=== PATIENT | male | born 1995 | race Caucasian/White ===

== ENCOUNTER 2023-11-01 20:24 | Emergency (ER) | payer MEDICAID, SELFPAY ==
--- NOTE | ~2023-11-01 | XR_ITS ---
EXAMINATION: XR HAND/WRIST, LEFT CLINICAL INFORMATION: Laceration COMPARISON: None TECHNIQUE: PA, lateral, and oblique views of the left hand and wrist. FINDINGS: Bone alignment is normal. No fracture or dislocation. Normal joint spaces. Normal soft tissues. No abnormal air collection or soft tissue foreign body. XR/XR hand wrist LT IMPRESSION: Unremarkable exam.
[2023-11-01 20:49] VITALS: BP 142/94; PULSE 81; RESP 18; TEMP 36.6; O2SAT 96; BMI 29.6
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
== END 2023-11-01 23:05 | disposition left against medical advice (07) ==
LOC: HO.ED 22:53
PROVIDERS: Emergency Provider Emergency Medicine
DX: S61.412A Laceration without foreign body of left hand, initial encounter (principal); X58.XXXA Exposure to other specified factors, initial encounter; Y93.9 Activity, unspecified; Y92.9 Unspecified place or not applicable; Y99.9 Unspecified external cause status
CPT/HCPCS: 73110; 73130; 99281; 99283

== ENCOUNTER 2023-11-03 12:02 | Emergency (ER) | payer MEDICAID, SELFPAY ==
[2023-11-03 12:04] VITALS: BP 129/79; PULSE 90; RESP 18; TEMP 36.6; O2SAT 96; BMI 29.2
--- NOTE | 2023-11-03 12:13 | ED_ITS ---
HPI - General Adult General Chief complaint: Wound/Laceration Stated complaint: hand laceration Time Seen by Provider: 11/03/23 13:46 Source: patient Mode of arrival: ambulatory Limitations: no limitations History of Present Illness ED Provider: Rea GALLOWAY narrative: Patient is a 28-year-old male who presents emergency department for evaluation of accidental laceration to the palmar aspect of the base of his left palm 2.5 days ago. He was cutting something with a knife when it slipped and accidentally cut his hand. He states that he initially came to the emergency department but left before being treated reporting that he was too anxious to remain waiting room. He states today he realized that the edges were becoming slightly red and he wanted to have it evaluated. Was trying to keep the bleeding controlled with gauze and he noticed that gauze was stuck in the wound bed as well. He denies fevers chills, inability to move the digits or wrist. Related Data Previous Rx's ?Medication ?Instructions ?Recorded cephalexin 500 mg capsule 500 mg PO QID #28 caps 11/03/23 Allergies Allergy/AdvReac Type Severity Reaction Status Date / Time No Known Allergies Allergy Verified 11/03/23 12:08 Review of Systems Review of Systems: Yes all other systems are reviewed and are negative PMFSH Social History Social History Advance Directives: No Advance Directives Information Provided: No Do you have a plan to hurt others: No Plan Physical Exam ED Vital Signs: Vital Signs - 24 hr 11/03/23 12:04 Temperature 97.9 F Pulse Rate 90 Respiratory Rate 18 Blood Pressure 129/79 Pulse Oximetry 96 Oxygen Delivery Method Room Air BMI result Body Mass Index 29.2 Appearance: Alert.?Oriented to person, place and time. No acute distress .?Normal affect.? CVS: Heart sounds normal. Normal heart rate and rhythm.? Pulses normal.?? Respiratory: No respiratory distress.? Lung sounds clear to auscultation bilaterally?? Skin: Skin warm and dry.? Normal skin color.? Extremities: 5 cm linear laceration to the base of the left palm, edges well approximated, mild surrounding erythema, appearing to have particles gauze within the wound bed. 2+ radial pulse bilaterally. Neuro: Moves all extremities spontaneously. Sensation intact bilaterally. Ambulates with normal steady gait. Course Course Course Narrative: RME performed by Patito Falcon, PA-C. Patient is a 28 year old assigned male at presenting to the emergency department with a left hand laceration. Patient states 2 days ago, he was cutting something and the knife slipped and cut his hand. Detailed physical exam and review of systems are deferred to the shear grinder operator. Patient placed back in the waiting room pending room availability. Medical Decision Making Medical Decision Making MDM Narrative: patient is a 28-year-old man right-hand dominant presenting to emergency department for evaluation of accidental laceration to the palmar aspect of his left hand as per HPI. laceration was irrigated extensively with normal saline and Betadine, given the laceration has been present for greater than 48 hours do not recommend primary closure, rather Steri-Strips were used to approximate the edges better at this time, bleeding is well controlled. There is mild erythema around the edges of the laceration, will be started on a course of cephalexin and discussed evaluation drank for signs of infection. Tdap was updated today. All questions answered. Stable for discharge Differential Diagnosis Differential Diagnoses: The differential diagnosis associated with the presentation includes ( See narrative above) Prescription Management I considered prescription management with: Antibiotic Discharge Plan Discharge Clinical Impression: Laceration of hand Qualifiers: Encounter type: initial encounter Foreign body presence: with foreign body Laterality: left Qualified Code(s): S61.422A - Laceration with foreign body of left hand, initial encounter Patient Disposition: Home, Self-Care Instructions: Laceration (ED), Steristrips (ED) Additional Instructions: You can take ibuprofen 200 mg, 3 tablets (600mg) every 6-8 hours as needed for pain, in addition to Tylenol 500 mg, 2 tablets (1,000mg) every 4-6 hours as needed for pain, but not to exceed 3 doses daily (3,000mg).? Keep the area clean and dry. complete the entire course of antibiotics as prescribed. Prescriptions: New cephalexin 500 mg capsule 500 mg PO QID Qty: 28 0RF Referrals: Isidra Sutton MD [Primary Care Provider] - Print Language: Nigerien
[2023-11-03 14:36] VITALS: BP 141/72; PULSE 66; RESP 18; TEMP 36.8; O2SAT 97
[2023-11-03] MEDS: Diphth,Pertus(ACell),Tet Adult 0.5 ML SYRINGE IM (15:00)
[2023-11-03 15:02] VITALS: BP 141/72; PULSE 66; RESP 18; TEMP 36.8; O2SAT 97
[2023-11-03 15:03] VITALS: BP 141/72; PULSE 66; RESP 16; TEMP 36.8; O2SAT 97
== END 2023-11-03 15:06 | disposition home or self-care (01) ==
PROVIDERS: Emergency Provider Emergency Medicine; PCP Family Medicine
DX: S61.422A Laceration with foreign body of left hand, initial encounter (principal); M79.642 Pain in left hand; W26.0XXA Contact with knife, initial encounter; Y93.9 Activity, unspecified; Y92.009 Unspecified place in unspecified non-institutional (private) residence as the place of occurrence of the external cause; Y99.8 Other external cause status; Z23 Encounter for immunization
CPT/HCPCS: 90471; 90715; 99283; 99284

== ENCOUNTER 2024-04-07 20:01 | Inpatient (IN) | payer MEDICAID, OTHER, SELFPAY ==
--- NOTE | ~2024-04-07 | XR_ITS ---
EXAMINATION: XR HAND, RIGHT CLINICAL INFORMATION: pain, injury COMPARISON: None available. TECHNIQUE: PA, lateral, and oblique views of the right hand. FINDINGS: The bones and soft tissues are normal. No fracture. Alignment is anatomic. Joint spaces are maintained. No erosions or soft tissue calcifications. XR/XR hand RT min 3V IMPRESSION: No fracture or dislocation. Electronically signed by: Matthew López DO 04/07/2024 10:36 PM [facility]
[2024-04-07 20:07] VITALS: BP 136/80; PULSE 75; RESP 20; TEMP 37.1; O2SAT 99; BMI 27.1
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
--- NOTE | 2024-04-07 20:31 | PC.NURSE ---
Xray obtained at bedside, awaiting ED provider evaluation. Patient registration at bedside.
--- NOTE | 2024-04-07 21:41 | PC.NURSE ---
CARE team at bedside speaking with patient. Pt is pleasant/calm/cooperative at this time. Reported to this RN & FLY Lawrence auditory hallucinations I hear robot voices or Ruthy Salazargretel's voice. They're not telling me to do anything, they're just kind of there and annoying. Denies SI/HI. Denies visual hallucinations. Reports that this has been ongoing over the past 2 years. States I don't want to talk to psych or anything. I think that it's the environment I'm in or something. I'm gonna go to my Dad's house once I get my hand fixed . States that he's not taking any medications at this time, but is open to trying medications if they're gonna work .
[2024-04-07 22:25] LABS: MANUAL DIFF FLAG NO
[2024-04-07 22:28] LABS: Basophils Absolute Auto 0.1 X10*3/uL (0.0-0.2); Basophils Percent Auto 0.5 % (0-2); Eosinophils Absolute Auto 0.1 X10*3/uL (0.0-0.4); Hemoglobin 16.4 g/dl (14.0-18.0); Imm Gran Abs Auto 0.04 X10*3/uL (0.00-0.03); Imm Gran Pct Auto 0.4 % (0.0-0.4); Lymphocytes Absolute Auto 1.6 X10*3/uL (1.2-4.9); Lymphocytes Percent Auto 14.5 % (20-40); Mean Corpuscular HGB Conc 34.9 g/dl (31.0-36.0); Mean Corpuscular Hemoglobin 31.2 pg (27.0-33.0); Mean Corpuscular Volume 89.5 fL (80.0-98.0); Mean Platelet Volume 8.6 fL (9.4-12.4); Monocytes Absolute Auto 0.9 X10*3/uL (0.1-1.2); Monocytes Percent Auto 8.1 % (2-11); Neutrophils Absolute Auto 8.3 x10*3/uL (2.0-8.3); Neutrophils Percent Auto 75.5 % (45-73); Platelet Count 288 X10*3/uL (160-400); Red Blood Count 5.25 X10*6/uL (4.60-5.80)
[2024-04-07 22:48] LABS: Alanine Aminotransferase 20 U/L (0-40); Albumin Level 4.4 g/dL (3.5-5.0); Alkaline Phosphatase 75 U/L (39-117); Amphetamine Screen Urine Not Detected (Not Detect); Anion Gap 12 (12-20); Aspartate Amino Transferase 21 U/L (5-37); Barbiturates, Urine Not Detected (Not Detect); Benzodiazepines Screen Urine Not Detected (Not Detect); Bilirubin Direct 0.1 mg/dL (0.0-0.5); Bilirubin Total 0.4 mg/dL (0.0-1.0); Blood Urea Nitrogen 14 mg/dL (9-16); Buprenorphine Scr Not Detected (Not Detect); Calcium 9.3 mg/dL (8.4-10.2); Cannabinoid Screen Urine POSITIVE (Not Detect); Carbon Dioxide 25 mmol/L (22-29); Chloride 110 mmol/L (96-108); Cocaine Screen Urine Not Detected (Not Detect); Estimated Glomerular Filt Rate > 60; Ethanol < 10 mg/dL; Fentanyl, urine POSITIVE (Not Detect); Glucose Random 85 mg/dL (60-115); Methadone Screen, Urine Not Detected (Not Detect); Opiate Screen Urine Not Detected (Not Detect); Oxycodone Screen Urine Not Detected (Not Detect); Phencyclidine Screen Urine Not Detected (Not Detect); Potassium 4.1 mmol/L (3.3-5.1); Sodium 143 mmol/L (135-145); Total Protein 7.3 g/dL (6.5-8.0)
[2024-04-07] MEDS: Nicotine Polacrilex 2 MG GUM BUCCAL (23:37)
[2024-04-08] MEDS: cephALEXin 500 MG CAPSULE PO (05:12)
[2024-04-08 06:22] LABS: Appearance Urine Clear; Color Urine Yellow; Glucose Urine UA Negative (Negative); Leukocyte Esterase Urine Negative (Negative); Nitrite Urine Negative (Negative); PH 6.5 (5.0-9.0); Specific Gravity - Urine 1.025 (1.005-1.025); Urine Blood Negative (Negative); Urine Ketones Negative (Negative); Urine Protein Negative (Neg-Trace)
[2024-04-08 06:30] VITALS: BP 128/83; PULSE 88; RESP 14; O2SAT 97
--- NOTE | 2024-04-08 07:59 | PC.NURSE ---
Pt refused EKG- Pt states he is going home tomorrow
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
--- NOTE | 2024-04-08 10:53 | PC.NURSE ---
Father @bedside- Care team at bedside explaining the process to father and patient regarding IPLOC
--- NOTE | 2024-04-08 13:30 | PC.NURSE ---
Pt taking a shower
--- NOTE | 2024-04-08 14:27 | PC.NURSE ---
Replace steri strips to L index finger- splint provided for immobilization and help healing
--- NOTE | 2024-04-08 14:43 | MHC.CARE ---
MARIBELL for HP completed. Initial Boarding Form Your submission was successful! ?Your Confirmation Submission ID is: #[id number]
[2024-04-08] MEDS: Nicotine Polacrilex 2 MG GUM BUCCAL (15:03)
[2024-04-08] MEDS: LORazepam 1 MG TABLET 2 MG PO (17:18)
[2024-04-08 20:45] VITALS: BP 124/83; PULSE 102; RESP 18; TEMP 37.6; O2SAT 98
[2024-04-08 21:06] VITALS: BMI 29.5
[2024-04-08] MEDS: Nicotine Polacrilex 2 MG GUM 4 MG BUCCAL (21:17)
[2024-04-08 21:49] VITALS: BP 144/90
[2024-04-08] MEDS: cloNIDine HCL 0.1 MG TABLET PO (21:49)
[2024-04-08] MEDS: traZODone HCL 50 MG TABLET PO (23:12)
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
[2024-04-09 08:00] VITALS: BP 140/75; PULSE 78; TEMP 36.8; O2SAT 98
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
[2024-04-09] MEDS: Nicotine Polacrilex 2 MG GUM 4 MG BUCCAL ×5 (09:07→21:40)
[2024-04-09] MEDS: Acetaminophen 325 MG TABLET 650 MG PO (19:51)
[2024-04-09 20:00] VITALS: BP 145/78; PULSE 76; RESP 16; TEMP 36.9; O2SAT 98
[2024-04-10 07:38] VITALS: BP 142/71; PULSE 92; RESP 16; TEMP 37.2; O2SAT 99
[2024-04-10 08:38] LABS: Estimated Average Glucose 103 mg/dL; Hemoglobin A1C 144.2661 umol/L; Hemoglobin A1c % 5.2 % (<6.0); Total Hemoglobin (HGBA1C) 4361.7045 umol/L
[2024-04-10 08:53] LABS: Cholesterol 179 mg/dL (<200); HDL Cholesterol 35 mg/dL (>40); LDL Cholesterol Calculated 124 mg/dL (<100); Triglycerides 103 mg/dL (<150)
[2024-04-10] MEDS: Nicotine Polacrilex 2 MG GUM 4 MG BUCCAL ×4 (09:02→20:52)
[2024-04-10 09:08] LABS: TSH reflex Free T4 1.45 uIU/mL (0.32-4.0)
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
[2024-04-10 20:00] VITALS: BP 133/86; PULSE 77; RESP 16; TEMP 37.6; O2SAT 98
[2024-04-11 07:15] VITALS: BP 134/86; PULSE 85; RESP 14; TEMP 37.6; O2SAT 100
[2024-04-11] MEDS: Nicotine Polacrilex 2 MG GUM 4 MG BUCCAL (08:54)
== END 2024-04-11 10:02 | disposition home or self-care (01) | DRG 751 ==
LOC: HO.ED 04-08 01:18 → HO.PADLT16 04-08 19:28
PROVIDERS: Physician Assistant Medical; Admitting Provider Psychiatry & Neurology Psychiatry; Emergency Provider Internal Medicine; PCP Family Medicine; Visit Provider Psychiatry & Neurology Psychiatry
DX: F29 Unspecified psychosis not due to a substance or known physiological condition (principal); F17.210 Nicotine dependence, cigarettes, uncomplicated; S61.411A Laceration without foreign body of right hand, initial encounter; X58.XXXA Exposure to other specified factors, initial encounter; Z71.6 Tobacco abuse counseling
CPT/HCPCS: 36415; 73130; 80048; 80061; 80076; 80307; 81003; 83036; 84443; 85025; 99285; S9485

== ENCOUNTER → 2024-04-08 19:18 | Outpatient (BNV) | payer OTHER, SELFPAY | PROVIDERS: Admitting Provider Psychiatry & Neurology Psychiatry; Emergency Provider Internal Medicine; PCP Family Medicine; Visit Provider Psychiatry & Neurology Psychiatry | DX: F29 Unspecified psychosis not due to a substance or known physiological condition (principal); F12.929 Cannabis use, unspecified with intoxication, unspecified | CPT/HCPCS: 99233 ==

== ENCOUNTER 2024-08-12 09:25 | Inpatient (IN) | payer MEDICAID, OTHER, SELFPAY ==
--- NOTE | ~2024-08-12 | XR_ITS ---
CLINICAL HISTORY: EYEMRI- r o foreign body Abdominal radiographs Comparison: None Findings: No radiopaque foreign body. There is a nonobstructive bowel gas pattern. Stool quantity is mildly increased which may indicate constipation. No pneumoperitoneum or pneumatosis. No acute osseous or soft tissue abnormality. Impression: No radiopaque foreign body. This document has been electronically signed by: Soraya Christiansen MD on 09/23/2024 18:26:14
--- NOTE | ~2024-08-12 | XR_ITS ---
CLINICAL HISTORY: EYEMRI-pre mri clearance, r o foreign body Chest Radiographs, 2 views Comparison: None Findings: No radiopaque foreign body. No cardiomegaly. Normal mediastinal contours. No pneumothorax. No opacity. No pleural effusion. Normal upper abdomen. No acute fracture. Impression: No acute findings. No radiopaque foreign body. This document has been electronically signed by: Soraya Christiansen MD on 09/23/2024 18:18:54
--- NOTE | ~2024-08-12 | CT_ITS ---
EXAMINATION: CT HEAD WITHOUT CONTRAST CLINICAL INFORMATION: psychosis, hx ?TBI COMPARISON: None available. TECHNIQUE: Contiguous axial imaging was performed from the skull base to vertex without intravenous administration of contrast. This CT examination was performed using dose optimization techniques as appropriate, variously including the following: *Automated exposure control *Adjustment of mA and/or kV according to patient size (this includes techniques or standardized protocols for targeted exams where dose is matched to indication/reason for exam; i.e. extremities or head) *Use of iterative reconstruction technique DLP: 779 mGy-cm FINDINGS: No acute intracranial hemorrhage, mass effect, midline shift, hydrocephalus or herniation. Grade 1 matter differentiation is normal. Posterior cranial fossa contents demonstrated no acute intracranial hemorrhage or mass effect. Sellar/suprasellar region demonstrated no gross masses. Craniocervical junction is intact. No masses or hematoma or fluid collections in the intraconal or extraconal compartments of the orbits. No air-fluid levels in the paranasal sinuses. Tympanic cavities and mastoid cells are aerated. CT/CT head/brain wo IV con IMPRESSION: No acute brain abnormality by CT. Electronically signed by: Tito Costa MD 08/27/2024 04:05 PM EDT
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
[2024-08-12 09:37] VITALS: BP 176/107; PULSE 85; RESP 16; TEMP 36.4; O2SAT 98; BMI 27.1
--- NOTE | 2024-08-12 09:49 | ED.GENADULT ---
HPI - General Adult General Chief complaint: Psychiatric Symptoms Stated complaint: crisis Time Seen by Provider: 08/12/24 09:48 Source: patient and family (patient's father) Mode of arrival: ambulatory Limitations: no limitations History of Present Illness ED Provider: Patito Falcon PA-C HPI narrative: Patient is a 29 year old assigned male at with a history of psychosis and cannabis use presenting to the emergency department today with disorganized thinking and poor sleep. Patient states that he hasn't been sleeping well and he feels off. Patient's father states that the patient has been acting strangely, disorganized, and not sleeping. Patient denies any dizziness, lightheadedness, abdominal pain, nausea, vomiting, fever, chills, blurry vision, double vision, loss of vision, chest pain, difficulty breathing, shortness of breath, back pain, night sweats, pain with urination, increased urinary frequency, increased urinary urgency, blood in his urine or stool, syncope or a near syncopal episode, recent trauma or falls, bowel incontinence, bladder incontinence, or any other complaints at this time. Relieving factors: none Exacerbating factors: none Associated symptoms: denies other symptoms Treatments prior to arrival: none Related Data Home Medications ?Medication ?Instructions ?Recorded ?Confirmed No Known Home Meds 08/12/24 08/12/24 Allergies Allergy/AdvReac Type Severity Reaction Status Date / Time No Known Allergies Allergy Verified 08/12/24 09:40 Review of Systems Constitutional: Constitutional: Reports no additional constitutional complaints, Denies chills, Denies fever(s) and Denies night sweats Eyes: Eyes: Reports no additional eye complaints, Denies blurry vision, Denies change in vision, Denies diplopia, Denies eye discharge, Denies loss of vision and Denies eye pain ENT: Denies dizziness Cardiovascular: Cardiovascular: Reports no additional cardiovascular complaints, Denies chest pain, Denies lightheadedness, Denies Loss of Consciousness and Denies dyspnea Respiratory: Respiratory: Reports no additional respiratory complaints and Denies dyspnea Gastrointestinal: Gastrointestinal: Reports no additional gastrointestinal complaints, Denies abdominal pain, Denies melena, Denies hematochezia, Denies change in bowel habits and Denies change in stool character Genitourinary: Genitourinary: Reports no additional male genitourinary complaints, Denies hematuria, Denies oliguria, Denies difficulty urinating, Denies dysuria, Denies urinary frequency, Denies urinary hesitancy, Denies urinary incontinence and Denies urinary urgency Musculoskeletal: Musculoskeletal: Reports no additional musculoskeletal complaints, Denies numbness and Denies tingling Neurologic: Reports behavioral changes, Denies dizziness, Denies loss of vision, Denies numbness and Denies tingling Psychiatric: Psychiatric: Reports abnormal sleep pattern, Reports behavioral changes, Reports difficulty concentrating, Denies homicidal ideation and Denies suicidal ideation Endocrine: Endocrine: Reports no additional endocrine complaints Hematologic/Lymphatic: Hematologic/Lymphatic: Reports no additional hematologic/lymphatic complaints Allergic/Immunologic: Allergic/Immunologic: Reports no additional allergic/immunologic complaints PMFSH Past Medical History Attestation statement: The following information was validated with the patient. (all information validated with the patient's father) Source: old records reviewed, obtained from family (patient's father provided additional history and confirmed the history provided by the patient.) and nursing notes reviewed Medical History Paranoia (psychosis) Delusions Social History Social History Household Members: None Housing: House Do you presently have visiting nurse or other home services: No Alcohol intake: former Patient Tobacco Use Status: Refuse Tobacco use screen Tobacco use type: Cigarette Cigarette Packs Per Day: 0.5 Cigarettes Per Day: 10.0 Years Smoked: 20 Smoked in Last 30 Days: Yes e-Cigarette/Vaping Use: Currently Using Second Hand Smoke Exposure: Yes Use of substances other than those prescribed or required for medical reasons: Yes Substance Use Type: Marijuana Advance Directives: No Advance Directives Information Provided: No Do you have a plan to hurt others: No Plan Nutrition Risks: No Nutritional Risk service: No Sexual orientation: Unable to collect Physical Exam ED Vital Signs: Vital Signs - 24 hr 08/12/24 15:53 08/13/24 01:31 Temperature 98.9 F 97.9 F Pulse Rate 86 116 H Respiratory Rate 13 17 Blood Pressure 173/93 H 158/83 H Pulse Oximetry 94 95 Oxygen Delivery Method Room Air Room Air BMI result Body Mass Index 27.1 Const General: cooperative, no acute distress, alert and awake Nutritional Appearance: well nourished Orientation/consciousness: patient oriented x3 Limitations: no limitations [facility] Head: Yes normal to inspection and Yes atraumatic Ears: hearing grossly normal bilaterally and external ears normal General nose exam: Normal external nose present, no nasal discharge noted and no epistaxis Face and sinus: Yes normal facial exam, No abrasion and No laceration Mouth: Normal oral and palatal mucosa present, no drooling and no muffled voice Eyes General: appearance normal, both eyes and all related structures Periorbital: periorbital findings normal Eyelids: Yes eyelids normal Conjunctivae: conjunctivae normal Pupils: Equal, round and reactive pupils present EOM: EOMs intact bilaterally Neck Neck: Yes normal visual inspection, Yes full ROM and Yes no lymphadenopathy Chest Chest palpation & inspection: normal inspection of the chest Resp Effort & Inspection: normal respiratory effort and able to speak in complete sentences GI Inspection: Yes normal to inspection Neuro General: patient oriented x3, moves all extremities and CN's II-XI intact bilaterally Cranial nerves: Yes Equal, round and reactive pupils present Cognition (Neuro): normal cognition Extrem General: Yes normal to inspection, Yes full ROM and Yes capillary refill normal Psych Appearance: grossly normal Affect: Indifferent affect present Attitude: Avoids eye contact (attititude/behavior) Thought process: Illogical thought process present Course Course Course Narrative: Time: 08:53 Date: 08/13/24 Provider: Etta Ledbetter DO Patient in physician observation for psychiatric evaluation.? No acute events reported overnight. No current complaints. VS stable.? Patient is in bed search status. Will continue to monitor. Reevaluation(s) Reevaluation #1: Time: 13:29 Date: 08/13/24 Provider: Etta Ledbetter DO Physician observation ended at 129pm.Patient to be admitted as inpatient to psychiatry. Medications Administered Discontinued Medications Generic Name Dose Route Start Last Admin Trade Name Freq PRN Reason Stop Dose Admin Lorazepam 2 mg 08/13/24 11:54 08/13/24 12:00 Lorazepam 1 Mg Tablet PO 2 mg Q3H PRN Administration anxiety/restlessness Medical Decision Making Medical Decision Making [facility] Narrative: Patient is a 29 year old assigned male at with a history of psychosis and cannabis use presenting to the emergency department today with disorganized thinking and poor sleep. Patient's physical exam was showed a disorganized individual. Patient's blood work was unremarkable. Patient's urine showed no acute process. I explained my physical exam findings as well as all test results to the patient. I answered all questions asked by the patient. Patient's disposition is pending CARE evaluation. Patient placed in observation pending CARE eval. Differential Diagnosis Differential Diagnoses: The differential diagnosis associated with the presentation includes Psychosis Schizophrenia Disorganized thinking Admission/Observation Consideration of admission/observation: Escalation of care including admission/observation considered Patient's disposition will be determined after CARE team evaluation. Lab Data [facility] Lab Attestation statement: I reviewed the patient's lab results. My interpretation of these results are in the [facility] Rationale portion of this note. 08/12/24 10:10 08/12/24 10:10 Labs: Lab Results 08/12/24 08/12/24 Range/Units 10:10 17:31 WBC 8.2 (4.8-10.8) X10*3/uL RBC 5.66 (4.60-5.80) X10*6/uL Hgb 17.8 (14.0-18.0) g/dl Hct 48.5 (42.0-52.0) % MCV 85.7 (80.0-98.0) fL MCH 31.4 (27.0-33.0) pg MCHC 36.7 H (31.0-36.0) g/dl RDW 12.1 (11.0-16.0) % Plt Count 312 (160-400) X10*3/uL MPV 9.0 L (9.4-12.4) fL Immature Gran % (Auto) 0.2 (0.0-0.4) % Neut % (Auto) 67.5 (45-73) % Lymph % (Auto) 20.9 (20-40) % [place] % (Auto) 10.4 (2-11) % Eos % (Auto) 0.4 (0-4) % Baso % (Auto) 0.6 (0-2) % Lymph # (Auto) 1.7 (1.2-4.9) X10*3/uL [place] # (Auto) 0.9 (0.1-1.2) X10*3/uL Eos # (Auto) 0.0 (0.0-0.4) X10*3/uL Baso # (Auto) 0.1 (0.0-0.2) X10*3/uL Abs Immat Gran (auto) 0.02 (0.00-0.03) X10*3/uL Absolute Neuts (auto) 5.6 (2.0-8.3) x10*3/uL Absolute Nucleated RBC 0.000 (0.0-0.012) X10*3/uL Nucleated RBC % (auto) 0.0 (0.0-0.2) /100WBC Sodium 139 (135-145) mmol/L Potassium 3.8 (3.3-5.1) mmol/L Chloride 107 (96-108) mmol/L Carbon Dioxide 21 L (22-29) mmol/L Anion Gap 15 (12-20) BUN 7 L (9-16) mg/dL Creatinine 0.83 (0.5-1.4) mg/dL Estim Creat Clear Calc 141.5 Estimated GFR > 60 Random Glucose 112 (60-115) mg/dL Calcium 9.6 (8.4-10.2) mg/dL Total Bilirubin 0.8 (0.0-1.0) mg/dL AST 22 (5-37) U/L ALT 12 (0-40) U/L Alkaline Phosphatase 77 (39-117) U/L Total Protein 7.5 (6.5-8.0) g/dL Albumin 4.7 (3.5-5.0) g/dL Urine Color Dark Yellow Urine Appearance Clear Urine pH 6.0 (5.0-9.0) Ur Specific [place] 1.025 (1.005-1.025) Urine Protein Trace (Neg-Trace) mg/dL Urine Glucose (UA) Negative (Negative) mg/dL Urine Ketones 80 (Negative) mg/dL Urine Blood Negative (Negative) Urine Nitrite Negative (Negative) Ur Leukocyte Esterase Negative (Negative) Salicylates < 5.0 L (15-30) mg/dL Urine Opiates Screen Not Detected (Not Detect) Ur Buprenorphine Scrn Not Detected (Not Detect) ng/mL Ur Oxycodone Screen Not Detected (Not Detect) ng/mL Urine Methadone Screen Not Detected (Not Detect) ng/mL Urine Fentanyl Screen Not Detected (Not Detect) Acetaminophen < 3 (<30) mcg/mL Ur Barbiturates Screen Not Detected (Not Detect) Ur Phencyclidine Scrn Not Detected (Not Detect) Ur Amphetamines Screen Not Detected (Not Detect) U Benzodiazepines Scrn Not Detected (Not Detect) Urine Cocaine Screen Not Detected (Not Detect) U Marijuana (THC) Screen POSITIVE H (Not Detect) Influenza Type A (PCR) NEGATIVE (Negative) Influenza Type B (PCR) NEGATIVE (Negative) RSV RNA Qual (PCR) NEGATIVE (Negative) SARS-CoV-2 RNA (RT-PCR) NEGATIVE (Negative) Independent Historian Clinical information obtained from an independent historian. History obtained from or confirmed by: Parent (patient's father provided additional history and confirmed the history provided by the patient. ) Discharge Plan Discharge Clinical Impression: Psychosis, Insomnia Patient Disposition: Admitted As Inpatient Interventions: [place]-Suicide Risk Severity Scale Last Done: 08/13/24 01:21 Admission Worksheet (ED) Last Done: 08/13/24 13:27
[2024-08-12 10:15] LABS: MANUAL DIFF FLAG NO
[2024-08-12 10:18] LABS: Basophils Absolute Auto 0.1 X10*3/uL (0.0-0.2); Basophils Percent Auto 0.6 % (0-2); Eosinophils Percent Auto 0.4 % (0-4); Hematocrit 48.5 % (42.0-52.0); Hemoglobin 17.8 g/dl (14.0-18.0); Imm Gran Abs Auto 0.02 X10*3/uL (0.00-0.03); Imm Gran Pct Auto 0.2 % (0.0-0.4); Lymphocytes Absolute Auto 1.7 X10*3/uL (1.2-4.9); Lymphocytes Percent Auto 20.9 % (20-40); Mean Corpuscular HGB Conc 36.7 g/dl (31.0-36.0); Mean Corpuscular Hemoglobin 31.4 pg (27.0-33.0); Mean Corpuscular Volume 85.7 fL (80.0-98.0); Monocytes Absolute Auto 0.9 X10*3/uL (0.1-1.2); Monocytes Percent Auto 10.4 % (2-11); Neutrophils Absolute Auto 5.6 x10*3/uL (2.0-8.3); Neutrophils Percent Auto 67.5 % (45-73); Platelet Count 312 X10*3/uL (160-400); Red Blood Count 5.66 X10*6/uL (4.60-5.80); Red Cell Distribution Width 12.1 % (11.0-16.0); White Blood Count 8.2 X10*3/uL (4.8-10.8)
[2024-08-12 10:44] LABS: Acetaminophen LAB < 3 mcg/mL (<30); Salicylate < 5.0 mg/dL (15-30)
[2024-08-12 10:45] LABS: Alanine Aminotransferase 12 U/L (0-40); Albumin Level 4.7 g/dL (3.5-5.0); Alkaline Phosphatase 77 U/L (39-117); Anion Gap 15 (12-20); Aspartate Amino Transferase 22 U/L (5-37); Bilirubin Total 0.8 mg/dL (0.0-1.0); Blood Urea Nitrogen 7 mg/dL (9-16); Calcium 9.6 mg/dL (8.4-10.2); Carbon Dioxide 21 mmol/L (22-29); Chloride 107 mmol/L (96-108); Creatinine Clr Calc Pharmacy 141.5; Estimated Glomerular Filt Rate > 60; Glucose Random 112 mg/dL (60-115); Potassium 3.8 mmol/L (3.3-5.1); Sodium 139 mmol/L (135-145); Total Protein 7.5 g/dL (6.5-8.0)
[2024-08-12 10:55] LABS: Influenza A PCR NEGATIVE (Negative); Influenza B PCR NEGATIVE (Negative); Resp Syncy Virus RNA Qual PCR NEGATIVE (Negative); SARS COV2 PCR INHOUSE NEGATIVE (Negative)
--- OUTSIDE RECORDS SUMMARY | 2024-08-12 12:00 | XMS_ITS | Clinical Summary ---
Author Organization [employer] Address [address] [facility] [address] [facility] [address] [place] [address] Care Team Providers Care Legal Executive Name Role Phone Unavailable Primary Care Provider Unavailabl e Encounters Date Type Department Care Team Description 07/19/2024 Population Health Risk Score [facility] (C3) Department [address] [id number] Provider, Population Health Generic from Last 3 Months Social History Tobacco Use Types Packs/Day Years Used Date Smoking Tobacco: Never Assessed Sex and Gender Information Value Date Recorded Sex Assigned at Not on file Legal Sex Male 1:52 PM EST Gender Identity Not on file Sexual Orientation Not on file Plan of Treatment Health Maintenance Due Date Last Done Comments Depression Screening 1993 HIV Screening 1993 SDOH Screening 1993 Alcohol/Substance Use Screening 2005 Tobacco Screening 2005 Family Planning (PISQ) 01/31/2008 Hepatitis C Screening 2011 DTaP/Tdap/Td Vaccines (1 - Tdap) 01/31/2012 Hepatitis B Vaccines (1 of 3 - 19+ 3-dose series) 01/31/2012 COVID-19 Vaccine ( - 2023-2 5 season) 2024 Influenza Vaccine (#1) 2024 Zoster Vaccines (1 of 2) 2043 RSV Patients and Pa tients Aged 60 years or older (1 - 1-dose 75+ series) 01/31/2068 HIB Vaccines Aged Out No longer eligi ble based on patient's age to complete this topic HPV Vaccines Aged Out No longer eligi ble based on patient's age to complete this topic Hepatitis A Vaccines Aged Out No long er eligible based on patient's age to complete this topic IPV Vaccines Aged Out No longer eligi ble based on patient's age to complete this topic Meningococcal Vaccine Aged Out No shine mami eligible based on patient's age to complete this topic Pneumococcal Vaccine: Pediat rics (0 to 5 Years) and At-Risk Patients (6 to 49) Years) Aged Out No longer eligible b ased on patient's age to complete this topic RSV under 20 months Aged Out No longe r eligible based on patient's age to complete this topic Rotavirus Vaccines Aged Out No longer eligible based on patient's age to complete this topic
[2024-08-12 15:53] VITALS: BP 173/93; PULSE 86; RESP 13; TEMP 37.2; O2SAT 94
--- NOTE | 2024-08-12 16:01 | MHC.CARE ---
Patient evaluated by the CARE Team, disposition inpatient psychiatric treatment. ED provider FLY Ahumada updated.
[2024-08-12 17:40] LABS: Appearance Urine Clear; Color Urine Dark Yellow; Glucose Urine UA Negative (Negative); Leukocyte Esterase Urine Negative (Negative); Nitrite Urine Negative (Negative); Specific Gravity - Urine 1.025 (1.005-1.025); Urine Blood Negative (Negative); Urine Ketones 80 mg/dL (Negative); Urine Protein Trace mg/dL (Neg-Trace)
[2024-08-12 17:47] LABS: Amphetamine Screen Urine Not Detected (Not Detect); Barbiturates, Urine Not Detected (Not Detect); Benzodiazepines Screen Urine Not Detected (Not Detect); Buprenorphine Scr Not Detected (Not Detect); Cannabinoid Screen Urine POSITIVE (Not Detect); Cocaine Screen Urine Not Detected (Not Detect); Fentanyl, urine Not Detected (Not Detect); Methadone Screen, Urine Not Detected (Not Detect); Opiate Screen Urine Not Detected (Not Detect); Oxycodone Screen Urine Not Detected (Not Detect); Phencyclidine Screen Urine Not Detected (Not Detect)
--- NOTE | 2024-08-12 21:27 | PHA.MEDREC ---
Addendum entered by Carmen Bassett RPh 08/12/24 21:31: Reviewed by pharmacist Original Note: Pharmacy Consult ? Medication Reconciliation Pharmacy has completed the medication reconciliation. Spoke with patient and he confirmed he is not taking and medications at this time.
[2024-08-13 01:31] VITALS: BP 158/83; PULSE 116; RESP 17; TEMP 36.6; O2SAT 95
--- NOTE | 2024-08-13 07:16 | PC.NURSE ---
Assumed care of patient at 0645, patient appears to be in no apparent distress this am, sleeping, respirations even and unlabored. Continue plan of care for IPLOC
[2024-08-13] MEDS: LORazepam 1 MG TABLET 2 MG PO (12:00)
--- NOTE | 2024-08-13 12:05 | PC.NURSE ---
Patient exit seeking, attempting to leave via pod doors every time someone enters them. ANN HernándezT redirecting patient each time. patient is verbally redirectable at this time. Patient verbalizes willingness to take PO medications. DO Anatoly aware. Order for PO Ativan placed, patient initially apprehensive about taking medications, but did take the PO Ativan after some discussion with this RN. patient remains seated in common area, 1:[address] for safety[address] pbx supervisor Sarah and Clinical Coordinator Richard blakely
--- NOTE | 2024-08-13 13:27 | PC.NURSE ---
After being medicated with 2mg Ativan, patient has become much more verbal, engaging in conversation with staff, asking questions about Aliens and extraterrestrial things
[2024-08-13 13:57] LABS: Alanine Aminotransferase 20 U/L (0-40); Albumin Level 4.9 g/dL (3.5-5.0); Alkaline Phosphatase 78 U/L (39-117); Anion Gap 13 (12-20); Aspartate Amino Transferase 26 U/L (5-37); Bilirubin Total 0.9 mg/dL (0.0-1.0); Blood Urea Nitrogen 12 mg/dL (9-16); Calcium 9.8 mg/dL (8.4-10.2); Carbon Dioxide 22 mmol/L (22-29); Chloride 106 mmol/L (96-108); Creatinine Clr Calc Pharmacy 124.9; Estimated Glomerular Filt Rate > 60; Glucose Random 133 mg/dL (60-115); Potassium 3.6 mmol/L (3.3-5.1); Sodium 137 mmol/L (135-145); Total Protein 7.7 g/dL (6.5-8.0)
--- NOTE | 2024-08-13 14:31 | PC.ADMIT ---
PT IS A 29 YEAR OLD, ESTONIAN SPEAKING, MALE ADMITTED TO [facility] FROM [facility] ED POD. PT PRESENTS DISORGANIZED, NONSENSICAL, AND DELUSIONAL. PT WAS DIFFICULT TO MOVE FROM THE ED TO THE PSYCH UNIT DUE TO DIFFICULTY COMPREHENDING NEEDING TO STAY IN THE WHEELCHAIR. PT NEEDS FREQUENT REDIRECTION FROM MAKING INAPPROPRIATE COMMENTS TOWARDS STAFF. PT PATIENTS FATHER HE RECENTLY HAS BECOME INCREASING MORE PSYCHOTIC, HYPERVERBAL, NOT ATTENDING TO ADLS, AND HAVING NOT SLEEPING. PT IS MALODOROUS. SKIN CHECK WAS COMPLETED AND IS UNREMARKABLE. PT DENIES SUBSTANCE USE, TOX SCREEN POSITIVE FOR MARIJUANA ONLY. PT WAS UNABLE TO SIGN LEGAL FORMS DUE TO MENTAL STATUS. HE IDENTIFIED HIS TRIGGERS ALIENS AND CREATURES OF ROBOTIC NATURE . WHEN ASKED WHAT BROUGHT HIM TO THE HOSPITAL, HE STATED MY DAD THINKS I DIDNT REALLY SEE AND TALK TO ALIENS SO NOW IM SOMEWHERE BETWEEN [facility] AND . PT REPORTED THAT HE HAS 29 TIMES OVER THE YEARS BUT DENIES ANY OTHER TRAUMA HX. PT DENIES BEING ON ANY MEDS CURRENTLY. NO SI/HI. DENIES AH OR VH BUT APPEARS TO BE PREOCCUPIED AND RESPONDING AT TIMES. APPETITE IS POOR. PT REPORTS SAFE ON UNIT. PLACED ON 15 MINUTE SAFETY CHECKS.
[2024-08-13] MEDS: LORazepam 1 MG TABLET PO ×2 (15:13→21:05)
[2024-08-13] MEDS: Nicotine Polacrilex 2 MG GUM 4 MG BUCCAL ×2 (19:22→21:06)
[2024-08-13 20:00] VITALS: BP 137/91; PULSE 107; TEMP 36.9; O2SAT 97
[2024-08-14 07:59] VITALS: BP 154/80; PULSE 121; RESP 18; TEMP 36.8; O2SAT 96
[2024-08-14] MEDS: LORazepam 1 MG TABLET PO (08:38)
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
[2024-08-14] MEDS: Nicotine Polacrilex 2 MG GUM 4 MG BUCCAL ×2 (17:39→20:48)
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
[2024-08-14 19:46] VITALS: BP 144/91; PULSE 115; RESP 18; TEMP 36.6; O2SAT 95
[2024-08-14] MEDS: OLANZapine 10 MG TABLET PO (20:45)
[2024-08-14] MEDS: Divalproex Sodium ER 500 MG TAB.ER.24H PO (20:45)
[2024-08-14] MEDS: traZODone HCL 50 MG TABLET PO (20:45)
[2024-08-14] MEDS: LORazepam 0.5 MG TABLET PO (20:45)
[2024-08-15 07:00] VITALS: BMI 27.3
[2024-08-15 08:00] VITALS: BP 155/92; PULSE 106; TEMP 36.9; O2SAT 97
[2024-08-15 08:43] LABS: Cholesterol 125 mg/dL (<200); HDL Cholesterol 34 mg/dL (>40); LDL Cholesterol Calculated 76 mg/dL (<100); Triglycerides 78 mg/dL (<150)
[2024-08-15 08:58] LABS: TSH reflex Free T4 1.04 uIU/mL (0.32-4.0)
[2024-08-15 09:32] LABS: Folate 11.8 ng/mL (> or = 4.0); Vitamin B12 476 pg/mL (200-900)
--- NOTE | 2024-08-15 09:50 | P.PNPSI_ITS ---
Subjective Subjective Date of Service: 08/15/24 Reason For Visit: catatonia Subjective Notes: Conditional Voluntary Healthcare Proxy: No Guardianship: No Medical Problems Affecting Mental Status: No Interim History: Refusing medications. Discussed with pt who agrees he will take meds to assist with anxiety, mgt of labile mood and help with clarity. Asked about stimulants which are declined at this time. Education provided regarding needing mood and thought clarity/stabilization before attention deficit can be assessed. Pt is wandering in the halls most of the day. He is near to the conference room doors- present each time tw leaves the room with a pt and does wander in. He appears dissociative at times, not too attentive to the environment, yet responds when addressed and states he is OK with eye contact and connection. Denies pain/discomfort. Appears lost in his thoughts at times. Medication Compliance: No Side effects from medications: No Attending Groups: No Review of Systems Acute medical concerns: No Review of Systems Review of Systems Yes Unobtainable due to mental status Mental Status Exam Mental Status Exam Patient Appearance: Fatigued Patient Orientation: Person, Place and Situation Level of Consciousness: Alert Patient Behavior: Guarded, Talkative, Suspicious and Good Eye Contact Mood Description: Withdrawn and Constricted Affect Description: Withdrawn and Constricted Patient Cognition Impaired: No Ability to Follow Directions: Good Speech Pattern: Impoverished and Spontaneous Speech Memory Description: Episodic Impaired Hallucinations: Auditory Delusions: Present Perceptual Disturbances: Depersonalization and Derealization Thought Process: Rumination Thought Content: positive for Circumstantial, positive for Perseveration and positive for Suicidal Ideation (denies) Depressive Symptoms: Increased Anxiety, Unhappiness, Low Self Esteem and Difficulty Concentrating Judgement: Poor Diagnostics Vital Signs (24Hr): Vital Signs - 24 hr 08/14/24 19:46 08/15/24 08:00 Temperature 97.8 F 98.5 F Pulse Rate 115 H 106 H Respiratory Rate 18 Blood Pressure 144/91 H 155/92 H Pulse Oximetry 95 97 Oxygen Delivery Method Room Air Room Air BMI result Body Mass Index 27.1 Labs 08/12/24 10:10 08/13/24 13:34 Labs: Laboratory Results - last 48 hr 08/13/24 08/15/24 13:34 08:15 Sodium 137 Potassium 3.6 Chloride 106 Carbon Dioxide 22 Anion Gap 13 BUN 12 Creatinine 0.94 Estim Creat Clear Calc 124.9 Estimated GFR > 60 Random Glucose 133 H Calcium 9.8 Total Bilirubin 0.9 AST 26 ALT 20 Alkaline Phosphatase 78 Total Protein 7.7 Albumin 4.9 Triglycerides 78 Cholesterol 125 LDL Cholesterol, Calc 76 HDL Cholesterol 34 L Vitamin B12 476 Folate 11.8 TSH 1.04 Medications Medications Current Medications Acetaminophen (Acetaminophen 325 Mg Tablet) 650 mg PO Q6H PRN PRN Reason: Headache/Pain, Scale 1-10 Al Hydroxide/Mg Hydroxide (Magnesium Hydrox/Alum Hydrox 30 Ml Oral.Susp) 30 ml PO Q6H PRN PRN Reason: Heartburn/Nausea Hydroxyzine HCl (Hydroxyzine Hcl 25 Mg Tablet) 25 mg PO Q6H PRN PRN Reason: mild anxiety Lorazepam (Lorazepam 0.5 Mg Tablet) 0.5 mg PO Q4H PRN PRN Reason: Anxiety Last Admin: 08/14/24 20:45 Dose: 0.5 mg Magnesium Hydroxide (Milk Of Magnesia 30 Ml Oral.Susp) 30 ml PO DAILY PRN PRN Reason: Constipation Nicotine (Nicotine 21 Mg Patch.Td24) 21 mg TRANSDERMA DAILY PRN PRN Reason: smoking cessation Nicotine Polacrilex (Nicotine Polacrilex 2 Mg Gum) 4 mg BUCCAL Q2H PRN PRN Reason: Nicotine Cravings Last Admin: 08/14/24 20:48 Dose: 4 mg Olanzapine (Olanzapine Odt 10 Mg Tab.Rapdis) 10 mg TRANSLINGU BID RIKI Trazodone HCl (Trazodone Hcl 50 Mg Tablet) 50 mg PO BEDTIME MRX1 PRN PRN Reason: Insomnia Last Admin: 08/14/24 20:45 Dose: 50 mg Valproic Acid (Valproic Acid Liquid 250 Mg/5 Ml Solution) 500 mg PO BEDTIME RIKI Allergies Allergies Allergy/AdvReac Type Severity Reaction Status Date / Time No Known Allergies Allergy Verified 08/12/24 09:40 Assessment & Plan Assessment & Plan (1) Cannabis use disorder: Status: Acute Code(s): F12.90 - Cannabis use, unspecified, uncomplicated (2) Schizoaffective disorder, bipolar type: Status: Acute Code(s): F25.0 - Schizoaffective disorder, bipolar type (3) PTSD (post-traumatic stress disorder): Status: Acute Code(s): F43.10 - Post-traumatic stress disorder, unspecified Plan Admit, CV, 15 minute checks Collateral Contact Diagnostics as needed --B12,Folate,TSH, EKG Encourage milieu participation Olanzapine 10 mg bid Valproate ER 500 mg HS DC/Aftercare planning 08/15-Continue to encourage treatment Section 7 may be needed This was discussed with family by Ian VILLANUEVA. They will participate if this is needed. Reason for continued inpatient stay Substantial Risk for: rapid decompensation Time Spent With Patient Time: Total time managing care of this patient today ____ minutes.
[2024-08-15] MEDS: Nicotine Polacrilex 2 MG GUM 4 MG BUCCAL (15:54)
[2024-08-15 20:00] VITALS: BP 153/88; PULSE 94; RESP 16; TEMP 36.5; O2SAT 98
--- NOTE | 2024-08-15 23:15 | PC.NURSE ---
Pt refused HS meds at bed time
--- NOTE | 2024-08-16 10:04 | HO.PSYCHPN ---
Subjective Subjective Date of Service: 08/16/24 Reason For Visit: catatonia Subjective Notes: Conditional Voluntary Healthcare Proxy: No Guardianship: No Medical Problems Affecting Mental Status: No Interim History: Visable in milieu. Observant, pacing, paranoid. Encouraged treatment compliance. Pt believes food is contaminated. He agrees to trial pre-packaged foods. Refusing of medications. Medication Compliance: No Side effects from medications: No Attending Groups: No Review of Systems Acute medical concerns: No Review of Systems Review of Systems Yes Unobtainable due to mental status Mental Status Exam Mental Status Exam Patient Appearance: Fatigued Patient Orientation: Person, Place and Situation Level of Consciousness: Alert Patient Behavior: Guarded, Talkative, Suspicious and Good Eye Contact Mood Description: Withdrawn and Constricted Affect Description: Withdrawn and Constricted Patient Cognition Impaired: No Ability to Follow Directions: Good Speech Pattern: Impoverished and Spontaneous Speech Memory Description: Episodic Impaired Hallucinations: Auditory Delusions: Present Perceptual Disturbances: Depersonalization and Derealization Thought Process: Rumination Thought Content: positive for Circumstantial, positive for Perseveration and positive for Suicidal Ideation (denies) Depressive Symptoms: Increased Anxiety, Unhappiness, Low Self Esteem and Difficulty Concentrating Judgement: Poor Diagnostics Vital Signs (24Hr): Vital Signs - 24 hr 08/15/24 20:00 Temperature 97.7 F Pulse Rate 94 Respiratory Rate 16 Blood Pressure 153/88 H Pulse Oximetry 98 Oxygen Delivery Method Room Air BMI result Body Mass Index 27.3 Labs 08/12/24 10:10 08/13/24 13:34 Labs: Laboratory Results - last 48 hr 08/15/24 08:15 Triglycerides 78 Cholesterol 125 LDL Cholesterol, Calc 76 HDL Cholesterol 34 L Vitamin B12 476 Folate 11.8 TSH 1.04 Medications Medications Current Medications Acetaminophen (Acetaminophen 325 Mg Tablet) 650 mg PO Q6H PRN PRN Reason: Headache/Pain, Scale 1-10 Al Hydroxide/Mg Hydroxide (Magnesium Hydrox/Alum Hydrox 30 Ml Oral.Susp) 30 ml PO Q6H PRN PRN Reason: Heartburn/Nausea Hydroxyzine HCl (Hydroxyzine Hcl 25 Mg Tablet) 25 mg PO Q6H PRN PRN Reason: mild anxiety Lorazepam (Lorazepam 0.5 Mg Tablet) 0.5 mg PO Q4H PRN PRN Reason: Anxiety Last Admin: 08/14/24 20:45 Dose: 0.5 mg Magnesium Hydroxide (Milk Of Magnesia 30 Ml Oral.Susp) 30 ml PO DAILY PRN PRN Reason: Constipation Nicotine (Nicotine 21 Mg Patch.Td24) 21 mg TRANSDERMA DAILY PRN PRN Reason: smoking cessation Nicotine Polacrilex (Nicotine Polacrilex 2 Mg Gum) 4 mg BUCCAL Q2H PRN PRN Reason: Nicotine Cravings Last Admin: 08/15/24 15:54 Dose: 4 mg Olanzapine (Olanzapine Odt 10 Mg Tab.Rapdis) 10 mg TRANSLINGU BID [facility] Last Admin: 08/16/24 08:54 Dose: Not Given Trazodone HCl (Trazodone Hcl 50 Mg Tablet) 50 mg PO BEDTIME MRX1 PRN PRN Reason: Insomnia Last Admin: 08/14/24 20:45 Dose: 50 mg Valproic Acid (Valproic Acid Liquid 250 Mg/5 Ml Solution) 500 mg PO BEDTIME [facility] Last Admin: 08/15/24 21:18 Dose: Not Given Allergies Allergies Allergy/AdvReac Type Severity Reaction Status Date / Time No Known Allergies Allergy Verified 08/12/24 09:40 Assessment & Plan Assessment & Plan (1) Cannabis use disorder: Status: Acute Code(s): F12.90 - Cannabis use, unspecified, uncomplicated (2) Schizoaffective disorder, bipolar type: Status: Acute Code(s): F25.0 - Schizoaffective disorder, bipolar type (3) PTSD (post-traumatic stress disorder): Status: Acute Code(s): F43.10 - Post-traumatic stress disorder, unspecified Plan Admit, CV, 15 minute checks Collateral Contact Diagnostics as needed --B12,Folate,TSH, EKG Encourage milieu participation Olanzapine 10 mg bid Valproate ER 500 mg HS DC/Aftercare planning 08/15-Continue to encourage treatment Section 7 may be needed This was discussed with family by Ian Olivas [facility]. They will participate if this is needed. 08/16- Continue to encourage treatment Reason for continued inpatient stay Substantial Risk for: rapid decompensation Time Spent With Patient Time: Total time managing care of this patient today ____ minutes.
[2024-08-16] MEDS: Nicotine Polacrilex 2 MG GUM 4 MG BUCCAL (19:44)
[2024-08-16 20:00] VITALS: RESP 18
--- NOTE | 2024-08-17 08:01 | P.PNPSI_ITS ---
Subjective Subjective Date of Service: 08/17/24 Reason For Visit: catatonia Subjective Notes: Candelaria Warning and Section 7 Healthcare Proxy: No Guardianship: No Medical Problems Affecting Mental Status: No Interim History: 29 yo WM wandering around unit, hanging out near door - not much to say no complaints, says he is eating and sleeping. Nursing reports patient occasionally eating Medication Compliance: No Attending Groups: No Review of Systems Acute medical concerns: No Medical Review of Systems: unchanged Mental Status Exam Mental Status Exam Patient Appearance: Unkempt Patient Orientation: Person, Place and Situation Level of Consciousness: Awake Patient Behavior: Passive and Resistive to Care Mood Description: Apathetic Affect Description: Blunted Patient Cognition Impaired: No Ability to Follow Directions: Fair Speech Pattern: Clear, Impoverished and Long Pauses Thought Process: Intact Thought Content: positive for [place] and positive for Poverty of Content Judgement: Fair Diagnostics Vital Signs (24Hr): Vital Signs - 24 hr 08/16/24 20:00 Respiratory Rate 18 Oxygen Delivery Method Room Air BMI result Body Mass Index 27.3 Labs 08/12/24 10:10 08/13/24 13:34 Labs: Laboratory Results - last 48 hr 08/15/24 08:15 Triglycerides 78 Cholesterol 125 LDL Cholesterol, Calc 76 HDL Cholesterol 34 L Vitamin B12 476 Folate 11.8 TSH 1.04 Medications Medications Current Medications Acetaminophen (Acetaminophen 325 Mg Tablet) 650 mg PO Q6H PRN PRN Reason: Headache/Pain, Scale 1-10 Al Hydroxide/Mg Hydroxide (Magnesium Hydrox/Alum Hydrox 30 Ml Oral.Susp) 30 ml PO Q6H PRN PRN Reason: Heartburn/Nausea Hydroxyzine HCl (Hydroxyzine Hcl 25 Mg Tablet) 25 mg PO Q6H PRN PRN Reason: mild anxiety Lorazepam (Lorazepam 0.5 Mg Tablet) 0.5 mg PO Q4H PRN PRN Reason: Anxiety Last Admin: 08/14/24 20:45 Dose: 0.5 mg Magnesium Hydroxide (Milk Of Magnesia 30 Ml Oral.Susp) 30 ml PO DAILY PRN PRN Reason: Constipation Nicotine (Nicotine 21 Mg Patch.Td24) 21 mg TRANSDERMA DAILY PRN PRN Reason: smoking cessation Nicotine Polacrilex (Nicotine Polacrilex 2 Mg Gum) 4 mg BUCCAL Q2H PRN PRN Reason: Nicotine Cravings Last Admin: 08/16/24 19:44 Dose: 4 mg Olanzapine (Olanzapine Odt 10 Mg Tab.Rapdis) 10 mg TRANSLINGU BID RIKI Last Admin: 08/16/24 20:55 Dose: Not Given Trazodone HCl (Trazodone Hcl 50 Mg Tablet) 50 mg PO BEDTIME MRX1 PRN PRN Reason: Insomnia Last Admin: 08/14/24 20:45 Dose: 50 mg Valproic Acid (Valproic Acid Liquid 250 Mg/5 Ml Solution) 500 mg PO BEDTIME RIKI Last Admin: 08/16/24 20:55 Dose: Not Given Allergies Allergies Allergy/AdvReac Type Severity Reaction Status Date / Time No Known Allergies Allergy Verified 08/12/24 09:40 Assessment & Plan Assessment & Plan (1) Cannabis use disorder: Status: Acute Code(s): F12.90 - Cannabis use, unspecified, uncomplicated (2) Schizoaffective disorder, bipolar type: Status: Acute Code(s): F25.0 - Schizoaffective disorder, bipolar type (3) PTSD (post-traumatic stress disorder): Status: Acute Code(s): F43.10 - Post-traumatic stress disorder, unspecified Plan Admit, CV, 15 minute checks Collateral Contact Diagnostics as needed --B12,Folate,TSH, EKG Encourage milieu participation Olanzapine 10 mg bid Valproate ER 500 mg HS DC/Aftercare planning 08/15-Continue to encourage treatment Section 7 may be needed This was discussed with family by Ian VILLANUEVA. They will participate if this is needed. 08/16- Continue to encourage treatment 08/17 CTP Reason for continued inpatient stay Substantial Risk for: rapid decompensation Time Spent With Patient Time: Total time managing care of this patient today ____ minutes.
--- NOTE | 2024-08-18 08:04 | P.PNPSI_ITS ---
Subjective Subjective Date of Service: 08/18/24 Reason For Visit: catatonia Subjective Notes: Conditional Voluntary Healthcare Proxy: No Guardianship: No Medical Problems Affecting Mental Status: No Interim History: 29 yo WM now not eating or drinking, can't really say why- nursing describe patient stuck in a loop of bringing his tray in and out of kitchen repeatedly but never eating- despite reporting hunger> Moslty gives one word answers Gave patient Candelaria waringing and suggested he will have to go to court and possibly get medications to help him be able to start eating/self care- Medication Compliance: No Attending Groups: Intermittent Review of Systems Acute medical concerns: No Medical Review of Systems: changed Review of Systems: now hasn't eaten in a day Mental Status Exam Mental Status Exam Patient Appearance: Disheveled and Unkempt Patient Orientation: Person Level of Consciousness: Awake Patient Behavior: Appropriate, Resistive to Care and Good Eye Contact Mood Description: Calm Affect Description: Blunted Patient Cognition Impaired: No Ability to Follow Directions: Poor (even when went with him to room and showed him tray of food did not eat) Speech Pattern: Impoverished Thought Content: positive for [place] and positive for Poverty of Content Depressive Symptoms: Diff. Making Decisions Judgement: Poor Diagnostics Vital Signs (24Hr): BMI result Body Mass Index 27.3 Labs 08/12/24 10:10 08/13/24 13:34 Medications Medications Current Medications Acetaminophen (Acetaminophen 325 Mg Tablet) 650 mg PO Q6H PRN PRN Reason: Headache/Pain, Scale 1-10 Al Hydroxide/Mg Hydroxide (Magnesium Hydrox/Alum Hydrox 30 Ml Oral.Susp) 30 ml PO Q6H PRN PRN Reason: Heartburn/Nausea Hydroxyzine HCl (Hydroxyzine Hcl 25 Mg Tablet) 25 mg PO Q6H PRN PRN Reason: mild anxiety Lorazepam (Lorazepam 0.5 Mg Tablet) 0.5 mg PO Q4H PRN PRN Reason: Anxiety Last Admin: 08/14/24 20:45 Dose: 0.5 mg Magnesium Hydroxide (Milk Of Magnesia 30 Ml Oral.Susp) 30 ml PO DAILY PRN PRN Reason: Constipation Nicotine (Nicotine 21 Mg Patch.Td24) 21 mg TRANSDERMA DAILY PRN PRN Reason: smoking cessation Nicotine Polacrilex (Nicotine Polacrilex 2 Mg Gum) 4 mg BUCCAL Q2H PRN PRN Reason: Nicotine Cravings Last Admin: 08/16/24 19:44 Dose: 4 mg Olanzapine (Olanzapine Odt 10 Mg Tab.Rapdis) 10 mg TRANSLINGU BID RIKI Last Admin: 08/17/24 20:43 Dose: Not Given Trazodone HCl (Trazodone Hcl 50 Mg Tablet) 50 mg PO BEDTIME MRX1 PRN PRN Reason: Insomnia Last Admin: 08/14/24 20:45 Dose: 50 mg Valproic Acid (Valproic Acid Liquid 250 Mg/5 Ml Solution) 500 mg PO BEDTIME RIKI Last Admin: 08/17/24 20:43 Dose: Not Given Allergies Allergies Allergy/AdvReac Type Severity Reaction Status Date / Time No Known Allergies Allergy Verified 08/12/24 09:40 Assessment & Plan Assessment & Plan (1) Cannabis use disorder: Status: Acute Code(s): F12.90 - Cannabis use, unspecified, uncomplicated (2) Schizoaffective disorder, bipolar type: Status: Acute Code(s): F25.0 - Schizoaffective disorder, bipolar type (3) PTSD (post-traumatic stress disorder): Status: Acute Code(s): F43.10 - Post-traumatic stress disorder, unspecified Plan Admit, CV, 15 minute checks Collateral Contact Diagnostics as needed --B12,Folate,TSH, EKG Encourage milieu participation Olanzapine 10 mg bid Valproate ER 500 mg HS DC/Aftercare planning 08/15-Continue to encourage treatment Section 7 may be needed This was discussed with family by Ian VILLANUEVA. They will participate if this is needed. 08/16- Continue to encourage treatment 08/17 CTP 08/18 CTP Patient educated on: other (process of potential commitment) Informed Consent: understands Reason for continued inpatient stay Substantial Risk for: inability to function and rapid decompensation Time Spent With Patient Time: Total time managing care of this patient today ____ minutes.
[2024-08-19 08:00] VITALS: BP 136/78; PULSE 90; RESP 18; TEMP 36.4; O2SAT 98
--- NOTE | 2024-08-19 09:41 | HO.PSYCHPN ---
Subjective Subjective Date of Service: 08/19/24 Reason For Visit: catatonia Subjective Notes: Conditional Voluntary Healthcare Proxy: No Guardianship: No Medical Problems Affecting Mental Status: No Interim History: Pt without much change-refuses meds, paranoia, dissociative appearing at times, lost in his thoughts. He is visable, stands at the nurses station, observant of team and peers, makes eye contact and is attentive to the environment, yet quiet, not very communicative, unless approached, with some catatonic like sx. Does appear calmer, very willing to meet. States he does not need medicine, but I appreciate your offer. I feel better being here with all of you. Care discussed with pt's Larry simms, . Will file Section 7 on 08/[address] for a decision regarding treatment. Family is approving and will participate to help pt. Medication Compliance: No Side effects from medications: No Attending Groups: No Review of Systems Acute medical concerns: No Review of Systems Review of Systems Yes Unobtainable due to mental status Mental Status Exam Mental Status Exam Patient Appearance: Disheveled and Unkempt Patient Orientation: Person Level of Consciousness: Awake Patient Behavior: Appropriate, Resistive to Care and Good Eye Contact Mood Description: Calm Affect Description: Blunted Patient Cognition Impaired: No Ability to Follow Directions: Poor (even when went with him to room and showed him tray of food did not eat) Speech Pattern: Impoverished Thought Content: positive for [place] and positive for Poverty of Content Depressive Symptoms: Diff. Making Decisions Judgement: Poor Diagnostics Vital Signs (24Hr): Vital Signs - 24 hr 08/19/24 08:00 Temperature 97.5 F Pulse Rate 90 Respiratory Rate 18 Blood Pressure 136/78 Pulse Oximetry 98 Oxygen Delivery Method Room Air BMI result Body Mass Index 27.3 Labs 08/12/24 10:10 08/13/24 13:34 Medications Medications Current Medications Acetaminophen (Acetaminophen 325 Mg Tablet) 650 mg PO Q6H PRN PRN Reason: Headache/Pain, Scale 1-10 Al Hydroxide/Mg Hydroxide (Magnesium Hydrox/Alum Hydrox 30 Ml Oral.Susp) 30 ml PO Q6H PRN PRN Reason: Heartburn/Nausea Hydroxyzine HCl (Hydroxyzine Hcl 25 Mg Tablet) 25 mg PO Q6H PRN PRN Reason: mild anxiety Lorazepam (Lorazepam 0.5 Mg Tablet) 0.5 mg PO Q4H PRN PRN Reason: Anxiety Last Admin: 08/14/24 20:45 Dose: 0.5 mg Magnesium Hydroxide (Milk Of Magnesia 30 Ml Oral.Susp) 30 ml PO DAILY PRN PRN Reason: Constipation Nicotine (Nicotine 21 Mg Patch.Td24) 21 mg TRANSDERMA DAILY PRN PRN Reason: smoking cessation Nicotine Polacrilex (Nicotine Polacrilex 2 Mg Gum) 4 mg BUCCAL Q2H PRN PRN Reason: Nicotine Cravings Last Admin: 08/16/24 19:44 Dose: 4 mg Olanzapine (Olanzapine Odt 10 Mg Tab.Rapdis) 10 mg TRANSLINGU BID RIKI Last Admin: 08/19/24 09:36 Dose: Not Given Trazodone HCl (Trazodone Hcl 50 Mg Tablet) 50 mg PO BEDTIME MRX1 PRN PRN Reason: Insomnia Last Admin: 08/14/24 20:45 Dose: 50 mg Valproic Acid (Valproic Acid Liquid 250 Mg/5 Ml Solution) 500 mg PO BEDTIME RIKI Last Admin: 08/18/24 22:02 Dose: Not Given Allergies Allergies Allergy/AdvReac Type Severity Reaction Status Date / Time No Known Allergies Allergy Verified 08/12/24 09:40 Assessment & Plan Assessment & Plan (1) Cannabis use disorder: Status: Acute Code(s): F12.90 - Cannabis use, unspecified, uncomplicated (2) Schizoaffective disorder, bipolar type: Status: Acute Code(s): F25.0 - Schizoaffective disorder, bipolar type (3) PTSD (post-traumatic stress disorder): Status: Acute Code(s): F43.10 - Post-traumatic stress disorder, unspecified Plan Admit, CV, 15 minute checks Collateral Contact Diagnostics as needed --B12,Folate,TSH, EKG Encourage milieu participation Olanzapine 10 mg bid Valproate ER 500 mg HS DC/Aftercare planning 08/15-Continue to encourage treatment Section 7 may be needed This was discussed with family by Ian VILLANUEVA. They will participate if this is needed. 08/16- Continue to encourage treatment 08/17 CTP 08/18 CTP 08/19: Will file Section 7 on 08/20. Family is in agreement. Reason for continued inpatient stay Substantial Risk for: rapid decompensation Time Spent With Patient Time: Total time managing care of this patient today ____ minutes.
[2024-08-19] MEDS: Nicotine Polacrilex 2 MG GUM 4 MG BUCCAL (20:48)
[2024-08-20 08:00] VITALS: BP 135/92; PULSE 89; TEMP 36.4; O2SAT 97
--- NOTE | 2024-08-20 14:30 | HO.PSYCHPN ---
Subjective Subjective Date of Service: 08/20/24 Reason For Visit: catatonia Interim History: pacing in front of nurses station. Keeping to self. malodorous and unkempt. declining to shower. guarded. brief during assessment. Patient reports feeling fine ; states he doesn't need anything . encouraged to shower and attend groups. Medication Compliance: No Attending Groups: No Mental Status Exam Mental Status Exam Narrative: unable to obtain full mental status d/t patient being brief and guarded. Patient Appearance: Unkempt and Malodorous Patient Orientation: Person, Place, Time and Situation Level of Consciousness: Awake Patient Behavior: Guarded and Good Eye Contact Mood Description: Calm Affect Description: Blunted Ability to Follow Directions: Good Speech Pattern: Clear and Soft-Spoken Diagnostics Vital Signs (24Hr): Vital Signs - 24 hr 08/20/24 08:00 Temperature 97.6 F Pulse Rate 89 Blood Pressure 135/92 H Pulse Oximetry 97 Oxygen Delivery Method Room Air BMI result Body Mass Index 27.3 Labs 08/12/24 10:10 08/13/24 13:34 Medications Medications Current Medications Acetaminophen (Acetaminophen 325 Mg Tablet) 650 mg PO Q6H PRN PRN Reason: Headache/Pain, Scale 1-10 Al Hydroxide/Mg Hydroxide (Magnesium Hydrox/Alum Hydrox 30 Ml Oral.Susp) 30 ml PO Q6H PRN PRN Reason: Heartburn/Nausea Hydroxyzine HCl (Hydroxyzine Hcl 25 Mg Tablet) 25 mg PO Q6H PRN PRN Reason: mild anxiety Lorazepam (Lorazepam 0.5 Mg Tablet) 0.5 mg PO Q4H PRN PRN Reason: Anxiety Last Admin: 08/14/24 20:45 Dose: 0.5 mg Magnesium Hydroxide (Milk Of Magnesia 30 Ml Oral.Susp) 30 ml PO DAILY PRN PRN Reason: Constipation Nicotine (Nicotine 21 Mg Patch.Td24) 21 mg TRANSDERMA DAILY PRN PRN Reason: smoking cessation Nicotine Polacrilex (Nicotine Polacrilex 2 Mg Gum) 4 mg BUCCAL Q2H PRN PRN Reason: Nicotine Cravings Last Admin: 08/19/24 20:48 Dose: 4 mg Olanzapine (Olanzapine Odt 10 Mg Tab.Rapdis) 10 mg TRANSLINGU BID RIKI Last Admin: 08/20/24 08:18 Dose: Not Given Trazodone HCl (Trazodone Hcl 50 Mg Tablet) 50 mg PO BEDTIME MRX1 PRN PRN Reason: Insomnia Last Admin: 08/14/24 20:45 Dose: 50 mg Valproic Acid (Valproic Acid Liquid 250 Mg/5 Ml Solution) 500 mg PO BEDTIME RIKI Last Admin: 08/19/24 23:20 Dose: Not Given Allergies Allergies Allergy/AdvReac Type Severity Reaction Status Date / Time No Known Allergies Allergy Verified 08/12/24 09:40 Assessment & Plan Assessment & Plan (1) Cannabis use disorder: Status: Acute Code(s): F12.90 - Cannabis use, unspecified, uncomplicated (2) Schizoaffective disorder, bipolar type: Status: Acute Code(s): F25.0 - Schizoaffective disorder, bipolar type (3) PTSD (post-traumatic stress disorder): Status: Acute Code(s): F43.10 - Post-traumatic stress disorder, unspecified Plan Admit, CV, 15 minute checks Collateral Contact Diagnostics as needed --B12,Folate,TSH, EKG Encourage milieu participation Olanzapine 10 mg bid Valproate ER 500 mg HS DC/Aftercare planning 08/15-Continue to encourage treatment Section 7 may be needed This was discussed with family by Ian VILLANUEVA. They will participate if this is needed. 08/16- Continue to encourage treatment 08/17 CTP 08/18 CTP 08/19: Will file Section 7 on 08/20. Family is in agreement. 08/20: pacing in front of nurses station. Keeping to self. malodorous and unkempt. declining to shower. guarded. brief during assessment. Patient reports feeling fine ; states he doesn't need anything . encouraged to shower and attend groups. Patient educated on: medication risk/benefits Reason for continued inpatient stay Substantial Risk for: med/psych decompensation Time Spent With Patient Time: Total time managing care of this patient today _10___ minutes.
[2024-08-21 07:48] VITALS: BP 148/73; PULSE 89; RESP 16; TEMP 37; O2SAT 98
--- NOTE | 2024-08-21 13:38 | P.PNPSI_ITS ---
Subjective Subjective Date of Service: 08/21/24 Reason For Visit: catatonia Subjective Notes: Section 7 Healthcare Proxy: No Guardianship: No Medical Problems Affecting Mental Status: No Interim History: But, I don't think I need medicine. Pt is approachable, good eye contact, quietly responsive, attentive to environment at times, at times appears lost in his thoughts. Appears to be responding to internal stimuli. Seen in his room, resting. States he is OK, discussed his difficulty with eating, self care. Its OK . Continues to decline medications Discussed tw conversation with pt's father and father's concern. I know Medication Compliance: No Side effects from medications: No Attending Groups: No Review of Systems Acute medical concerns: No Medical Review of Systems: unchanged Review of Systems Review of Systems Yes Unobtainable due to mental status Mental Status Exam Mental Status Exam Patient Appearance: Disheveled, Unkempt and Malodorous Patient Orientation: Person, Place and Time Level of Consciousness: Alert Patient Behavior: Guarded, Talkative, Suspicious, Resistive to Care, Distractible and Good Eye Contact Mood Description: Blunted Affect Description: Blunted Patient Cognition Impaired: No Ability to Follow Directions: Fair Speech Pattern: Impoverished and Spontaneous Speech Memory Description: Remote Impaired Hallucinations: Auditory Delusions: Paranoid Ideation and Present Perceptual Disturbances: Depersonalization and Derealization Thought Process: Distracted Thought Content: positive for [place], positive for [place], positive for Poverty of Content, positive for Thought Blocking and positive for Suicidal Ideation (denies) Depressive Symptoms: Changes in Appetite and Increased Fatigue Judgement: Poor Diagnostics Vital Signs (24Hr): Vital Signs - 24 hr 08/21/24 07:48 Temperature 98.6 F Pulse Rate 89 Respiratory Rate 16 Blood Pressure 148/73 H Pulse Oximetry 98 BMI result Body Mass Index 27.3 Labs 08/12/24 10:10 08/13/24 13:34 Medications Medications Current Medications Acetaminophen (Acetaminophen 325 Mg Tablet) 650 mg PO Q6H PRN PRN Reason: Headache/Pain, Scale 1-10 Al Hydroxide/Mg Hydroxide (Magnesium Hydrox/Alum Hydrox 30 Ml Oral.Susp) 30 ml PO Q6H PRN PRN Reason: Heartburn/Nausea Hydroxyzine HCl (Hydroxyzine Hcl 25 Mg Tablet) 25 mg PO Q6H PRN PRN Reason: mild anxiety Lorazepam (Lorazepam 0.5 Mg Tablet) 0.5 mg PO Q4H PRN PRN Reason: Anxiety Last Admin: 08/14/24 20:45 Dose: 0.5 mg Magnesium Hydroxide (Milk Of Magnesia 30 Ml Oral.Susp) 30 ml PO DAILY PRN PRN Reason: Constipation Nicotine (Nicotine 21 Mg Patch.Td24) 21 mg TRANSDERMA DAILY PRN PRN Reason: smoking cessation Nicotine Polacrilex (Nicotine Polacrilex 2 Mg Gum) 4 mg BUCCAL Q2H PRN PRN Reason: Nicotine Cravings Last Admin: 08/19/24 20:48 Dose: 4 mg Olanzapine (Olanzapine Odt 10 Mg Tab.Rapdis) 10 mg TRANSLINGU BID RIKI Last Admin: 08/21/24 08:46 Dose: Not Given Trazodone HCl (Trazodone Hcl 50 Mg Tablet) 50 mg PO BEDTIME MRX1 PRN PRN Reason: Insomnia Last Admin: 08/14/24 20:45 Dose: 50 mg Valproic Acid (Valproic Acid Liquid 250 Mg/5 Ml Solution) 500 mg PO BEDTIME [facility] Last Admin: 08/20/24 21:27 Dose: Not Given Allergies Allergies Allergy/AdvReac Type Severity Reaction Status Date / Time No Known Allergies Allergy Verified 08/12/24 09:40 Assessment & Plan Assessment & Plan (1) Cannabis use disorder: Status: Acute Code(s): F12.90 - Cannabis use, unspecified, uncomplicated (2) Schizoaffective disorder, bipolar type: Status: Acute Code(s): F25.0 - Schizoaffective disorder, bipolar type (3) PTSD (post-traumatic stress disorder): Status: Acute Code(s): F43.10 - Post-traumatic stress disorder, unspecified Plan Admit, CV, 15 minute checks Collateral Contact Diagnostics as needed --B12,Folate,TSH, EKG Encourage milieu participation Olanzapine 10 mg bid Valproate ER 500 mg HS DC/Aftercare planning 08/15-Continue to encourage treatment Section 7 may be needed This was discussed with family by Ian VILLANUEVA. They will participate if this is needed. 08/16- Continue to encourage treatment 08/17 CTP 08/18 CTP 08/19: Will file Section 7 on 08/20. Family is in agreement. 08/20: pacing in front of nurses station. Keeping to self. malodorous and unkempt. declining to shower. guarded. brief during assessment. Patient reports feeling fine ; states he doesn't need anything . encouraged to shower and attend groups. 08/21: Encourage treatment and alliance building. Reason for continued inpatient stay Substantial Risk for: rapid decompensation Time Spent With Patient Time: Total time managing care of this patient today ____ minutes.
--- NOTE | 2024-08-22 11:18 | HO.PSYCHPN ---
Subjective Subjective Date of Service: 08/22/24 Reason For Visit: catatonia Subjective Notes: Section 7 Healthcare Proxy: No Guardianship: No Medical Problems Affecting Mental Status: No Interim History: Pt continues to refuse medicine, treatment, ADL's and most food and drink. He did eat a cheeseburger last evening during father's visit. He responds with one word answers mostly, reports he does not need treatment. Team reports he refused to talk with his sr. manager corporate communications. Call from pt's father today-pts sr. manager corporate communications has called him- he was concerned as she suggested CAT/MRI. Discussed with father that pt is refusing all diagnostics at this point and ordering MRI when pt is in an acute psychotic state refusing medicine may exacerbate sx. Assured father these would be addressed when pt is in a less symptomatic state. Master Control Operator also discussed ECT. Father is concerned about this intervention and does not want pt to have ECT. Discussed need for med trials, that ECT would not be a first line intervention. Discussed our hope that medication options would be successful for pt to manage sx. Medication Compliance: No Side effects from medications: No Attending Groups: No Review of Systems Review of Systems Yes Unobtainable due to mental status Mental Status Exam Mental Status Exam Patient Appearance: Disheveled, Unkempt and Malodorous Patient Orientation: Person, Place and Time Level of Consciousness: Alert Patient Behavior: Guarded, Talkative, Suspicious, Resistive to Care, Distractible and Good Eye Contact Mood Description: Blunted Affect Description: Blunted Patient Cognition Impaired: No Ability to Follow Directions: Fair Speech Pattern: Impoverished and Spontaneous Speech Memory Description: Remote Impaired Hallucinations: Auditory Delusions: Paranoid Ideation and Present Perceptual Disturbances: Depersonalization and Derealization Thought Process: Distracted Thought Content: positive for [place], positive for [place], positive for Poverty of Content, positive for Thought Blocking and positive for Suicidal Ideation (denies) Depressive Symptoms: Changes in Appetite and Increased Fatigue Judgement: Poor Diagnostics Vital Signs (24Hr): BMI result Body Mass Index 27.3 Labs 08/12/24 10:10 08/13/24 13:34 Medications Medications Current Medications Acetaminophen (Acetaminophen 325 Mg Tablet) 650 mg PO Q6H PRN PRN Reason: Headache/Pain, Scale 1-10 Al Hydroxide/Mg Hydroxide (Magnesium Hydrox/Alum Hydrox 30 Ml Oral.Susp) 30 ml PO Q6H PRN PRN Reason: Heartburn/Nausea Hydroxyzine HCl (Hydroxyzine Hcl 25 Mg Tablet) 25 mg PO Q6H PRN PRN Reason: mild anxiety Lorazepam (Lorazepam 0.5 Mg Tablet) 0.5 mg PO Q4H PRN PRN Reason: Anxiety Last Admin: 08/14/24 20:45 Dose: 0.5 mg Magnesium Hydroxide (Milk Of Magnesia 30 Ml Oral.Susp) 30 ml PO DAILY PRN PRN Reason: Constipation Nicotine (Nicotine 21 Mg Patch.Td24) 21 mg TRANSDERMA DAILY PRN PRN Reason: smoking cessation Nicotine Polacrilex (Nicotine Polacrilex 2 Mg Gum) 4 mg BUCCAL Q2H PRN PRN Reason: Nicotine Cravings Last Admin: 08/19/24 20:48 Dose: 4 mg Olanzapine (Olanzapine Odt 10 Mg Tab.Rapdis) 10 mg TRANSLINGU BID RIKI Last Admin: 08/22/24 09:00 Dose: Not Given Trazodone HCl (Trazodone Hcl 50 Mg Tablet) 50 mg PO BEDTIME MRX1 PRN PRN Reason: Insomnia Last Admin: 08/14/24 20:45 Dose: 50 mg Valproic Acid (Valproic Acid Liquid 250 Mg/5 Ml Solution) 500 mg PO BEDTIME RIIK Last Admin: 08/21/24 21:00 Dose: Not Given Allergies Allergies Allergy/AdvReac Type Severity Reaction Status Date / Time No Known Allergies Allergy Verified 08/12/24 09:40 Assessment & Plan Assessment & Plan (1) Cannabis use disorder: Status: Acute Code(s): F12.90 - Cannabis use, unspecified, uncomplicated (2) Schizoaffective disorder, bipolar type: Status: Acute Code(s): F25.0 - Schizoaffective disorder, bipolar type (3) PTSD (post-traumatic stress disorder): Status: Acute Code(s): F43.10 - Post-traumatic stress disorder, unspecified Plan Admit, CV, 15 minute checks Collateral Contact Diagnostics as needed --B12,Folate,TSH, EKG Encourage milieu participation Olanzapine 10 mg bid Valproate ER 500 mg HS DC/Aftercare planning 08/15-Continue to encourage treatment Section 7 may be needed This was discussed with family by Ian VILLANUEVA. They will participate if this is needed. 08/16- Continue to encourage treatment 08/17 CTP 08/18 CTP 08/19: Will file Section 7 on 08/20. Family is in agreement. 08/20: pacing in front of nurses station. Keeping to self. malodorous and unkempt. declining to shower. guarded. brief during assessment. Patient reports feeling fine ; states he doesn't need anything . encouraged to shower and attend groups. 08/21: Encourage treatment and alliance building. 08/22: Continue to attempt treatment Reason for continued inpatient stay Substantial Risk for: rapid decompensation Time Spent With Patient Time: Total time managing care of this patient today ____ minutes.
[2024-08-23 08:07] VITALS: BP 115/56; PULSE 78; RESP 16; TEMP 36.9; O2SAT 98
--- NOTE | 2024-08-23 16:35 | HO.PSYCHPN ---
Subjective Subjective Date of Service: 08/23/24 Reason For Visit: catatonia Subjective Notes: Section 7 Healthcare Proxy: No Guardianship: No Medical Problems Affecting Mental Status: No Interim History: Visable in milieu, appears dissociative at times, however, several brief interactions where he will respond in 1-2 word answers. Declines CAT scan today. Intake remains poor-encouraged pt to eat/drink. His response, thank you for caring. Periods of intense staring, appears attentive to milieu at times, at times appears lost. No attention to ADL's. Appears to be responding to internal stimuli at times as well. We will continue to encourage treatment. Reviewed with pt's father. Medication Compliance: No Side effects from medications: No Attending Groups: No Review of Systems Review of Systems Yes Unobtainable due to mental status Mental Status Exam Mental Status Exam Patient Appearance: Disheveled, Unkempt and Malodorous Patient Orientation: Person, Place and Time Level of Consciousness: Alert Patient Behavior: Guarded, Talkative, Suspicious, Resistive to Care, Distractible and Good Eye Contact Mood Description: Blunted Affect Description: Blunted Patient Cognition Impaired: No Ability to Follow Directions: Fair Speech Pattern: Impoverished and Spontaneous Speech Memory Description: Remote Impaired Hallucinations: Auditory Delusions: Paranoid Ideation and Present Perceptual Disturbances: Depersonalization and Derealization Thought Process: Distracted Thought Content: positive for [place], positive for [place], positive for Poverty of Content, positive for Thought Blocking and positive for Suicidal Ideation (denies) Depressive Symptoms: Changes in Appetite and Increased Fatigue Judgement: Poor Diagnostics Vital Signs (24Hr): Vital Signs - 24 hr 08/23/24 08:07 Temperature 98.4 F Pulse Rate 78 Respiratory Rate 16 Blood Pressure 115/56 L Pulse Oximetry 98 Oxygen Delivery Method Room Air BMI result Body Mass Index 27.3 Labs 08/12/24 10:10 08/13/24 13:34 Medications Medications Current Medications Acetaminophen (Acetaminophen 325 Mg Tablet) 650 mg PO Q6H PRN PRN Reason: Headache/Pain, Scale 1-10 Al Hydroxide/Mg Hydroxide (Magnesium Hydrox/Alum Hydrox 30 Ml Oral.Susp) 30 ml PO Q6H PRN PRN Reason: Heartburn/Nausea Hydroxyzine HCl (Hydroxyzine Hcl 25 Mg Tablet) 25 mg PO Q6H PRN PRN Reason: mild anxiety Lorazepam (Lorazepam 0.5 Mg Tablet) 0.5 mg PO Q4H PRN PRN Reason: Anxiety Last Admin: 08/14/24 20:45 Dose: 0.5 mg Magnesium Hydroxide (Milk Of Magnesia 30 Ml Oral.Susp) 30 ml PO DAILY PRN PRN Reason: Constipation Nicotine (Nicotine 21 Mg Patch.Td24) 21 mg TRANSDERMA DAILY PRN PRN Reason: smoking cessation Nicotine Polacrilex (Nicotine Polacrilex 2 Mg Gum) 4 mg BUCCAL Q2H PRN PRN Reason: Nicotine Cravings Last Admin: 08/19/24 20:48 Dose: 4 mg Olanzapine (Olanzapine Odt 10 Mg Tab.Rapdis) 10 mg TRANSLINGU BID RIKI Last Admin: 08/23/24 09:13 Dose: Not Given Trazodone HCl (Trazodone Hcl 50 Mg Tablet) 50 mg PO BEDTIME MRX1 PRN PRN Reason: Insomnia Last Admin: 08/14/24 20:45 Dose: 50 mg Valproic Acid (Valproic Acid Liquid 250 Mg/5 Ml Solution) 500 mg PO BEDTIME RIKI Last Admin: 08/22/24 23:33 Dose: Not Given Allergies Allergies Allergy/AdvReac Type Severity Reaction Status Date / Time No Known Allergies Allergy Verified 08/12/24 09:40 Assessment & Plan Assessment & Plan (1) Cannabis use disorder: Status: Acute Code(s): F12.90 - Cannabis use, unspecified, uncomplicated (2) Schizoaffective disorder, bipolar type: Status: Acute Code(s): F25.0 - Schizoaffective disorder, bipolar type (3) PTSD (post-traumatic stress disorder): Status: Acute Code(s): F43.10 - Post-traumatic stress disorder, unspecified Plan Admit, CV, 15 minute checks Collateral Contact Diagnostics as needed --B12,Folate,TSH, EKG Encourage milieu participation Olanzapine 10 mg bid Valproate ER 500 mg HS DC/Aftercare planning 08/15-Continue to encourage treatment Section 7 may be needed This was discussed with family by Ian VILLANUEVA. They will participate if this is needed. 08/16- Continue to encourage treatment 08/17 CTP 08/18 CTP 08/19: Will file Section 7 on 08/20. Family is in agreement. 08/20: pacing in front of nurses station. Keeping to self. malodorous and unkempt. declining to shower. guarded. brief during assessment. Patient reports feeling fine ; states he doesn't need anything . encouraged to shower and attend groups. 08/21: Encourage treatment and alliance building. 08/22: Continue to attempt treatment 08/23: Continue to offer and attempt treatment Reason for continued inpatient stay Substantial Risk for: rapid decompensation Time Spent With Patient Time: Total time managing care of this patient today ____ minutes.
[2024-08-24 08:00] VITALS: BP 128/72; PULSE 70; TEMP 36.9; O2SAT 97
--- NOTE | 2024-08-24 10:46 | P.PNPSI_ITS ---
Subjective Subjective Date of Service: 08/24/24 Reason For Visit: catatonia Interim History: Patient was seen and discussed in rounds today. Records and plans were reviewed. He continues to be flat, pacing slowly up and down the [place]. He is guarded. Minimal intake. Refusing medications. Only give 1 or 2 word answers. No behavioral issues otherwise. Review of Systems Review of Systems Yes all other systems are reviewed and are negative Mental Status Exam Mental Status Exam Narrative: In today's visit he is alert. Minimally interactive. Gives 1 or 2 word answers. Affect is flat and constricted. Possible AVH. Cognitively could not be assessed but has slow thought processes. No SI. Able to move all limbs. No gait abnormalities. Judgment is marginal Diagnostics Vital Signs (24Hr): Vital Signs - 24 hr 08/24/24 08:00 Temperature 98.4 F Pulse Rate 70 Blood Pressure 128/72 Pulse Oximetry 97 Oxygen Delivery Method Room Air BMI result Body Mass Index 27.3 Labs 08/12/24 10:10 08/13/24 13:34 Medications Medications Current Medications Acetaminophen (Acetaminophen 325 Mg Tablet) 650 mg PO Q6H PRN PRN Reason: Headache/Pain, Scale 1-10 Al Hydroxide/Mg Hydroxide (Magnesium Hydrox/Alum Hydrox 30 Ml Oral.Susp) 30 ml PO Q6H PRN PRN Reason: Heartburn/Nausea Hydroxyzine HCl (Hydroxyzine Hcl 25 Mg Tablet) 25 mg PO Q6H PRN PRN Reason: mild anxiety Lorazepam (Lorazepam 0.5 Mg Tablet) 0.5 mg PO Q4H PRN PRN Reason: Anxiety Last Admin: 08/14/24 20:45 Dose: 0.5 mg Magnesium Hydroxide (Milk Of Magnesia 30 Ml Oral.Susp) 30 ml PO DAILY PRN PRN Reason: Constipation Nicotine (Nicotine 21 Mg Patch.Td24) 21 mg TRANSDERMA DAILY PRN PRN Reason: smoking cessation Nicotine Polacrilex (Nicotine Polacrilex 2 Mg Gum) 4 mg BUCCAL Q2H PRN PRN Reason: Nicotine Cravings Last Admin: 08/19/24 20:48 Dose: 4 mg Olanzapine (Olanzapine Odt 10 Mg Tab.Rapdis) 10 mg TRANSLINGU BID RIKI Last Admin: 08/24/24 10:30 Dose: Not Given Trazodone HCl (Trazodone Hcl 50 Mg Tablet) 50 mg PO BEDTIME MRX1 PRN PRN Reason: Insomnia Last Admin: 08/14/24 20:45 Dose: 50 mg Valproic Acid (Valproic Acid Liquid 250 Mg/5 Ml Solution) 500 mg PO BEDTIME RIKI Last Admin: 08/23/24 22:22 Dose: Not Given Allergies Allergies Allergy/AdvReac Type Severity Reaction Status Date / Time No Known Allergies Allergy Verified 08/12/24 09:40 Assessment & Plan Assessment & Plan (1) Cannabis use disorder: Status: Acute Code(s): F12.90 - Cannabis use, unspecified, uncomplicated (2) Schizoaffective disorder, bipolar type: Status: Acute Code(s): F25.0 - Schizoaffective disorder, bipolar type (3) PTSD (post-traumatic stress disorder): Status: Acute Code(s): F43.10 - Post-traumatic stress disorder, unspecified Plan Admit, CV, 15 minute checks Collateral Contact Diagnostics as needed --B12,Folate,TSH, EKG Encourage milieu participation Olanzapine 10 mg bid Valproate ER 500 mg HS DC/Aftercare planning 08/15-Continue to encourage treatment Section 7 may be needed This was discussed with family by Ian Olivas DEV TECHNICAL MGR. They will participate if this is needed. 08/16- Continue to encourage treatment 08/17 CTP 08/18 CTP 08/19: Will file Section 7 on 08/20. Family is in agreement. 08/20: pacing in front of nurses station. Keeping to self. malodorous and unkempt. declining to shower. guarded. brief during assessment. Patient reports feeling fine ; states he doesn't need anything . encouraged to shower and attend groups. 08/21: Encourage treatment and alliance building. 08/22: Continue to attempt treatment 08/23: Continue to offer and attempt treatment 08/24: Continue current regimen and plans. Encourage food and drink. Reason for continued inpatient stay Substantial Risk for: med/psych decompensation Time Spent With Patient Time: Total time managing care of this patient today ____ minutes.
[2024-08-24 20:00] VITALS: RESP 18
[2024-08-25 08:00] VITALS: BP 114/69; PULSE 100; TEMP 36.2; O2SAT 98
--- NOTE | 2024-08-25 09:46 | HO.PSYCHPN ---
Subjective Subjective Date of Service: 08/25/24 Reason For Visit: catatonia Subjective Notes: Conditional Voluntary Interim History: Patient was seen and discussed in rounds today. Records and plans were reviewed. He continues to be mostly to himself, pacing slowly up and down the [place]. He did have 90% of his dinner last night!. Refuses meds. Continues to have very poor hygiene and having gone in the shower only to make his hair wet. No SI. Slept 8 hours. No changes were made today Diagnostics Vital Signs (24Hr): Vital Signs - 24 hr 08/24/24 20:00 08/25/24 08:00 Temperature 97.2 F Pulse Rate 100 Respiratory Rate 18 Blood Pressure 114/69 Pulse Oximetry 98 Oxygen Delivery Method Room Air BMI result Body Mass Index 27.3 Labs 08/12/24 10:10 08/13/24 13:34 Medications Medications Current Medications Acetaminophen (Acetaminophen 325 Mg Tablet) 650 mg PO Q6H PRN PRN Reason: Headache/Pain, Scale 1-10 Al Hydroxide/Mg Hydroxide (Magnesium Hydrox/Alum Hydrox 30 Ml Oral.Susp) 30 ml PO Q6H PRN PRN Reason: Heartburn/Nausea Hydroxyzine HCl (Hydroxyzine Hcl 25 Mg Tablet) 25 mg PO Q6H PRN PRN Reason: mild anxiety Lorazepam (Lorazepam 0.5 Mg Tablet) 0.5 mg PO Q4H PRN PRN Reason: Anxiety Last Admin: 08/14/24 20:45 Dose: 0.5 mg Magnesium Hydroxide (Milk Of Magnesia 30 Ml Oral.Susp) 30 ml PO DAILY PRN PRN Reason: Constipation Nicotine (Nicotine 21 Mg Patch.Td24) 21 mg TRANSDERMA DAILY PRN PRN Reason: smoking cessation Nicotine Polacrilex (Nicotine Polacrilex 2 Mg Gum) 4 mg BUCCAL Q2H PRN PRN Reason: Nicotine Cravings Last Admin: 08/19/24 20:48 Dose: 4 mg Olanzapine (Olanzapine Odt 10 Mg Tab.Rapdis) 10 mg TRANSLINGU BID RIKI Last Admin: 08/24/24 20:34 Dose: Not Given Trazodone HCl (Trazodone Hcl 50 Mg Tablet) 50 mg PO BEDTIME MRX1 PRN PRN Reason: Insomnia Last Admin: 08/14/24 20:45 Dose: 50 mg Valproic Acid (Valproic Acid Liquid 250 Mg/5 Ml Solution) 500 mg PO BEDTIME RIKI Last Admin: 08/24/24 20:34 Dose: Not Given Allergies Allergies Allergy/AdvReac Type Severity Reaction Status Date / Time No Known Allergies Allergy Verified 08/12/24 09:40 Assessment & Plan Assessment & Plan (1) Cannabis use disorder: Status: Acute Code(s): F12.90 - Cannabis use, unspecified, uncomplicated (2) Schizoaffective disorder, bipolar type: Status: Acute Code(s): F25.0 - Schizoaffective disorder, bipolar type (3) PTSD (post-traumatic stress disorder): Status: Acute Code(s): F43.10 - Post-traumatic stress disorder, unspecified Plan Admit, CV, 15 minute checks Collateral Contact Diagnostics as needed --B12,Folate,TSH, EKG Encourage milieu participation Olanzapine 10 mg bid Valproate ER 500 mg HS DC/Aftercare planning 08/15-Continue to encourage treatment Section 7 may be needed This was discussed with family by Ian VILLANUEVA. They will participate if this is needed. 08/16- Continue to encourage treatment 08/17 CTP 08/18 CTP 08/19: Will file Section 7 on 08/20. Family is in agreement. 08/20: pacing in front of nurses station. Keeping to self. malodorous and unkempt. declining to shower. guarded. brief during assessment. Patient reports feeling fine ; states he doesn't need anything . encouraged to shower and attend groups. 08/21: Encourage treatment and alliance building. 08/22: Continue to attempt treatment 08/23: Continue to offer and attempt treatment 08/24: Continue current regimen and plans. Encourage food and drink. Reason for continued inpatient stay Substantial Risk for: med/psych decompensation Time Spent With Patient Time: Total time managing care of this patient today ____ minutes.
[2024-08-26 08:00] VITALS: BP 142/77; PULSE 84; RESP 16; TEMP 36.6; O2SAT 99
--- NOTE | 2024-08-26 10:13 | HO.PSYCHPN ---
Subjective Subjective Date of Service: 08/26/24 Reason For Visit: catatonia Interim History: met with patient; discussed with team; reviewed chart Patient standing alone in [place] most of the day, quiet, just staring off. Patient tells principal technical writer that he is eating and drinking regularly; he says he came to the hospital because he wanted help to quit smoking; says he does not need medications. Nursing staff reports that patient is not eating or drinking much at all (though did eat some yesterday) Mental Status Exam Mental Status Exam Narrative: Pt is alert and oriented; behavior is somewhat disorganized, standing in the hallway 4 hours, staring off, not talking much; calm on approach; patient is not in distress; dressed in casual attire, unkempt but adequate hygiene; mood is described as ok and affect somewhat constricted; eye contact appropriate; Speech minimal; when he does talk it is with normal rate, volume and prosody and not pressured; psychomotor retardation present; thought process is goal directed; Thought content is on either vacuous or not disclosed; denies any SI/HI. Seems internally preoccupied. Patients insight and judgment impaired Diagnostics Vital Signs (24Hr): BMI result Body Mass Index 27.3 Labs 08/12/24 10:10 08/13/24 13:34 Medications Medications Current Medications Acetaminophen (Acetaminophen 325 Mg Tablet) 650 mg PO Q6H PRN PRN Reason: Headache/Pain, Scale 1-10 Al Hydroxide/Mg Hydroxide (Magnesium Hydrox/Alum Hydrox 30 Ml Oral.Susp) 30 ml PO Q6H PRN PRN Reason: Heartburn/Nausea Hydroxyzine HCl (Hydroxyzine Hcl 25 Mg Tablet) 25 mg PO Q6H PRN PRN Reason: mild anxiety Lorazepam (Lorazepam 0.5 Mg Tablet) 0.5 mg PO Q4H PRN PRN Reason: Anxiety Last Admin: 08/14/24 20:45 Dose: 0.5 mg Magnesium Hydroxide (Milk Of Magnesia 30 Ml Oral.Susp) 30 ml PO DAILY PRN PRN Reason: Constipation Nicotine (Nicotine 21 Mg Patch.Td24) 21 mg TRANSDERMA DAILY PRN PRN Reason: smoking cessation Nicotine Polacrilex (Nicotine Polacrilex 2 Mg Gum) 4 mg BUCCAL Q2H PRN PRN Reason: Nicotine Cravings Last Admin: 08/19/24 20:48 Dose: 4 mg Olanzapine (Olanzapine Odt 10 Mg Tab.Rapdis) 10 mg TRANSLINGU BID RIKI Last Admin: 08/26/24 03:58 Dose: Not Given Trazodone HCl (Trazodone Hcl 50 Mg Tablet) 50 mg PO BEDTIME MRX1 PRN PRN Reason: Insomnia Last Admin: 08/14/24 20:45 Dose: 50 mg Valproic Acid (Valproic Acid Liquid 250 Mg/5 Ml Solution) 500 mg PO BEDTIME RIKI Last Admin: 08/26/24 03:58 Dose: Not Given Allergies Allergies Allergy/AdvReac Type Severity Reaction Status Date / Time No Known Allergies Allergy Verified 08/12/24 09:40 Assessment & Plan Assessment & Plan (1) Schizoaffective disorder, bipolar type: Status: Acute Code(s): F25.0 - Schizoaffective disorder, bipolar type (2) PTSD (post-traumatic stress disorder): Status: Acute Code(s): F43.10 - Post-traumatic stress disorder, unspecified (3) Cannabis use disorder: Status: Acute Code(s): F12.90 - Cannabis use, unspecified, uncomplicated Plan Admit, CV, 15 minute checks Collateral Contact Diagnostics as needed --B12,Folate,TSH, EKG Encourage milieu participation Olanzapine 10 mg bid Valproate ER 500 mg HS DC/Aftercare planning 08/15-Continue to encourage treatment Section 7 may be needed This was discussed with family by Ian VILLANUEVA. They will participate if this is needed. 08/16- Continue to encourage treatment 08/17 CTP 08/18 CTP 08/19: Will file Section 7 on 08/20. Family is in agreement. 08/20: pacing in front of nurses station. Keeping to self. malodorous and unkempt. declining to shower. guarded. brief during assessment. Patient reports feeling fine ; states he doesn't need anything . encouraged to shower and attend groups. 08/21: Encourage treatment and alliance building. 08/22: Continue to attempt treatment 08/23: Continue to offer and attempt treatment 08/24: Continue current regimen and plans. Encourage food and drink. 08/26 Patient standing alone in [place] most of the day, quiet, just staring off. Patient tells principal technical writer that he is eating and drinking regularly; he says he came to the hospital because he wanted help to quit smoking; says he does not need medications.Nursing staff reports that patient is not eating or drinking much at all (though did eat some yesterday) -court postponed until 09/05/24 Patient educated on: diagnosis and medication risk/benefits Informed Consent: does not understand and further education needed Reason for continued inpatient stay Substantial Risk for: inability to function Time Spent With Patient Time: Total time managing care of this patient today ____ minutes.
[2024-08-26 13:08] LABS: Influenza A PCR NEGATIVE (Negative); Influenza B PCR NEGATIVE (Negative); Resp Syncy Virus RNA Qual PCR NEGATIVE (Negative); SARS COV2 PCR INHOUSE NEGATIVE (Negative)
[2024-08-26 20:00] VITALS: BP 133/77; PULSE 83; RESP 16; TEMP 36.8; O2SAT 99
[2024-08-27 08:00] VITALS: BP 116/69; PULSE 75; RESP 16; TEMP 36.5; O2SAT 98
--- NOTE | 2024-08-27 15:12 | HO.PSYCHPN ---
Subjective Subjective Date of Service: 08/27/24 Reason For Visit: catatonia Subjective Notes: Section 7 Healthcare Proxy: No Guardianship: No Medical Problems Affecting Mental Status: No Interim History: Continues to refuse medications, ADL, self care. Agreed to father's request for CAT scan. Present at the nursing station physically, attentive to environment at times, at times appearing dissociative, thought blocking. Responds he is good or OK or fine when asked, minimal discussion. No concerns pt reports. Intake has improved. Medication Compliance: No Side effects from medications: No Attending Groups: No Review of Systems Acute medical concerns: No Review of Systems Review of Systems Yes Unobtainable due to mental status Mental Status Exam Mental Status Exam Patient Appearance: Disheveled, Unkempt and Malodorous Patient Orientation: Person and Place Level of Consciousness: Alert Patient Behavior: Guarded, Cooperative, Suspicious, Resistive to Care, Avoidant, Distractible and Good Eye Contact (intense at times) Mood Description: Blunted Affect Description: Blunted Patient Cognition Impaired: No Ability to Follow Directions: Fair Speech Pattern: Impoverished, Spontaneous Speech, Soft-Spoken, Delayed and Long Pauses Memory Description: Remote Impaired and Episodic Impaired Delusions: Present Perceptual Disturbances: Derealization Thought Process: Distracted, Rumination and Slowed Thinking Thought Content: positive for Perseveration, positive for Poverty of Content, positive for Thought Blocking and positive for Suicidal Ideation (denies) Depressive Symptoms: Changes in Appetite and Difficulty Concentrating Judgement: Poor Diagnostics Vital Signs (24Hr): Vital Signs - 24 hr 08/26/24 20:00 08/27/24 08:00 Temperature 98.3 F 97.7 F Pulse Rate 83 75 Respiratory Rate 16 16 Blood Pressure 133/77 116/69 Pulse Oximetry 99 98 Oxygen Delivery Method Room Air Room Air BMI result Body Mass Index 27.3 Labs 08/12/24 10:10 08/13/24 13:34 Labs: Laboratory Results - last 48 hr 08/26/24 12:10 Influenza Type A (PCR) NEGATIVE Influenza Type B (PCR) NEGATIVE RSV RNA Qual (PCR) NEGATIVE SARS-CoV-2 RNA (RT-PCR) NEGATIVE Medications Medications Current Medications Acetaminophen (Acetaminophen 325 Mg Tablet) 650 mg PO Q6H PRN PRN Reason: Headache/Pain, Scale 1-10 Al Hydroxide/Mg Hydroxide (Magnesium Hydrox/Alum Hydrox 30 Ml Oral.Susp) 30 ml PO Q6H PRN PRN Reason: Heartburn/Nausea Hydroxyzine HCl (Hydroxyzine Hcl 25 Mg Tablet) 25 mg PO Q6H PRN PRN Reason: mild anxiety Lorazepam (Lorazepam 0.5 Mg Tablet) 0.5 mg PO Q4H PRN PRN Reason: Anxiety Last Admin: 08/14/24 20:45 Dose: 0.5 mg Magnesium Hydroxide (Milk Of Magnesia 30 Ml Oral.Susp) 30 ml PO DAILY PRN PRN Reason: Constipation Nicotine (Nicotine 21 Mg Patch.Td24) 21 mg TRANSDERMA DAILY PRN PRN Reason: smoking cessation Nicotine Polacrilex (Nicotine Polacrilex 2 Mg Gum) 4 mg BUCCAL Q2H PRN PRN Reason: Nicotine Cravings Last Admin: 08/19/24 20:48 Dose: 4 mg Olanzapine (Olanzapine Odt 10 Mg Tab.Rapdis) 10 mg TRANSLINGU BID RIKI Last Admin: 08/27/24 08:29 Dose: Not Given Trazodone HCl (Trazodone Hcl 50 Mg Tablet) 50 mg PO BEDTIME MRX1 PRN PRN Reason: Insomnia Last Admin: 08/14/24 20:45 Dose: 50 mg Valproic Acid (Valproic Acid Liquid 250 Mg/5 Ml Solution) 500 mg PO BEDTIME RIKI Last Admin: 08/26/24 22:06 Dose: Not Given Allergies Allergies Allergy/AdvReac Type Severity Reaction Status Date / Time No Known Allergies Allergy Verified 08/12/24 09:40 Assessment & Plan Assessment & Plan (1) Schizoaffective disorder, bipolar type: Status: Acute Code(s): F25.0 - Schizoaffective disorder, bipolar type (2) PTSD (post-traumatic stress disorder): Status: Acute Code(s): F43.10 - Post-traumatic stress disorder, unspecified (3) Cannabis use disorder: Status: Acute Code(s): F12.90 - Cannabis use, unspecified, uncomplicated Plan Admit, CV, 15 minute checks Collateral Contact Diagnostics as needed --B12,Folate,TSH, EKG Encourage milieu participation Olanzapine 10 mg bid Valproate ER 500 mg HS DC/Aftercare planning 08/15-Continue to encourage treatment Section 7 may be needed This was discussed with family by Ian VILLANUEVA. They will participate if this is needed. 08/16- Continue to encourage treatment 08/17 CTP 08/18 CTP 08/19: Will file Section 7 on 08/20. Family is in agreement. 08/20: pacing in front of nurses station. Keeping to self. malodorous and unkempt. declining to shower. guarded. brief during assessment. Patient reports feeling fine ; states he doesn't need anything . encouraged to shower and attend groups. 08/21: Encourage treatment and alliance building. 08/22: Continue to attempt treatment 08/23: Continue to offer and attempt treatment 08/24: Continue current regimen and plans. Encourage food and drink. 08/26 Patient standing alone in [place] most of the day, quiet, just staring off. Patient tells fiction and nonfiction writer prose that he is eating and drinking regularly; he says he came to the hospital because he wanted help to quit smoking; says he does not need medications.Nursing staff reports that patient is not eating or drinking much at all (though did eat some yesterday) -court postponed until 09/05/2408/27 agreed to CAT Scan Reason for continued inpatient stay Substantial Risk for: rapid decompensation Time Spent With Patient Time: Total time managing care of this patient today ____ minutes.
--- NOTE | 2024-08-28 10:03 | P.PNPSI_ITS ---
Subjective Subjective Date of Service: 08/28/24 Reason For Visit: catatonia Subjective Notes: Section 7 Healthcare Proxy: No Guardianship: No Medical Problems Affecting Mental Status: No Interim History: Pt able to shower today. Intake slightly improved. Continues to decline medications. Quiet, visable at the nursing station, responsive yet does not initiate dialogue. Intense eye contact at times. I am OK. Father to pursue guardianship in community as sx have been present and increasing for a period of time. CAT negative. Medication Compliance: No Side effects from medications: No Attending Groups: No Review of Systems Acute medical concerns: No Review of Systems Review of Systems Yes Unobtainable due to mental status Mental Status Exam Mental Status Exam Patient Appearance: Disheveled, Unkempt and Malodorous Patient Orientation: Person and Place Level of Consciousness: Alert Patient Behavior: Guarded, Cooperative, Suspicious, Resistive to Care, Avoidant, Distractible and Good Eye Contact (intense at times) Mood Description: Blunted Affect Description: Blunted Patient Cognition Impaired: No Ability to Follow Directions: Fair Speech Pattern: Impoverished, Spontaneous Speech, Soft-Spoken, Delayed and Long Pauses Memory Description: Remote Impaired and Episodic Impaired Delusions: Present Perceptual Disturbances: Derealization Thought Process: Distracted, Rumination and Slowed Thinking Thought Content: positive for Perseveration, positive for Poverty of Content, positive for Thought Blocking and positive for Suicidal Ideation (denies) Depressive Symptoms: Changes in Appetite and Difficulty Concentrating Judgement: Poor Diagnostics Vital Signs (24Hr): BMI result Body Mass Index 27.3 Labs 08/12/24 10:10 08/13/24 13:34 Labs: Laboratory Results - last 48 hr 08/26/24 12:10 Influenza Type A (PCR) NEGATIVE Influenza Type B (PCR) NEGATIVE RSV RNA Qual (PCR) NEGATIVE SARS-CoV-2 RNA (RT-PCR) NEGATIVE Imaging Radiology Impressions: ITS Impressions Head CT 08/27/24 13:57 IMPRESSION: No acute brain abnormality by CT. Electronically signed by: Tito Costa MD 08/27/2024 04:05 PM EDT Medications Medications Current Medications Acetaminophen (Acetaminophen 325 Mg Tablet) 650 mg PO Q6H PRN PRN Reason: Headache/Pain, Scale 1-10 Al Hydroxide/Mg Hydroxide (Magnesium Hydrox/Alum Hydrox 30 Ml Oral.Susp) 30 ml PO Q6H PRN PRN Reason: Heartburn/Nausea Hydroxyzine HCl (Hydroxyzine Hcl 25 Mg Tablet) 25 mg PO Q6H PRN PRN Reason: mild anxiety Lorazepam (Lorazepam 0.5 Mg Tablet) 0.5 mg PO Q4H PRN PRN Reason: Anxiety Last Admin: 08/14/24 20:45 Dose: 0.5 mg Magnesium Hydroxide (Milk Of Magnesia 30 Ml Oral.Susp) 30 ml PO DAILY PRN PRN Reason: Constipation Nicotine (Nicotine 21 Mg Patch.Td24) 21 mg TRANSDERMA DAILY PRN PRN Reason: smoking cessation Nicotine Polacrilex (Nicotine Polacrilex 2 Mg Gum) 4 mg BUCCAL Q2H PRN PRN Reason: Nicotine Cravings Last Admin: 08/19/24 20:48 Dose: 4 mg Olanzapine (Olanzapine Odt 10 Mg Tab.Rapdis) 10 mg TRANSLINGU BID RIKI Last Admin: 08/27/24 20:01 Dose: Not Given Trazodone HCl (Trazodone Hcl 50 Mg Tablet) 50 mg PO BEDTIME MRX1 PRN PRN Reason: Insomnia Last Admin: 08/14/24 20:45 Dose: 50 mg Valproic Acid (Valproic Acid Liquid 250 Mg/5 Ml Solution) 500 mg PO BEDTIME RIKI Last Admin: 08/27/24 20:01 Dose: Not Given Allergies Allergies Allergy/AdvReac Type Severity Reaction Status Date / Time No Known Allergies Allergy Verified 08/12/24 09:40 Assessment & Plan Assessment & Plan (1) Schizoaffective disorder, bipolar type: Status: Acute Code(s): F25.0 - Schizoaffective disorder, bipolar type (2) PTSD (post-traumatic stress disorder): Status: Acute Code(s): F43.10 - Post-traumatic stress disorder, unspecified (3) Cannabis use disorder: Status: Acute Code(s): F12.90 - Cannabis use, unspecified, uncomplicated Plan Admit, CV, 15 minute checks Collateral Contact Diagnostics as needed --B12,Folate,TSH, EKG Encourage milieu participation Olanzapine 10 mg bid Valproate ER 500 mg HS DC/Aftercare planning 08/15-Continue to encourage treatment Section 7 may be needed This was discussed with family by Ian VILLANUEVA. They will participate if this is needed. 08/16- Continue to encourage treatment 08/17 CTP 08/18 CTP 08/19: Will file Section 7 on 08/20. Family is in agreement. 08/20: pacing in front of nurses station. Keeping to self. malodorous and unkempt. declining to shower. guarded. brief during assessment. Patient reports feeling fine ; states he doesn't need anything . encouraged to shower and attend groups. 08/21: Encourage treatment and alliance building. 08/22: Continue to attempt treatment 08/23: Continue to offer and attempt treatment 08/24: Continue current regimen and plans. Encourage food and drink. 08/26 Patient standing alone in [place] most of the day, quiet, just staring off. Patient tells residential mortgage underwriter that he is eating and drinking regularly; he says he came to the hospital because he wanted help to quit smoking; says he does not need medications.Nursing staff reports that patient is not eating or drinking much at all (though did eat some yesterday) -court postponed until 09/05/2408/28 Intake and ADL attention with slight improvement Continues to refuse medications CAT negative Father to pursue guardianship Reason for continued inpatient stay Substantial Risk for: rapid decompensation Time Spent With Patient Time: Total time managing care of this patient today ____ minutes.
[2024-08-28 20:00] VITALS: BP 141/82; PULSE 82; RESP 16; TEMP 36.9; O2SAT 99
[2024-08-29 08:00] VITALS: BP 122/75; PULSE 70; RESP 18; TEMP 37.1; O2SAT 98
[2024-08-29 20:00] VITALS: BP 126/73; PULSE 87; RESP 18; TEMP 37.1; O2SAT 97
--- NOTE | 2024-08-29 21:21 | HO.PSYCHPN ---
Subjective Subjective Date of Service: 08/29/24 Reason For Visit: catatonia Subjective Notes: Section 7 Healthcare Proxy: No Guardianship: No Medical Problems Affecting Mental Status: No Interim History: Continues to decline medications. Pt's father will pursue guardianship. Paperwork completed per father's request. Discussed with pt and he was aloof on the subject, stating, OK, I don't want medicine. Intake is improved. Pt eating standing up, holding his tray. Encouraged to possibly use the dining area to be more comfortable, Thank you. Declines issues to discuss- I am fine here. Thank you. Observant of the environment, minimally interactive, appears to be dissociative at times, attentive at times. Maintains eye contact, responds yet does not initiate discussion. Family reports pt's presentation is still of concern, no where near his baseline. 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 Current presentation if far from that which they know. Medication Compliance: No Side effects from medications: No Attending Groups: No Review of Systems Acute medical concerns: No Medical Review of Systems: unchanged Review of Systems Review of Systems denies Mental Status Exam Mental Status Exam Patient Appearance: Disheveled, Unkempt and Malodorous Patient Orientation: Person and Place Level of Consciousness: Alert Patient Behavior: Guarded, Cooperative, Suspicious, Resistive to Care, Avoidant, Distractible and Good Eye Contact (intense at times) Mood Description: Blunted Affect Description: Blunted Patient Cognition Impaired: No Ability to Follow Directions: Fair Speech Pattern: Impoverished, Spontaneous Speech, Soft-Spoken, Delayed and Long Pauses Memory Description: Remote Impaired and Episodic Impaired Delusions: Present Perceptual Disturbances: Derealization Thought Process: Distracted, Rumination and Slowed Thinking Thought Content: positive for Perseveration, positive for Poverty of Content, positive for Thought Blocking and positive for Suicidal Ideation (denies) Depressive Symptoms: Changes in Appetite and Difficulty Concentrating Judgement: Poor Diagnostics Vital Signs (24Hr): Vital Signs - 24 hr 08/29/24 08:00 08/29/24 20:00 Temperature 98.7 F 98.7 F Pulse Rate 70 87 Respiratory Rate 18 18 Blood Pressure 122/75 126/73 Pulse Oximetry 98 97 Oxygen Delivery Method Room Air Room Air BMI result Body Mass Index 27.3 Labs 08/12/24 10:10 08/13/24 13:34 Imaging Radiology Impressions: ITS Impressions Head CT 08/27/24 13:57 IMPRESSION: No acute brain abnormality by CT. Electronically signed by: Tito Costa MD 08/27/2024 04:05 PM EDT RP Medications Medications Current Medications Acetaminophen (Acetaminophen 325 Mg Tablet) 650 mg PO Q6H PRN PRN Reason: Headache/Pain, Scale 1-10 Al Hydroxide/Mg Hydroxide (Magnesium Hydrox/Alum Hydrox 30 Ml Oral.Susp) 30 ml PO Q6H PRN PRN Reason: Heartburn/Nausea Hydroxyzine HCl (Hydroxyzine Hcl 25 Mg Tablet) 25 mg PO Q6H PRN PRN Reason: mild anxiety Lorazepam (Lorazepam 0.5 Mg Tablet) 0.5 mg PO Q4H PRN PRN Reason: Anxiety Last Admin: 08/14/24 20:45 Dose: 0.5 mg Magnesium Hydroxide (Milk Of Magnesia 30 Ml Oral.Susp) 30 ml PO DAILY PRN PRN Reason: Constipation Nicotine (Nicotine 21 Mg Patch.Td24) 21 mg TRANSDERMA DAILY PRN PRN Reason: smoking cessation Nicotine Polacrilex (Nicotine Polacrilex 2 Mg Gum) 4 mg BUCCAL Q2H PRN PRN Reason: Nicotine Cravings Last Admin: 08/19/24 20:48 Dose: 4 mg Olanzapine (Olanzapine Odt 10 Mg Tab.Rapdis) 10 mg TRANSLINGU BID [facility] Last Admin: 08/29/24 20:46 Dose: Not Given Trazodone HCl (Trazodone Hcl 50 Mg Tablet) 50 mg PO BEDTIME MRX1 PRN PRN Reason: Insomnia Last Admin: 08/14/24 20:45 Dose: 50 mg Valproic Acid (Valproic Acid Liquid 250 Mg/5 Ml Solution) 500 mg PO BEDTIME [facility]IKI Last Admin: 08/29/24 20:46 Dose: Not Given Allergies Allergies Allergy/AdvReac Type Severity Reaction Status Date / Time No Known Allergies Allergy Verified 08/12/24 09:40 Assessment & Plan Assessment & Plan (1) Schizoaffective disorder, bipolar type: Status: Acute Code(s): F25.0 - Schizoaffective disorder, bipolar type (2) PTSD (post-traumatic stress disorder): Status: Acute Code(s): F43.10 - Post-traumatic stress disorder, unspecified (3) Cannabis use disorder: Status: Acute Code(s): F12.90 - Cannabis use, unspecified, uncomplicated Plan Admit, CV, 15 minute checks Collateral Contact Diagnostics as needed --B12,Folate,TSH, EKG Encourage milieu participation Olanzapine 10 mg bid Valproate ER 500 mg HS DC/Aftercare planning 08/15-Continue to encourage treatment Section 7 may be needed This was discussed with family by Ian VILLANUEVA. They will participate if this is needed. 08/16- Continue to encourage treatment 08/17 CTP 08/18 CTP 08/19: Will file Section 7 on 08/20. Family is in agreement. 08/20: pacing in front of nurses station. Keeping to self. malodorous and unkempt. declining to shower. guarded. brief during assessment. Patient reports feeling fine ; states he doesn't need anything . encouraged to shower and attend groups. 08/21: Encourage treatment and alliance building. 08/22: Continue to attempt treatment 08/23: Continue to offer and attempt treatment 08/24: Continue current regimen and plans. Encourage food and drink. 08/26 Patient standing alone in [place] most of the day, quiet, just staring off. Patient tells service writer advisor that he is eating and drinking regularly; he says he came to the hospital because he wanted help to quit smoking; says he does not need medications.Nursing staff reports that patient is not eating or drinking much at all (though did eat some yesterday) -court postponed until 09/05/2408/28 Intake and ADL attention with slight improvement Continues to refuse medications CAT negative Father to pursue guardianship 08/29: Encourage treatment Reason for continued inpatient stay Substantial Risk for: rapid decompensation Time Spent With Patient Time: Total time managing care of this patient today ____ minutes.
[2024-08-30 07:53] VITALS: BP 132/58; PULSE 98; RESP 18; TEMP 36.6; O2SAT 97
--- NOTE | 2024-08-30 09:41 | P.PNPSI_ITS ---
Subjective Subjective Date of Service: 08/30/24 Reason For Visit: catatonia Subjective Notes: Section 7 Healthcare Proxy: No Guardianship: No Medical Problems Affecting Mental Status: No Interim History: Refusing medication. Attending some groups with minimal participation yet with some attentiveness. When asked, I am ok, comfortable. Intake seems to be improving. Medication Compliance: No Side effects from medications: No Attending Groups: Intermittent Review of Systems Acute medical concerns: No Review of Systems Review of Systems No Mental Status Exam Mental Status Exam Patient Appearance: Disheveled, Unkempt and Malodorous Patient Orientation: Person and Place Level of Consciousness: Alert Patient Behavior: Guarded, Cooperative, Suspicious, Resistive to Care, Avoidant, Distractible and Good Eye Contact (intense at times) Mood Description: Blunted Affect Description: Blunted Patient Cognition Impaired: No Ability to Follow Directions: Fair Speech Pattern: Impoverished, Spontaneous Speech, Soft-Spoken, Delayed and Long Pauses Memory Description: Remote Impaired and Episodic Impaired Delusions: Present Perceptual Disturbances: Derealization Thought Process: Distracted, Rumination and Slowed Thinking Thought Content: positive for Perseveration, positive for Poverty of Content, positive for Thought Blocking and positive for Suicidal Ideation (denies) Depressive Symptoms: Changes in Appetite and Difficulty Concentrating Judgement: Poor Diagnostics Vital Signs (24Hr): Vital Signs - 24 hr 08/29/24 20:00 08/30/24 07:53 Temperature 98.7 F 97.9 F Pulse Rate 87 98 Respiratory Rate 18 18 Blood Pressure 126/73 132/58 L Pulse Oximetry 97 97 Oxygen Delivery Method Room Air Room Air BMI result Body Mass Index 27.3 Labs 08/12/24 10:10 08/13/24 13:34 Imaging Radiology Impressions: ITS Impressions Head CT 08/27/24 13:57 IMPRESSION: No acute brain abnormality by CT. Electronically signed by: Tito Costa MD 08/27/2024 04:05 PM EDT Medications Medications Current Medications Acetaminophen (Acetaminophen 325 Mg Tablet) 650 mg PO Q6H PRN PRN Reason: Headache/Pain, Scale 1-10 Al Hydroxide/Mg Hydroxide (Magnesium Hydrox/Alum Hydrox 30 Ml Oral.Susp) 30 ml PO Q6H PRN PRN Reason: Heartburn/Nausea Hydroxyzine HCl (Hydroxyzine Hcl 25 Mg Tablet) 25 mg PO Q6H PRN PRN Reason: mild anxiety Lorazepam (Lorazepam 0.5 Mg Tablet) 0.5 mg PO Q4H PRN PRN Reason: Anxiety Last Admin: 08/14/24 20:45 Dose: 0.5 mg Magnesium Hydroxide (Milk Of Magnesia 30 Ml Oral.Susp) 30 ml PO DAILY PRN PRN Reason: Constipation Nicotine (Nicotine 21 Mg Patch.Td24) 21 mg TRANSDERMA DAILY PRN PRN Reason: smoking cessation Nicotine Polacrilex (Nicotine Polacrilex 2 Mg Gum) 4 mg BUCCAL Q2H PRN PRN Reason: Nicotine Cravings Last Admin: 08/19/24 20:48 Dose: 4 mg Olanzapine (Olanzapine Odt 10 Mg Tab.Rapdis) 10 mg TRANSLINGU BID [facility] Last Admin: 08/30/24 08:28 Dose: Not Given Trazodone HCl (Trazodone Hcl 50 Mg Tablet) 50 mg PO BEDTIME MRX1 PRN PRN Reason: Insomnia Last Admin: 08/14/24 20:45 Dose: 50 mg Valproic Acid (Valproic Acid Liquid 250 Mg/5 Ml Solution) 500 mg PO BEDTIME RIKI Last Admin: 08/29/24 20:46 Dose: Not Given Allergies Allergies Allergy/AdvReac Type Severity Reaction Status Date / Time No Known Allergies Allergy Verified 08/12/24 09:40 Assessment & Plan Assessment & Plan (1) Schizoaffective disorder, bipolar type: Status: Acute Code(s): F25.0 - Schizoaffective disorder, bipolar type (2) PTSD (post-traumatic stress disorder): Status: Acute Code(s): F43.10 - Post-traumatic stress disorder, unspecified (3) Cannabis use disorder: Status: Acute Code(s): F12.90 - Cannabis use, unspecified, uncomplicated Plan Admit, CV, 15 minute checks Collateral Contact Diagnostics as needed --B12,Folate,TSH, EKG Encourage milieu participation Olanzapine 10 mg bid Valproate ER 500 mg HS DC/Aftercare planning 08/15-Continue to encourage treatment Section 7 may be needed This was discussed with family by Ian VILLANUEVA. They will participate if this is needed. 08/16- Continue to encourage treatment 08/17 CTP 08/18 CTP 08/19: Will file Section 7 on 08/20. Family is in agreement. 04/15: pacing in front of nurses station. Keeping to self. malodorous and unkempt. declining to shower. guarded. brief during assessment. Patient reports feeling fine ; states he doesn't need anything . encouraged to shower and attend groups. 08/21: Encourage treatment and alliance building. 08/22: Continue to attempt treatment 08/23: Continue to offer and attempt treatment 08/24: Continue current regimen and plans. Encourage food and drink. 08/26 Patient standing alone in [place] most of the day, quiet, just staring off. Patient tells marketing writer that he is eating and drinking regularly; he says he came to the hospital because he wanted help to quit smoking; says he does not need medications.Nursing staff reports that patient is not eating or drinking much at all (though did eat some yesterday) -court postponed until 09/05/2408/28 Intake and ADL attention with slight improvement Continues to refuse medications CAT negative Father to pursue guardianship 08/30 Continue plan Reason for continued inpatient stay Substantial Risk for: rapid decompensation Time Spent With Patient Time: Total time managing care of this patient today ____ minutes.
[2024-08-31 07:41] VITALS: BP 115/69; PULSE 110; RESP 18; TEMP 36.4; O2SAT 95
--- NOTE | 2024-08-31 09:34 | HO.PSYCHPN ---
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 Denies all psych symptoms Mental Status Exam Mental Status Exam Patient Appearance: Unkempt and Malodorous Patient Orientation: Person and Place Level of Consciousness: Alert Patient Behavior: Guarded (mildly), Cooperative and Good Eye Contact Mood Description: Calm Affect Description: Calm Patient Cognition Impaired: No Ability to Follow Directions: Fair Speech Pattern: Impoverished, Spontaneous Speech, Soft-Spoken, Delayed and Long Pauses Memory Description: Remote Impaired and Episodic Impaired Delusions: Present Perceptual Disturbances: Derealization Thought Process: Goal Oriented Thought Content: positive for Perseveration, positive for Poverty of Content, positive for Thought Blocking and positive for Suicidal Ideation (denies) Judgement: Poor Diagnostics Vital Signs (24Hr): Vital Signs - 24 hr 08/31/24 07:41 Temperature 97.5 F Pulse Rate 110 H Respiratory Rate 18 Blood Pressure 115/69 Pulse Oximetry 95 Oxygen Delivery Method Room Air BMI result Body Mass Index 27.3 Labs 08/12/24 10:10 08/13/24 13:34 Imaging Radiology Impressions: ITS Impressions Head CT 08/27/24 13:57 IMPRESSION: No acute brain abnormality by CT. Electronically signed by: Tito Costa MD 08/27/2024 04:05 PM EDT RP Medications Medications Current Medications Acetaminophen (Acetaminophen 325 Mg Tablet) 650 mg PO Q6H PRN PRN Reason: Headache/Pain, Scale 1-10 Al Hydroxide/Mg Hydroxide (Magnesium Hydrox/Alum Hydrox 30 Ml Oral.Susp) 30 ml PO Q6H PRN PRN Reason: Heartburn/Nausea Hydroxyzine HCl (Hydroxyzine Hcl 25 Mg Tablet) 25 mg PO Q6H PRN PRN Reason: mild anxiety Lorazepam (Lorazepam 0.5 Mg Tablet) 0.5 mg PO Q4H PRN PRN Reason: Anxiety Last Admin: 08/14/24 20:45 Dose: 0.5 mg Magnesium Hydroxide (Milk Of Magnesia 30 Ml Oral.Susp) 30 ml PO DAILY PRN PRN Reason: Constipation Nicotine (Nicotine 21 Mg Patch.Td24) 21 mg TRANSDERMA DAILY PRN PRN Reason: smoking cessation Nicotine Polacrilex (Nicotine Polacrilex 2 Mg Gum) 4 mg BUCCAL Q2H PRN PRN Reason: Nicotine Cravings Last Admin: 08/19/24 20:48 Dose: 4 mg Olanzapine (Olanzapine Odt 10 Mg Tab.Rapdis) 10 mg TRANSLINGU BID [facility]IK[facility] Last Admin: 08/31/24 08:17 Dose: Not Given Trazodone HCl (Trazodone Hcl 50 Mg Tablet) 50 mg PO BEDTIME MRX1 PRN PRN Reason: Insomnia Last Admin: 08/14/24 20:45 Dose: 50 mg Valproic Acid (Valproic Acid Liquid 250 Mg/5 Ml Solution) 500 mg PO BEDTIME RIKI Last Admin: 08/30/24 20:04 Dose: Not Given Allergies Allergies Allergy/AdvReac Type Severity Reaction Status Date / Time No Known Allergies Allergy Verified 08/12/24 09:40 Assessment & Plan Assessment & Plan (1) Schizoaffective disorder, bipolar type: Status: Acute Code(s): F25.0 - Schizoaffective disorder, bipolar type (2) PTSD (post-traumatic stress disorder): Status: Acute Code(s): F43.10 - Post-traumatic stress disorder, unspecified (3) Cannabis use disorder: Status: Acute Code(s): F12.90 - Cannabis use, unspecified, uncomplicated Plan Admit, CV, 15 minute checks Collateral Contact Diagnostics as needed --B12,Folate,TSH, EKG Encourage milieu participation Olanzapine 10 mg bid Valproate ER 500 mg HS DC/Aftercare planning 08/15-Continue to encourage treatment Section 7 may be needed This was discussed with family by Ian Olivas [facility]. They will participate if this is needed. 08/16- Continue to encourage treatment 08/17 CTP 08/18 CTP 08/19: Will file Section 7 on 08/20. Family is in agreement. 08/20: pacing in front of nurses station. Keeping to self. malodorous and unkempt. declining to shower. guarded. brief during assessment. Patient reports feeling fine ; states he doesn't need anything . encouraged to shower and attend groups. 08/21: Encourage treatment and alliance building. 08/22: Continue to attempt treatment 08/23: Continue to offer and attempt treatment 08/24: Continue current regimen and plans. Encourage food and drink. 08/26 Patient standing alone in [place] most of the day, quiet, just staring off. Patient tells advertising writer that he is eating and drinking regularly; he says he came to the hospital because he wanted help to quit smoking; says he does not need medications.Nursing staff reports that patient is not eating or drinking much at all (though did eat some yesterday) -court postponed until 09/05/2408/28 Intake and ADL attention with slight improvement Continues to refuse medications CAT negative Father to pursue guardianship 08/30 Continue plan 08/31 same presentation Patient educated on: diagnosis Informed Consent: further education needed Reason for continued inpatient stay Substantial Risk for: med/psych decompensation Time Spent With Patient Time: Total time managing care of this patient today ____ minutes.
[2024-09-01 08:00] VITALS: BP 136/76; PULSE 86; RESP 18; TEMP 36.4; O2SAT 98
--- NOTE | 2024-09-01 13:11 | P.PNPSI_ITS ---
Subjective Subjective Date of Service: 09/01/24 Reason For Visit: catatonia Interim History: met with pt; discussed with team pt with same presentation; polite on approach; denies psychiatric symptoms; stands in [place] by self all day Mental Status Exam Mental Status Exam Patient Appearance: Unkempt Patient Orientation: Person and Place Level of Consciousness: Alert Patient Behavior: Guarded (mildly), Cooperative and Good Eye Contact Mood Description: Calm Affect Description: Calm Patient Cognition Impaired: No Ability to Follow Directions: Fair Speech Pattern: Impoverished, Spontaneous Speech, Soft-Spoken, Delayed and Long Pauses Memory Description: Remote Impaired and Episodic Impaired Delusions: Present Perceptual Disturbances: Derealization Thought Process: Goal Oriented Thought Content: positive for Perseveration, positive for Poverty of Content, positive for Thought Blocking and positive for Suicidal Ideation (denies) Judgement: Poor Diagnostics Vital Signs (24Hr): Vital Signs - 24 hr 09/01/24 08:00 Temperature 97.6 F Pulse Rate 86 Respiratory Rate 18 Blood Pressure 136/76 Pulse Oximetry 98 Oxygen Delivery Method Room Air BMI result Body Mass Index 27.3 Labs 08/12/24 10:10 08/13/24 13:34 Imaging Radiology Impressions: ITS Impressions Head CT 08/27/24 13:57 IMPRESSION: No acute brain abnormality by CT. Electronically signed by: Tito Costa MD 08/27/2024 04:05 PM EDT Medications Medications Current Medications Acetaminophen (Acetaminophen 325 Mg Tablet) 650 mg PO Q6H PRN PRN Reason: Headache/Pain, Scale 1-10 Al Hydroxide/Mg Hydroxide (Magnesium Hydrox/Alum Hydrox 30 Ml Oral.Susp) 30 ml PO Q6H PRN PRN Reason: Heartburn/Nausea Hydroxyzine HCl (Hydroxyzine Hcl 25 Mg Tablet) 25 mg PO Q6H PRN PRN Reason: mild anxiety Lorazepam (Lorazepam 0.5 Mg Tablet) 0.5 mg PO Q4H PRN PRN Reason: Anxiety Last Admin: 08/14/24 20:45 Dose: 0.5 mg Magnesium Hydroxide (Milk Of Magnesia 30 Ml Oral.Susp) 30 ml PO DAILY PRN PRN Reason: Constipation Nicotine (Nicotine 21 Mg Patch.Td24) 21 mg TRANSDERMA DAILY PRN PRN Reason: smoking cessation Nicotine Polacrilex (Nicotine Polacrilex 2 Mg Gum) 4 mg BUCCAL Q2H PRN PRN Reason: Nicotine Cravings Last Admin: 08/19/24 20:48 Dose: 4 mg Olanzapine (Olanzapine Odt 10 Mg Tab.Rapdis) 10 mg TRANSLINGU BID [facility] Last Admin: 09/01/24 08:58 Dose: Not Given Trazodone HCl (Trazodone Hcl 50 Mg Tablet) 50 mg PO BEDTIME MRX1 PRN PRN Reason: Insomnia Last Admin: 08/14/24 20:45 Dose: 50 mg Valproic Acid (Valproic Acid Liquid 250 Mg/5 Ml Solution) 500 mg PO BEDTIME RIKI Last Admin: 08/31/24 21:30 Dose: Not Given Allergies Allergies Allergy/AdvReac Type Severity Reaction Status Date / Time No Known Allergies Allergy Verified 08/12/24 09:40 Assessment & Plan Assessment & Plan (1) Schizoaffective disorder, bipolar type: Status: Acute Code(s): F25.0 - Schizoaffective disorder, bipolar type (2) PTSD (post-traumatic stress disorder): Status: Acute Code(s): F43.10 - Post-traumatic stress disorder, unspecified (3) Cannabis use disorder: Status: Acute Code(s): F12.90 - Cannabis use, unspecified, uncomplicated Plan Admit, CV, 15 minute checks Collateral Contact Diagnostics as needed --B12,Folate,TSH, EKG Encourage milieu participation Olanzapine 10 mg bid Valproate ER 500 mg HS DC/Aftercare planning 08/15-Continue to encourage treatment Section 7 may be needed This was discussed with family by aIn VILLANUEVA. They will participate if this is needed. 08/16- Continue to encourage treatment 08/17 CTP 08/18 CTP 08/19: Will file Section 7 on 08/20. Family is in agreement. 08/20: pacing in front of nurses station. Keeping to self. malodorous and unkempt. declining to shower. guarded. brief during assessment. Patient reports feeling fine ; states he doesn't need anything . encouraged to shower and attend groups. 08/21: Encourage treatment and alliance building. 08/22: Continue to attempt treatment 08/23: Continue to offer and attempt treatment 08/24: Continue current regimen and plans. Encourage food and drink. 08/26 Patient standing alone in [place] most of the day, quiet, just staring off. Patient tells proposal lead writer that he is eating and drinking regularly; he says he came to the hospital because he wanted help to quit smoking; says he does not need medications.Nursing staff reports that patient is not eating or drinking much at all (though did eat some yesterday) -court postponed until 09/05/2408/28 Intake and ADL attention with slight improvement Continues to refuse medications CAT negative Father to pursue guardianship 08/30 Continue plan 08/31-09/01 no change in presentation Patient educated on: diagnosis Informed Consent: further education needed Reason for continued inpatient stay Substantial Risk for: med/psych decompensation Time Spent With Patient Time: Total time managing care of this patient today ____ minutes.
[2024-09-01 20:00] VITALS: BP 132/83; PULSE 84; TEMP 36.5; O2SAT 96
--- NOTE | 2024-09-02 10:14 | P.PNPSI_ITS ---
Subjective Subjective Date of Service: 09/02/24 Reason For Visit: catatonia Subjective Notes: Section 7 Healthcare Proxy: No Guardianship: No (father is in process) Medical Problems Affecting Mental Status: No Interim History: Pt declined to meet with team today, I think I will go to group . Then he did not attend group-remains standing at the nursing station. Calm, non anxious, ADL's not attended to with malodor. Declines medications, denies all symptoms. Appears comfortable in this space, attentive to environment. Medication Compliance: No Side effects from medications: No Attending Groups: No Review of Systems Acute medical concerns: No Medical Review of Systems: unchanged Review of Systems Review of Systems Denies Mental Status Exam Mental Status Exam Patient Appearance: Disheveled and Malodorous Patient Orientation: Person and Place Level of Consciousness: Alert Patient Behavior: Guarded, Suspicious, Wandering, Distractible and Good Eye Contact Mood Description: Flat Affect Description: Flat Patient Cognition Impaired: No Ability to Follow Directions: Fair Speech Pattern: Impoverished and Spontaneous Speech Memory Description: Remote Impaired Hallucinations: None Delusions: Present Perceptual Disturbances: Depersonalization and Derealization Thought Process: Distracted Thought Content: positive for [place], positive for Perseveration, positive for Poverty of Content, positive for Preoccupation and positive for Tangential Depressive Symptoms: Thoughts of /Suicide ( no ) Judgement: Poor Diagnostics Vital Signs (24Hr): Vital Signs - 24 hr 09/01/24 20:00 Temperature 97.7 F Pulse Rate 84 Blood Pressure 132/83 Pulse Oximetry 96 Oxygen Delivery Method Room Air BMI result Body Mass Index 27.3 Labs 08/12/24 10:10 08/13/24 13:34 Imaging Radiology Impressions: ITS Impressions Head CT 08/27/24 13:57 IMPRESSION: No acute brain abnormality by CT. Electronically signed by: Tito Costa MD 08/27/2024 04:05 PM EDT Medications Medications Current Medications Acetaminophen (Acetaminophen 325 Mg Tablet) 650 mg PO Q6H PRN PRN Reason: Headache/Pain, Scale 1-10 Al Hydroxide/Mg Hydroxide (Magnesium Hydrox/Alum Hydrox 30 Ml Oral.Susp) 30 ml PO Q6H PRN PRN Reason: Heartburn/Nausea Hydroxyzine HCl (Hydroxyzine Hcl 25 Mg Tablet) 25 mg PO Q6H PRN PRN Reason: mild anxiety Lorazepam (Lorazepam 0.5 Mg Tablet) 0.5 mg PO Q4H PRN PRN Reason: Anxiety Last Admin: 08/14/24 20:45 Dose: 0.5 mg Magnesium Hydroxide (Milk Of Magnesia 30 Ml Oral.Susp) 30 ml PO DAILY PRN PRN Reason: Constipation Nicotine (Nicotine 21 Mg Patch.Td24) 21 mg TRANSDERMA DAILY PRN PRN Reason: smoking cessation Nicotine Polacrilex (Nicotine Polacrilex 2 Mg Gum) 4 mg BUCCAL Q2H PRN PRN Reason: Nicotine Cravings Last Admin: 08/19/24 20:48 Dose: 4 mg Olanzapine (Olanzapine Odt 10 Mg Tab.Rapdis) 10 mg TRANSLINGU BID [facility]IKI Last Admin: 09/02/24 08:21 Dose: Not Given Trazodone HCl (Trazodone Hcl 50 Mg Tablet) 50 mg PO BEDTIME MRX1 PRN PRN Reason: Insomnia Last Admin: 08/14/24 20:45 Dose: 50 mg Valproic Acid (Valproic Acid Liquid 250 Mg/5 Ml Solution) 500 mg PO BEDTIME RIKI Last Admin: 09/01/24 21:25 Dose: Not Given Allergies Allergies Allergy/AdvReac Type Severity Reaction Status Date / Time No Known Allergies Allergy Verified 08/12/24 09:40 Assessment & Plan Assessment & Plan (1) Schizoaffective disorder, bipolar type: Status: Acute Code(s): F25.0 - Schizoaffective disorder, bipolar type (2) PTSD (post-traumatic stress disorder): Status: Acute Code(s): F43.10 - Post-traumatic stress disorder, unspecified (3) Cannabis use disorder: Status: Acute Code(s): F12.90 - Cannabis use, unspecified, uncomplicated Plan Admit, CV, 15 minute checks Collateral Contact Diagnostics as needed --B12,Folate,TSH, EKG Encourage milieu participation Olanzapine 10 mg bid Valproate ER 500 mg HS DC/Aftercare planning 08/15-Continue to encourage treatment Section 7 may be needed This was discussed with family by Ian VILLANUEVA. They will participate if this is needed. 08/16- Continue to encourage treatment 08/17 CTP 08/18 CTP 08/19: Will file Section 7 on 08/20. Family is in agreement. 08/20: pacing in front of nurses station. Keeping to self. malodorous and unkempt. declining to shower. guarded. brief during assessment. Patient reports feeling fine ; states he doesn't need anything . encouraged to shower and attend groups. 08/21: Encourage treatment and alliance building. 08/22: Continue to attempt treatment 08/23: Continue to offer and attempt treatment 08/24: Continue current regimen and plans. Encourage food and drink. 08/26 Patient standing alone in [place] most of the day, quiet, just staring off. Patient tells fiction writer that he is eating and drinking regularly; he says he came to the hospital because he wanted help to quit smoking; says he does not need medications.Nursing staff reports that patient is not eating or drinking much at all (though did eat some yesterday) -court postponed until 09/05/2408/28 Intake and ADL attention with slight improvement Continues to refuse medications CAT negative Father to pursue guardianship 08/30 Continue plan 08/31-09/01 no change in presentation 09/02-continue plan. Reason for continued inpatient stay Substantial Risk for: rapid decompensation Time Spent With Patient Time: Total time managing care of this patient today ____ minutes.
--- NOTE | 2024-09-03 09:28 | HO.PSYCHPN ---
Subjective Subjective Date of Service: 09/03/24 Reason For Visit: catatonia Subjective Notes: Section 7 Healthcare Proxy: No Guardianship: No Medical Problems Affecting Mental Status: No Interim History: URI sx. Pt tested positive for COVID today. He remains visable, stands at the nurses station, speaks when spoken to. In the center of activity without participating. Denies all sx. Declines medications. Declines ADL assist. Medication Compliance: No Side effects from medications: No Attending Groups: No Review of Systems COVID + Review of Systems Review of Systems COVID + URI sx. I feel good Mental Status Exam Mental Status Exam Patient Appearance: Disheveled and Malodorous Patient Orientation: Person and Place Level of Consciousness: Alert Patient Behavior: Guarded, Suspicious, Wandering, Distractible and Good Eye Contact Mood Description: Flat Affect Description: Flat Patient Cognition Impaired: No Ability to Follow Directions: Fair Speech Pattern: Impoverished and Spontaneous Speech Memory Description: Remote Impaired Hallucinations: None Delusions: Present Perceptual Disturbances: Depersonalization and Derealization Thought Process: Distracted Thought Content: positive for [place], positive for Perseveration, positive for Poverty of Content, positive for Preoccupation and positive for Tangential Depressive Symptoms: Thoughts of /Suicide ( no ) Judgement: Poor Diagnostics Vital Signs (24Hr): BMI result Body Mass Index 27.3 Labs 08/12/24 10:10 08/13/24 13:34 Imaging Radiology Impressions: ITS Impressions Head CT 08/27/24 13:57 IMPRESSION: No acute brain abnormality by CT. Electronically signed by: Tito Costa MD 08/27/2024 04:05 PM EDT Medications Medications Current Medications Acetaminophen (Acetaminophen 325 Mg Tablet) 650 mg PO Q6H PRN PRN Reason: Headache/Pain, Scale 1-10 Al Hydroxide/Mg Hydroxide (Magnesium Hydrox/Alum Hydrox 30 Ml Oral.Susp) 30 ml PO Q6H PRN PRN Reason: Heartburn/Nausea Hydroxyzine HCl (Hydroxyzine Hcl 25 Mg Tablet) 25 mg PO Q6H PRN PRN Reason: mild anxiety Lorazepam (Lorazepam 0.5 Mg Tablet) 0.5 mg PO Q4H PRN PRN Reason: Anxiety Last Admin: 08/14/24 20:45 Dose: 0.5 mg Magnesium Hydroxide (Milk Of Magnesia 30 Ml Oral.Susp) 30 ml PO DAILY PRN PRN Reason: Constipation Nicotine (Nicotine 21 Mg Patch.Td24) 21 mg TRANSDERMA DAILY PRN PRN Reason: smoking cessation Nicotine Polacrilex (Nicotine Polacrilex 2 Mg Gum) 4 mg BUCCAL Q2H PRN PRN Reason: Nicotine Cravings Last Admin: 08/19/24 20:48 Dose: 4 mg Olanzapine (Olanzapine Odt 10 Mg Tab.Rapdis) 10 mg TRANSLINGU BID [facility] Last Admin: 09/02/24 20:54 Dose: Not Given Trazodone HCl (Trazodone Hcl 50 Mg Tablet) 50 mg PO BEDTIME MRX1 PRN PRN Reason: Insomnia Last Admin: 08/14/24 20:45 Dose: 50 mg Valproic Acid (Valproic Acid Liquid 250 Mg/5 Ml Solution) 500 mg PO BEDTIME [facility] Last Admin: 09/02/24 20:54 Dose: Not Given Allergies Allergies Allergy/AdvReac Type Severity Reaction Status Date / Time No Known Allergies Allergy Verified 08/12/24 09:40 Assessment & Plan Assessment & Plan (1) Schizoaffective disorder, bipolar type: Status: Acute Code(s): F25.0 - Schizoaffective disorder, bipolar type (2) PTSD (post-traumatic stress disorder): Status: Acute Code(s): F43.10 - Post-traumatic stress disorder, unspecified (3) Cannabis use disorder: Status: Acute Code(s): F12.90 - Cannabis use, unspecified, uncomplicated Plan Admit, CV, 15 minute checks Collateral Contact Diagnostics as needed --B12,Folate,TSH, EKG Encourage milieu participation Olanzapine 10 mg bid Valproate ER 500 mg DC/Aftercare planning 08/15-Continue to encourage treatment Section 7 may be needed This was discussed with family by Ian Olivas [facility]. They will participate if this is needed. 08/16- Continue to encourage treatment 08/17 CTP 08/18 CTP 08/19: Will file Section 7 on 08/20. Family is in agreement. 08/20: pacing in front of nurses station. Keeping to self. malodorous and unkempt. declining to shower. guarded. brief during assessment. Patient reports feeling fine ; states he doesn't need anything . encouraged to shower and attend groups. 08/21: Encourage treatment and alliance building. 08/22: Continue to attempt treatment 08/23: Continue to offer and attempt treatment 08/24: Continue current regimen and plans. Encourage food and drink. 08/26 Patient standing alone in [place] most of the day, quiet, just staring off. Patient tells contract writer that he is eating and drinking regularly; he says he came to the hospital because he wanted help to quit smoking; says he does not need medications.Nursing staff reports that patient is not eating or drinking much at all (though did eat some yesterday) -court postponed until 09/05/2408/28 Intake and ADL attention with slight improvement Continues to refuse medications CAT negative Father to pursue guardianship 08/30 Continue plan 08/31-09/01 no change in presentation 09/02-continue plan. 09/03- COVID +. Continue to offer treatment Reason for continued inpatient stay Substantial Risk for: rapid decompensation and med/psych decompensation Time Spent With Patient Time: Total time managing care of this patient today ____ minutes.
[2024-09-03 10:41] LABS: Influenza A PCR NEGATIVE (Negative); Influenza B PCR NEGATIVE (Negative); Resp Syncy Virus RNA Qual PCR NEGATIVE (Negative); SARS COV2 PCR INHOUSE POSITIVE (Negative)
--- NOTE | 2024-09-04 10:01 | HO.PSYCHPN ---
Subjective Subjective Date of Service: 09/04/24 Reason For Visit: catatonia Subjective Notes: Section 7 Healthcare Proxy: No Guardianship: No Medical Problems Affecting Mental Status: No Interim History: BINU completed today. Pt willing to meet. Reports COVID is not bad I don't feel it . Continues to decline medications. Discussed rationale for medicines, I will be all right Discussion with father who reports pt continues to not be at baseline with poor communication, thought blocking and inattention to personal care, ADL's. He has discussed pt's case with pt's district attorney. Court 09/09. Pt unable to engage in a discussion- answers questions in brief statements, not able to carry on a discussion. No agitation noted. Visable in milieu-standing at the nursing station all day. Family has filed guardianship paperwork today. Medication Compliance: No Side effects from medications: No Attending Groups: No Review of Systems Acute medical concerns: No Review of Systems Review of Systems COVID + denies sx Mental Status Exam Mental Status Exam Patient Appearance: Disheveled and Malodorous Patient Orientation: Person and Place Level of Consciousness: Alert Patient Behavior: Guarded, Suspicious, Wandering, Distractible and Good Eye Contact Mood Description: Flat Affect Description: Flat Patient Cognition Impaired: No Ability to Follow Directions: Fair Speech Pattern: Impoverished and Spontaneous Speech Memory Description: Remote Impaired Hallucinations: None Delusions: Present Perceptual Disturbances: Depersonalization and Derealization Thought Process: Distracted Thought Content: positive for [place], positive for Perseveration, positive for Poverty of Content, positive for Preoccupation and positive for Tangential Depressive Symptoms: Thoughts of /Suicide ( no ) Judgement: Poor Diagnostics Vital Signs (24Hr): BMI result Body Mass Index 27.3 Labs 08/12/24 10:10 08/13/24 13:34 Labs: Laboratory Results - last 48 hr 09/03/24 09:30 Influenza Type A (PCR) NEGATIVE Influenza Type B (PCR) NEGATIVE RSV RNA Qual (PCR) NEGATIVE SARS-CoV-2 RNA (RT-PCR) POSITIVE A Imaging Radiology Impressions: ITS Impressions Head CT 08/27/24 13:57 IMPRESSION: No acute brain abnormality by CT. Electronically signed by: Tito Costa MD 08/27/2024 04:05 PM EDT Medications Medications Current Medications Acetaminophen (Acetaminophen 325 Mg Tablet) 650 mg PO Q6H PRN PRN Reason: Headache/Pain, Scale 1-10 Al Hydroxide/Mg Hydroxide (Magnesium Hydrox/Alum Hydrox 30 Ml Oral.Susp) 30 ml PO Q6H PRN PRN Reason: Heartburn/Nausea Hydroxyzine HCl (Hydroxyzine Hcl 25 Mg Tablet) 25 mg PO Q6H PRN PRN Reason: mild anxiety Lorazepam (Lorazepam 0.5 Mg Tablet) 0.5 mg PO Q4H PRN PRN Reason: Anxiety Last Admin: 08/14/24 20:45 Dose: 0.5 mg Magnesium Hydroxide (Milk Of Magnesia 30 Ml Oral.Susp) 30 ml PO DAILY PRN PRN Reason: Constipation Nicotine (Nicotine 21 Mg Patch.Td24) 21 mg TRANSDERMA DAILY PRN PRN Reason: smoking cessation Nicotine Polacrilex (Nicotine Polacrilex 2 Mg Gum) 4 mg BUCCAL Q2H PRN PRN Reason: Nicotine Cravings Last Admin: 08/19/24 20:48 Dose: 4 mg Olanzapine (Olanzapine Odt 10 Mg Tab.Rapdis) 10 mg TRANSLINGU BID [facility] Last Admin: 09/03/24 20:01 Dose: Not Given Trazodone HCl (Trazodone Hcl 50 Mg Tablet) 50 mg PO BEDTIME MRX1 PRN PRN Reason: Insomnia Last Admin: 08/14/24 20:45 Dose: 50 mg Valproic Acid (Valproic Acid Liquid 250 Mg/5 Ml Solution) 500 mg PO BEDTIME [facility]IKI Last Admin: 09/03/24 20:01 Dose: Not Given Allergies Allergies Allergy/AdvReac Type Severity Reaction Status Date / Time No Known Allergies Allergy Verified 08/12/24 09:40 Assessment & Plan Assessment & Plan (1) Schizoaffective disorder, bipolar type: Status: Acute Code(s): F25.0 - Schizoaffective disorder, bipolar type (2) PTSD (post-traumatic stress disorder): Status: Acute Code(s): F43.10 - Post-traumatic stress disorder, unspecified (3) Cannabis use disorder: Status: Acute Code(s): F12.90 - Cannabis use, unspecified, uncomplicated Plan Admit, CV, 15 minute checks Collateral Contact Diagnostics as needed --B12,Folate,TSH, EKG Encourage milieu participation Olanzapine 10 mg bid Valproate ER 500 mg HS DC/Aftercare planning 08/15-Continue to encourage treatment Section 7 may be needed This was discussed with family by Ian Olivas [facility]. They will participate if this is needed. 08/16- Continue to encourage treatment 08/17 CTP 08/18 CTP 08/19: Will file Section 7 on 08/20. Family is in agreement. 08/20: pacing in front of nurses station. Keeping to self. malodorous and unkempt. declining to shower. guarded. brief during assessment. Patient reports feeling fine ; states he doesn't need anything . encouraged to shower and attend groups. 08/21: Encourage treatment and alliance building. 08/22: Continue to attempt treatment 08/23: Continue to offer and attempt treatment 08/24: Continue current regimen and plans. Encourage food and drink. 08/26 Patient standing alone in [place] most of the day, quiet, just staring off. Patient tells senior mortgage underwriter that he is eating and drinking regularly; he says he came to the hospital because he wanted help to quit smoking; says he does not need medications.Nursing staff reports that patient is not eating or drinking much at all (though did eat some yesterday) -court postponed until 09/05/2408/28 Intake and ADL attention with slight improvement Continues to refuse medications CAT negative Father to pursue guardianship 08/30 Continue plan 08/31-09/01 no change in presentation 09/02-continue plan. 09/03- COVID +. Continue to offer treatment Reason for continued inpatient stay Substantial Risk for: rapid decompensation Time Spent With Patient Time: Total time managing care of this patient today ____ minutes.
[2024-09-04] MEDS: Nicotine Polacrilex 2 MG GUM 4 MG BUCCAL (16:47)
[2024-09-05 07:00] VITALS: BMI 26.9
[2024-09-05 08:10] VITALS: BP 131/61; PULSE 84; RESP 16; TEMP 36.5; O2SAT 98
--- NOTE | 2024-09-05 10:18 | P.PNPSI_ITS ---
Subjective Subjective Date of Service: 09/05/24 Reason For Visit: catatonia Subjective Notes: Section 7 Healthcare Proxy: No Guardianship: No Medical Problems Affecting Mental Status: No Interim History: I am OK. Initially declined visit from dad. When reapproached, OK . Call to pt's father to inform him pt would be interested in his visit. Continues to decline meds and groups. Pt continues to stand for most of the day at the nursing station. He is non verbal, responds minimally when spoken to. Distracted for most of the time. Appears comfortable when the area is crowded with team and peers moving around him ADLS are very poor, pt is malodorous and clothing soiled. Denies all sx Discussion with father last evening. BINU completed and father reports he is told by pt's civil litigation attorney that he will discharge. Father disagrees and asks if he may speak at the hearing. Discussed current presentation which is not the usual presentation. Father reports he believes pt needs treatment and believes he will be at risk if sent home. Medication Compliance: No Side effects from medications: No Attending Groups: No Review of Systems Acute medical concerns: No Review of Systems Review of Systems Yes Unobtainable due to mental status Mental Status Exam Mental Status Exam Patient Appearance: Disheveled and Malodorous Patient Orientation: Person and Place Level of Consciousness: Alert Patient Behavior: Guarded, Suspicious, Wandering, Distractible and Good Eye Contact Mood Description: Flat Affect Description: Flat Patient Cognition Impaired: No Ability to Follow Directions: Fair Speech Pattern: Impoverished and Spontaneous Speech Memory Description: Remote Impaired Hallucinations: None Delusions: Present Perceptual Disturbances: Depersonalization and Derealization Thought Process: Distracted Thought Content: positive for [place], positive for Persever[place], positive for Poverty of Content, positive for Preoccupation and positive for Tangential Depressive Symptoms: Thoughts of /Suicide ( no ) Judgement: Poor Diagnostics Vital Signs (24Hr): Vital Signs - 24 hr 09/05/24 08:10 Temperature 97.7 F Pulse Rate 84 Respiratory Rate 16 Blood Pressure 131/61 Pulse Oximetry 98 Oxygen Delivery Method Room Air BMI result Body Mass Index 27.3 Labs 08/12/24 10:10 08/13/24 13:34 Labs: Laboratory Results - last 48 hr 09/03/24 09:30 Influenza Type A (PCR) NEGATIVE Influenza Type B (PCR) NEGATIVE RSV RNA Qual (PCR) NEGATIVE SARS-CoV-2 RNA (RT-PCR) POSITIVE A Imaging Radiology Impressions: ITS Impressions Head CT 08/27/24 13:57 IMPRESSION: No acute brain abnormality by CT. Electronically signed by: Tito Costa MD 08/27/2024 04:05 PM EDT RP Medications Medications Current Medications Acetaminophen (Acetaminophen 325 Mg Tablet) 650 mg PO Q6H PRN PRN Reason: Headache/Pain, Scale 1-10 Al Hydroxide/Mg Hydroxide (Magnesium Hydrox/Alum Hydrox 30 Ml Oral.Susp) 30 ml PO Q6H PRN PRN Reason: Heartburn/Nausea Hydroxyzine HCl (Hydroxyzine Hcl 25 Mg Tablet) 25 mg PO Q6H PRN PRN Reason: mild anxiety Lorazepam (Lorazepam 0.5 Mg Tablet) 0.5 mg PO Q4H PRN PRN Reason: Anxiety Last Admin: 08/14/24 20:45 Dose: 0.5 mg Magnesium Hydroxide (Milk Of Magnesia 30 Ml Oral.Susp) 30 ml PO DAILY PRN PRN Reason: Constipation Nicotine (Nicotine 21 Mg Patch.Td24) 21 mg TRANSDERMA DAILY PRN PRN Reason: smoking cessation Nicotine Polacrilex (Nicotine Polacrilex 2 Mg Gum) 4 mg BUCCAL Q2H PRN PRN Reason: Nicotine Cravings Last Admin: 09/04/24 16:47 Dose: 4 mg Olanzapine (Olanzapine Odt 10 Mg Tab.Rapdis) 10 mg TRANSLINGU BID [facility]IKI Last Admin: 09/05/24 08:29 Dose: Not Given Trazodone HCl (Trazodone Hcl 50 Mg Tablet) 50 mg PO BEDTIME MRX1 PRN PRN Reason: Insomnia Last Admin: 08/14/24 20:45 Dose: 50 mg Valproic Acid (Valproic Acid Liquid 250 Mg/5 Ml Solution) 500 mg PO BEDTIME [facility]IKI Last Admin: 09/04/24 19:50 Dose: Not Given Allergies Allergies Allergy/AdvReac Type Severity Reaction Status Date / Time No Known Allergies Allergy Verified 08/12/24 09:40 Assessment & Plan Assessment & Plan (1) Schizoaffective disorder, bipolar type: Status: Acute Code(s): F25.0 - Schizoaffective disorder, bipolar type (2) PTSD (post-traumatic stress disorder): Status: Acute Code(s): F43.10 - Post-traumatic stress disorder, unspecified (3) Cannabis use disorder: Status: Acute Code(s): F12.90 - Cannabis use, unspecified, uncomplicated Plan Admit, CV, 15 minute checks Collateral Contact Diagnostics as needed --B12,Folate,TSH, EKG Encourage milieu participation Olanzapine 10 mg bid Valproate ER 500 mg HS DC/Aftercare planning 08/15-Continue to encourage treatment Section 7 may be needed This was discussed with family by Ian VILLANUEVA. They will participate if this is needed. 08/16- Continue to encourage treatment 08/17 CTP 08/18 CTP 08/19: Will file Section 7 on 08/20. Family is in agreement. 08/20: pacing in front of nurses station. Keeping to self. malodorous and unkempt. declining to shower. guarded. brief during assessment. Patient reports feeling fine ; states he doesn't need anything . encouraged to shower and attend groups. 08/21: Encourage treatment and alliance building. 08/22: Continue to attempt treatment 08/23: Continue to offer and attempt treatment 08/24: Continue current regimen and plans. Encourage food and drink. 08/26 Patient standing alone in [place] most of the day, quiet, just staring off. Patient tells life underwriter that he is eating and drinking regularly; he says he came to the hospital because he wanted help to quit smoking; says he does not need medications.Nursing staff reports that patient is not eating or drinking much at all (though did eat some yesterday) -court postponed until 09/05/2408/28 Intake and ADL attention with slight improvement Continues to refuse medications CAT negative Father to pursue guardianship 08/30 Continue plan 08/31-09/01 no change in presentation 09/02-continue plan. 09/03- COVID +. Continue to offer treatment 09/05- Continue plan. Asked pt if we could repeat his labs, he declines at this time. Reason for continued inpatient stay Substantial Risk for: rapid decompensation Time Spent With Patient Time: Total time managing care of this patient today ____ minutes.
[2024-09-06 08:00] VITALS: BP 134/75; PULSE 81; RESP 16; TEMP 36.8; O2SAT 99
--- NOTE | 2024-09-06 10:20 | P.PNPSI_ITS ---
Subjective Subjective Date of Service: 09/06/24 Reason For Visit: catatonia Subjective Notes: Section 7 Healthcare Proxy: No Guardianship: No Medical Problems Affecting Mental Status: No Interim History: Best is visable in milieu, at the nursing station. Today, he appears to have less eye contact, does talk briefly when addressed, yet does not engage in discussion. He continues to decline medications. He is aware that we will have court on 09/09/24 and states he will go home with his dad after the court date. ADL's are poor and pt is malodorous. Medication Compliance: No Side effects from medications: No Attending Groups: No Review of Systems Acute medical concerns: No Medical Review of Systems: unchanged Review of Systems Review of Systems Denies Yes Unobtainable due to mental status Mental Status Exam Mental Status Exam Patient Appearance: Disheveled and Malodorous Patient Orientation: Person and Place Level of Consciousness: Alert Patient Behavior: Guarded, Suspicious, Wandering, Distractible and Good Eye Contact Mood Description: Flat Affect Description: Flat Patient Cognition Impaired: No Ability to Follow Directions: Fair Speech Pattern: Impoverished and Spontaneous Speech Memory Description: Remote Impaired Hallucinations: None Delusions: Present Perceptual Disturbances: Depersonalization and Derealization Thought Process: Distracted Thought Content: positive for [place], positive for Perseveration, positive for Poverty of Content, positive for Preoccupation and positive for Tangential Depressive Symptoms: Thoughts of /Suicide ( no ) Judgement: Poor Diagnostics Vital Signs (24Hr): Vital Signs - 24 hr 09/06/24 08:00 Temperature 98.2 F Pulse Rate 81 Respiratory Rate 16 Blood Pressure 134/75 Pulse Oximetry 99 BMI result Body Mass Index 26.9 Labs 08/12/24 10:10 08/13/24 13:34 Imaging Radiology Impressions: ITS Impressions Head CT 08/27/24 13:57 IMPRESSION: No acute brain abnormality by CT. Electronically signed by: Tito Costa MD 08/27/2024 04:05 PM EDT Medications Medications Current Medications Acetaminophen (Acetaminophen 325 Mg Tablet) 650 mg PO Q6H PRN PRN Reason: Headache/Pain, Scale 1-10 Al Hydroxide/Mg Hydroxide (Magnesium Hydrox/Alum Hydrox 30 Ml Oral.Susp) 30 ml PO Q6H PRN PRN Reason: Heartburn/Nausea Hydroxyzine HCl (Hydroxyzine Hcl 25 Mg Tablet) 25 mg PO Q6H PRN PRN Reason: mild anxiety Lorazepam (Lorazepam 0.5 Mg Tablet) 0.5 mg PO Q4H PRN PRN Reason: Anxiety Last Admin: 08/14/24 20:45 Dose: 0.5 mg Magnesium Hydroxide (Milk Of Magnesia 30 Ml Oral.Susp) 30 ml PO DAILY PRN PRN Reason: Constipation Nicotine (Nicotine 21 Mg Patch.Td24) 21 mg TRANSDERMA DAILY PRN PRN Reason: smoking cessation Nicotine Polacrilex (Nicotine Polacrilex 2 Mg Gum) 4 mg BUCCAL Q2H PRN PRN Reason: Nicotine Cravings Last Admin: 09/04/24 16:47 Dose: 4 mg Olanzapine (Olanzapine Odt 10 Mg Tab.Rapdis) 10 mg TRANSLINGU BID RIKI Last Admin: 09/06/24 09:44 Dose: Not Given Trazodone HCl (Trazodone Hcl 50 Mg Tablet) 50 mg PO BEDTIME MRX1 PRN PRN Reason: Insomnia Last Admin: 08/14/24 20:45 Dose: 50 mg Valproic Acid (Valproic Acid Liquid 250 Mg/5 Ml Solution) 500 mg PO BEDTIME RIKI Last Admin: 09/05/24 20:43 Dose: Not Given Allergies Allergies Allergy/AdvReac Type Severity Reaction Status Date / Time No Known Allergies Allergy Verified 08/12/24 09:40 Assessment & Plan Assessment & Plan (1) Schizoaffective disorder, bipolar type: Status: Acute Code(s): F25.0 - Schizoaffective disorder, bipolar type (2) PTSD (post-traumatic stress disorder): Status: Acute Code(s): F43.10 - Post-traumatic stress disorder, unspecified (3) Cannabis use disorder: Status: Acute Code(s): F12.90 - Cannabis use, unspecified, uncomplicated Plan Admit, CV, 15 minute checks Collateral Contact Diagnostics as needed --B12,Folate,TSH, EKG Encourage milieu participation Olanzapine 10 mg bid Valproate ER 500 mg HS DC/Aftercare planning 08/15-Continue to encourage treatment Section 7 may be needed This was discussed with family by Ian VILLANUEVA. They will participate if this is needed. 08/16- Continue to encourage treatment 08/17 CTP 08/18 CTP 08/19: Will file Section 7 on 08/20. Family is in agreement. 08/20: pacing in front of nurses station. Keeping to self. malodorous and unkempt. declining to shower. guarded. brief during assessment. Patient reports feeling fine ; states he doesn't need anything . encouraged to shower and attend groups. 08/21: Encourage treatment and alliance building. 08/22: Continue to attempt treatment 08/23: Continue to offer and attempt treatment 08/24: Continue current regimen and plans. Encourage food and drink. 08/26 Patient standing alone in [place] most of the day, quiet, just staring off. Patient tells job specification writer that he is eating and drinking regularly; he says he came to the hospital because he wanted help to quit smoking; says he does not need medications.Nursing staff reports that patient is not eating or drinking much at all (though did eat some yesterday) -court postponed until 09/05/2408/28 Intake and ADL attention with slight improvement Continues to refuse medications CAT negative Father to pursue guardianship 08/30 Continue plan 08/31-09/01 no change in presentation 09/02-continue plan. 09/03- COVID +. Continue to offer treatment 09/05- Continue plan. Asked pt if we could repeat his labs, he declines at this time. 09/06- Court 09/09/24. Reason for continued inpatient stay Substantial Risk for: rapid decompensation Time Spent With Patient Time: Total time managing care of this patient today ____ minutes.
--- NOTE | 2024-09-07 07:29 | HO.PSYCHPN ---
Subjective Subjective Date of Service: 09/07/24 Reason For Visit: catatonia Subjective Notes: [place] Warning and Section 7 Healthcare Proxy: No Guardianship: No Medical Problems Affecting Mental Status: No Review of Systems Acute medical concerns: No Medical Review of Systems: unchanged Mental Status Exam Mental Status Exam Patient Appearance: Unkempt Patient Orientation: Person, Place and Situation Level of Consciousness: Awake Patient Behavior: Cooperative, Passive and Good Eye Contact Mood Description: Apathetic Affect Description: Blunted Patient Cognition Impaired: No Ability to Follow Directions: Fair Speech Pattern: Clear and Impoverished Thought Content: positive for Intact, positive for [place] and positive for Goal Oriented Judgement: Fair Diagnostics Vital Signs (24Hr): Vital Signs - 24 hr 09/06/24 08:00 Temperature 98.2 F Pulse Rate 81 Respiratory Rate 16 Blood Pressure 134/75 Pulse Oximetry 99 BMI result Body Mass Index 26.9 Labs 08/12/24 10:10 08/13/24 13:34 Imaging Radiology Impressions: ITS Impressions Head CT 08/27/24 13:57 IMPRESSION: No acute brain abnormality by CT. Electronically signed by: Tito Costa MD 08/27/2024 04:05 PM EDT Medications Medications Current Medications Acetaminophen (Acetaminophen 325 Mg Tablet) 650 mg PO Q6H PRN PRN Reason: Headache/Pain, Scale 1-10 Al Hydroxide/Mg Hydroxide (Magnesium Hydrox/Alum Hydrox 30 Ml Oral.Susp) 30 ml PO Q6H PRN PRN Reason: Heartburn/Nausea Hydroxyzine HCl (Hydroxyzine Hcl 25 Mg Tablet) 25 mg PO Q6H PRN PRN Reason: mild anxiety Lorazepam (Lorazepam 0.5 Mg Tablet) 0.5 mg PO Q4H PRN PRN Reason: Anxiety Last Admin: 08/14/24 20:45 Dose: 0.5 mg Magnesium Hydroxide (Milk Of Magnesia 30 Ml Oral.Susp) 30 ml PO DAILY PRN PRN Reason: Constipation Nicotine (Nicotine 21 Mg Patch.Td24) 21 mg TRANSDERMA DAILY PRN PRN Reason: smoking cessation Nicotine Polacrilex (Nicotine Polacrilex 2 Mg Gum) 4 mg BUCCAL Q2H PRN PRN Reason: Nicotine Cravings Last Admin: 09/04/24 16:47 Dose: 4 mg Olanzapine (Olanzapine Odt 10 Mg Tab.Rapdis) 10 mg TRANSLINGU BID RIKI Last Admin: 09/06/24 21:26 Dose: Not Given Trazodone HCl (Trazodone Hcl 50 Mg Tablet) 50 mg PO BEDTIME MRX1 PRN PRN Reason: Insomnia Last Admin: 08/14/24 20:45 Dose: 50 mg Valproic Acid (Valproic Acid Liquid 250 Mg/5 Ml Solution) 500 mg PO BEDTIME RIKI Last Admin: 09/06/24 21:26 Dose: Not Given Allergies Allergies Allergy/AdvReac Type Severity Reaction Status Date / Time No Known Allergies Allergy Verified 08/12/24 09:40 Assessment & Plan Assessment & Plan (1) Schizoaffective disorder, bipolar type: Status: Acute Code(s): F25.0 - Schizoaffective disorder, bipolar type (2) PTSD (post-traumatic stress disorder): Status: Acute Code(s): F43.10 - Post-traumatic stress disorder, unspecified (3) Cannabis use disorder: Status: Acute Code(s): F12.90 - Cannabis use, unspecified, uncomplicated Plan Admit, CV, 15 minute checks Collateral Contact Diagnostics as needed --B12,Folate,TSH, EKG Encourage milieu participation Olanzapine 10 mg bid Valproate ER 500 mg HS DC/Aftercare planning 08/15-Continue to encourage treatment Section 7 may be needed This was discussed with family by Ian VILLANUEVA. They will participate if this is needed. 08/16- Continue to encourage treatment 08/17 CTP 08/18 CTP 08/19: Will file Section 7 on 08/20. Family is in agreement. 08/20: pacing in front of nurses station. Keeping to self. malodorous and unkempt. declining to shower. guarded. brief during assessment. Patient reports feeling fine ; states he doesn't need anything . encouraged to shower and attend groups. 08/21: Encourage treatment and alliance building. 08/22: Continue to attempt treatment 08/23: Continue to offer and attempt treatment 08/24: Continue current regimen and plans. Encourage food and drink. 08/26 Patient standing alone in [place] most of the day, quiet, just staring off. Patient tells technical writer that he is eating and drinking regularly; he says he came to the hospital because he wanted help to quit smoking; says he does not need medications.Nursing staff reports that patient is not eating or drinking much at all (though did eat some yesterday) -court postponed until 09/05/2408/28 Intake and ADL attention with slight improvement Continues to refuse medications CAT negative Father to pursue guardianship 08/30 Continue plan 08/31-09/01 no change in presentation 09/02-continue plan. 09/03- COVID +. Continue to offer treatment 09/05- Continue plan. Asked pt if we could repeat his labs, he declines at this time. 09/06- Court 09/09/24. 09/07/24 - seems to have plan for himself for dc- has apartment, car, and can get a job in [employer] appears to be eating more and drinking more fluids- still flat affect and no interest in medications Patient educated on: diagnosis and medication risk/benefits Informed Consent: understands Reason for continued inpatient stay Substantial Risk for: rapid decompensation Time Spent With Patient Time: Total time managing care of this patient today ____ minutes.
[2024-09-07 08:00] VITALS: BP 145/61; PULSE 82; TEMP 36.8; O2SAT 98
--- NOTE | 2024-09-08 03:48 | PC.NURSE ---
Patient visible on the unit, wears face mask when out of his room, due to being COVID +. He denies any current physical symptoms of COVID.
[2024-09-08 08:00] VITALS: BP 112/67; PULSE 83; TEMP 36.9; O2SAT 99
--- NOTE | 2024-09-08 08:08 | P.PNPSI_ITS ---
Subjective Subjective Date of Service: 09/08/24 Reason For Visit: catatonia Subjective Notes: [place] Warning and Section 7 Healthcare Proxy: No Guardianship: No Medical Problems Affecting Mental Status: No Interim History: 29 WM who continues to tell provider right things though one word - answers- However nursing reports ate nothing all day, nor fluids, and started acting strangely- lying in wrapped up blanket on bed- answering nursing questions nonsensically -, crying after a visitor- but unable to express what he was feeling- in group moved a chair on it side- see nursing note from today- Medication Compliance: No (continues to refuse medications) Attending Groups: Intermittent Review of Systems Acute medical concerns: No Medical Review of Systems: unchanged Mental Status Exam Mental Status Exam Narrative: as court date approaches and patient can't explain what happened to him to get in here or his catatonia in anyway- and now regressing back to odd disorganized behavior as well as not eating again- Patient Appearance: Unkempt Patient Orientation: Person, Place and Situation Level of Consciousness: Awake Patient Behavior: Cooperative and Good Eye Contact Mood Description: Withdrawn Affect Description: Labile Patient Cognition Impaired: No Ability to Follow Directions: Fair Speech Pattern: Impoverished and Long Pauses Hallucinations: None Thought Content: positive for Disorganized Judgement: Poor Diagnostics Vital Signs (24Hr): BMI result Body Mass Index 26.9 Labs 08/12/24 10:10 08/13/24 13:34 Imaging Radiology Impressions: ITS Impressions Head CT 08/27/24 13:57 IMPRESSION: No acute brain abnormality by CT. Electronically signed by: Tito Costa MD 08/27/2024 04:05 PM EDT Medications Medications Current Medications Acetaminophen (Acetaminophen 325 Mg Tablet) 650 mg PO Q6H PRN PRN Reason: Headache/Pain, Scale 1-10 Al Hydroxide/Mg Hydroxide (Magnesium Hydrox/Alum Hydrox 30 Ml Oral.Susp) 30 ml PO Q6H PRN PRN Reason: Heartburn/Nausea Hydroxyzine HCl (Hydroxyzine Hcl 25 Mg Tablet) 25 mg PO Q6H PRN PRN Reason: mild anxiety Lorazepam (Lorazepam 0.5 Mg Tablet) 0.5 mg PO Q4H PRN PRN Reason: Anxiety Last Admin: 08/14/24 20:45 Dose: 0.5 mg Magnesium Hydroxide (Milk Of Magnesia 30 Ml Oral.Susp) 30 ml PO DAILY PRN PRN Reason: Constipation Nicotine (Nicotine 21 Mg Patch.Td24) 21 mg TRANSDERMA DAILY PRN PRN Reason: smoking cessation Nicotine Polacrilex (Nicotine Polacrilex 2 Mg Gum) 4 mg BUCCAL Q2H PRN PRN Reason: Nicotine Cravings Last Admin: 09/04/24 16:47 Dose: 4 mg Olanzapine (Olanzapine Odt 10 Mg Tab.Rapdis) 10 mg TRANSLINGU BID [facility] Last Admin: 09/07/24 21:53 Dose: Not Given Trazodone HCl (Trazodone Hcl 50 Mg Tablet) 50 mg PO BEDTIME MRX1 PRN PRN Reason: Insomnia Last Admin: 08/14/24 20:45 Dose: 50 mg Valproic Acid (Valproic Acid Liquid 250 Mg/5 Ml Solution) 500 mg PO BEDTIME [facility] Last Admin: 09/07/24 21:53 Dose: Not Given Allergies Allergies Allergy/AdvReac Type Severity Reaction Status Date / Time No Known Allergies Allergy Verified 08/12/24 09:40 Assessment & Plan Assessment & Plan (1) Schizoaffective disorder, bipolar type: Status: Acute Code(s): F25.0 - Schizoaffective disorder, bipolar type (2) PTSD (post-traumatic stress disorder): Status: Acute Code(s): F43.10 - Post-traumatic stress disorder, unspecified (3) Cannabis use disorder: Status: Acute Code(s): F12.90 - Cannabis use, unspecified, uncomplicated Plan Admit, CV, 15 minute checks Collateral Contact Diagnostics as needed --B12,Folate,TSH, EKG Encourage milieu participation Olanzapine 10 mg bid Valproate ER 500 mg DC/Aftercare planning 08/15-Continue to encourage treatment Section 7 may be needed This was discussed with family by Ian Olivas [facility]. They will participate if this is needed. 08/16- Continue to encourage treatment 08/17 CTP 08/18 CTP 08/19: Will file Section 7 on 08/20. Family is in agreement. 08/20: pacing in front of nurses station. Keeping to self. malodorous and unkempt. declining to shower. guarded. brief during assessment. Patient reports feeling fine ; states he doesn't need anything . encouraged to shower and attend groups. 08/21: Encourage treatment and alliance building. 08/22: Continue to attempt treatment 08/23: Continue to offer and attempt treatment 08/24: Continue current regimen and plans. Encourage food and drink. 08/26 Patient standing alone in [place] most of the day, quiet, just staring off. Patient tells sports book writer that he is eating and drinking regularly; he says he came to the hospital because he wanted help to quit smoking; says he does not need medications.Nursing staff reports that patient is not eating or drinking much at all (though did eat some yesterday) -court postponed until 09/05/2408/28 Intake and ADL attention with slight improvement Continues to refuse medications CAT negative Father to pursue guardianship 08/30 Continue plan 08/31-09/01 no change in presentation 09/02-continue plan. 09/03- COVID +. Continue to offer treatment 09/05- Continue plan. Asked pt if we could repeat his labs, he declines at this time. 09/06- Court 09/09/24. 09/07/24 - seems to have plan for himself for dc- has apartment, car, and can get a job in [employer] appears to be eating more and drinking more fluids- still flat affect and no interest in medications 09/08 despite repeating this discussion this am, patient went on to not eat, drink all day , and some very disorganized and odd behaviors and emotions which he is unable to explain/express- likely not really ready to go back to so described life and is really only been able to superficially manage lately Patient educated on: diagnosis and therapeutic strategies Informed Consent: understands (? says he does but then behaves oddly entire day- ) Reason for continued inpatient stay Substantial Risk for: inability to function and rapid decompensation Time Spent With Patient Time: Total time managing care of this patient today ____ minutes.
[2024-09-09 08:00] VITALS: BP 104/63; PULSE 75; RESP 16; TEMP 36.9; O2SAT 100
--- NOTE | 2024-09-09 10:19 | PC.NURSE ---
Pt is increasingly labile, disorganized, non-sensical, and posturing at peers and staff. He has exited his room making karate type moves, kicking, and throwing his arms about in the vicinity of staff and peers. He is intermittently crying and then laughing and told TW I have the power to remove your tattoos . He also stated that he and this designer/writer have switched places . He is extremely malodorous, is wearing the same soiled clothing since admission, and refuses to tend to ADLS despite encouragement. Pt is staring intensely at staff and peers before bursting into laughter and yelling I have distributed finances beyond your consciousness and will prevail beyond the depths of the universe . Pt then ran down the hallway at a full speed before coming to a stop and jumping up to hit his inner ankles together. He also asked this designer/writer to open the door to the next portal , referring to the dirty linen closet. Pt then stood at the unit doors, saluting staff as they would enter and exit. Pt was placed on 1:1 for safety concerns and is currently humming the [email or web address] song.
--- NOTE | 2024-09-09 13:00 | PC.NURSE ---
Best is disorganized, incongruent speech for example I am so sorry , when this nurse said 'for what' he replied I dont believe you , when asked what kind of music he likes he responded what kind of person do you think I am? what good would that do? who would that impress? He is running, skipping, jumping, spinning in the [place], alternating with brief periods of laying in bed with both feet on the floor. When approached with scheduled med, he replied I'm good, how are you? I'm great, youre . He does not appear to understand redirection. He is repeatedly touching the [facility] on the arm or shoulder. When redirected, he acts as though he works here. He's having a hard time, he's getting upset, he needs a break. , this exchange was repeated several times with no improvement in understanding noted by Best. He was becoming sexually provocative with female MHC Per MHC he stated I have a crush on you, I want to show you my penis He opted to lift his shirt and attempt show his chest to her, you're if you're not looking .
--- NOTE | 2024-09-09 17:20 | P.PNPSI_ITS ---
Subjective Subjective Date of Service: 09/09/24 Reason For Visit: catatonia Subjective Notes: Section 7 Healthcare Proxy: No Guardianship: Yes (pending) Medical Problems Affecting Mental Status: No Interim History: Team and family report decompensation over the weekend-refusing to eat, agitation, posturing, self dialoguing, laughing, reciting pledge of allegiance, making gun gestures toward self, others with boom dialogue following. Father reports eyes rolling/shifting along with tongue going in and out. Gave chewed gum to father, that is a kid . One to one today with agitation, yelling, posturing, aggressive to peers at times. Two to one by the end of the day as agitation was increased. Court attended by father who gave testimony. Section 8 authorized. Paperwork was recieved. Discussed with pt's father who agrees that we should begin meds this evening. Ativan 2 mg bid and Olanzapine 10 mg bid are ordered. Family disability attorney will come in on 09/10 to present pt with guardianship paperwork. Medication list approved: Olanzapine to 40 mg daily Valproate to therapeutic level in the blood Lorazepam up to 8 mg daily Alternatives: Chlorpromazine to 900 mg daily Haldol to 30 mg daily Haldol Dec to 100 mg q 2 weeks Clozaril to 900 mg daily Invega to 12 mg daily Invega Sustenna to 234 mg/month Risperdal to 10 mg daily Risperdal Consta to 50 mg q 2 weeks Geodon to 160 mg daily [place] to therapeutic level in the blood Klonopin to 8 mg daily Medication Compliance: No Side effects from medications: No Attending Groups: No Review of Systems Acute medical concerns: No Review of Systems Review of Systems Yes Unobtainable due to mental status Mental Status Exam Mental Status Exam Patient Appearance: Unkempt Patient Orientation: Person Level of Consciousness: Awake and Disoriented Patient Behavior: Guarded, Talkative, Cooperative, Suspicious, Restless, Wandering, Resistive to Care, Distractible, Confused, Good Eye Contact, Impulsive and Pacing Mood Description: Fearful and Labile Affect Description: Labile Patient Cognition Impaired: Yes Ability to Follow Directions: Poor Speech Pattern: Spontaneous Speech, Rambling, Loud, Delayed, Pressured and Long Pauses Memory Description: Remote Impaired Hallucinations: None Delusions: Paranoid Ideation, Grandiose and Present Thought Process: Illogical, Distracted and Confusion Thought Content: positive for Flight of Ideas, positive for Racing, positive for Tangential and positive for Disorganized Depressive Symptoms: Diff. Making Decisions and Difficulty Concentrating Abnormal Motor Activity Signs and Symptoms: Aggression, Agitation, Hyperactivity and Restlessness Judgement: Poor Diagnostics Vital Signs (24Hr): Vital Signs - 24 hr 09/09/24 08:00 Temperature 98.4 F Pulse Rate 75 Respiratory Rate 16 Blood Pressure 104/63 Pulse Oximetry 100 BMI result Body Mass Index 26.9 Labs 08/12/24 10:10 08/13/24 13:34 Imaging Radiology Impressions: ITS Impressions Head CT 08/27/24 13:57 IMPRESSION: No acute brain abnormality by CT. Electronically signed by: Tito Costa MD 08/27/2024 04:05 PM EDT Medications Medications Current Medications Acetaminophen (Acetaminophen 325 Mg Tablet) 650 mg PO Q6H PRN PRN Reason: Headache/Pain, Scale 1-10 Al Hydroxide/Mg Hydroxide (Magnesium Hydrox/Alum Hydrox 30 Ml Oral.Susp) 30 ml PO Q6H PRN PRN Reason: Heartburn/Nausea Hydroxyzine HCl (Hydroxyzine Hcl 25 Mg Tablet) 25 mg PO Q6H PRN PRN Reason: mild anxiety Lorazepam (Lorazepam 1 Mg Tablet) 2 mg PO BID RIKI Lorazepam (Lorazepam 2 Mg/Ml Vial) 2 mg IM BID PRN PRN Reason: IF PATIENT REFUSES PO Magnesium Hydroxide (Milk Of Magnesia 30 Ml Oral.Susp) 30 ml PO DAILY PRN PRN Reason: Constipation Nicotine (Nicotine 21 Mg Patch.Td24) 21 mg TRANSDERMA DAILY PRN PRN Reason: smoking cessation Nicotine Polacrilex (Nicotine Polacrilex 2 Mg Gum) 4 mg BUCCAL Q2H PRN PRN Reason: Nicotine Cravings Last Admin: 09/04/24 16:47 Dose: 4 mg Olanzapine (Olanzapine Odt 10 Mg Tab.Rapdis) 10 mg TRANSLINGU BID [facility] Last Admin: 09/09/24 09:20 Dose: Not Given Olanzapine (Olanzapine 10 Mg Vial) 10 mg IM BID PRN PRN Reason: per court if pt refuses po Olanzapine (Olanzapine 5 Mg Tablet) 5 mg PO BID PRN PRN Reason: agitation, psychosis Trazodone HCl (Trazodone Hcl 50 Mg Tablet) 50 mg PO BEDTIME MRX1 PRN PRN Reason: Insomnia Last Admin: 08/14/24 20:45 Dose: 50 mg Valproic Acid (Valproic Acid Liquid 250 Mg/5 Ml Solution) 500 mg PO BEDTIME RIKI Last Admin: 09/08/24 22:36 Dose: Not Given Allergies Allergies Allergy/AdvReac Type Severity Reaction Status Date / Time No Known Allergies Allergy Verified 08/12/24 09:40 Assessment & Plan Assessment & Plan (1) Schizoaffective disorder, bipolar type: Status: Acute Code(s): F25.0 - Schizoaffective disorder, bipolar type (2) PTSD (post-traumatic stress disorder): Status: Acute Code(s): F43.10 - Post-traumatic stress disorder, unspecified (3) Cannabis use disorder: Status: Acute Code(s): F12.90 - Cannabis use, unspecified, uncomplicated Plan Admit, CV, 15 minute checks Collateral Contact Diagnostics as needed --B12,Folate,TSH, EKG Encourage milieu participation Olanzapine 10 mg bid Valproate ER 500 mg HS DC/Aftercare planning 08/15-Continue to encourage treatment Section 7 may be needed This was discussed with family by Ian VILLANUEVA. They will participate if this is needed. 08/16- Continue to encourage treatment 08/17 CTP 08/18 CTP 08/19: Will file Section 7 on 08/20. Family is in agreement. 08/20: pacing in front of nurses station. Keeping to self. malodorous and unkempt. declining to shower. guarded. brief during assessment. Patient reports feeling fine ; states he doesn't need anything . encouraged to shower and attend groups. 08/21: Encourage treatment and alliance building. 08/22: Continue to attempt treatment 08/23: Continue to offer and attempt treatment 08/24: Continue current regimen and plans. Encourage food and drink. 08/26 Patient standing alone in [place] most of the day, quiet, just staring off. Patient tells policy writer typist that he is eating and drinking regularly; he says he came to the hospital because he wanted help to quit smoking; says he does not need medications.Nursing staff reports that patient is not eating or drinking much at all (though did eat some yesterday) -court postponed until 09/05/2408/28 Intake and ADL attention with slight improvement Continues to refuse medications CAT negative Father to pursue guardianship 08/30 Continue plan 08/31-09/01 no change in presentation 09/02-continue plan. 09/03- COVID +. Continue to offer treatment 09/05- Continue plan. Asked pt if we could repeat his labs, he declines at this time. 09/06- Court 09/09/24. 09/07/24 - seems to have plan for himself for dc- has apartment, car, and can get a job in [place] appears to be eating more and drinking more fluids- still flat affect and no interest in medications 09/08 despite repeating this discussion this am, patient went on to not eat, drink all day , and some very disorganized and odd behaviors and emotions which he is unable to explain/express- likely not really ready to go back to so described life and is really only been able to superficially manage lately 09/09 Section [address]. Pt is at this time a 2:1 special due to agitation. Lorazepam 2 mg bid Zyprexa 10 mg bid Informed Consent: does not understand Reason for continued inpatient stay Substantial Risk for: harm to self, harm to others, inability to function and rapid decompensation Time Spent With Patient Time: Total time managing care of this patient today ____ minutes.
[2024-09-09] MEDS: LORazepam 1 MG TABLET 2 MG PO (17:45)
[2024-09-09] MEDS: OLANZapine ODT 10 MG TAB.RAPDIS TRANSLINGU (17:45)
--- NOTE | 2024-09-09 18:20 | PC.NURSE ---
Best was approached with court ordered oral medications. He remains only oriented to person, he told this nurse that she was wearing his wedding ring and she had balls , then I made that ring you know . He had eaten his dinner and made a demonstration to this nurse of filling his mouth with food and chewing with mouth wide open for effect. However, when offered the medications and faced with the statement that the court decided he needed to take them to get better, he took all 3 pills, provided a voluntary mouth check and then told this nurse that I'm sorry I ever met you .
[2024-09-10] MEDS: LORazepam 1 MG TABLET 2 MG PO ×2 (09:44→20:37)
[2024-09-10] MEDS: OLANZapine ODT 10 MG TAB.RAPDIS TRANSLINGU ×2 (09:44→20:37)
--- NOTE | 2024-09-10 10:21 | HO.PSYCHPN ---
Subjective Subjective Date of Service: 09/10/24 Reason For Visit: catatonia Subjective Notes: Section 8 Healthcare Proxy: No Guardianship: No Medical Problems Affecting Mental Status: No Interim History: Accepting PO meds. Calmer. Continues on one to one. Greater clarity, Episodic memory intact. Reports he is feeling OK. Given guardianship paperwork father has filed Medication Compliance: Yes Side effects from medications: No Attending Groups: No Review of Systems Acute medical concerns: No Medical Review of Systems: unchanged Review of Systems Review of Systems Pt denies Mental Status Exam Mental Status Exam Patient Appearance: Unkempt Patient Orientation: Person and Place Level of Consciousness: Awake and Alert Patient Behavior: Talkative, Cooperative, Wandering, Distractible, Confused and Good Eye Contact Mood Description: Calm Affect Description: Calm Patient Cognition Impaired: Yes Ability to Follow Directions: Fair Speech Pattern: Spontaneous Speech Memory Description: Remote Impaired and Episodic Impaired Hallucinations: None Delusions: Present Thought Process: Illogical, Distracted and Confusion Thought Content: positive for Tangential Depressive Symptoms: Difficulty Concentrating Abnormal Motor Activity Signs and Symptoms: Restlessness Judgement: Fair Diagnostics Vital Signs (24Hr): BMI result Body Mass Index 26.9 Labs 08/12/24 10:10 08/13/24 13:34 Imaging Radiology Impressions: ITS Impressions Head CT 08/27/24 13:57 IMPRESSION: No acute brain abnormality by CT. Electronically signed by: Tito Costa MD 08/27/2024 04:05 PM EDT RP Medications Medications Current Medications Acetaminophen (Acetaminophen 325 Mg Tablet) 650 mg PO Q6H PRN PRN Reason: Headache/Pain, Scale 1-10 Al Hydroxide/Mg Hydroxide (Magnesium Hydrox/Alum Hydrox 30 Ml Oral.Susp) 30 ml PO Q6H PRN PRN Reason: Heartburn/Nausea Hydroxyzine HCl (Hydroxyzine Hcl 25 Mg Tablet) 25 mg PO Q6H PRN PRN Reason: mild anxiety Lorazepam (Lorazepam 1 Mg Tablet) 2 mg PO BID RIKI Last Admin: 09/10/24 09:44 Dose: 2 mg Lorazepam (Lorazepam 2 Mg/Ml Vial) 2 mg IM BID PRN PRN Reason: IF PATIENT REFUSES PO Magnesium Hydroxide (Milk Of Magnesia 30 Ml Oral.Susp) 30 ml PO DAILY PRN PRN Reason: Constipation Nicotine (Nicotine 21 Mg Patch.Td24) 21 mg TRANSDERMA DAILY PRN PRN Reason: smoking cessation Nicotine Polacrilex (Nicotine Polacrilex 2 Mg Gum) 4 mg BUCCAL Q2H PRN PRN Reason: Nicotine Cravings Last Admin: 09/04/24 16:47 Dose: 4 mg Olanzapine (Olanzapine Odt 10 Mg Tab.Rapdis) 10 mg TRANSLINGU BID IRKI Last Admin: 09/10/24 09:44 Dose: 10 mg Olanzapine (Olanzapine 10 Mg Vial) 10 mg IM BID PRN PRN Reason: per court if pt refuses po Olanzapine (Olanzapine 5 Mg Tablet) 5 mg PO BID PRN PRN Reason: agitation, psychosis Trazodone HCl (Trazodone Hcl 50 Mg Tablet) 50 mg PO BEDTIME MRX1 PRN PRN Reason: Insomnia Last Admin: 08/14/24 20:45 Dose: 50 mg Valproic Acid (Valproic Acid Liquid 250 Mg/5 Ml Solution) 500 mg PO BEDTIME RIKI Last Admin: 09/09/24 21:05 Dose: Not Given Allergies Allergies Allergy/AdvReac Type Severity Reaction Status Date / Time No Known Allergies Allergy Verified 08/12/24 09:40 Assessment & Plan Assessment & Plan (1) Schizoaffective disorder, bipolar type: Status: Acute Code(s): F25.0 - Schizoaffective disorder, bipolar type (2) PTSD (post-traumatic stress disorder): Status: Acute Code(s): F43.10 - Post-traumatic stress disorder, unspecified (3) Cannabis use disorder: Status: Acute Code(s): F12.90 - Cannabis use, unspecified, uncomplicated Plan Admit, CV, 15 minute checks Collateral Contact Diagnostics as needed --B12,Folate,TSH, EKG Encourage milieu participation Olanzapine 10 mg bid Valproate ER 500 mg HS DC/Aftercare planning 08/15-Continue to encourage treatment Section 7 may be needed This was discussed with family by Ian VILLANUEVA. They will participate if this is needed. 08/16- Continue to encourage treatment 08/17 CTP 08/18 CTP 08/19: Will file Section 7 on 08/20. Family is in agreement. 08/20: pacing in front of nurses station. Keeping to self. malodorous and unkempt. declining to shower. guarded. brief during assessment. Patient reports feeling fine ; states he doesn't need anything . encouraged to shower and attend groups. 08/21: Encourage treatment and alliance building. 08/22: Continue to attempt treatment 08/23: Continue to offer and attempt treatment 08/24: Continue current regimen and plans. Encourage food and drink. 08/26 Patient standing alone in [place] most of the day, quiet, just staring off. Patient tells news writer that he is eating and drinking regularly; he says he came to the hospital because he wanted help to quit smoking; says he does not need medications.Nursing staff reports that patient is not eating or drinking much at all (though did eat some yesterday) -court postponed until 09/05/2408/28 Intake and ADL attention with slight improvement Continues to refuse medications CAT negative Father to pursue guardianship 08/30 Continue plan 08/31-09/01 no change in presentation 09/02-continue plan. 09/03- COVID +. Continue to offer treatment 09/05- Continue plan. Asked pt if we could repeat his labs, he declines at this time. 09/06- Court 09/09/24. 09/07/24 - seems to have plan for himself for dc- has apartment, car, [place] [facility] [place] [facility] appears to be eating more and drinking more fluids- still flat affect and no interest in medications 09/08 despite repeating this discussion this am, patient went on to not eat, drink all day , and some very disorganized and odd behaviors and emotions which he is unable to explain/express- likely not really ready to go back to so described life and is really only been able to superficially manage lately 09/09 [address]. Pt is at this time a 2:1 special due to agitation. Lorazepam 2 mg bid Zyprexa 10 mg bid 09/10- Continue current plan/regime. Reason for continued inpatient stay Substantial Risk for: rapid decompensation Time Spent With Patient Time: Total time managing care of this patient today ____ minutes.
[2024-09-10 20:00] VITALS: BP 122/77; PULSE 142; RESP 18; TEMP 36.9; O2SAT 97
[2024-09-11 08:00] VITALS: RESP 18
[2024-09-11] MEDS: OLANZapine ODT 10 MG TAB.RAPDIS TRANSLINGU ×2 (08:09→21:56)
[2024-09-11] MEDS: LORazepam 1 MG TABLET 2 MG PO ×2 (08:09→21:56)
--- NOTE | 2024-09-11 13:06 | HO.PSYCHPN ---
Subjective Subjective Date of Service: 09/11/24 Reason For Visit: catatonia Subjective Notes: Section 8 Healthcare Proxy: No Guardianship: No Medical Problems Affecting Mental Status: No Interim History: Remains on one to one. States he is feeling well and asks how all of the team are doing. Reports he is comfortable (laughs when asked), is sleeping well and does not feel overmedicated. Discussed ordering an MRI and EEG to follow up from CAT scan. He agrees, give me a few days and I should be good to do it . Denies SI,HI. Appears to be responding to internal stimuli at times. Medication Compliance: Yes Side effects from medications: No Attending Groups: No Review of Systems Acute medical concerns: No Review of Systems Review of Systems I feel good How are you? Mental Status Exam Mental Status Exam Patient Appearance: Unkempt Patient Orientation: Person and Place Level of Consciousness: Awake and Alert Patient Behavior: Talkative, Cooperative, Wandering, Distractible, Confused and Good Eye Contact Mood Description: Calm Affect Description: Calm Patient Cognition Impaired: Yes Ability to Follow Directions: Fair Speech Pattern: Spontaneous Speech Memory Description: Remote Impaired and Episodic Impaired Hallucinations: None Delusions: Present Thought Process: Illogical, Distracted and Confusion Thought Content: positive for Tangential Depressive Symptoms: Difficulty Concentrating Abnormal Motor Activity Signs and Symptoms: Restlessness Judgement: Fair Diagnostics Vital Signs (24Hr): Vital Signs - 24 hr 09/10/24 20:00 09/11/24 08:00 Temperature 98.4 F Pulse Rate 142 H Respiratory Rate 18 18 Blood Pressure 122/77 Pulse Oximetry 97 Oxygen Delivery Method Room Air BMI result Body Mass Index 26.9 Labs 08/12/24 10:10 08/13/24 13:34 Imaging Radiology Impressions: ITS Impressions Head CT 08/27/24 13:57 IMPRESSION: No acute brain abnormality by CT. Electronically signed by: Tito Costa MD 08/27/2024 04:05 PM EDT Medications Medications Current Medications Acetaminophen (Acetaminophen 325 Mg Tablet) 650 mg PO Q6H PRN PRN Reason: Headache/Pain, Scale 1-10 Al Hydroxide/Mg Hydroxide (Magnesium Hydrox/Alum Hydrox 30 Ml Oral.Susp) 30 ml PO Q6H PRN PRN Reason: Heartburn/Nausea Hydroxyzine HCl (Hydroxyzine Hcl 25 Mg Tablet) 25 mg PO Q6H PRN PRN Reason: mild anxiety Lorazepam (Lorazepam 1 Mg Tablet) 2 mg PO BID [facility] Last Admin: 09/11/24 08:09 Dose: 2 mg Lorazepam (Lorazepam 2 Mg/Ml Vial) 2 mg IM BID PRN PRN Reason: IF PATIENT REFUSES PO Magnesium Hydroxide (Milk Of Magnesia 30 Ml Oral.Susp) 30 ml PO DAILY PRN PRN Reason: Constipation Nicotine (Nicotine 21 Mg Patch.Td24) 21 mg TRANSDERMA DAILY PRN PRN Reason: smoking cessation Nicotine Polacrilex (Nicotine Polacrilex 2 Mg Gum) 4 mg BUCCAL Q2H PRN PRN Reason: Nicotine Cravings Last Admin: 09/04/24 16:47 Dose: 4 mg Olanzapine (Olanzapine Odt 10 Mg Tab.Rapdis) 10 mg TRANSLINGU BID [facility] Last Admin: 09/11/24 08:09 Dose: 10 mg Olanzapine (Olanzapine 10 Mg Vial) 10 mg IM BID PRN PRN Reason: per court if pt refuses po Olanzapine (Olanzapine 5 Mg Tablet) 5 mg PO BID PRN PRN Reason: agitation, psychosis Trazodone HCl (Trazodone Hcl 50 Mg Tablet) 50 mg PO BEDTIME MRX1 PRN PRN Reason: Insomnia Last Admin: 08/14/24 20:45 Dose: 50 mg Valproic Acid (Valproic Acid Liquid 250 Mg/5 Ml Solution) 500 mg PO BEDTIME [facility] Last Admin: 09/10/24 20:39 Dose: Not Given Allergies Allergies Allergy/AdvReac Type Severity Reaction Status Date / Time No Known Allergies Allergy Verified 08/12/24 09:40 Assessment & Plan Assessment & Plan (1) Schizoaffective disorder, bipolar type: Status: Acute Code(s): F25.0 - Schizoaffective disorder, bipolar type (2) PTSD (post-traumatic stress disorder): Status: Acute Code(s): F43.10 - Post-traumatic stress disorder, unspecified (3) Cannabis use disorder: Status: Acute Code(s): F12.90 - Cannabis use, unspecified, uncomplicated Plan Admit, CV, 15 minute checks Collateral Contact Diagnostics as needed --B12,Folate,TSH, EKG Encourage milieu participation Olanzapine 10 mg bid Valproate ER 500 mg HS DC/Aftercare planning 08/15-Continue to encourage treatment Section 7 may be needed This was discussed with family by Ian VILLANUEVA. They will participate if this is needed. 08/16- Continue to encourage treatment 08/17 CTP 08/18 CTP 08/19: Will file Section 7 on 08/20. Family is in agreement. 08/20: pacing in front of nurses station. Keeping to self. malodorous and unkempt. declining to shower. guarded. brief during assessment. Patient reports feeling fine ; states he doesn't need anything . encouraged to shower and attend groups. 08/21: Encourage treatment and alliance building. 08/22: Continue to attempt treatment 08/23: Continue to offer and attempt treatment 08/24: Continue current regimen and plans. Encourage food and drink. 08/26 Patient standing alone in [place] most of the day, quiet, just staring off. Patient tells technical report writer that he is eating and drinking regularly; he says he came to the hospital because he wanted help to quit smoking; says he does not need medications.Nursing staff reports that patient is not eating or drinking much at all (though did eat some yesterday) -court postponed until 09/05/2408/28 Intake and ADL attention with slight improvement Continues to refuse medications CAT negative Father to pursue guardianship 08/30 Continue plan 08/31-09/01 no change in presentation 09/02-continue plan. 09/03- COVID +. Continue to offer treatment 09/05- Continue plan. Asked pt if we could repeat his labs, he declines at this time. 09/06- Court 09/09/24. 09/07/24 - seems to have plan for himself for dc- has apartment, car, and can get a job in [place] appears to be eating more and drinking more fluids- still flat affect and no interest in medications 09/08 despite repeating this discussion this am, patient went on to not eat, drink all day , and some very disorganized and odd behaviors and emotions which he is unable to explain/express- likely not really ready to go back to so described life and is really only been able to superficially manage lately 09/09 [address] Pt is at this time a 2:1 special due to agitation. Lorazepam 2 mg bid Zyprexa 10 mg bid 09/11: Continue regime and plan Reason for continued inpatient stay Substantial Risk for: rapid decompensation Time Spent With Patient Time: Total time managing care of this patient today ____ minutes.
[2024-09-11 13:52] LABS: Influenza A PCR NEGATIVE (Negative); Influenza B PCR NEGATIVE (Negative); Resp Syncy Virus RNA Qual PCR NEGATIVE (Negative); SARS COV2 PCR INHOUSE POSITIVE (Negative)
[2024-09-11 22:46] VITALS: BP 121/77; PULSE 110; RESP 18; TEMP 36.9; O2SAT 95
[2024-09-12 08:00] VITALS: BP 112/79; PULSE 99; TEMP 36.8; O2SAT 99
[2024-09-12] MEDS: OLANZapine ODT 10 MG TAB.RAPDIS TRANSLINGU ×2 (08:30→21:11)
[2024-09-12] MEDS: LORazepam 1 MG TABLET 2 MG PO ×2 (08:30→21:11)
--- NOTE | 2024-09-12 09:56 | P.PNPSI_ITS ---
Subjective Subjective Date of Service: 09/12/24 Reason For Visit: catatonia Subjective Notes: Section 8 Healthcare Proxy: No Guardianship: No Medical Problems Affecting Mental Status: No Interim History: Tolerating medications, reports he does not feel overmedicated and does not present with sx of overmedication. Covid still positive, [place] Covid test ordered, pt refused however. Pt is being re-integrated into the milieu. There was an incident in the kitchen with a peer. Pt continues to posture/pose at times, a probable catatonic sx. A peer was close by and it was reported he was too close, with no intent, which upset his peer. One to one was returned. Pt is calm, approachable, non agitated, has good eye contact and is sleeping, eating, drinking. He continues with a poverty of content in speaking with others, however, does initiate brief dialogue, How are you? We will continue to await ordering futher diagnostics until he has improved sx. Medication Compliance: Intermittent (refused depakote) Side effects from medications: No Attending Groups: No Review of Systems Acute medical concerns: No Review of Systems Review of Systems I feel fine Mental Status Exam Mental Status Exam Patient Appearance: Unkempt Patient Orientation: Person and Place Level of Consciousness: Awake and Alert Patient Behavior: Talkative, Cooperative, Wandering, Distractible, Confused and Good Eye Contact Mood Description: Calm Affect Description: Calm Patient Cognition Impaired: Yes Ability to Follow Directions: Fair Speech Pattern: Spontaneous Speech Memory Description: Remote Impaired and Episodic Impaired Hallucinations: None Delusions: Present Thought Process: Illogical, Distracted and Confusion Thought Content: positive for Tangential Depressive Symptoms: Difficulty Concentrating Abnormal Motor Activity Signs and Symptoms: Restlessness Judgement: Fair Diagnostics Vital Signs (24Hr): Vital Signs - 24 hr 09/11/24 22:46 09/12/24 08:00 Temperature 98.4 F 98.2 F Pulse Rate 110 H 99 Respiratory Rate 18 Blood Pressure 121/77 112/79 Pulse Oximetry 95 99 Oxygen Delivery Method Room Air BMI result Body Mass Index 26.9 Labs 08/12/24 10:10 08/13/24 13:34 Labs: Laboratory Results - last 48 hr 09/11/24 13:02 Influenza Type A (PCR) NEGATIVE Influenza Type B (PCR) NEGATIVE RSV RNA Qual (PCR) NEGATIVE SARS-CoV-2 RNA (RT-PCR) POSITIVE A Imaging Radiology Impressions: ITS Impressions Head CT 08/27/24 13:57 IMPRESSION: No acute brain abnormality by CT. Electronically signed by: Tito Costa MD 08/27/2024 04:05 PM EDT Medications Medications Current Medications Acetaminophen (Acetaminophen 325 Mg Tablet) 650 mg PO Q6H PRN PRN Reason: Headache/Pain, Scale 1-10 Al Hydroxide/Mg Hydroxide (Magnesium Hydrox/Alum Hydrox 30 Ml Oral.Susp) 30 ml PO Q6H PRN PRN Reason: Heartburn/Nausea Hydroxyzine HCl (Hydroxyzine Hcl 25 Mg Tablet) 25 mg PO Q6H PRN PRN Reason: mild anxiety Lorazepam (Lorazepam 1 Mg Tablet) 2 mg PO BID [facility] Last Admin: 09/12/24 08:30 Dose: 2 mg Lorazepam (Lorazepam 2 Mg/Ml Vial) 2 mg IM BID PRN PRN Reason: IF PATIENT REFUSES PO Magnesium Hydroxide (Milk Of Magnesia 30 Ml Oral.Susp) 30 ml PO DAILY PRN PRN Reason: Constipation Nicotine (Nicotine 21 Mg Patch.Td24) 21 mg TRANSDERMA DAILY PRN PRN Reason: smoking cessation Nicotine Polacrilex (Nicotine Polacrilex 2 Mg Gum) 4 mg BUCCAL Q2H PRN PRN Reason: Nicotine Cravings Last Admin: 09/04/24 16:47 Dose: 4 mg Olanzapine (Olanzapine Odt 10 Mg Tab.Rapdis) 10 mg TRANSLINGU BID [facility] Last Admin: 09/12/24 08:30 Dose: 10 mg Olanzapine (Olanzapine 10 Mg Vial) 10 mg IM BID PRN PRN Reason: per court if pt refuses po Olanzapine (Olanzapine 5 Mg Tablet) 5 mg PO BID PRN PRN Reason: agitation, psychosis Trazodone HCl (Trazodone Hcl 50 Mg Tablet) 50 mg PO BEDTIME MRX1 PRN PRN Reason: Insomnia Last Admin: 08/14/24 20:45 Dose: 50 mg Valproic Acid (Valproic Acid Liquid 250 Mg/5 Ml Solution) 500 mg PO BEDTIME [facility] Last Admin: 09/11/24 22:34 Dose: Not Given Allergies Allergies Allergy/AdvReac Type Severity Reaction Status Date / Time No Known Allergies Allergy Verified 08/12/24 09:40 Assessment & Plan Assessment & Plan (1) Schizoaffective disorder, bipolar type: Status: Acute Code(s): F25.0 - Schizoaffective disorder, bipolar type (2) PTSD (post-traumatic stress disorder): Status: Acute Code(s): F43.10 - Post-traumatic stress disorder, unspecified (3) Cannabis use disorder: Status: Acute Code(s): F12.90 - Cannabis use, unspecified, uncomplicated Plan Admit, CV, 15 minute checks Collateral Contact Diagnostics as needed --B12,Folate,TSH, EKG Encourage milieu participation Olanzapine 10 mg bid Valproate ER 500 mg HS DC/Aftercare planning 08/15-Continue to encourage treatment Section 7 may be needed This was discussed with family by Ian VILLANUEVA. They will participate if this is needed. 08/16- Continue to encourage treatment 08/17 CTP 08/18 CTP 08/19: Will file Section 7 on 08/20. Family is in agreement. 08/20: pacing in front of nurses station. Keeping to self. malodorous and unkempt. declining to shower. guarded. brief during assessment. Patient reports feeling fine ; states he doesn't need anything . encouraged to shower and attend groups. 08/21: Encourage treatment and alliance building. 08/22: Continue to attempt treatment 08/23: Continue to offer and attempt treatment 08/24: Continue current regimen and plans. Encourage food and drink. 08/26 Patient standing alone in [place] most of the day, quiet, just staring off. Patient tells insurance underwriter that he is eating and drinking regularly; he says he came to the hospital because he wanted help to quit smoking; says he does not need medications.Nursing staff reports that patient is not eating or drinking much at all (though did eat some yesterday) -court postponed until 09/05/2408/28 Intake and ADL attention with slight improvement Continues to refuse medications CAT negative Father to pursue guardianship 08/30 Continue plan 08/31-09/01 no change in presentation 09/02-continue plan. 09/03- COVID +. Continue to offer treatment 09/05- Continue plan. Asked pt if we could repeat his labs, he declines at this time. 09/06- Court 09/09/24. 09/07/24 - seems to have plan for himself for dc- has apartment, car, and can get a job in [employer] appears to be eating more and drinking more fluids- still flat affect and no interest in medications 09/08 despite repeating this discussion this am, patient went on to not eat, drink all day , and some very disorganized and odd behaviors and emotions which he is unable to explain/express- likely not really ready to go back to so described life and is really only been able to superficially manage lately 09/09 [address] Pt is at this time a 2:1 special due to agitation. Lorazepam 2 mg bid Zyprexa 10 mg bid 09/11: Continue regime and plan 09/12: Continue regime and plan Reason for continued inpatient stay Substantial Risk for: rapid decompensation Time Spent With Patient Time: Total time managing care of this patient today ____ minutes.
[2024-09-13] MEDS: OLANZapine ODT 10 MG TAB.RAPDIS TRANSLINGU ×2 (08:52→21:42)
[2024-09-13] MEDS: LORazepam 1 MG TABLET 2 MG PO (08:52)
--- NOTE | 2024-09-13 10:04 | P.PNPSI_ITS ---
Subjective Subjective Date of Service: 09/13/24 Reason For Visit: catatonia Subjective Notes: Section 8 Healthcare Proxy: No Guardianship: No Medical Problems Affecting Mental Status: No Interim History: Best reports he is feeling well, however, somewhat overmedicated. We talked of decreasing Lorazepam and he is willing to try. Reports father visited last evening. Remains on one to one. Calm, interactive, without lability of mood when seen today. Medication Compliance: Yes Side effects from medications: Yes (feeling sedate) Attending Groups: No Review of Systems Acute medical concerns: No Medical Review of Systems: unchanged Review of Systems Review of Systems Denies Mental Status Exam Mental Status Exam Patient Appearance: Unkempt Patient Orientation: Person, Place and Situation Level of Consciousness: Awake and Alert Patient Behavior: Talkative, Cooperative, Wandering, Distractible and Good Eye Contact Mood Description: Calm Affect Description: Calm Patient Cognition Impaired: No Ability to Follow Directions: Fair Speech Pattern: Spontaneous Speech Memory Description: Remote Impaired and Episodic Impaired Hallucinations: None Delusions: Present Thought Process: Linear Thought Content: positive for Tangential Judgement: Fair Diagnostics Vital Signs (24Hr): BMI result Body Mass Index 26.9 Labs 08/12/24 10:10 08/13/24 13:34 Labs: Laboratory Results - last 48 hr 09/11/24 13:02 Influenza Type A (PCR) NEGATIVE Influenza Type B (PCR) NEGATIVE RSV RNA Qual (PCR) NEGATIVE SARS-CoV-2 RNA (RT-PCR) POSITIVE A Imaging Radiology Impressions: ITS Impressions Head CT 08/27/24 13:57 IMPRESSION: No acute brain abnormality by CT. Electronically signed by: Tito Costa MD 08/27/2024 04:05 PM EDT Medications Medications Current Medications Acetaminophen (Acetaminophen 325 Mg Tablet) 650 mg PO Q6H PRN PRN Reason: Headache/Pain, Scale 1-10 Al Hydroxide/Mg Hydroxide (Magnesium Hydrox/Alum Hydrox 30 Ml Oral.Susp) 30 ml PO Q6H PRN PRN Reason: Heartburn/Nausea Hydroxyzine HCl (Hydroxyzine Hcl 25 Mg Tablet) 25 mg PO Q6H PRN PRN Reason: mild anxiety Lorazepam (Lorazepam 1 Mg Tablet) 2 mg PO BID [facility] Last Admin: 09/13/24 08:52 Dose: 2 mg Lorazepam (Lorazepam 2 Mg/Ml Vial) 2 mg IM BID PRN PRN Reason: IF PATIENT REFUSES PO Magnesium Hydroxide (Milk Of Magnesia 30 Ml Oral.Susp) 30 ml PO DAILY PRN PRN Reason: Constipation Nicotine (Nicotine 21 Mg Patch.Td24) 21 mg TRANSDERMA DAILY PRN PRN Reason: smoking cessation Nicotine Polacrilex (Nicotine Polacrilex 2 Mg Gum) 4 mg BUCCAL Q2H PRN PRN Reason: Nicotine Cravings Last Admin: 09/04/24 16:47 Dose: 4 mg Olanzapine (Olanzapine Odt 10 Mg Tab.Rapdis) 10 mg TRANSLINGU BID [facility] Last Admin: 09/13/24 08:52 Dose: 10 mg Olanzapine (Olanzapine 10 Mg Vial) 10 mg IM BID PRN PRN Reason: per court if pt refuses po Olanzapine (Olanzapine 5 Mg Tablet) 5 mg PO BID PRN PRN Reason: agitation, psychosis Trazodone HCl (Trazodone Hcl 50 Mg Tablet) 50 mg PO BEDTIME MRX1 PRN PRN Reason: Insomnia Last Admin: 08/14/24 20:45 Dose: 50 mg Valproic Acid (Valproic Acid Liquid 250 Mg/5 Ml Solution) 500 mg PO BEDTIME [facility] Last Admin: 09/12/24 21:12 Dose: Not Given Allergies Allergies Allergy/AdvReac Type Severity Reaction Status Date / Time No Known Allergies Allergy Verified 08/12/24 09:40 Assessment & Plan Assessment & Plan (1) Schizoaffective disorder, bipolar type: Status: Acute Code(s): F25.0 - Schizoaffective disorder, bipolar type (2) PTSD (post-traumatic stress disorder): Status: Acute Code(s): F43.10 - Post-traumatic stress disorder, unspecified (3) Cannabis use disorder: Status: Acute Code(s): F12.90 - Cannabis use, unspecified, uncomplicated Plan Admit, CV, 15 minute checks Collateral Contact Diagnostics as needed --B12,Folate,TSH, EKG Encourage milieu participation Olanzapine 10 mg bid Valproate ER 500 mg HS DC/Aftercare planning 08/15-Continue to encourage treatment Section 7 may be needed This was discussed with family by Ian VILLANUEVA. They will participate if this is needed. 08/16- Continue to encourage treatment 08/17 CTP 08/18 CTP 08/19: Will file Section 7 on 08/20. Family is in agreement. 08/20: pacing in front of nurses station. Keeping to self. malodorous and unkempt. declining to shower. guarded. brief during assessment. Patient reports feeling fine ; states he doesn't need anything . encouraged to shower and attend groups. 08/21: Encourage treatment and alliance building. 08/22: Continue to attempt treatment 08/23: Continue to offer and attempt treatment 08/24: Continue current regimen and plans. Encourage food and drink. 08/26 Patient standing alone in [place] most of the day, quiet, just staring off. Patient tells engineering technical writer that he is eating and drinking regularly; he says he came to the hospital because he wanted help to quit smoking; says he does not need medications.Nursing staff reports that patient is not eating or drinking much at all (though did eat some yesterday) -court postponed until 09/05/2408/28 Intake and ADL attention with slight improvement Continues to refuse medications CAT negative Father to pursue guardianship 08/30 Continue plan 08/31-09/01 no change in presentation 09/02-continue plan. 09/03- COVID +. Continue to offer treatment 09/05- Continue plan. Asked pt if we could repeat his labs, he declines at this time. 09/06- Court 09/09/24. 09/07/24 - seems to have plan for himself for dc- has apartment, car, and can get a job in [employer] appears to be eating more and drinking more fluids- still flat affect and no interest in medications 09/08 despite repeating this discussion this am, patient went on to not eat, drink all day , and some very disorganized and odd behaviors and emotions which he is unable to explain/express- likely not really ready to go back to so described life and is really only been able to superficially manage lately 09/09 [address]. Pt is at this time a 2:1 special due to agitation. Lorazepam 2 mg bid Zyprexa 10 mg bid 09/11: Continue regime and plan 09/13: Decrease lorazepam to 1 mg tid Reason for continued inpatient stay Substantial Risk for: rapid decompensation Time Spent With Patient Time: Total time managing care of this patient today ____ minutes.
[2024-09-13 20:00] VITALS: BP 124/75; PULSE 92; TEMP 36.9; O2SAT 98
[2024-09-13] MEDS: LORazepam 1 MG TABLET PO (21:42)
[2024-09-13] MEDS: Valproic Acid Liquid 250 MG/5 ML SOLUTION 500 MG PO (21:43)
--- NOTE | 2024-09-14 07:25 | HO.PSYCHPN ---
Subjective Subjective Date of Service: 09/14/24 Reason For Visit: catatonia Subjective Notes: Section 8 Interim History: Pt seen, reviewed with the team. Reports he is asymptomatic, tolerating Lorazepam decrease Tells team that spirits are communicating with him No sx of agitation or behavioral dyscontrol. He does, at times posture, making movements which some may misinterpret, yet without threat to others. Medication Compliance: Yes Attending Groups: Intermittent Review of Systems Review of Systems Denies today Mental Status Exam Mental Status Exam Patient Appearance: Unkempt Patient Orientation: Person, Place and Situation Level of Consciousness: Awake and Alert Patient Behavior: Talkative, Cooperative, Wandering, Distractible and Good Eye Contact Mood Description: Calm Affect Description: Calm Patient Cognition Impaired: No Ability to Follow Directions: Fair Speech Pattern: Spontaneous Speech Memory Description: Remote Impaired and Episodic Impaired Hallucinations: None Delusions: Present Thought Process: Linear Thought Content: positive for Tangential Judgement: Fair Diagnostics Vital Signs (24Hr): Vital Signs - 24 hr 09/13/24 20:00 Temperature 98.4 F Pulse Rate 92 Blood Pressure 124/75 Pulse Oximetry 98 Oxygen Delivery Method Room Air BMI result Body Mass Index 26.9 Labs 08/12/24 10:10 08/13/24 13:34 Imaging Radiology Impressions: ITS Impressions Head CT 08/27/24 13:57 IMPRESSION: No acute brain abnormality by CT. Electronically signed by: Tito Costa MD 08/27/2024 04:05 PM EDT Medications Medications Current Medications Acetaminophen (Acetaminophen 325 Mg Tablet) 650 mg PO Q6H PRN PRN Reason: Headache/Pain, Scale 1-10 Al Hydroxide/Mg Hydroxide (Magnesium Hydrox/Alum Hydrox 30 Ml Oral.Susp) 30 ml PO Q6H PRN PRN Reason: Heartburn/Nausea Hydroxyzine HCl (Hydroxyzine Hcl 25 Mg Tablet) 25 mg PO Q6H PRN PRN Reason: mild anxiety Lorazepam (Lorazepam 2 Mg/Ml Vial) 2 mg IM BID PRN PRN Reason: IF PATIENT REFUSES PO Lorazepam (Lorazepam 1 Mg Tablet) 1 mg PO TID [facility] Last Admin: 09/13/24 21:42 Dose: 1 mg Magnesium Hydroxide (Milk Of Magnesia 30 Ml Oral.Susp) 30 ml PO DAILY PRN PRN Reason: Constipation Nicotine (Nicotine 21 Mg Patch.Td24) 21 mg TRANSDERMA DAILY PRN PRN Reason: smoking cessation Nicotine Polacrilex (Nicotine Polacrilex 2 Mg Gum) 4 mg BUCCAL Q2H PRN PRN Reason: Nicotine Cravings Last Admin: 09/04/24 16:47 Dose: 4 mg Olanzapine (Olanzapine Odt 10 Mg Tab.Rapdis) 10 mg TRANSLINGU BID [facility] Last Admin: 09/13/24 21:42 Dose: 10 mg Olanzapine (Olanzapine 10 Mg Vial) 10 mg IM BID PRN PRN Reason: per court if pt refuses po Olanzapine (Olanzapine 5 Mg Tablet) 5 mg PO BID PRN PRN Reason: agitation, psychosis Trazodone HCl (Trazodone Hcl 50 Mg Tablet) 50 mg PO BEDTIME MRX1 PRN PRN Reason: Insomnia Last Admin: 08/14/24 20:45 Dose: 50 mg Valproic Acid (Valproic Acid Liquid 250 Mg/5 Ml Solution) 500 mg PO BEDTIME [facility] Last Admin: 09/13/24 21:43 Dose: 500 mg Allergies Allergies Allergy/AdvReac Type Severity Reaction Status Date / Time No Known Allergies Allergy Verified 08/12/24 09:40 Assessment & Plan Assessment & Plan (1) Schizoaffective disorder, bipolar type: Status: Acute Code(s): F25.0 - Schizoaffective disorder, bipolar type (2) PTSD (post-traumatic stress disorder): Status: Acute Code(s): F43.10 - Post-traumatic stress disorder, unspecified (3) Cannabis use disorder: Status: Acute Code(s): F12.90 - Cannabis use, unspecified, uncomplicated Plan Admit, CV, 15 minute checks Collateral Contact Diagnostics as needed --B12,Folate,TSH, EKG Encourage milieu participation Olanzapine 10 mg bid Valproate ER 500 mg HS DC/Aftercare planning 08/15-Continue to encourage treatment Section 7 may be needed This was discussed with family by Ian VILLANUEVA. They will participate if this is needed. 08/16- Continue to encourage treatment 08/17 CTP 08/18 CTP 08/19: Will file Section 7 on 08/20. Family is in agreement. 08/20: pacing in front of nurses station. Keeping to self. malodorous and unkempt. declining to shower. guarded. brief during assessment. Patient reports feeling fine ; states he doesn't need anything . encouraged to shower and attend groups. 08/21: Encourage treatment and alliance building. 08/22: Continue to attempt treatment 08/23: Continue to offer and attempt treatment 08/24: Continue current regimen and plans. Encourage food and drink. 08/26 Patient standing alone in [place] most of the day, quiet, just staring off. Patient tells commercial real estate underwriter that he is eating and drinking regularly; he says he came to the hospital because he wanted help to quit smoking; says he does not need medications.Nursing staff reports that patient is not eating or drinking much at all (though did eat some yesterday) -court postponed until 09/05/2408/28 Intake and ADL attention with slight improvement Continues to refuse medications CAT negative Father to pursue guardianship 08/30 Continue plan 08/31-09/01 no change in presentation 09/02-continue plan. 09/03- COVID +. Continue to offer treatment 09/05- Continue plan. Asked pt if we could repeat his labs, he declines at this time. 09/06- Court 09/09/24. 09/07/24 - seems to have plan for himself for dc- has apartment, car, and [place] [employer] [employer] appears to be eating more and drinking more fluids- still flat affect and no interest in medications 09/08 despite repeating this discussion this am, patient went on to not eat, drink all day , and some very disorganized and odd behaviors and emotions which he is unable to explain/express- likely not really ready to go back to so described life and is really only been able to superficially manage lately 09/09 [address] Pt is at this time a 2:1 special due to agitation. Lorazepam 2 mg bid Zyprexa 10 mg bid 09/11: Continue regime and plan 09/13: Decrease lorazepam to 1 mg tid 09/14/24: Continue regime and plan Reason for continued inpatient stay Substantial Risk for: rapid decompensation Time Spent With Patient Time: Total time managing care of this patient today ____ minutes.
[2024-09-14] MEDS: OLANZapine ODT 10 MG TAB.RAPDIS TRANSLINGU ×2 (08:39→21:43)
[2024-09-14] MEDS: LORazepam 1 MG TABLET PO ×3 (08:39→21:43)
[2024-09-14] MEDS: Valproic Acid Liquid 250 MG/5 ML SOLUTION 500 MG PO (21:44)
--- NOTE | 2024-09-15 05:43 | HO.PSYCHPN ---
Subjective Subjective Date of Service: 09/15/24 Reason For Visit: catatonia Subjective Notes: Section 8 Interim History: Met with pt, reviewed with team. Checks changed from one to one to 5 minute checks Pt reports he has no sx. No adverse effects from Lorazepam decrease Discussed EEG and MRI. Pt declines. I am better, they are not needed. Some posturing at times noted today without agitation or aggression. Medication Compliance: Yes Review of Systems Review of Systems Denies Mental Status Exam Mental Status Exam Patient Appearance: Unkempt Patient Orientation: Person, Place and Situation Level of Consciousness: Awake and Alert Patient Behavior: Talkative, Cooperative, Wandering, Distractible and Good Eye Contact Mood Description: Calm Affect Description: Calm Patient Cognition Impaired: No Ability to Follow Directions: Fair Speech Pattern: Spontaneous Speech Memory Description: Remote Impaired and Episodic Impaired Hallucinations: None Delusions: Present Thought Process: Linear Thought Content: positive for Tangential Judgement: Fair Diagnostics Vital Signs (24Hr): BMI result Body Mass Index 26.9 Labs 08/12/24 10:10 08/13/24 13:34 Imaging Radiology Impressions: ITS Impressions Head CT 08/27/24 13:57 IMPRESSION: No acute brain abnormality by CT. Electronically signed by: Tito Csota MD 08/27/2024 04:05 PM EDT RP Medications Medications Current Medications Acetaminophen (Acetaminophen 325 Mg Tablet) 650 mg PO Q6H PRN PRN Reason: Headache/Pain, Scale 1-10 Al Hydroxide/Mg Hydroxide (Magnesium Hydrox/Alum Hydrox 30 Ml Oral.Susp) 30 ml PO Q6H PRN PRN Reason: Heartburn/Nausea Hydroxyzine HCl (Hydroxyzine Hcl 25 Mg Tablet) 25 mg PO Q6H PRN PRN Reason: mild anxiety Lorazepam (Lorazepam 2 Mg/Ml Vial) 2 mg IM BID PRN PRN Reason: IF PATIENT REFUSES PO Lorazepam (Lorazepam 1 Mg Tablet) 1 mg PO TID RIKI Last Admin: 09/14/24 21:43 Dose: 1 mg Magnesium Hydroxide (Milk Of Magnesia 30 Ml Oral.Susp) 30 ml PO DAILY PRN PRN Reason: Constipation Nicotine (Nicotine 21 Mg Patch.Td24) 21 mg TRANSDERMA DAILY PRN PRN Reason: smoking cessation Nicotine Polacrilex (Nicotine Polacrilex 2 Mg Gum) 4 mg BUCCAL Q2H PRN PRN Reason: Nicotine Cravings Last Admin: 09/04/24 16:47 Dose: 4 mg Olanzapine (Olanzapine Odt 10 Mg Tab.Rapdis) 10 mg TRANSLINGU BID RIKI Last Admin: 09/14/24 21:43 Dose: 10 mg Olanzapine (Olanzapine 10 Mg Vial) 10 mg IM BID PRN PRN Reason: per court if pt refuses po Olanzapine (Olanzapine 5 Mg Tablet) 5 mg PO BID PRN PRN Reason: agitation, psychosis Trazodone HCl (Trazodone Hcl 50 Mg Tablet) 50 mg PO BEDTIME MRX1 PRN PRN Reason: Insomnia Last Admin: 08/14/24 20:45 Dose: 50 mg Valproic Acid (Valproic Acid Liquid 250 Mg/5 Ml Solution) 500 mg PO BEDTIME RIKI Last Admin: 09/14/24 21:44 Dose: 500 mg Allergies Allergies Allergy/AdvReac Type Severity Reaction Status Date / Time No Known Allergies Allergy Verified 08/12/24 09:40 Assessment & Plan Assessment & Plan (1) Schizoaffective disorder, bipolar type: Status: Acute Code(s): F25.0 - Schizoaffective disorder, bipolar type (2) PTSD (post-traumatic stress disorder): Status: Acute Code(s): F43.10 - Post-traumatic stress disorder, unspecified (3) Cannabis use disorder: Status: Acute Code(s): F12.90 - Cannabis use, unspecified, uncomplicated Plan Admit, CV, 15 minute checks Collateral Contact Diagnostics as needed --B12,Folate,TSH, EKG Encourage milieu participation Olanzapine 10 mg bid Valproate ER 500 mg HS DC/Aftercare planning 08/15-Continue to encourage treatment Section 7 may be needed This was discussed with family by Ian Olivas [facility]. They will participate if this is needed. 08/16- Continue to encourage treatment 08/17 CTP 08/18 CTP 08/19: Will file Section 7 on 08/20. Family is in agreement. 08/20: pacing in front of nurses station. Keeping to self. malodorous and unkempt. declining to shower. guarded. brief during assessment. Patient reports feeling fine ; states he doesn't need anything . encouraged to shower and attend groups. 08/21: Encourage treatment and alliance building. 08/22: Continue to attempt treatment 08/23: Continue to offer and attempt treatment 08/24: Continue current regimen and plans. Encourage food and drink. 08/26 Patient standing alone in [place] most of the day, quiet, just staring off. Patient tells medical underwriter that he is eating and drinking regularly; he says he came to the hospital because he wanted help to quit smoking; says he does not need medications.Nursing staff reports that patient is not eating or drinking much at all (though did eat some yesterday) -court postponed until 09/05/2408/28 Intake and ADL attention with slight improvement Continues to refuse medications CAT negative Father to pursue guardianship 08/30 Continue plan 08/31-09/01 no change in presentation 09/02-continue plan. 09/03- COVID +. Continue to offer treatment 09/05- Continue plan. Asked pt if we could repeat his labs, he declines at this time. 09/06- Court 09/09/24. 09/07/24 - seems to have plan for himself for dc- has apartment, car, [place] [employer] [place] appears to be eating more and drinking more fluids- still flat affect and no interest in medications 09/08 despite repeating this discussion this am, patient went on to not eat, drink all day , and some very disorganized and odd behaviors and emotions which he is unable to explain/express- likely not really ready to go back to so described life and is really only been able to superficially manage lately 09/09 [address] Pt is at this time a 2:1 special due to agitation. Lorazepam 2 mg bid Zyprexa 10 mg bid 09/11: Continue regime and plan 09/13: Decrease lorazepam to 1 mg tid 09/15: Continue plan. Declines EEG/MRI Reason for continued inpatient stay Substantial Risk for: rapid decompensation Time Spent With Patient Time: Total time managing care of this patient today ____ minutes.
[2024-09-15 07:58] VITALS: BP 105/65; PULSE 99; RESP 18; TEMP 36.6; O2SAT 99
[2024-09-15] MEDS: OLANZapine ODT 10 MG TAB.RAPDIS TRANSLINGU ×2 (07:59→21:12)
[2024-09-15] MEDS: LORazepam 1 MG TABLET PO ×3 (07:59→21:12)
[2024-09-15 19:46] VITALS: BP 108/63; PULSE 127; RESP 98; TEMP 36.8; O2SAT 98
[2024-09-15] MEDS: Valproic Acid Liquid 250 MG/5 ML SOLUTION 500 MG PO (21:12)
[2024-09-16] MEDS: LORazepam 1 MG TABLET PO ×3 (08:34→20:23)
[2024-09-16] MEDS: OLANZapine ODT 10 MG TAB.RAPDIS TRANSLINGU ×2 (08:35→20:23)
--- NOTE | 2024-09-16 15:19 | P.PNPSI_ITS ---
Subjective Subjective Date of Service: 09/16/24 Reason For Visit: catatonia Interim History: Observed pacing unit hallway. guarded. pt brief during assessment, declined to go into unit office with T/W. Responding with one word answers. Pt reports feeling good today; states he is sleeping well. Encouraged to shower. denies SI/HI/VH/AH. Continue current tx plan. Medication Compliance: Intermittent Attending Groups: No Mental Status Exam Mental Status Exam Patient Appearance: Unkempt Patient Orientation: Person, Place, Time and Situation Level of Consciousness: Awake and Alert Patient Behavior: Guarded, Pacing and Poor Eye Contact Mood Description: Blunted Affect Description: Blunted Ability to Follow Directions: Good Speech Pattern: Clear Thought Process: Intact Thought Content: positive for Intact Diagnostics Vital Signs (24Hr): Vital Signs - 24 hr 09/15/24 19:46 Temperature 98.2 F Pulse Rate 127 H Respiratory Rate 98 H Blood Pressure 108/63 Pulse Oximetry 98 Oxygen Delivery Method Room Air BMI result Body Mass Index 26.9 Labs 08/12/24 10:10 08/13/24 13:34 Imaging Radiology Impressions: ITS Impressions Head CT 08/27/24 13:57 IMPRESSION: No acute brain abnormality by CT. Electronically signed by: Tito Costa MD 08/27/2024 04:05 PM EDT Medications Medications Current Medications Acetaminophen (Acetaminophen 325 Mg Tablet) 650 mg PO Q6H PRN PRN Reason: Headache/Pain, Scale 1-10 Al Hydroxide/Mg Hydroxide (Magnesium Hydrox/Alum Hydrox 30 Ml Oral.Susp) 30 ml PO Q6H PRN PRN Reason: Heartburn/Nausea Hydroxyzine HCl (Hydroxyzine Hcl 25 Mg Tablet) 25 mg PO Q6H PRN PRN Reason: mild anxiety Lorazepam (Lorazepam 2 Mg/Ml Vial) 2 mg IM BID PRN PRN Reason: IF PATIENT REFUSES PO Lorazepam (Lorazepam 1 Mg Tablet) 1 mg PO TID [facility] Last Admin: 09/16/24 14:17 Dose: 1 mg Magnesium Hydroxide (Milk Of Magnesia 30 Ml Oral.Susp) 30 ml PO DAILY PRN PRN Reason: Constipation Nicotine (Nicotine 21 Mg Patch.Td24) 21 mg TRANSDERMA DAILY PRN PRN Reason: smoking cessation Nicotine Polacrilex (Nicotine Polacrilex 2 Mg Gum) 4 mg BUCCAL Q2H PRN PRN Reason: Nicotine Cravings Last Admin: 09/04/24 16:47 Dose: 4 mg Olanzapine (Olanzapine Odt 10 Mg Tab.Rapdis) 10 mg TRANSLINGU BID [facility] Last Admin: 09/16/24 08:35 Dose: 10 mg Olanzapine (Olanzapine 10 Mg Vial) 10 mg IM BID PRN PRN Reason: per court if pt refuses po Olanzapine (Olanzapine 5 Mg Tablet) 5 mg PO BID PRN PRN Reason: agitation, psychosis Trazodone HCl (Trazodone Hcl 50 Mg Tablet) 50 mg PO BEDTIME MRX1 PRN PRN Reason: Insomnia Last Admin: 08/14/24 20:45 Dose: 50 mg Valproic Acid (Valproic Acid Liquid 250 Mg/5 Ml Solution) 500 mg PO BEDTIME [facility] Last Admin: 09/15/24 21:12 Dose: 500 mg Allergies Allergies Allergy/AdvReac Type Severity Reaction Status Date / Time No Known Allergies Allergy Verified 08/12/24 09:40 Assessment & Plan Assessment & Plan (1) Schizoaffective disorder, bipolar type: Status: Acute Code(s): F25.0 - Schizoaffective disorder, bipolar type (2) PTSD (post-traumatic stress disorder): Status: Acute Code(s): F43.10 - Post-traumatic stress disorder, unspecified (3) Cannabis use disorder: Status: Acute Code(s): F12.90 - Cannabis use, unspecified, uncomplicated Plan Admit, CV, 15 minute checks Collateral Contact Diagnostics as needed --B12,Folate,TSH, EKG Encourage milieu participation Olanzapine 10 mg bid Valproate ER 500 mg HS DC/Aftercare planning 08/15-Continue to encourage treatment Section 7 may be needed This was discussed with family by Ian Olivas [facility]. They will participate if this is needed. 08/16- Continue to encourage treatment 08/17 CTP 08/18 CTP 08/19: Will file Section 7 on 08/20. Family is in agreement. 08/20: pacing in front of nurses station. Keeping to self. malodorous and unkempt. declining to shower. guarded. brief during assessment. Patient reports feeling fine ; states he doesn't need anything . encouraged to shower and attend groups. 08/21: Encourage treatment and alliance building. 08/22: Continue to attempt treatment 08/23: Continue to offer and attempt treatment 08/24: Continue current regimen and plans. Encourage food and drink. 08/26 Patient standing alone in [place] most of the day, quiet, just staring off. Patient tells va underwriter that he is eating and drinking regularly; he says he came to the hospital because he wanted help to quit smoking; says he does not need medications.Nursing staff reports that patient is not eating or drinking much at all (though did eat some yesterday) -court postponed until 09/05/2408/28 Intake and ADL attention with slight improvement Continues to refuse medications CAT negative Father to pursue guardianship 08/30 Continue plan 08/31-09/01 no change in presentation 09/02-continue plan. 09/03- COVID +. Continue to offer treatment 09/05- Continue plan. Asked pt if we could repeat his labs, he declines at this time. 09/06- Court 09/09/24. 09/07/24 - seems to have plan for himself for dc- has apartment, car, and can get a job in [place] appears to be eating more and drinking more fluids- still flat affect and no interest in medications 09/08 despite repeating this discussion this am, patient went on to not eat, drink all day , and some very disorganized and odd behaviors and emotions which he is unable to explain/express- likely not really ready to go back to so described life and is really only been able to superficially manage lately 09/09 [address] Pt is at this time a 2:1 special due to agitation. Lorazepam 2 mg bid Zyprexa 10 mg bid 09/11: Continue regime and plan 09/13: Decrease lorazepam to 1 mg tid 09/15: Continue plan. Declines EEG/MRI 09/16: Observed pacing unit hallway. guarded. pt brief during assessment, declined to go into unit office with T/W. Responding with one word answers. Pt reports feeling good today; states he is sleeping well. Encouraged to shower. denies SI/HI/VH/AH. Continue current tx plan. Patient educated on: diagnosis and medication risk/benefits Reason for continued inpatient stay Substantial Risk for: med/psych decompensation Time Spent With Patient Time: Total time managing care of this patient today _10___ minutes.
[2024-09-16 19:52] VITALS: BP 112/65; PULSE 117; TEMP 36.9
[2024-09-16] MEDS: Valproic Acid Liquid 250 MG/5 ML SOLUTION 500 MG PO (20:55)
[2024-09-17 08:00] VITALS: BP 112/62; PULSE 91; RESP 20; TEMP 36.4; O2SAT 98
[2024-09-17] MEDS: OLANZapine ODT 10 MG TAB.RAPDIS TRANSLINGU (08:49)
[2024-09-17] MEDS: LORazepam 1 MG TABLET PO ×3 (08:49→21:06)
--- NOTE | 2024-09-17 10:09 | HO.PSYCHPN ---
Subjective Subjective Date of Service: 09/17/24 Reason For Visit: catatonia Subjective Notes: Section 8 Interim History: Pt reports he is well. Slept 8 hours. Continues to administration dean milieu by nursing station, allows others to move around him and continues to posture at times. No agitation or outbursts. 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 Discussed Olanzapine increase which father agrees with- guardianship is pending at this time. Medication Compliance: Yes Side effects from medications: No Attending Groups: No Review of Systems Acute medical concerns: No Review of Systems Review of Systems Denies Mental Status Exam Mental Status Exam Patient Appearance: Unkempt Patient Orientation: Person, Place, Time and Situation Level of Consciousness: Awake and Alert Patient Behavior: Guarded, Pacing and Poor Eye Contact Mood Description: Blunted Affect Description: Blunted Ability to Follow Directions: Good Speech Pattern: Clear Thought Process: Intact Thought Content: positive for Intact Diagnostics Vital Signs (24Hr): Vital Signs - 24 hr 09/16/24 19:52 09/17/24 08:00 Temperature 98.4 F 97.5 F Pulse Rate 117 H 91 Respiratory Rate 20 Blood Pressure 112/65 112/62 Pulse Oximetry 98 Oxygen Delivery Method Room Air Room Air BMI result Body Mass Index 26.9 Labs 08/12/24 10:10 08/13/24 13:34 Imaging Radiology Impressions: ITS Impressions Head CT 08/27/24 13:57 IMPRESSION: No acute brain abnormality by CT. Electronically signed by: Tito Costa MD 08/27/2024 04:05 PM EDT RP Medications Medications Current Medications Acetaminophen (Acetaminophen 325 Mg Tablet) 650 mg PO Q6H PRN PRN Reason: Headache/Pain, Scale 1-10 Al Hydroxide/Mg Hydroxide (Magnesium Hydrox/Alum Hydrox 30 Ml Oral.Susp) 30 ml PO Q6H PRN PRN Reason: Heartburn/Nausea Hydroxyzine HCl (Hydroxyzine Hcl 25 Mg Tablet) 25 mg PO Q6H PRN PRN Reason: mild anxiety Lorazepam (Lorazepam 2 Mg/Ml Vial) 2 mg IM BID PRN PRN Reason: IF PATIENT REFUSES PO Lorazepam (Lorazepam 1 Mg Tablet) 1 mg PO TID RIKI Last Admin: 09/17/24 08:49 Dose: 1 mg Magnesium Hydroxide (Milk Of Magnesia 30 Ml Oral.Susp) 30 ml PO DAILY PRN PRN Reason: Constipation Nicotine (Nicotine 21 Mg Patch.Td24) 21 mg TRANSDERMA DAILY PRN PRN Reason: smoking cessation Nicotine Polacrilex (Nicotine Polacrilex 2 Mg Gum) 4 mg BUCCAL Q2H PRN PRN Reason: Nicotine Cravings Last Admin: 09/04/24 16:47 Dose: 4 mg Olanzapine (Olanzapine Odt 10 Mg Tab.Rapdis) 10 mg TRANSLINGU BID RIKI Last Admin: 09/17/24 08:49 Dose: 10 mg Olanzapine (Olanzapine 10 Mg Vial) 10 mg IM BID PRN PRN Reason: per court if pt refuses po Olanzapine (Olanzapine 5 Mg Tablet) 5 mg PO BID PRN PRN Reason: agitation, psychosis Trazodone HCl (Trazodone Hcl 50 Mg Tablet) 50 mg PO BEDTIME MRX1 PRN PRN Reason: Insomnia Last Admin: 08/14/24 20:45 Dose: 50 mg Valproic Acid (Valproic Acid Liquid 250 Mg/5 Ml Solution) 500 mg PO BEDTIME RIKI Last Admin: 09/16/24 20:55 Dose: 500 mg Allergies Allergies Allergy/AdvReac Type Severity Reaction Status Date / Time No Known Allergies Allergy Verified 08/12/24 09:40 Assessment & Plan Assessment & Plan (1) Schizoaffective disorder, bipolar type: Status: Acute Code(s): F25.0 - Schizoaffective disorder, bipolar type (2) PTSD (post-traumatic stress disorder): Status: Acute Code(s): F43.10 - Post-traumatic stress disorder, unspecified (3) Cannabis use disorder: Status: Acute Code(s): F12.90 - Cannabis use, unspecified, uncomplicated Plan Admit, CV, 15 minute checks Collateral Contact Diagnostics as needed --B12,Folate,TSH, EKG Encourage milieu participation Olanzapine 10 mg bid Valproate ER 500 mg HS DC/Aftercare planning 08/15-Continue to encourage treatment Section 7 may be needed This was discussed with family by Ian VILLANUEVA. They will participate if this is needed. 08/16- Continue to encourage treatment 08/17 CTP 08/18 CTP 08/19: Will file Section 7 on 08/20. Family is in agreement. 08/20: pacing in front of nurses station. Keeping to self. malodorous and unkempt. declining to shower. guarded. brief during assessment. Patient reports feeling fine ; states he doesn't need anything . encouraged to shower and attend groups. 08/21: Encourage treatment and alliance building. 08/22: Continue to attempt treatment 08/23: Continue to offer and attempt treatment 08/24: Continue current regimen and plans. Encourage food and drink. 08/26 Patient standing alone in [place] most of the day, quiet, just staring off. Patient tells investigative writer that he is eating and drinking regularly; he says he came to the hospital because he wanted help to quit smoking; says he does not need medications.Nursing staff reports that patient is not eating or drinking much at all (though did eat some yesterday) -court postponed until 09/05/2408/28 Intake and ADL attention with slight improvement Continues to refuse medications CAT negative Father to pursue guardianship 08/30 Continue plan 08/31-09/01 no change in presentation 09/02-continue plan. 09/03- COVID +. Continue to offer treatment 09/05- Continue plan. Asked pt if we could repeat his labs, he declines at this time. 09/06- Court 09/09/24. 09/07/24 - seems to have plan for himself for dc- has apartment, car, and [place] [employer] appears to be eating more and drinking more fluids- still flat affect and no interest in medications 09/08 despite repeating this discussion this am, patient went on to not eat, drink all day , and some very disorganized and odd behaviors and emotions which he is unable to explain/express- likely not really ready to go back to so described life and is really only been able to superficially manage lately 09/09 [address] Pt is at this time a 2:1 special due to agitation. Lorazepam 2 mg bid Zyprexa 10 mg bid 09/11: Continue regime and plan 09/13: Decrease lorazepam to 1 mg tid 09/15: Continue plan. Declines EEG/MRI 09/16: Observed pacing unit hallway. guarded. pt brief during assessment, declined to go into unit office with T/W. Responding with one word answers. Pt reports feeling good today; states he is sleeping well. Encouraged to shower. denies SI/HI/VH/AH. Continue current tx plan. 09/17- Increase Olanzapine to 15 mg bid. Reason for continued inpatient stay Substantial Risk for: rapid decompensation Time Spent With Patient Time: Total time managing care of this patient today ____ minutes.
[2024-09-17 20:00] VITALS: BP 113/58; PULSE 124; TEMP 37.3; O2SAT 98
[2024-09-17] MEDS: OLANZapine ODT 10 MG TAB.RAPDIS 15 MG TRANSLINGU (20:54)
[2024-09-17] MEDS: Valproic Acid Liquid 250 MG/5 ML SOLUTION 500 MG PO (20:55)
[2024-09-18 08:00] VITALS: BP 108/69; PULSE 100; RESP 16; TEMP 36.9; O2SAT 98
[2024-09-18] MEDS: LORazepam 1 MG TABLET PO ×3 (08:51→20:27)
[2024-09-18] MEDS: OLANZapine ODT 10 MG TAB.RAPDIS 15 MG TRANSLINGU ×2 (08:51→20:26)
--- NOTE | 2024-09-18 10:05 | P.PNPSI_ITS ---
Subjective Subjective Date of Service: 09/18/24 Reason For Visit: catatonia Subjective Notes: Section 8 Healthcare Proxy: No Guardianship: Yes (pending) Medical Problems Affecting Mental Status: No Interim History: Tolerating Olanzapine increase thus far. Visable in milieu. Spends his time at the nursing station. Some posturing at times. We will trial 15 minute checks today per team request. Medication Compliance: Yes Side effects from medications: No Attending Groups: No Review of Systems Acute medical concerns: No Medical Review of Systems: unchanged Review of Systems Review of Systems Denies Mental Status Exam Mental Status Exam Patient Appearance: Unkempt Patient Orientation: Person, Place, Time and Situation Level of Consciousness: Awake and Alert Patient Behavior: Guarded, Pacing and Poor Eye Contact Mood Description: Blunted Affect Description: Blunted Ability to Follow Directions: Good Speech Pattern: Clear Thought Process: Intact Thought Content: positive for Intact Diagnostics Vital Signs (24Hr): Vital Signs - 24 hr 09/17/24 20:00 Temperature 99.1 F Pulse Rate 124 H Blood Pressure 113/58 L Pulse Oximetry 98 Oxygen Delivery Method Room Air BMI result Body Mass Index 26.9 Labs 08/12/24 10:10 08/13/24 13:34 Imaging Radiology Impressions: ITS Impressions Head CT 08/27/24 13:57 IMPRESSION: No acute brain abnormality by CT. Electronically signed by: Tito Costa MD 08/27/2024 04:05 PM EDT Medications Medications Current Medications Acetaminophen (Acetaminophen 325 Mg Tablet) 650 mg PO Q6H PRN PRN Reason: Headache/Pain, Scale 1-10 Al Hydroxide/Mg Hydroxide (Magnesium Hydrox/Alum Hydrox 30 Ml Oral.Susp) 30 ml PO Q6H PRN PRN Reason: Heartburn/Nausea Hydroxyzine HCl (Hydroxyzine Hcl 25 Mg Tablet) 25 mg PO Q6H PRN PRN Reason: mild anxiety Lorazepam (Lorazepam 2 Mg/Ml Vial) 2 mg IM BID PRN PRN Reason: IF PATIENT REFUSES PO Lorazepam (Lorazepam 1 Mg Tablet) 1 mg PO TID [facility] Last Admin: 09/18/24 08:51 Dose: 1 mg Magnesium Hydroxide (Milk Of Magnesia 30 Ml Oral.Susp) 30 ml PO DAILY PRN PRN Reason: Constipation Nicotine (Nicotine 21 Mg Patch.Td24) 21 mg TRANSDERMA DAILY PRN PRN Reason: smoking cessation Nicotine Polacrilex (Nicotine Polacrilex 2 Mg Gum) 4 mg BUCCAL Q2H PRN PRN Reason: Nicotine Cravings Last Admin: 09/04/24 16:47 Dose: 4 mg Olanzapine (Olanzapine 10 Mg Vial) 10 mg IM BID PRN PRN Reason: per court if pt refuses po Olanzapine (Olanzapine 5 Mg Tablet) 5 mg PO BID PRN PRN Reason: agitation, psychosis Olanzapine (Olanzapine Odt 10 Mg Tab.Rapdis) 15 mg TRANSLINGU BID [facility] Last Admin: 09/18/24 08:51 Dose: 15 mg Trazodone HCl (Trazodone Hcl 50 Mg Tablet) 50 mg PO BEDTIME MRX1 PRN PRN Reason: Insomnia Last Admin: 08/14/24 20:45 Dose: 50 mg Valproic Acid (Valproic Acid Liquid 250 Mg/5 Ml Solution) 500 mg PO BEDTIME [facility] Last Admin: 09/17/24 20:55 Dose: 500 mg Allergies Allergies Allergy/AdvReac Type Severity Reaction Status Date / Time No Known Allergies Allergy Verified 08/12/24 09:40 Assessment & Plan Assessment & Plan (1) Schizoaffective disorder, bipolar type: Status: Acute Code(s): F25.0 - Schizoaffective disorder, bipolar type (2) PTSD (post-traumatic stress disorder): Status: Acute Code(s): F43.10 - Post-traumatic stress disorder, unspecified (3) Cannabis use disorder: Status: Acute Code(s): F12.90 - Cannabis use, unspecified, uncomplicated Plan Admit, CV, 15 minute checks Collateral Contact Diagnostics as needed --B12,Folate,TSH, EKG Encourage milieu participation Olanzapine 10 mg bid Valproate ER 500 mg HS DC/Aftercare planning 08/15-Continue to encourage treatment Section 7 may be needed This was discussed with family by Ian Olivas [facility]. They will participate if this is needed. 08/16- Continue to encourage treatment 08/17 CTP 08/18 CTP 08/19: Will file Section 7 on 08/20. Family is in agreement. 08/20: pacing in front of nurses station. Keeping to self. malodorous and unkempt. declining to shower. guarded. brief during assessment. Patient reports feeling fine ; states he doesn't need anything . encouraged to shower and attend groups. 08/21: Encourage treatment and alliance building. 08/22: Continue to attempt treatment 08/23: Continue to offer and attempt treatment 08/24: Continue current regimen and plans. Encourage food and drink. 08/26 Patient standing alone in [place] most of the day, quiet, just staring off. Patient tells typewriters functional tester that he is eating and drinking regularly; he says he came to the hospital because he wanted help to quit smoking; says he does not need medications.Nursing staff reports that patient is not eating or drinking much at all (though did eat some yesterday) -court postponed until 09/05/2408/28 Intake and ADL attention with slight improvement Continues to refuse medications CAT negative Father to pursue guardianship 08/30 Continue plan 08/31-09/01 no change in presentation 09/02-continue plan. 09/03- COVID +. Continue to offer treatment 09/05- Continue plan. Asked pt if we could repeat his labs, he declines at this time. 09/06- Court 09/09/24. 09/07/24 - seems to have plan for himself for dc- has apartment, car, and can get a job in [place] appears to be eating more and drinking more fluids- still flat affect and no interest in medications 09/08 despite repeating this discussion this am, patient went on to not eat, drink all day , and some very disorganized and odd behaviors and emotions which he is unable to explain/express- likely not really ready to go back to so described life and is really only been able to superficially manage lately 09/09 [address]. Pt is at this time a 2:1 special due to agitation. Lorazepam 2 mg bid Zyprexa 10 mg bid 09/11: Continue regime and plan 09/13: Decrease lorazepam to 1 mg tid 09/15: Continue plan. Declines EEG/MRI 09/16: Observed pacing unit hallway. guarded. pt brief during assessment, declined to go into unit office with T/W. Responding with one word answers. Pt reports feeling good today; states he is sleeping well. Encouraged to shower. denies SI/HI/VH/AH. Continue current tx plan. 09/18: Continue tx Reason for continued inpatient stay Substantial Risk for: rapid decompensation Time Spent With Patient Time: Total time managing care of this patient today ____ minutes.
[2024-09-18 20:00] VITALS: BP 128/71; PULSE 96; RESP 18; TEMP 36; O2SAT 97
[2024-09-18] MEDS: Valproic Acid Liquid 250 MG/5 ML SOLUTION 500 MG PO (20:26)
[2024-09-19 08:00] VITALS: BP 116/59; PULSE 120; TEMP 36.4; O2SAT 97
[2024-09-19 08:22] VITALS: PULSE 104
[2024-09-19] MEDS: LORazepam 1 MG TABLET PO ×3 (09:14→20:18)
[2024-09-19] MEDS: OLANZapine ODT 10 MG TAB.RAPDIS 15 MG TRANSLINGU ×2 (09:15→20:19)
[2024-09-19 11:51] VITALS: BMI 29.1
--- NOTE | 2024-09-19 12:21 | P.PNPSI_ITS ---
Subjective Subjective Date of Service: 09/19/24 Reason For Visit: catatonia Subjective Notes: Section 8 Healthcare Proxy: No Guardianship: No Medical Problems Affecting Mental Status: No Interim History: Pt able to meet today for a longer period of time. When asked how we could help to get him back to his life, pt cried. I am feeling better, really. I miss home, but they visit me, love me and they are there for me. I feel sad for my father, he raised us alone and it was hard for him. I don't want him to worry, I worry for him. Should he be here with me for help? Discussed ADL's- No, I don't need a shower, I am good . Discussed adding very low dose Haldol to help with clarity, thought blocking. Pt asks if there is any other way to treat so he can stop medicines. He denies SE however, reports medicines did not help his mom. Discussed. Pt refuses Depakote, so Olanzapine will need to be his primary mood stabilizer. Some thought blocking evident, paucity and there is some association with showering,ADL that may be symptomatic or PTSD related. Unclear at this time. Pt not recognizing this basic need. Medication Compliance: Yes Side effects from medications: No Attending Groups: No Review of Systems Acute medical concerns: No Review of Systems Review of Systems I am OK. Mental Status Exam Mental Status Exam Patient Appearance: Disheveled, Unkempt and Malodorous Patient Orientation: Person and Place Level of Consciousness: Alert Patient Behavior: Appropriate, Talkative, Resistive to Care, Distractible, Good Eye Contact and Crying Mood Description: Depressed Affect Description: Constricted Patient Cognition Impaired: No Ability to Follow Directions: Good Speech Pattern: Spontaneous Speech Memory Description: Episodic Impaired Hallucinations: None Delusions: Present Perceptual Disturbances: Depersonalization and Derealization Thought Process: Distracted and Rumination Thought Content: positive for Circumstantial, positive for Perseveration, positive for Preoccupation and positive for Suicidal Ideation (denies) Depressive Symptoms: Thoughts of /Suicide (denies) Judgement: Poor Diagnostics Vital Signs (24Hr): Vital Signs - 24 hr 09/18/24 20:00 09/19/24 08:00 09/19/24 08:22 Temperature 96.8 F 97.6 F Pulse Rate 96 120 H 104 H Respiratory Rate 18 Blood Pressure 128/71 116/59 L Pulse Oximetry 97 97 Oxygen Delivery Method Room Air Room Air BMI result Body Mass Index 29.1 Labs 08/12/24 10:10 08/13/24 13:34 Imaging Radiology Impressions: ITS Impressions Head CT 08/27/24 13:57 IMPRESSION: No acute brain abnormality by CT. Electronically signed by: Tito Costa MD 08/27/2024 04:05 PM EDT RP Medications Medications Current Medications Acetaminophen (Acetaminophen 325 Mg Tablet) 650 mg PO Q6H PRN PRN Reason: Headache/Pain, Scale 1-10 Al Hydroxide/Mg Hydroxide (Magnesium Hydrox/Alum Hydrox 30 Ml Oral.Susp) 30 ml PO Q6H PRN PRN Reason: Heartburn/Nausea Hydroxyzine HCl (Hydroxyzine Hcl 25 Mg Tablet) 25 mg PO Q6H PRN PRN Reason: mild anxiety Lorazepam (Lorazepam 2 Mg/Ml Vial) 2 mg IM BID PRN PRN Reason: IF PATIENT REFUSES PO Lorazepam (Lorazepam 1 Mg Tablet) 1 mg PO TID [facility] Last Admin: 09/19/24 09:14 Dose: 1 mg Magnesium Hydroxide (Milk Of Magnesia 30 Ml Oral.Susp) 30 ml PO DAILY PRN PRN Reason: Constipation Nicotine (Nicotine 21 Mg Patch.Td24) 21 mg TRANSDERMA DAILY PRN PRN Reason: smoking cessation Nicotine Polacrilex (Nicotine Polacrilex 2 Mg Gum) 4 mg BUCCAL Q2H PRN PRN Reason: Nicotine Cravings Last Admin: 09/04/24 16:47 Dose: 4 mg Olanzapine (Olanzapine 10 Mg Vial) 10 mg IM BID PRN PRN Reason: per court if pt refuses po Olanzapine (Olanzapine 5 Mg Tablet) 5 mg PO BID PRN PRN Reason: agitation, psychosis Olanzapine (Olanzapine Odt 10 Mg Tab.Rapdis) 15 mg TRANSLINGU BID [facility] Last Admin: 09/19/24 09:15 Dose: 15 mg Trazodone HCl (Trazodone Hcl 50 Mg Tablet) 50 mg PO BEDTIME MRX1 PRN PRN Reason: Insomnia Last Admin: 08/14/24 20:45 Dose: 50 mg Valproic Acid (Valproic Acid Liquid 250 Mg/5 Ml Solution) 500 mg PO BEDTIME [facility] Last Admin: 09/18/24 20:26 Dose: 500 mg Allergies Allergies Allergy/AdvReac Type Severity Reaction Status Date / Time No Known Allergies Allergy Verified 08/12/24 09:40 Assessment & Plan Assessment & Plan (1) Schizoaffective disorder, bipolar type: Status: Acute Code(s): F25.0 - Schizoaffective disorder, bipolar type (2) PTSD (post-traumatic stress disorder): Status: Acute Code(s): F43.10 - Post-traumatic stress disorder, unspecified (3) Cannabis use disorder: Status: Acute Code(s): F12.90 - Cannabis use, unspecified, uncomplicated Plan Admit, CV, 15 minute checks Collateral Contact Diagnostics as needed --B12,Folate,TSH, EKG Encourage milieu participation Olanzapine 10 mg bid Valproate ER 500 mg HS DC/Aftercare planning 08/15-Continue to encourage treatment Section 7 may be needed This was discussed with family by Ian VILLANUEVA. They will participate if this is needed. 08/16- Continue to encourage treatment 08/17 CTP 08/18 CTP 08/19: Will file Section 7 on 08/20. Family is in agreement. 08/20: pacing in front of nurses station. Keeping to self. malodorous and unkempt. declining to shower. guarded. brief during assessment. Patient reports feeling fine ; states he doesn't need anything . encouraged to shower and attend groups. 08/21: Encourage treatment and alliance building. 08/22: Continue to attempt treatment 08/23: Continue to offer and attempt treatment 08/24: Continue current regimen and plans. Encourage food and drink. 08/26 Patient standing alone in [place] most of the day, quiet, just staring off. Patient tells automotive service writer that he is eating and drinking regularly; he says he came to the hospital because he wanted help to quit smoking; says he does not need medications.Nursing staff reports that patient is not eating or drinking much at all (though did eat some yesterday) -court postponed until 09/05/2408/28 Intake and ADL attention with slight improvement Continues to refuse medications CAT negative Father to pursue guardianship 08/30 Continue plan 08/31-09/01 no change in presentation 09/02-continue plan. 09/03- COVID +. Continue to offer treatment 09/05- Continue plan. Asked pt if we could repeat his labs, he declines at this time. 09/06- Court 09/09/24. 09/07/24 - seems to have plan for himself for dc- has apartment, car, and can get a job in [place] appears to be eating more and drinking more fluids- still flat affect and no interest in medications 09/08 despite repeating this discussion this am, patient went on to not eat, drink all day , and some very disorganized and odd behaviors and emotions which he is unable to explain/express- likely not really ready to go back to so described life and is really only been able to superficially manage lately 09/09 [address] Pt is at this time a 2:1 special due to agitation. Lorazepam 2 mg bid Zyprexa 10 mg bid 09/11: Continue regime and plan 09/13: Decrease lorazepam to 1 mg tid 09/15: Continue plan. Declines EEG/MRI 09/16: Observed pacing unit hallway. guarded. pt brief during assessment, declined to go into unit office with T/W. Responding with one word answers. Pt reports feeling good today; states he is sleeping well. Encouraged to shower. denies SI/HI/VH/AH. Continue current tx plan. 09/18: Continue tx 09/19: Haldol 2 mg bid Reason for continued inpatient stay Substantial Risk for: rapid decompensation Time Spent With Patient Time: Total time managing care of this patient today ____ minutes.
[2024-09-20 08:00] VITALS: BP 109/55; PULSE 84; RESP 16; TEMP 36.6; O2SAT 97
[2024-09-20] MEDS: OLANZapine ODT 10 MG TAB.RAPDIS 15 MG TRANSLINGU ×2 (08:23→20:38)
[2024-09-20] MEDS: LORazepam 1 MG TABLET PO ×3 (08:23→20:38)
[2024-09-20] MEDS: HaloperidoL 1 MG TABLET 2 MG PO ×2 (08:23→20:39)
--- NOTE | 2024-09-20 09:57 | P.PNPSI_ITS ---
Subjective Subjective Date of Service: 09/20/24 Reason For Visit: catatonia Subjective Notes: Section 8 Healthcare Proxy: No Guardianship: No Medical Problems Affecting Mental Status: No Interim History: Team reports pt has showered, not changed clothing, declined to do laundry. Brighter today, initiates interaction, however continues with poverty of content. Denies SI,HI,AH,VH. Medication Compliance: Yes Side effects from medications: No Attending Groups: No Review of Systems Acute medical concerns: No Review of Systems Review of Systems Denies Mental Status Exam Mental Status Exam Patient Appearance: Disheveled and Unkempt Patient Orientation: Person and Place Level of Consciousness: Alert Patient Behavior: Talkative, Distractible and Good Eye Contact Mood Description: Blunted Affect Description: Blunted Patient Cognition Impaired: No Ability to Follow Directions: Good Speech Pattern: Impoverished, Spontaneous Speech and Soft-Spoken Memory Description: Episodic Impaired Hallucinations: None Delusions: Present Perceptual Disturbances: Depersonalization and Derealization Thought Process: Distracted Thought Content: positive for Circumstantial, positive for Perseveration, positive for Preoccupation and positive for Suicidal Ideation (denies) Depressive Symptoms: Thoughts of /Suicide (denies) Judgement: Fair Diagnostics Vital Signs (24Hr): BMI result Body Mass Index 29.1 Labs 08/12/24 10:10 08/13/24 13:34 Imaging Radiology Impressions: ITS Impressions Head CT 08/27/24 13:57 IMPRESSION: No acute brain abnormality by CT. Electronically signed by: Tito Costa MD 08/27/2024 04:05 PM EDT Medications Medications Current Medications Acetaminophen (Acetaminophen 325 Mg Tablet) 650 mg PO Q6H PRN PRN Reason: Headache/Pain, Scale 1-10 Al Hydroxide/Mg Hydroxide (Magnesium Hydrox/Alum Hydrox 30 Ml Oral.Susp) 30 ml PO Q6H PRN PRN Reason: Heartburn/Nausea Haloperidol (Haloperidol 1 Mg Tablet) 2 mg PO BID [facility] Last Admin: 09/20/24 08:23 Dose: 2 mg Haloperidol Lactate (Haloperidol Lactate 5 Mg/Ml Vial) 2 mg IM BID PRN PRN Reason: if pt refuses PO Haldol, court Hydroxyzine HCl (Hydroxyzine Hcl 25 Mg Tablet) 25 mg PO Q6H PRN PRN Reason: mild anxiety Lorazepam (Lorazepam 2 Mg/Ml Vial) 2 mg IM BID PRN PRN Reason: IF PATIENT REFUSES PO Lorazepam (Lorazepam 1 Mg Tablet) 1 mg PO TID [facility] Last Admin: 09/20/24 08:23 Dose: 1 mg Magnesium Hydroxide (Milk Of Magnesia 30 Ml Oral.Susp) 30 ml PO DAILY PRN PRN Reason: Constipation Nicotine (Nicotine 21 Mg Patch.Td24) 21 mg TRANSDERMA DAILY PRN PRN Reason: smoking cessation Nicotine Polacrilex (Nicotine Polacrilex 2 Mg Gum) 4 mg BUCCAL Q2H PRN PRN Reason: Nicotine Cravings Last Admin: 09/04/24 16:47 Dose: 4 mg Olanzapine (Olanzapine 5 Mg Tablet) 5 mg PO BID PRN PRN Reason: agitation, psychosis Olanzapine (Olanzapine Odt 10 Mg Tab.Rapdis) 15 mg TRANSLINGU BID [facility] Last Admin: 09/20/24 08:23 Dose: 15 mg Olanzapine (Olanzapine 10 Mg Vial) 15 mg IM BID PRN PRN Reason: per court if pt refuses po Trazodone HCl (Trazodone Hcl 50 Mg Tablet) 50 mg PO BEDTIME MRX1 PRN PRN Reason: Insomnia Last Admin: 08/14/24 20:45 Dose: 50 mg Valproic Acid (Valproic Acid Liquid 250 Mg/5 Ml Solution) 500 mg PO BEDTIME [facility] Last Admin: 09/19/24 20:20 Dose: Not Given Allergies Allergies Allergy/AdvReac Type Severity Reaction Status Date / Time No Known Allergies Allergy Verified 08/12/24 09:40 Assessment & Plan Assessment & Plan (1) Schizoaffective disorder, bipolar type: Status: Acute Code(s): F25.0 - Schizoaffective disorder, bipolar type (2) PTSD (post-traumatic stress disorder): Status: Acute Code(s): F43.10 - Post-traumatic stress disorder, unspecified (3) Cannabis use disorder: Status: Acute Code(s): F12.90 - Cannabis use, unspecified, uncomplicated Plan Admit, CV, 15 minute checks Collateral Contact Diagnostics as needed --B12,Folate,TSH, EKG Encourage milieu participation Olanzapine 10 mg bid Valproate ER 500 mg HS DC/Aftercare planning 08/15-Continue to encourage treatment Section 7 may be needed This was discussed with family by Ian VILLANUEVA. They will participate if this is needed. 08/16- Continue to encourage treatment 08/17 CTP 08/18 CTP 08/19: Will file Section 7 on 08/20. Family is in agreement. 08/20: pacing in front of nurses station. Keeping to self. malodorous and unkempt. declining to shower. guarded. brief during assessment. Patient reports feeling fine ; states he doesn't need anything . encouraged to shower and attend groups. 08/21: Encourage treatment and alliance building. 08/22: Continue to attempt treatment 08/23: Continue to offer and attempt treatment 08/24: Continue current regimen and plans. Encourage food and drink. 08/26 Patient standing alone in [place] most of the day, quiet, just staring off. Patient tells procedure writer that he is eating and drinking regularly; he says he came to the hospital because he wanted help to quit smoking; says he does not need medications.Nursing staff reports that patient is not eating or drinking much at all (though did eat some yesterday) -court postponed until 09/05/2408/28 Intake and ADL attention with slight improvement Continues to refuse medications CAT negative Father to pursue guardianship 08/30 Continue plan 08/31-09/01 no change in presentation 09/02-continue plan. 09/03- COVID +. Continue to offer treatment 09/05- Continue plan. Asked pt if we could repeat his labs, he declines at this time. 09/06- Court 09/09/24. 09/07/24 - seems to have plan for himself for dc- has apartment, car, and [place] [employer] appears to be eating more and drinking more fluids- still flat affect and no interest in medications 09/08 despite repeating this discussion this am, patient went on to not eat, drink all day , and some very disorganized and odd behaviors and emotions which he is unable to explain/express- likely not really ready to go back to so described life and is really only been able to superficially manage lately 09/09 [address] Pt is at this time a 2:1 special due to agitation. Lorazepam 2 mg bid Zyprexa 10 mg bid 09/11: Continue regime and plan 09/13: Decrease lorazepam to 1 mg tid 09/15: Continue plan. Declines EEG/MRI 09/16: Observed pacing unit hallway. guarded. pt brief during assessment, declined to go into unit office with T/W. Responding with one word answers. Pt reports feeling good today; states he is sleeping well. Encouraged to shower. denies SI/HI/VH/AH. Continue current tx plan. 09/18: Continue tx 09/19: Haldol 2 mg bid 09/20: Continue regime. Depakote compliance 09/13-09/19 at 500 mg. Pt will not increase. As he is accepting of Haldol we will taper Depakote. This is a medicine he is not interested in taking. Decrease Depakote to 250 mg HS. Reason for continued inpatient stay Substantial Risk for: rapid decompensation Time Spent With Patient Time: Total time managing care of this patient today ____ minutes.
[2024-09-20] MEDS: Valproic Acid Liquid 250 MG/5 ML SOLUTION PO (20:39)
[2024-09-21 08:00] VITALS: BP 127/73; PULSE 76; RESP 16; TEMP 36.4; O2SAT 99
[2024-09-21] MEDS: LORazepam 1 MG TABLET PO ×3 (08:06→20:36)
[2024-09-21] MEDS: OLANZapine ODT 10 MG TAB.RAPDIS 15 MG TRANSLINGU ×2 (08:07→20:42)
[2024-09-21] MEDS: HaloperidoL 1 MG TABLET 2 MG PO ×2 (08:07→20:38)
--- NOTE | 2024-09-21 14:32 | P.PNPSI_ITS ---
Subjective Subjective Date of Service: 09/21/24 Reason For Visit: catatonia Interim History: Met with patient; discussed with team Patient says that he is okay and enjoyed his visit with his dad yesterday. Patient said he went to some groups but he is not very interested in them. Says he is mostly waiting for discharge and hopes it can be soon. No complaints and no request. Patient in good behavioral and impulse control; keeping to himself. Mental Status Exam Mental Status Exam Patient Appearance: Disheveled and Unkempt Patient Orientation: Person and Place Level of Consciousness: Awake and Alert Patient Behavior: Appropriate (Calm; keeps to himself but friendly/polite on approach) and Good Eye Contact Mood Description: Calm ( ok ) Affect Description: Constricted Patient Cognition Impaired: No Ability to Follow Directions: Good Speech Pattern: Clear and Spontaneous Speech Memory Description: Episodic Impaired Hallucinations: None (denies) Delusions: Present Perceptual Disturbances: Depersonalization and Derealization Thought Process: Distracted Thought Content: positive for [place] (does not disclose much) and positive for Suicidal Ideation (denies) Depressive Symptoms: Thoughts of /Suicide (denies) Judgement and Insight: Impaired Diagnostics Vital Signs (24Hr): Vital Signs - 24 hr 09/21/24 08:00 Temperature 97.5 F Pulse Rate 76 Respiratory Rate 16 Blood Pressure 127/73 Pulse Oximetry 99 Oxygen Delivery Method Room Air BMI result Body Mass Index 29.1 Labs 08/12/24 10:10 08/13/24 13:34 Imaging Radiology Impressions: ITS Impressions Head CT 08/27/24 13:57 IMPRESSION: No acute brain abnormality by CT. Electronically signed by: Tito Costa MD 08/27/2024 04:05 PM EDT Medications Medications Current Medications Acetaminophen (Acetaminophen 325 Mg Tablet) 650 mg PO Q6H PRN PRN Reason: Headache/Pain, Scale 1-10 Al Hydroxide/Mg Hydroxide (Magnesium Hydrox/Alum Hydrox 30 Ml Oral.Susp) 30 ml PO Q6H PRN PRN Reason: Heartburn/Nausea Haloperidol (Haloperidol 1 Mg Tablet) 2 mg PO BID [facility] Last Admin: 09/21/24 08:07 Dose: 2 mg Haloperidol Lactate (Haloperidol Lactate 5 Mg/Ml Vial) 2 mg IM BID PRN PRN Reason: if pt refuses PO Haldol, court Hydroxyzine HCl (Hydroxyzine Hcl 25 Mg Tablet) 25 mg PO Q6H PRN PRN Reason: mild anxiety Lorazepam (Lorazepam 2 Mg/Ml Vial) 2 mg IM BID PRN PRN Reason: IF PATIENT REFUSES PO Lorazepam (Lorazepam 1 Mg Tablet) 1 mg PO TID [facility] Last Admin: 09/21/24 08:06 Dose: 1 mg Magnesium Hydroxide (Milk Of Magnesia 30 Ml Oral.Susp) 30 ml PO DAILY PRN PRN Reason: Constipation Nicotine (Nicotine 21 Mg Patch.Td24) 21 mg TRANSDERMA DAILY PRN PRN Reason: smoking cessation Nicotine Polacrilex (Nicotine Polacrilex 2 Mg Gum) 4 mg BUCCAL Q2H PRN PRN Reason: Nicotine Cravings Last Admin: 09/04/24 16:47 Dose: 4 mg Olanzapine (Olanzapine 5 Mg Tablet) 5 mg PO BID PRN PRN Reason: agitation, psychosis Olanzapine (Olanzapine Odt 10 Mg Tab.Rapdis) 15 mg TRANSLINGU BID [facility] Last Admin: 09/21/24 08:07 Dose: 15 mg Olanzapine (Olanzapine 10 Mg Vial) 15 mg IM BID PRN PRN Reason: per court if pt refuses po Trazodone HCl (Trazodone Hcl 50 Mg Tablet) 50 mg PO BEDTIME MRX1 PRN PRN Reason: Insomnia Last Admin: 08/14/24 20:45 Dose: 50 mg Valproic Acid (Valproic Acid Liquid 250 Mg/5 Ml Solution) 250 mg PO BEDTIME [facility] Last Admin: 09/20/24 20:39 Dose: 250 mg Allergies Allergies Allergy/AdvReac Type Severity Reaction Status Date / Time No Known Allergies Allergy Verified 08/12/24 09:40 Assessment & Plan Assessment & Plan (1) Schizoaffective disorder, bipolar type: Status: Acute Code(s): F25.0 - Schizoaffective disorder, bipolar type (2) PTSD (post-traumatic stress disorder): Status: Acute Code(s): F43.10 - Post-traumatic stress disorder, unspecified (3) Cannabis use disorder: Status: Acute Code(s): F12.90 - Cannabis use, unspecified, uncomplicated Plan Admit, CV, 15 minute checks Collateral Contact Diagnostics as needed --B12,Folate,TSH, EKG Encourage milieu participation Olanzapine 10 mg bid Valproate ER 500 mg HS DC/Aftercare planning 08/15-Continue to encourage treatment Section 7 may be needed This was discussed with family by Ian Olivas [facility]. They will participate if this is needed. 08/16- Continue to encourage treatment 08/17 CTP 08/18 CTP 08/19: Will file Section 7 on 08/20. Family is in agreement. 08/20: pacing in front of nurses station. Keeping to self. malodorous and unkempt. declining to shower. guarded. brief during assessment. Patient reports feeling fine ; states he doesn't need anything . encouraged to shower and attend groups. 08/21: Encourage treatment and alliance building. 08/22: Continue to attempt treatment 08/23: Continue to offer and attempt treatment 08/24: Continue current regimen and plans. Encourage food and drink. 08/26 Patient standing alone in [place] most of the day, quiet, just staring off. Patient tells advertising writer that he is eating and drinking regularly; he says he came to the hospital because he wanted help to quit smoking; says he does not need medications.Nursing staff reports that patient is not eating or drinking much at all (though did eat some yesterday) -court postponed until 09/05/2408/28 Intake and ADL attention with slight improvement Continues to refuse medications CAT negative Father to pursue guardianship 08/30 Continue plan 08/31-09/01 no change in presentation 09/02-continue plan. 09/03- COVID +. Continue to offer treatment 09/05- Continue plan. Asked pt if we could repeat his labs, he declines at this time. 09/06- Court 09/09/24. 09/07/24 - seems to have plan for himself for dc- has apartment, car, and can get a job in [place] [employer] appears to be eating more and drinking more fluids- still flat affect and no interest in medications 09/08 despite repeating this discussion this am, patient went on to not eat, drink all day , and some very disorganized and odd behaviors and emotions which he is unable to explain/express- likely not really ready to go back to so described life and is really only been able to superficially manage lately 09/09 [address]. Pt is at this time a 2:1 special due to agitation. Lorazepam 2 mg bid Zyprexa 10 mg bid 09/11: Continue regime and plan 09/13: Decrease lorazepam to 1 mg tid 09/15: Continue plan. Declines EEG/MRI 09/16: Observed pacing unit hallway. guarded. pt brief during assessment, declined to go into unit office with T/W. Responding with one word answers. Pt reports feeling good today; states he is sleeping well. Encouraged to shower. denies SI/HI/VH/AH. Continue current tx plan. 09/18: Continue tx 09/19: Haldol 2 mg bid 09/20: Continue regime. Depakote compliance 09/13-09/19 at 500 mg. Pt will not increase. As he is accepting of Haldol we will taper Depakote. This is a medicine he is not interested in taking. Decrease Depakote to 250 mg HS. 09/21 Patient says that he is okay and enjoyed his visit with his dad yesterday. Patient said he went to some groups but he is not very interested in them. Says he is mostly waiting for discharge and hopes it can be soon. No complaints and no request. Patient in good behavioral and impulse control; keeping to himself. Patient educated on: diagnosis Informed Consent: does not understand Reason for continued inpatient stay Substantial Risk for: rapid decompensation Time Spent With Patient Time: Total time managing care of this patient today ____ minutes.
[2024-09-21 20:00] VITALS: BP 138/71; PULSE 97; RESP 16; O2SAT 97
[2024-09-21] MEDS: Valproic Acid Liquid 250 MG/5 ML SOLUTION PO (20:35)
[2024-09-22 08:00] VITALS: BP 135/59; PULSE 80; RESP 18; TEMP 36.8; O2SAT 97
[2024-09-22] MEDS: LORazepam 1 MG TABLET PO (08:10)
[2024-09-22] MEDS: HaloperidoL 1 MG TABLET 2 MG PO ×2 (08:10→21:03)
[2024-09-22] MEDS: OLANZapine ODT 10 MG TAB.RAPDIS 15 MG TRANSLINGU ×2 (08:10→20:53)
--- NOTE | 2024-09-22 09:39 | P.PNPSI_ITS ---
Subjective Subjective Date of Service: 09/22/24 Reason For Visit: catatonia Interim History: met with patient; discussed with team Patient reports that he feels good...better... And does have a noticeably brighter affect. Coverage Specialist asked how he recognizes this and he said something about being around people. Patient again asked about discharge which he will discuss tomorrow with primary team Mental Status Exam Mental Status Exam Patient Appearance: Disheveled and Unkempt Patient Orientation: Person and Place Level of Consciousness: Awake and Alert Patient Behavior: Appropriate (Calm; keeps to himself but friendly/polite on approach) and Good Eye Contact Mood Description: Calm ( good ) Affect Description: Calm (brighter) Patient Cognition Impaired: No Ability to Follow Directions: Fair Speech Pattern: Clear and Spontaneous Speech Memory Description: Episodic Impaired Hallucinations: None (denies) Delusions: Present (not expressed) Perceptual Disturbances: Depersonalization and Derealization Thought Process: Goal Oriented Thought Content: positive for [place] (does not disclose much; on discharge) and positive for Suicidal Ideation (denies) Depressive Symptoms: Thoughts of /Suicide (denies) Judgement and Insight: Impaired Diagnostics Vital Signs (24Hr): Vital Signs - 24 hr 09/21/24 20:00 09/22/24 08:00 Temperature 98.2 F Pulse Rate 97 80 Respiratory Rate 16 18 Blood Pressure 138/71 135/59 L Pulse Oximetry 97 97 Oxygen Delivery Method Room Air Room Air BMI result Body Mass Index 29.1 Labs 08/12/24 10:10 08/13/24 13:34 Imaging Radiology Impressions: ITS Impressions Head CT 08/27/24 13:57 IMPRESSION: No acute brain abnormality by CT. Electronically signed by: Tito Costa MD 08/27/2024 04:05 PM EDT Medications Medications Current Medications Acetaminophen (Acetaminophen 325 Mg Tablet) 650 mg PO Q6H PRN PRN Reason: Headache/Pain, Scale 1-10 Al Hydroxide/Mg Hydroxide (Magnesium Hydrox/Alum Hydrox 30 Ml Oral.Susp) 30 ml PO Q6H PRN PRN Reason: Heartburn/Nausea Haloperidol (Haloperidol 1 Mg Tablet) 2 mg PO BID [facility] Last Admin: 09/22/24 08:10 Dose: 2 mg Haloperidol Lactate (Haloperidol Lactate 5 Mg/Ml Vial) 2 mg IM BID PRN PRN Reason: if pt refuses PO Haldol, court Hydroxyzine HCl (Hydroxyzine Hcl 25 Mg Tablet) 25 mg PO Q6H PRN PRN Reason: mild anxiety Lorazepam (Lorazepam 2 Mg/Ml Vial) 2 mg IM BID PRN PRN Reason: IF PATIENT REFUSES PO Lorazepam (Lorazepam 1 Mg Tablet) 1 mg PO TID [facility] Last Admin: 09/22/24 08:10 Dose: 1 mg Magnesium Hydroxide (Milk Of Magnesia 30 Ml Oral.Susp) 30 ml PO DAILY PRN PRN Reason: Constipation Nicotine (Nicotine 21 Mg Patch.Td24) 21 mg TRANSDERMA DAILY PRN PRN Reason: smoking cessation Nicotine Polacrilex (Nicotine Polacrilex 2 Mg Gum) 4 mg BUCCAL Q2H PRN PRN Reason: Nicotine Cravings Last Admin: 09/04/24 16:47 Dose: 4 mg Olanzapine (Olanzapine 5 Mg Tablet) 5 mg PO BID PRN PRN Reason: agitation, psychosis Olanzapine (Olanzapine Odt 10 Mg Tab.Rapdis) 15 mg TRANSLINGU BID [facility] Last Admin: 09/22/24 08:10 Dose: 15 mg Olanzapine (Olanzapine 10 Mg Vial) 15 mg IM BID PRN PRN Reason: per court if pt refuses po Trazodone HCl (Trazodone Hcl 50 Mg Tablet) 50 mg PO BEDTIME MRX1 PRN PRN Reason: Insomnia Last Admin: 08/14/24 20:45 Dose: 50 mg Valproic Acid (Valproic Acid Liquid 250 Mg/5 Ml Solution) 250 mg PO BEDTIME [facility] Last Admin: 09/21/24 20:35 Dose: 250 mg Allergies Allergies Allergy/AdvReac Type Severity Reaction Status Date / Time No Known Allergies Allergy Verified 08/12/24 09:40 Assessment & Plan Assessment & Plan (1) Schizoaffective disorder, bipolar type: Status: Acute Code(s): F25.0 - Schizoaffective disorder, bipolar type (2) PTSD (post-traumatic stress disorder): Status: Acute Code(s): F43.10 - Post-traumatic stress disorder, unspecified (3) Cannabis use disorder: Status: Acute Code(s): F12.90 - Cannabis use, unspecified, uncomplicated Plan Admit, CV, 15 minute checks Collateral Contact Diagnostics as needed --B12,Folate,TSH, EKG Encourage milieu participation Olanzapine 10 mg bid Valproate ER 500 mg HS DC/Aftercare planning 08/15-Continue to encourage treatment Section 7 may be needed This was discussed with family by Ian VILLANUEVA. They will participate if this is needed. 08/16- Continue to encourage treatment 08/17 CTP 08/18 CTP 08/19: Will file Section 7 on 08/20. Family is in agreement. 08/20: pacing in front of nurses station. Keeping to self. malodorous and unkempt. declining to shower. guarded. brief during assessment. Patient reports feeling fine ; states he doesn't need anything . encouraged to shower and attend groups. 08/21: Encourage treatment and alliance building. 08/22: Continue to attempt treatment 08/23: Continue to offer and attempt treatment 08/24: Continue current regimen and plans. Encourage food and drink. 08/26 Patient standing alone in [place] most of the day, quiet, just staring off. Patient tells feature writer that he is eating and drinking regularly; he says he came to the hospital because he wanted help to quit smoking; says he does not need medications.Nursing staff reports that patient is not eating or drinking much at all (though did eat some yesterday) -court postponed until 09/05/2408/28 Intake and ADL attention with slight improvement Continues to refuse medications CAT negative Father to pursue guardianship 08/30 Continue plan 08/31-09/01 no change in presentation 09/02-continue plan. 09/03- COVID +. Continue to offer treatment 09/05- Continue plan. Asked pt if we could repeat his labs, he declines at this time. 09/06- Court 09/09/24. 09/07/24 - seems to have plan for himself for dc- has apartment, car, and can get a job in [employer] appears to be eating more and drinking more fluids- still flat affect and no interest in medications 09/08 despite repeating this discussion this am, patient went on to not eat, drink all day , and some very disorganized and odd behaviors and emotions which he is unable to explain/express- likely not really ready to go back to so described life and is really only been able to superficially manage lately 09/09 [address] Pt is at this time a 2:1 special due to agitation. Lorazepam 2 mg bid Zyprexa 10 mg bid 09/11: Continue regime and plan 09/13: Decrease lorazepam to 1 mg tid 09/15: Continue plan. Declines EEG/MRI 09/16: Observed pacing unit hallway. guarded. pt brief during assessment, declined to go into unit office with T/W. Responding with one word answers. Pt reports feeling good today; states he is sleeping well. Encouraged to shower. denies SI/HI/VH/AH. Continue current tx plan. 09/18: Continue tx 09/19: Haldol 2 mg bid 09/20: Continue regime. Depakote compliance 09/13-09/19 at 500 mg. Pt will not increase. As he is accepting of Haldol we will taper Depakote. This is a medicine he is not interested in taking. Decrease Depakote to 250 mg HS. 09/21 Patient says that he is okay and enjoyed his visit with his dad yesterday. Patient said he went to some groups but he is not very interested in them. Says he is mostly waiting for discharge and hopes it can be soon. No complaints and no request. Patient in good behavioral and impulse control; keeping to himself. 09/22 Patient reports that he feels good...better... And does have a noticeably brighter affect. Coverage Specialist asked how he recognizes this and he said something about being around people. Patient again asked about discharge which he will discuss tomorrow with primary team Patient educated on: diagnosis Informed Consent: further education needed Reason for continued inpatient stay Substantial Risk for: rapid decompensation Time Spent With Patient Time: Total time managing care of this patient today ____ minutes.
[2024-09-22 20:00] VITALS: BP 111/70; PULSE 97; RESP 16; TEMP 37; O2SAT 96
[2024-09-22] MEDS: Valproic Acid Liquid 250 MG/5 ML SOLUTION PO (21:03)
--- NOTE | 2024-09-23 | EEG_ITS ---
This is a 16 channel EEG with an EKG lead. The patient is reported awake during the tracing. Background EEG rhythm is low to medium amplitude fast alpha to beta posteriorly, lower amplitude fast anteriorly. Intermittently periods of right hemispheric asymmetric theta range slowing was noted with no obvious sharp wave or spikes. Photic stimulation did not produce any significant driving. Hyperventilation was not performed. Cardiac lead did not reveal any significant abnormality. IMPRESSION: Mildly abnormal EEG suggestive of right hemispheric paroxysmal dysfunction, though not diagnostic of seizure disorder. If seizure disorder is strongly suspected, further EEG monitoring with 24 or 48 hour EEG is recommended. MD DEANA Armendariz/FELY / [id number]
[2024-09-23 08:00] VITALS: BP 124/64; PULSE 77; RESP 18; TEMP 36.9; O2SAT 98
[2024-09-23] MEDS: HaloperidoL 1 MG TABLET 2 MG PO ×2 (08:44→21:11)
[2024-09-23] MEDS: LORazepam 1 MG TABLET PO ×3 (08:44→21:12)
[2024-09-23] MEDS: OLANZapine ODT 10 MG TAB.RAPDIS 15 MG TRANSLINGU ×2 (08:44→21:10)
--- NOTE | 2024-09-23 09:34 | HO.PSYCHPN ---
Subjective Subjective Date of Service: 09/23/24 Reason For Visit: catatonia Subjective Notes: Section 8 Healthcare Proxy: No Guardianship: No Medical Problems Affecting Mental Status: No Interim History: Best reports he feels well. Best Juarez's father reports he is returning to baseline and is more level headed, able to express himself better and talk about feelings and issues. Discussed discharge- discussed having MRI/EEG, increased showering and laundry. I can do this. Remains in his room or at the nursing station. Appears more attentive to environment, with less disorganization and greater attentive ability. Continues with posturing at times. No psychotic content in our discussion today. Tells family I could use more music in my life. Medication Compliance: Yes Side effects from medications: No Attending Groups: Intermittent Review of Systems Acute medical concerns: No Medical Review of Systems: unchanged Review of Systems Review of Systems Denies Mental Status Exam Mental Status Exam Patient Appearance: Disheveled and Unkempt Patient Orientation: Person and Place Level of Consciousness: Alert Patient Behavior: Talkative, Distractible and Good Eye Contact Mood Description: Blunted Affect Description: Blunted Patient Cognition Impaired: No Ability to Follow Directions: Good Speech Pattern: Impoverished, Spontaneous Speech and Soft-Spoken Memory Description: Episodic Impaired Hallucinations: None Delusions: Present Perceptual Disturbances: Depersonalization and Derealization Thought Process: Distracted Thought Content: positive for Circumstantial, positive for Perseveration, positive for Preoccupation and positive for Suicidal Ideation (denies) Depressive Symptoms: Thoughts of /Suicide (denies) Judgement: Fair Diagnostics Vital Signs (24Hr): Vital Signs - 24 hr 09/22/24 20:00 09/23/24 08:00 Temperature 98.6 F 98.4 F Pulse Rate 97 77 Respiratory Rate 16 18 Blood Pressure 111/70 124/64 Pulse Oximetry 96 98 Oxygen Delivery Method Room Air Room Air BMI result Body Mass Index 29.1 Labs 08/12/24 10:10 08/13/24 13:34 Imaging Radiology Impressions: ITS Impressions Head CT 08/27/24 13:57 IMPRESSION: No acute brain abnormality by CT. Electronically signed by: Tito Costa MD 08/27/2024 04:05 PM EDT Medications Medications Current Medications Acetaminophen (Acetaminophen 325 Mg Tablet) 650 mg PO Q6H PRN PRN Reason: Headache/Pain, Scale 1-10 Al Hydroxide/Mg Hydroxide (Magnesium Hydrox/Alum Hydrox 30 Ml Oral.Susp) 30 ml PO Q6H PRN PRN Reason: Heartburn/Nausea Haloperidol (Haloperidol 1 Mg Tablet) 2 mg PO BID [facility] Last Admin: 09/23/24 08:44 Dose: 2 mg Haloperidol Lactate (Haloperidol Lactate 5 Mg/Ml Vial) 2 mg IM BID PRN PRN Reason: if pt refuses PO Haldol, court Hydroxyzine HCl (Hydroxyzine Hcl 25 Mg Tablet) 25 mg PO Q6H PRN PRN Reason: mild anxiety Lorazepam (Lorazepam 1 Mg Tablet) 1 mg PO TID [facility] Last Admin: 09/23/24 08:44 Dose: 1 mg Magnesium Hydroxide (Milk Of Magnesia 30 Ml Oral.Susp) 30 ml PO DAILY PRN PRN Reason: Constipation Nicotine (Nicotine 21 Mg Patch.Td24) 21 mg TRANSDERMA DAILY PRN PRN Reason: smoking cessation Nicotine Polacrilex (Nicotine Polacrilex 2 Mg Gum) 4 mg BUCCAL Q2H PRN PRN Reason: Nicotine Cravings Last Admin: 09/04/24 16:47 Dose: 4 mg Olanzapine (Olanzapine 5 Mg Tablet) 5 mg PO BID PRN PRN Reason: agitation, psychosis Olanzapine (Olanzapine Odt 10 Mg Tab.Rapdis) 15 mg TRANSLINGU BID [facility] Last Admin: 09/23/24 08:44 Dose: 15 mg Olanzapine (Olanzapine 10 Mg Vial) 15 mg IM BID PRN PRN Reason: per court if pt refuses po Trazodone HCl (Trazodone Hcl 50 Mg Tablet) 50 mg PO BEDTIME MRX1 PRN PRN Reason: Insomnia Last Admin: 08/14/24 20:45 Dose: 50 mg Valproic Acid (Valproic Acid Liquid 250 Mg/5 Ml Solution) 250 mg PO BEDTIME [facility] Last Admin: 09/22/24 21:03 Dose: 250 mg Allergies Allergies Allergy/AdvReac Type Severity Reaction Status Date / Time No Known Allergies Allergy Verified 08/12/24 09:40 Assessment & Plan Assessment & Plan (1) Schizoaffective disorder, bipolar type: Status: Acute Code(s): F25.0 - Schizoaffective disorder, bipolar type (2) PTSD (post-traumatic stress disorder): Status: Acute Code(s): F43.10 - Post-traumatic stress disorder, unspecified (3) Cannabis use disorder: Status: Acute Code(s): F12.90 - Cannabis use, unspecified, uncomplicated Plan Admit, CV, 15 minute checks Collateral Contact Diagnostics as needed --B12,Folate,TSH, EKG Encourage milieu participation Olanzapine 10 mg bid Valproate ER 500 mg HS DC/Aftercare planning 08/15-Continue to encourage treatment Section 7 may be needed This was discussed with family by Ian VILLANUEVA. They will participate if this is needed. 08/16- Continue to encourage treatment 08/17 CTP 08/18 CTP 08/19: Will file Section 7 on 08/20. Family is in agreement. 08/20: pacing in front of nurses station. Keeping to self. malodorous and unkempt. declining to shower. guarded. brief during assessment. Patient reports feeling fine ; states he doesn't need anything . encouraged to shower and attend groups. 08/21: Encourage treatment and alliance building. 08/22: Continue to attempt treatment 08/23: Continue to offer and attempt treatment 08/24: Continue current regimen and plans. Encourage food and drink. 08/26 Patient standing alone in [place] most of the day, quiet, just staring off. Patient tells director underwriter sales that he is eating and drinking regularly; he says he came to the hospital because he wanted help to quit smoking; says he does not need medications.Nursing staff reports that patient is not eating or drinking much at all (though did eat some yesterday) -court postponed until 09/05/2408/28 Intake and ADL attention with slight improvement Continues to refuse medications CAT negative Father to pursue guardianship 08/30 Continue plan 08/31-09/01 no change in presentation 09/02-continue plan. 09/03- COVID +. Continue to offer treatment 09/05- Continue plan. Asked pt if we could repeat his labs, he declines at this time. 09/06- Court 09/09/24. 09/07/24 - seems to have plan for himself for dc- has apartment, car, and can get a job in [employer] appears to be eating more and drinking more fluids- still flat affect and no interest in medications 09/08 despite repeating this discussion this am, patient went on to not eat, drink all day , and some very disorganized and odd behaviors and emotions which he is unable to explain/express- likely not really ready to go back to so described life and is really only been able to superficially manage lately 09/09 [address] Pt is at this time a 2:1 special due to agitation. Lorazepam 2 mg bid Zyprexa 10 mg bid 09/11: Continue regime and plan 09/13: Decrease lorazepam to 1 mg tid 09/15: Continue plan. Declines EEG/MRI 09/16: Observed pacing unit hallway. guarded. pt brief during assessment, declined to go into unit office with T/W. Responding with one word answers. Pt reports feeling good today; states he is sleeping well. Encouraged to shower. denies SI/HI/VH/AH. Continue current tx plan. 09/18: Continue tx 09/19: Haldol 2 mg bid 09/20: Continue regime. Depakote compliance 09/13-09/19 at 500 mg. Pt will not increase. As he is accepting of Haldol we will taper Depakote. This is a medicine he is not interested in taking. Decrease Depakote to 250 mg HS. 09/21 Patient says that he is okay and enjoyed his visit with his dad yesterday. Patient said he went to some groups but he is not very interested in them. Says he is mostly waiting for discharge and hopes it can be soon. No complaints and no request. Patient in good behavioral and impulse control; keeping to himself. 09/22 Patient reports that he feels good...better... And does have a noticeably brighter affect. Slitting Machine Operator Helper asked how he recognizes this and he said something about being around people. Patient again asked about discharge which he will discuss tomorrow with primary team 09/23: Discharge planning: MRI/EEG Encouraged regular shower/laundry routine Reason for continued inpatient stay Substantial Risk for: rapid decompensation Time Spent With Patient Time: Total time managing care of this patient today ____ minutes.
[2024-09-23] MEDS: Valproic Acid Liquid 250 MG/5 ML SOLUTION PO (21:12)
[2024-09-24 08:00] VITALS: BP 137/64; PULSE 98; TEMP 35.7; O2SAT 97
[2024-09-24] MEDS: OLANZapine ODT 10 MG TAB.RAPDIS 15 MG TRANSLINGU ×2 (08:45→21:46)
[2024-09-24] MEDS: LORazepam 1 MG TABLET PO ×3 (08:45→21:46)
[2024-09-24] MEDS: HaloperidoL 1 MG TABLET 2 MG PO ×2 (08:45→21:44)
--- NOTE | 2024-09-24 09:50 | P.PNPSI_ITS ---
Subjective Subjective Date of Service: 09/24/24 Reason For Visit: catatonia Subjective Notes: Section 8 Healthcare Proxy: No Guardianship: No Medical Problems Affecting Mental Status: No Interim History: Pre MRI testing and MRI completed today. Pt continues to stand by the nurses station. He is approachable, responsive, yet does not initiate discussion. He reports ADL's are completed, however he remains significantly malodorus, is not washing his clothing and is going in the shower but not cleaning himself. Responses are clear, linear, organized, there does not appear to be thought blocking and less preoccupation than before. Father states this is close to baseline. Review of Systems Review of Systems no Mental Status Exam Mental Status Exam Patient Appearance: Disheveled and Unkempt Patient Orientation: Person and Place Level of Consciousness: Alert Patient Behavior: Talkative, Distractible and Good Eye Contact Mood Description: Blunted Affect Description: Blunted Patient Cognition Impaired: No Ability to Follow Directions: Good Speech Pattern: Impoverished, Spontaneous Speech and Soft-Spoken Memory Description: Episodic Impaired Hallucinations: None Delusions: Present Perceptual Disturbances: Depersonalization and Derealization Thought Process: Distracted Thought Content: positive for Circumstantial, positive for Perseveration, positive for Preoccupation and positive for Suicidal Ideation (denies) Depressive Symptoms: Thoughts of /Suicide (denies) Judgement: Fair Diagnostics Vital Signs (24Hr): Vital Signs - 24 hr 09/24/24 08:00 Temperature 96.3 F L Pulse Rate 98 Blood Pressure 137/64 Pulse Oximetry 97 Oxygen Delivery Method Room Air BMI result Body Mass Index 29.1 Labs 08/12/24 10:10 08/13/24 13:34 Imaging Radiology Impressions: ITS Impressions Head CT 08/27/24 13:57 IMPRESSION: No acute brain abnormality by CT. Electronically signed by: Tito Costa MD 08/27/2024 04:05 PM EDT Medications Medications Current Medications Acetaminophen (Acetaminophen 325 Mg Tablet) 650 mg PO Q6H PRN PRN Reason: Headache/Pain, Scale 1-10 Al Hydroxide/Mg Hydroxide (Magnesium Hydrox/Alum Hydrox 30 Ml Oral.Susp) 30 ml PO Q6H PRN PRN Reason: Heartburn/Nausea Haloperidol (Haloperidol 1 Mg Tablet) 2 mg PO BID [facility] Last Admin: 09/24/24 08:45 Dose: 2 mg Haloperidol Lactate (Haloperidol Lactate 5 Mg/Ml Vial) 2 mg IM BID PRN PRN Reason: if pt refuses PO Haldol, court Hydroxyzine HCl (Hydroxyzine Hcl 25 Mg Tablet) 25 mg PO Q6H PRN PRN Reason: mild anxiety Lorazepam (Lorazepam 1 Mg Tablet) 1 mg PO TID [facility] Last Admin: 09/24/24 08:45 Dose: 1 mg Lorazepam (Lorazepam 1 Mg Tablet) 2 mg PO ONCE PRN PRN Reason: prior to MRI Magnesium Hydroxide (Milk Of Magnesia 30 Ml Oral.Susp) 30 ml PO DAILY PRN PRN Reason: Constipation Nicotine (Nicotine 21 Mg Patch.Td24) 21 mg TRANSDERMA DAILY PRN PRN Reason: smoking cessation Nicotine Polacrilex (Nicotine Polacrilex 2 Mg Gum) 4 mg BUCCAL Q2H PRN PRN Reason: Nicotine Cravings Last Admin: 09/04/24 16:47 Dose: 4 mg Olanzapine (Olanzapine 5 Mg Tablet) 5 mg PO BID PRN PRN Reason: agitation, psychosis Olanzapine (Olanzapine Odt 10 Mg Tab.Rapdis) 15 mg TRANSLINGU BID [facility] Last Admin: 09/24/24 08:45 Dose: 15 mg Olanzapine (Olanzapine 10 Mg Vial) 15 mg IM BID PRN PRN Reason: per court if pt refuses po Trazodone HCl (Trazodone Hcl 50 Mg Tablet) 50 mg PO BEDTIME MRX1 PRN PRN Reason: Insomnia Last Admin: 08/14/24 20:45 Dose: 50 mg Valproic Acid (Valproic Acid Liquid 250 Mg/5 Ml Solution) 250 mg PO BEDTIME [facility] Last Admin: 09/23/24 21:12 Dose: 250 mg Allergies Allergies Allergy/AdvReac Type Severity Reaction Status Date / Time No Known Allergies Allergy Verified 08/12/24 09:40 Assessment & Plan Assessment & Plan (1) Schizoaffective disorder, bipolar type: Status: Acute Code(s): F25.0 - Schizoaffective disorder, bipolar type (2) PTSD (post-traumatic stress disorder): Status: Acute Code(s): F43.10 - Post-traumatic stress disorder, unspecified (3) Cannabis use disorder: Status: Acute Code(s): F12.90 - Cannabis use, unspecified, uncomplicated Plan Admit, CV, 15 minute checks Collateral Contact Diagnostics as needed --B12,Folate,TSH, EKG Encourage milieu participation Olanzapine 10 mg bid Valproate ER 500 mg HS DC/Aftercare planning 08/15-Continue to encourage treatment Section 7 may be needed This was discussed with family by Ian VILLANUEVA. They will participate if this is needed. 08/16- Continue to encourage treatment 08/17 CTP 08/18 CTP 08/19: Will file Section 7 on 08/20. Family is in agreement. 08/20: pacing in front of nurses station. Keeping to self. malodorous and unkempt. declining to shower. guarded. brief during assessment. Patient reports feeling fine ; states he doesn't need anything . encouraged to shower and attend groups. 08/21: Encourage treatment and alliance building. 08/22: Continue to attempt treatment 08/23: Continue to offer and attempt treatment 08/24: Continue current regimen and plans. Encourage food and drink. 08/26 Patient standing alone in [place] most of the day, quiet, just staring off. Patient tells lyric writer that he is eating and drinking regularly; he says he came to the hospital because he wanted help to quit smoking; says he does not need medications.Nursing staff reports that patient is not eating or drinking much at all (though did eat some yesterday) -court postponed until 09/05/2408/28 Intake and ADL attention with slight improvement Continues to refuse medications CAT negative Father to pursue guardianship 08/30 Continue plan 08/31-09/01 no change in presentation 09/02-continue plan. 09/03- COVID +. Continue to offer treatment 09/05- Continue plan. Asked pt if we could repeat his labs, he declines at this time. 09/06- Court 09/09/24. 09/07/24 - seems to have plan for himself for dc- has apartment, car, and can get a job in [employer] appears to be eating more and drinking more fluids- still flat affect and no interest in medications 09/08 despite repeating this discussion this am, patient went on to not eat, drink all day , and some very disorganized and odd behaviors and emotions which he is unable to explain/express- likely not really ready to go back to so described life and is really only been able to superficially manage lately 09/09 [address] Pt is at this time a 2:1 special due to agitation. Lorazepam 2 mg bid Zyprexa 10 mg bid 09/11: Continue regime and plan 09/13: Decrease lorazepam to 1 mg tid 09/15: Continue plan. Declines EEG/MRI 09/16: Observed pacing unit hallway. guarded. pt brief during assessment, declined to go into unit office with T/W. Responding with one word answers. Pt reports feeling good today; states he is sleeping well. Encouraged to shower. denies SI/HI/VH/AH. Continue current tx plan. 09/18: Continue tx 09/19: Haldol 2 mg bid 09/20: Continue regime. Depakote compliance 09/13-09/19 at 500 mg. Pt will not increase. As he is accepting of Haldol we will taper Depakote. This is a medicine he is not interested in taking. Decrease Depakote to 250 mg HS. 09/21 Patient says that he is okay and enjoyed his visit with his dad yesterday. Patient said he went to some groups but he is not very interested in them. Says he is mostly waiting for discharge and hopes it can be soon. No complaints and no request. Patient in good behavioral and impulse control; keeping to himself. 09/22 Patient reports that he feels good...better... And does have a noticeably brighter affect. Commercial Green Building Architect asked how he recognizes this and he said something about being around people. Patient again asked about discharge which he will discuss tomorrow with primary team 09/24-continue tx. MRI completed. Will order EEG, EKG, consult with family, dc planning. Reason for continued inpatient stay Substantial Risk for: rapid decompensation Time Spent With Patient Time: Total time managing care of this patient today ____ minutes.
[2024-09-24] MEDS: Valproic Acid Liquid 250 MG/5 ML SOLUTION PO (21:47)
[2024-09-25 08:00] VITALS: BP 140/82; PULSE 97; RESP 16; TEMP 36.8; O2SAT 97
[2024-09-25] MEDS: OLANZapine ODT 10 MG TAB.RAPDIS 15 MG TRANSLINGU ×2 (08:30→20:56)
[2024-09-25] MEDS: LORazepam 1 MG TABLET PO ×3 (08:30→20:56)
[2024-09-25] MEDS: HaloperidoL 1 MG TABLET 2 MG PO ×2 (08:30→20:56)
--- NOTE | 2024-09-25 09:34 | HO.PSYCHPN ---
Subjective Subjective Reason For Visit: catatonia Diagnostics Vital Signs (24Hr): BMI result Body Mass Index 29.1 Labs 08/12/24 10:10 08/13/24 13:34 Imaging Radiology Impressions: ITS Impressions Head CT 08/27/24 13:57 IMPRESSION: No acute brain abnormality by CT. Electronically signed by: Tito Costa MD 08/27/2024 04:05 PM EDT RP Brain MRI 09/24/24 14:00 IMPRESSION: 1. Normal MRI of the brain. 2. Mild paranasal sinus disease. Electronically signed by: Michael Finnegan MD 09/24/2024 02:54 PM EDT RP Medications Medications Current Medications Acetaminophen (Acetaminophen 325 Mg Tablet) 650 mg PO Q6H PRN PRN Reason: Headache/Pain, Scale 1-10 Al Hydroxide/Mg Hydroxide (Magnesium Hydrox/Alum Hydrox 30 Ml Oral.Susp) 30 ml PO Q6H PRN PRN Reason: Heartburn/Nausea Haloperidol (Haloperidol 1 Mg Tablet) 2 mg PO BID [facility] Last Admin: 09/25/24 08:30 Dose: 2 mg Haloperidol Lactate (Haloperidol Lactate 5 Mg/Ml Vial) 2 mg IM BID PRN PRN Reason: if pt refuses PO Haldol, court Hydroxyzine HCl (Hydroxyzine Hcl 25 Mg Tablet) 25 mg PO Q6H PRN PRN Reason: mild anxiety Lorazepam (Lorazepam 1 Mg Tablet) 1 mg PO TID [facility] Last Admin: 09/25/24 08:30 Dose: 1 mg Lorazepam (Lorazepam 1 Mg Tablet) 2 mg PO ONCE PRN PRN Reason: prior to MRI Magnesium Hydroxide (Milk Of Magnesia 30 Ml Oral.Susp) 30 ml PO DAILY PRN PRN Reason: Constipation Nicotine (Nicotine 21 Mg Patch.Td24) 21 mg TRANSDERMA DAILY PRN PRN Reason: smoking cessation Nicotine Polacrilex (Nicotine Polacrilex 2 Mg Gum) 4 mg BUCCAL Q2H PRN PRN Reason: Nicotine Cravings Last Admin: 09/04/24 16:47 Dose: 4 mg Olanzapine (Olanzapine 5 Mg Tablet) 5 mg PO BID PRN PRN Reason: agitation, psychosis Olanzapine (Olanzapine Odt 10 Mg Tab.Rapdis) 15 mg TRANSLINGU BID [facility] Last Admin: 09/25/24 08:30 Dose: 15 mg Olanzapine (Olanzapine 10 Mg Vial) 15 mg IM BID PRN PRN Reason: per court if pt refuses po Trazodone HCl (Trazodone Hcl 50 Mg Tablet) 50 mg PO BEDTIME MRX1 PRN PRN Reason: Insomnia Last Admin: 08/14/24 20:45 Dose: 50 mg Valproic Acid (Valproic Acid Liquid 250 Mg/5 Ml Solution) 250 mg PO BEDTIME [facility] Last Admin: 09/24/24 21:47 Dose: 250 mg Allergies Allergies Allergy/AdvReac Type Severity Reaction Status Date / Time No Known Allergies Allergy Verified 08/12/24 09:40 Assessment & Plan Assessment & Plan (1) Schizoaffective disorder, bipolar type: Status: Acute Code(s): F25.0 - Schizoaffective disorder, bipolar type (2) PTSD (post-traumatic stress disorder): Status: Acute Code(s): F43.10 - Post-traumatic stress disorder, unspecified (3) Cannabis use disorder: Status: Acute Code(s): F12.90 - Cannabis use, unspecified, uncomplicated Plan Admit, CV, 15 minute checks Collateral Contact Diagnostics as needed --B12,Folate,TSH, EKG Encourage milieu participation Olanzapine 10 mg bid Valproate ER 500 mg HS DC/Aftercare planning 08/15-Continue to encourage treatment Section 7 may be needed This was discussed with family by Ian VILLANUEVA. They will participate if this is needed. 08/16- Continue to encourage treatment 08/17 CTP 08/18 CTP 08/19: Will file Section 7 on 08/20. Family is in agreement. 08/20: pacing in front of nurses station. Keeping to self. malodorous and unkempt. declining to shower. guarded. brief during assessment. Patient reports feeling fine ; states he doesn't need anything . encouraged to shower and attend groups. 08/21: Encourage treatment and alliance building. 08/22: Continue to attempt treatment 08/23: Continue to offer and attempt treatment 08/24: Continue current regimen and plans. Encourage food and drink. 08/26 Patient standing alone in [place] most of the day, quiet, just staring off. Patient tells justowriter operator that he is eating and drinking regularly; he says he came to the hospital because he wanted help to quit smoking; says he does not need medications.Nursing staff reports that patient is not eating or drinking much at all (though did eat some yesterday) -court postponed until 09/05/2408/28 Intake and ADL attention with slight improvement Continues to refuse medications CAT negative Father to pursue guardianship 08/30 Continue plan 08/31-09/01 no change in presentation 09/02-continue plan. 09/03- COVID +. Continue to offer treatment 09/05- Continue plan. Asked pt if we could repeat his labs, he declines at this time. 09/06- Court 09/09/24. 09/07/24 - seems to have plan for himself for dc- has apartment, car, and can get a job in [employer] appears to be eating more and drinking more fluids- still flat affect and no interest in medications 09/08 despite repeating this discussion this am, patient went on to not eat, drink all day , and some very disorganized and odd behaviors and emotions which he is unable to explain/express- likely not really ready to go back to so described life and is really only been able to superficially manage lately 09/09 [address] Pt is at this time a 2:1 special due to agitation. Lorazepam 2 mg bid Zyprexa 10 mg bid 09/11: Continue regime and plan 09/13: Decrease lorazepam to 1 mg tid 09/15: Continue plan. Declines EEG/MRI 09/16: Observed pacing unit hallway. guarded. pt brief during assessment, declined to go into unit office with T/W. Responding with one word answers. Pt reports feeling good today; states he is sleeping well. Encouraged to shower. denies SI/HI/VH/AH. Continue current tx plan. 09/18: Continue tx 09/19: Haldol 2 mg bid 09/20: Continue regime. Depakote compliance 09/13-09/19 at 500 mg. Pt will not increase. As he is accepting of Haldol we will taper Depakote. This is a medicine he is not interested in taking. Decrease Depakote to 250 mg HS. 09/21 Patient says that he is okay and enjoyed his visit with his dad yesterday. Patient said he went to some groups but he is not very interested in them. Says he is mostly waiting for discharge and hopes it can be soon. No complaints and no request. Patient in good behavioral and impulse control; keeping to himself. 09/22 Patient reports that he feels good...better... And does have a noticeably brighter affect. Battery Service Technician asked how he recognizes this and he said something about being around people. Patient again asked about discharge which he will discuss tomorrow with primary team 09/23: Discharge planning: MRI/EEG Encouraged regular shower/laundry routine Time Spent With Patient Time: Total time managing care of this patient today ____ minutes.
--- NOTE | 2024-09-25 13:17 | HO.PSYCHPN ---
Subjective Subjective Date of Service: 09/25/24 Reason For Visit: catatonia Subjective Notes: Section 8 Healthcare Proxy: No Guardianship: No Medical Problems Affecting Mental Status: No Interim History: Pt continues to stand by the nurses station. He is approachable and responsive but does not initiate discussion. He reports ADL's are completed, however he remains significantly malodorus; he is not washing his clothing and is going in the shower but not cleaning himself. Patient notes that he is feeling good today. He states that feels better than the past few weeks. He offers no complaints at this time. He denies anxiety, depression, SI/HI, AVH. Medication Compliance: Yes Side effects from medications: No Attending Groups: Intermittent Review of Systems Acute medical concerns: No Medical Review of Systems: unchanged Mental Status Exam Mental Status Exam Narrative: Mental Status Exam Narrative: Appearance: Disheveled and Unkempt Behavior: Calm and cooperative throughout the interview. Eye contact is appropriate, and there are no signs of psychomotor agitation or retardation Speech: Normal volume and prosody Thought process logical and goal-directed Thought content: Future oriented no self-harming thoughts Mood: Good Affect: Constricted, mood-congruent SI:denies HI:denies VH/AH:none Delusions: None Insight/judgment: Fair insight and judgment Memory/cog: Alert, oriented x 4. grossly intact to conversational testing Diagnostics Vital Signs (24Hr): Vital Signs - 24 hr 09/25/24 08:00 Temperature 98.2 F Pulse Rate 97 Respiratory Rate 16 Blood Pressure 140/82 H Pulse Oximetry 97 BMI result Body Mass Index 29.1 Labs 08/12/24 10:10 08/13/24 13:34 Imaging Radiology Impressions: ITS Impressions Head CT 08/27/24 13:57 IMPRESSION: No acute brain abnormality by CT. Electronically signed by: Tito Costa MD 08/27/2024 04:05 PM EDT RP Brain MRI 09/24/24 14:00 IMPRESSION: 1. Normal MRI of the brain. 2. Mild paranasal sinus disease. Electronically signed by: Michael Finnegan MD 09/24/2024 02:54 PM EDT RP Medications Medications Current Medications Acetaminophen (Acetaminophen 325 Mg Tablet) 650 mg PO Q6H PRN PRN Reason: Headache/Pain, Scale 1-10 Al Hydroxide/Mg Hydroxide (Magnesium Hydrox/Alum Hydrox 30 Ml Oral.Susp) 30 ml PO Q6H PRN PRN Reason: Heartburn/Nausea Haloperidol (Haloperidol 1 Mg Tablet) 2 mg PO BID COUNT INCLUDES THE [facility] Last Admin: 09/25/24 08:30 Dose: 2 mg Haloperidol Lactate (Haloperidol Lactate 5 Mg/Ml Vial) 2 mg IM BID PRN PRN Reason: if pt refuses PO Haldol, court Hydroxyzine HCl (Hydroxyzine Hcl 25 Mg Tablet) 25 mg PO Q6H PRN PRN Reason: mild anxiety Lorazepam (Lorazepam 1 Mg Tablet) 1 mg PO TID COUNT INCLUDES THE [facility] Last Admin: 09/25/24 08:30 Dose: 1 mg Lorazepam (Lorazepam 1 Mg Tablet) 2 mg PO ONCE PRN PRN Reason: prior to MRI Magnesium Hydroxide (Milk Of Magnesia 30 Ml Oral.Susp) 30 ml PO DAILY PRN PRN Reason: Constipation Nicotine (Nicotine 21 Mg Patch.Td24) 21 mg TRANSDERMA DAILY PRN PRN Reason: smoking cessation Nicotine Polacrilex (Nicotine Polacrilex 2 Mg Gum) 4 mg BUCCAL Q2H PRN PRN Reason: Nicotine Cravings Last Admin: 09/04/24 16:47 Dose: 4 mg Olanzapine (Olanzapine 5 Mg Tablet) 5 mg PO BID PRN PRN Reason: agitation, psychosis Olanzapine (Olanzapine Odt 10 Mg Tab.Rapdis) 15 mg TRANSLINGU BID COUNT INCLUDES THE [facility] Last Admin: 09/25/24 08:30 Dose: 15 mg Olanzapine (Olanzapine 10 Mg Vial) 15 mg IM BID PRN PRN Reason: per court if pt refuses po Trazodone HCl (Trazodone Hcl 50 Mg Tablet) 50 mg PO BEDTIME MRX1 PRN PRN Reason: Insomnia Last Admin: 08/14/24 20:45 Dose: 50 mg Valproic Acid (Valproic Acid Liquid 250 Mg/5 Ml Solution) 250 mg PO BEDTIME COUNT INCLUDES THE [facility] Last Admin: 09/24/24 21:47 Dose: 250 mg Allergies Allergies Allergy/AdvReac Type Severity Reaction Status Date / Time No Known Allergies Allergy Verified 08/12/24 09:40 Assessment & Plan Assessment & Plan (1) Schizoaffective disorder, bipolar type: Status: Acute Code(s): F25.0 - Schizoaffective disorder, bipolar type (2) PTSD (post-traumatic stress disorder): Status: Acute Code(s): F43.10 - Post-traumatic stress disorder, unspecified (3) Cannabis use disorder: Status: Acute Code(s): F12.90 - Cannabis use, unspecified, uncomplicated Plan Plan Admit, CV, 15 minute checks Collateral Contact Diagnostics as needed --B12,Folate,TSH, EKG Encourage milieu participation Olanzapine 10 mg bid Valproate ER 500 mg HS DC/Aftercare planning 08/15-Continue to encourage treatment Section 7 may be needed This was discussed with family by Ian VILLANUEVA. They will participate if this is needed. 08/16- Continue to encourage treatment 08/17 CTP 08/18 CTP 08/19: Will file Section 7 on 08/20. Family is in agreement. 08/20: pacing in front of nurses station. Keeping to self. malodorous and unkempt. declining to shower. guarded. brief during assessment. Patient reports feeling fine ; states he doesn't need anything . encouraged to shower and attend groups. 08/21: Encourage treatment and alliance building. 08/22: Continue to attempt treatment 08/23: Continue to offer and attempt treatment 08/24: Continue current regimen and plans. Encourage food and drink. 08/26 Patient standing alone in [place] most of the day, quiet, just staring off. Patient tells abstract writer that he is eating and drinking regularly; he says he came to the hospital because he wanted help to quit smoking; says he does not need medications.Nursing staff reports that patient is not eating or drinking much at all (though did eat some yesterday) -court postponed until 09/05/2408/28 Intake and ADL attention with slight improvement Continues to refuse medications CAT negative Father to pursue guardianship 08/30 Continue plan 08/31-09/01 no change in presentation 09/02-continue plan. 09/03- COVID +. Continue to offer treatment 09/05- Continue plan. Asked pt if we could repeat his labs, he declines at this time. 09/06- Court 09/09/24. 09/07/24 - seems to have plan for himself for dc- has apartment, car, and can get a job in [place] appears to be eating more and drinking more fluids- still flat affect and no interest in medications 09/08 despite repeating this discussion this am, patient went on to not eat, drink all day , and some very disorganized and odd behaviors and emotions which he is unable to explain/express- likely not really ready to go back to so described life and is really only been able to superficially manage lately 09/09 [address] Pt is at this time a 2:1 special due to agitation. Lorazepam 2 mg bid Zyprexa 10 mg bid 09/11: Continue regime and plan 09/13: Decrease lorazepam to 1 mg tid 09/15: Continue plan. Declines EEG/MRI 09/16: Observed pacing unit hallway. guarded. pt brief during assessment, declined to go into unit office with T/W. Responding with one word answers. Pt reports feeling good today; states he is sleeping well. Encouraged to shower. denies SI/HI/VH/AH. Continue current tx plan. 09/18: Continue tx 09/19: Haldol 2 mg bid 09/20: Continue regime. Depakote compliance 09/13-09/19 at 500 mg. Pt will not increase. As he is accepting of Haldol we will taper Depakote. This is a medicine he is not interested in taking. Decrease Depakote to 250 mg HS. 09/21 Patient says that he is okay and enjoyed his visit with his dad yesterday. Patient said he went to some groups but he is not very interested in them. Says he is mostly waiting for discharge and hopes it can be soon. No complaints and no request. Patient in good behavioral and impulse control; keeping to himself. 09/22 Patient reports that he feels good...better... And does have a noticeably brighter affect. Chief Substation Operator asked how he recognizes this and he said something about being around people. Patient again asked about discharge which he will discuss tomorrow with primary team 09/24-continue tx. MRI completed. Will order EEG, EKG, consult with family, dc planning. 09/25: Continue current treatment. Brain MRI on 09/2024 was benign. Regarding poor hygiene/not showing: Proper shower instructed/encouraged; he notes he will shower this evening. Patient educated on: medication risk/benefits and therapeutic strategies Guardian/Caregiver educated on: therapeutic strategies Reason for continued inpatient stay Substantial Risk for: rapid decompensation Time Spent With Patient Time: Total time managing care of this patient today ____ minutes.
[2024-09-25 19:45] VITALS: BP 134/68; PULSE 96; RESP 16; TEMP 37.2; O2SAT 99
[2024-09-25] MEDS: Valproic Acid Liquid 250 MG/5 ML SOLUTION PO (20:56)
[2024-09-26] MEDS: HaloperidoL 1 MG TABLET 2 MG PO ×2 (09:39→21:27)
[2024-09-26] MEDS: LORazepam 1 MG TABLET PO ×3 (09:41→21:28)
[2024-09-26] MEDS: OLANZapine ODT 10 MG TAB.RAPDIS 15 MG TRANSLINGU ×2 (09:42→21:27)
--- NOTE | 2024-09-26 11:10 | HO.PSYCHPN ---
Subjective Subjective Date of Service: 09/26/24 Reason For Visit: catatonia Subjective Notes: Section 8 Healthcare Proxy: No Guardianship: No Medical Problems Affecting Mental Status: No Interim History: Reports no psychiatric sx. ADL's are difficult. Unable to shower yesterday with much team support. Father reports this has been a longer term issue, ~2-3 months prior to admission. Discussed with pt that these tasks are an essential part of self care. Oh there is no problem. Will continue to discuss, encourage self care. Medication Compliance: Yes Side effects from medications: No Attending Groups: Intermittent Review of Systems Acute medical concerns: No Review of Systems Review of Systems denies Mental Status Exam Mental Status Exam Patient Appearance: Disheveled and Unkempt Patient Orientation: Person and Place Level of Consciousness: Alert Patient Behavior: Talkative, Distractible and Good Eye Contact Mood Description: Blunted Affect Description: Blunted Patient Cognition Impaired: No Ability to Follow Directions: Good Speech Pattern: Impoverished, Spontaneous Speech and Soft-Spoken Memory Description: Episodic Impaired Hallucinations: None Delusions: Present Perceptual Disturbances: Depersonalization and Derealization Thought Process: Distracted Thought Content: positive for Circumstantial, positive for Perseveration, positive for Preoccupation and positive for Suicidal Ideation (denies) Depressive Symptoms: Thoughts of /Suicide (denies) Judgement: Fair Diagnostics Vital Signs (24Hr): Vital Signs - 24 hr 09/25/24 19:45 Temperature 98.9 F Pulse Rate 96 Respiratory Rate 16 Blood Pressure 134/68 Pulse Oximetry 99 Oxygen Delivery Method Room Air BMI result Body Mass Index 29.1 Labs 08/12/24 10:10 08/13/24 13:34 Imaging Radiology Impressions: ITS Impressions Head CT 08/27/24 13:57 IMPRESSION: No acute brain abnormality by CT. Electronically signed by: Tito Costa MD 08/27/2024 04:05 PM EDT RP Brain MRI 09/24/24 14:00 IMPRESSION: 1. Normal MRI of the brain. 2. Mild paranasal sinus disease. Electronically signed by: Michael Finnegan MD 09/24/2024 02:54 PM EDT RP Medications Medications Current Medications Acetaminophen (Acetaminophen 325 Mg Tablet) 650 mg PO Q6H PRN PRN Reason: Headache/Pain, Scale 1-10 Al Hydroxide/Mg Hydroxide (Magnesium Hydrox/Alum Hydrox 30 Ml Oral.Susp) 30 ml PO Q6H PRN PRN Reason: Heartburn/Nausea Haloperidol (Haloperidol 1 Mg Tablet) 2 mg PO BID [facility] Last Admin: 09/26/24 09:39 Dose: 2 mg Haloperidol Lactate (Haloperidol Lactate 5 Mg/Ml Vial) 2 mg IM BID PRN PRN Reason: if pt refuses PO Haldol, court Hydroxyzine HCl (Hydroxyzine Hcl 25 Mg Tablet) 25 mg PO Q6H PRN PRN Reason: mild anxiety Lorazepam (Lorazepam 1 Mg Tablet) 1 mg PO TID [facility] Last Admin: 09/26/24 09:41 Dose: 1 mg Lorazepam (Lorazepam 1 Mg Tablet) 2 mg PO ONCE PRN PRN Reason: prior to MRI Magnesium Hydroxide (Milk Of Magnesia 30 Ml Oral.Susp) 30 ml PO DAILY PRN PRN Reason: Constipation Nicotine (Nicotine 21 Mg Patch.Td24) 21 mg TRANSDERMA DAILY PRN PRN Reason: smoking cessation Nicotine Polacrilex (Nicotine Polacrilex 2 Mg Gum) 4 mg BUCCAL Q2H PRN PRN Reason: Nicotine Cravings Last Admin: 09/04/24 16:47 Dose: 4 mg Olanzapine (Olanzapine 5 Mg Tablet) 5 mg PO BID PRN PRN Reason: agitation, psychosis Olanzapine (Olanzapine Odt 10 Mg Tab.Rapdis) 15 mg TRANSLINGU BID [facility] Last Admin: 09/26/24 09:42 Dose: 15 mg Olanzapine (Olanzapine 10 Mg Vial) 15 mg IM BID PRN PRN Reason: per court if pt refuses po Trazodone HCl (Trazodone Hcl 50 Mg Tablet) 50 mg PO BEDTIME MRX1 PRN PRN Reason: Insomnia Last Admin: 08/14/24 20:45 Dose: 50 mg Valproic Acid (Valproic Acid Liquid 250 Mg/5 Ml Solution) 250 mg PO BEDTIME [facility] Last Admin: 09/25/24 20:56 Dose: 250 mg Allergies Allergies Allergy/AdvReac Type Severity Reaction Status Date / Time No Known Allergies Allergy Verified 08/12/24 09:40 Assessment & Plan Assessment & Plan (1) Schizoaffective disorder, bipolar type: Status: Acute Code(s): F25.0 - Schizoaffective disorder, bipolar type (2) PTSD (post-traumatic stress disorder): Status: Acute Code(s): F43.10 - Post-traumatic stress disorder, unspecified (3) Cannabis use disorder: Status: Acute Code(s): F12.90 - Cannabis use, unspecified, uncomplicated Plan Plan Admit, CV, 15 minute checks Collateral Contact Diagnostics as needed --B12,Folate,TSH, EKG Encourage milieu participation Olanzapine 10 mg bid Valproate ER 500 mg HS DC/Aftercare planning 08/15-Continue to encourage treatment Section 7 may be needed This was discussed with family by Ian VILLANUEVA. They will participate if this is needed. 08/16- Continue to encourage treatment 08/17 CTP 08/18 CTP 08/19: Will file Section 7 on 08/20. Family is in agreement. 08/20: pacing in front of nurses station. Keeping to self. malodorous and unkempt. declining to shower. guarded. brief during assessment. Patient reports feeling fine ; states he doesn't need anything . encouraged to shower and attend groups. 08/21: Encourage treatment and alliance building. 08/22: Continue to attempt treatment 08/23: Continue to offer and attempt treatment 08/24: Continue current regimen and plans. Encourage food and drink. 08/26 Patient standing alone in [place] most of the day, quiet, just staring off. Patient tells marine underwriter that he is eating and drinking regularly; he says he came to the hospital because he wanted help to quit smoking; says he does not need medications.Nursing staff reports that patient is not eating or drinking much at all (though did eat some yesterday) -court postponed until 09/05/2408/28 Intake and ADL attention with slight improvement Continues to refuse medications CAT negative Father to pursue guardianship 08/30 Continue plan 08/31-09/01 no change in presentation 09/02-continue plan. 09/03- COVID +. Continue to offer treatment 09/05- Continue plan. Asked pt if we could repeat his labs, he declines at this time. 09/06- Court 09/09/24. 09/07/24 - seems to have plan for himself for dc- has apartment, car, and can get a job in [place] appears to be eating more and drinking more fluids- still flat affect and no interest in medications 09/08 despite repeating this discussion this am, patient went on to not eat, drink all day , and some very disorganized and odd behaviors and emotions which he is unable to explain/express- likely not really ready to go back to so described life and is really only been able to superficially manage lately 09/09 [address] Pt is at this time a 2:1 special due to agitation. Lorazepam 2 mg bid Zyprexa 10 mg bid 09/11: Continue regime and plan 09/13: Decrease lorazepam to 1 mg tid 09/15: Continue plan. Declines EEG/MRI 09/16: Observed pacing unit hallway. guarded. pt brief during assessment, declined to go into unit office with T/W. Responding with one word answers. Pt reports feeling good today; states he is sleeping well. Encouraged to shower. denies SI/HI/VH/AH. Continue current tx plan. 09/18: Continue tx 09/19: Haldol 2 mg bid 09/20: Continue regime. Depakote compliance 09/13-09/19 at 500 mg. Pt will not increase. As he is accepting of Haldol we will taper Depakote. This is a medicine he is not interested in taking. Decrease Depakote to 250 mg HS. 09/21 Patient says that he is okay and enjoyed his visit with his dad yesterday. Patient said he went to some groups but he is not very interested in them. Says he is mostly waiting for discharge and hopes it can be soon. No complaints and no request. Patient in good behavioral and impulse control; keeping to himself. 09/22 Patient reports that he feels good...better... And does have a noticeably brighter affect. Woven Paper Hat Mender asked how he recognizes this and he said something about being around people. Patient again asked about discharge which he will discuss tomorrow with primary team 09/24-continue tx. MRI completed. Will order EEG, EKG, consult with family, dc planning. 09/25: Continue current treatment. Brain MRI on 09/2024 was benign. Regarding poor hygiene/not showing: Proper shower instructed/encouraged; he notes he will shower this evening. 09/26: Continue to encourage self care Reason for continued inpatient stay Substantial Risk for: rapid decompensation Time Spent With Patient Time: Total time managing care of this patient today ____ minutes.
[2024-09-26 21:24] VITALS: BP 140/77; PULSE 8; TEMP 37; O2SAT 96
[2024-09-26] MEDS: Valproic Acid Liquid 250 MG/5 ML SOLUTION PO (21:26)
[2024-09-27 07:55] VITALS: BP 134/74; PULSE 87; RESP 16; TEMP 36.4; O2SAT 97
[2024-09-27] MEDS: HaloperidoL 1 MG TABLET 2 MG PO ×2 (08:16→21:08)
[2024-09-27] MEDS: LORazepam 1 MG TABLET PO ×3 (08:16→21:08)
[2024-09-27] MEDS: OLANZapine ODT 10 MG TAB.RAPDIS 15 MG TRANSLINGU ×2 (08:16→21:09)
--- NOTE | 2024-09-27 09:51 | P.PNPSI_ITS ---
Subjective Subjective Date of Service: 09/27/24 Reason For Visit: catatonia Subjective Notes: Section 8 Healthcare Proxy: No Guardianship: No Medical Problems Affecting Mental Status: No Interim History: Reports feeling well. Cooperative with diagnostics Team is working with pt on self care/ADL's Pt working on discharge planning and coordination with his father who has applied for guardianship. Continues to refuse labs. Review of Systems Review of Systems denies Mental Status Exam Mental Status Exam Patient Appearance: Appropriate Patient Orientation: Person, Place and Situation Level of Consciousness: Alert Patient Behavior: Talkative, Distractible and Good Eye Contact Mood Description: Constricted Affect Description: Constricted Patient Cognition Impaired: No Ability to Follow Directions: Good Speech Pattern: Impoverished, Spontaneous Speech and Soft-Spoken Memory Description: Episodic Impaired Hallucinations: None Delusions: Present Perceptual Disturbances: Depersonalization and Derealization Thought Process: Distracted Thought Content: positive for Circumstantial, positive for Perseveration and positive for Suicidal Ideation (denies) Depressive Symptoms: Thoughts of /Suicide (denies) Judgement: Fair Diagnostics Vital Signs (24Hr): Vital Signs - 24 hr 09/26/24 21:24 09/27/24 07:55 Temperature 98.6 F 97.5 F Pulse Rate 8 L 87 Respiratory Rate 16 Blood Pressure 140/77 H 134/74 Pulse Oximetry 96 97 Oxygen Delivery Method Room Air Room Air BMI result Body Mass Index 29.1 Labs 08/12/24 10:10 08/13/24 13:34 Imaging Radiology Impressions: ITS Impressions Head CT 08/27/24 13:57 IMPRESSION: No acute brain abnormality by CT. Electronically signed by: Tito Costa MD 08/27/2024 04:05 PM EDT RP Brain MRI 09/24/24 14:00 IMPRESSION: 1. Normal MRI of the brain. 2. Mild paranasal sinus disease. Electronically signed by: Michael Finnegan MD 09/24/2024 02:54 PM EDT RP Medications Medications Current Medications Acetaminophen (Acetaminophen 325 Mg Tablet) 650 mg PO Q6H PRN PRN Reason: Headache/Pain, Scale 1-10 Al Hydroxide/Mg Hydroxide (Magnesium Hydrox/Alum Hydrox 30 Ml Oral.Susp) 30 ml PO Q6H PRN PRN Reason: Heartburn/Nausea Haloperidol (Haloperidol 1 Mg Tablet) 2 mg PO BID [facility] Last Admin: 09/27/24 08:16 Dose: 2 mg Haloperidol Lactate (Haloperidol Lactate 5 Mg/Ml Vial) 2 mg IM BID PRN PRN Reason: if pt refuses PO Haldol, court Hydroxyzine HCl (Hydroxyzine Hcl 25 Mg Tablet) 25 mg PO Q6H PRN PRN Reason: mild anxiety Lorazepam (Lorazepam 1 Mg Tablet) 1 mg PO TID [facility] Last Admin: 09/27/24 08:16 Dose: 1 mg Lorazepam (Lorazepam 1 Mg Tablet) 2 mg PO ONCE PRN PRN Reason: prior to MRI Magnesium Hydroxide (Milk Of Magnesia 30 Ml Oral.Susp) 30 ml PO DAILY PRN PRN Reason: Constipation Nicotine (Nicotine 21 Mg Patch.Td24) 21 mg TRANSDERMA DAILY PRN PRN Reason: smoking cessation Nicotine Polacrilex (Nicotine Polacrilex 2 Mg Gum) 4 mg BUCCAL Q2H PRN PRN Reason: Nicotine Cravings Last Admin: 09/04/24 16:47 Dose: 4 mg Olanzapine (Olanzapine 5 Mg Tablet) 5 mg PO BID PRN PRN Reason: agitation, psychosis Olanzapine (Olanzapine Odt 10 Mg Tab.Rapdis) 15 mg TRANSLINGU BID [facility] Last Admin: 09/27/24 08:16 Dose: 15 mg Olanzapine (Olanzapine 10 Mg Vial) 15 mg IM BID PRN PRN Reason: per court if pt refuses po Trazodone HCl (Trazodone Hcl 50 Mg Tablet) 50 mg PO BEDTIME MRX1 PRN PRN Reason: Insomnia Last Admin: 08/14/24 20:45 Dose: 50 mg Valproic Acid (Valproic Acid Liquid 250 Mg/5 Ml Solution) 250 mg PO BEDTIME [facility] Last Admin: 09/26/24 21:26 Dose: 250 mg Allergies Allergies Allergy/AdvReac Type Severity Reaction Status Date / Time No Known Allergies Allergy Verified 08/12/24 09:40 Assessment & Plan Assessment & Plan (1) Schizoaffective disorder, bipolar type: Status: Acute Code(s): F25.0 - Schizoaffective disorder, bipolar type (2) PTSD (post-traumatic stress disorder): Status: Acute Code(s): F43.10 - Post-traumatic stress disorder, unspecified (3) Cannabis use disorder: Status: Acute Code(s): F12.90 - Cannabis use, unspecified, uncomplicated Plan Plan Admit, CV, 15 minute checks Collateral Contact Diagnostics as needed --B12,Folate,TSH, EKG Encourage milieu participation Olanzapine 10 mg bid Valproate ER 500 mg HS DC/Aftercare planning 08/15-Continue to encourage treatment Section 7 may be needed This was discussed with family by Ian VILLANUEVA. They will participate if this is needed. 08/16- Continue to encourage treatment 08/17 CTP 08/18 CTP 08/19: Will file Section 7 on 08/20. Family is in agreement. 08/20: pacing in front of nurses station. Keeping to self. malodorous and unkempt. declining to shower. guarded. brief during assessment. Patient reports feeling fine ; states he doesn't need anything . encouraged to shower and attend groups. 08/21: Encourage treatment and alliance building. 08/22: Continue to attempt treatment 08/23: Continue to offer and attempt treatment 08/24: Continue current regimen and plans. Encourage food and drink. 08/26 Patient standing alone in [place] most of the day, quiet, just staring off. Patient tells ticket writer that he is eating and drinking regularly; he says he came to the hospital because he wanted help to quit smoking; says he does not need medications.Nursing staff reports that patient is not eating or drinking much at all (though did eat some yesterday) -court postponed until 09/05/2408/28 Intake and ADL attention with slight improvement Continues to refuse medications CAT negative Father to pursue guardianship 08/30 Continue plan 08/31-09/01 no change in presentation 09/02-continue plan. 09/03- COVID +. Continue to offer treatment 09/05- Continue plan. Asked pt if we could repeat his labs, he declines at this time. 09/06- Court 09/09/24. 09/07/24 - seems to have plan for himself for dc- has apartment, car, and can get a job in [employer] appears to be eating more and drinking more fluids- still flat affect and no interest in medications 09/08 despite repeating this discussion this am, patient went on to not eat, drink all day , and some very disorganized and odd behaviors and emotions which he is unable to explain/express- likely not really ready to go back to so described life and is really only been able to superficially manage lately 09/09 [address]. Pt is at this time a 2:1 special due to agitation. Lorazepam 2 mg bid Zyprexa 10 mg bid 09/11: Continue regime and plan 09/13: Decrease lorazepam to 1 mg tid 09/15: Continue plan. Declines EEG/MRI 09/16: Observed pacing unit hallway. guarded. pt brief during assessment, declined to go into unit office with T/W. Responding with one word answers. Pt reports feeling good today; states he is sleeping well. Encouraged to shower. denies SI/HI/VH/AH. Continue current tx plan. 09/18: Continue tx 09/19: Haldol 2 mg bid 09/20: Continue regime. Depakote compliance 09/13-09/19 at 500 mg. Pt will not increase. As he is accepting of Haldol we will taper Depakote. This is a medicine he is not interested in taking. Decrease Depakote to 250 mg HS. 09/21 Patient says that he is okay and enjoyed his visit with his dad yesterday. Patient said he went to some groups but he is not very interested in them. Says he is mostly waiting for discharge and hopes it can be soon. No complaints and no request. Patient in good behavioral and impulse control; keeping to himself. 09/22 Patient reports that he feels good...better... And does have a noticeably brighter affect. Lead Mechanic asked how he recognizes this and he said something about being around people. Patient again asked about discharge which he will discuss tomorrow with primary team 09/24-continue tx. MRI completed. Will order EEG, EKG, consult with family, dc planning. 09/25: Continue current treatment. Brain MRI on 09/2024 was benign. Regarding poor hygiene/not showing: Proper shower instructed/encouraged; he notes he will shower this evening. 09/26: Continue to encourage self care 09/27: DC Depakote Reason for continued inpatient stay Substantial Risk for: rapid decompensation Time Spent With Patient Time: Total time managing care of this patient today ____ minutes.
[2024-09-27 20:00] VITALS: BP 131/74; PULSE 98; TEMP 37; O2SAT 96
[2024-09-28 08:00] VITALS: BP 132/76; PULSE 85; RESP 16; TEMP 36.4; O2SAT 98
[2024-09-28] MEDS: LORazepam 1 MG TABLET PO ×3 (09:02→20:37)
[2024-09-28] MEDS: HaloperidoL 1 MG TABLET 2 MG PO ×2 (09:02→20:36)
[2024-09-28] MEDS: OLANZapine ODT 10 MG TAB.RAPDIS 15 MG TRANSLINGU ×2 (09:03→20:37)
--- NOTE | 2024-09-28 09:41 | P.PNPSI_ITS ---
Subjective Subjective Date of Service: 09/28/24 Reason For Visit: catatonia Interim History: Reports feeling well. Adherent to medications. Reports mood has been stable. Feels improved. Denies SI/HI/AVH. Visible on the unit. Review of Systems Review of Systems denies Yes all other systems are reviewed and are negative and Unobtainable due to mental status Constitutional: Reports no additional constitutional complaints, Denies chills, Denies fever(s) and Denies night sweats Eyes: Reports no additional eye complaints, Denies blurry vision, Denies change in vision, Denies diplopia, Denies eye discharge, Denies loss of vision and Denies eye pain Denies dizziness Cardiovascular: Reports no additional cardiovascular complaints, Denies chest pain, Denies lightheadedness, Denies Loss of Consciousness and Denies dyspnea Respiratory: Reports no additional respiratory complaints and Denies dyspnea Gastrointestinal: Reports no additional gastrointestinal complaints, Denies abdominal pain, Denies melena, Denies hematochezia, Denies change in bowel habits and Denies change in stool character Genitourinary: Reports no additional male genitourinary complaints, Denies hematuria, Denies oliguria, Denies difficulty urinating, Denies dysuria, Denies urinary frequency, Denies urinary hesitancy, Denies urinary incontinence and Denies urinary urgency Musculoskeletal: Reports no additional musculoskeletal complaints, Denies numbness and Denies tingling Reports behavioral changes, Denies dizziness, Denies loss of vision, Denies numbness and Denies tingling Psychiatric: Reports abnormal sleep pattern, Reports behavioral changes, Reports difficulty concentrating, Denies homicidal ideation and Denies suicidal ideation Endocrine: Reports no additional endocrine complaints Hematologic/Lymphatic: Reports no additional hematologic/lymphatic complaints Allergic/Immunologic: Reports no additional allergic/immunologic complaints Mental Status Exam Mental Status Exam Narrative: Mental Status Exam Narrative: Appearance: Disheveled and Unkempt Behavior: Calm and cooperative throughout the interview. Eye contact is appropriate, and there are no signs of psychomotor agitation or retardation Speech: Normal volume and prosody Thought process logical and goal-directed Thought content: Future oriented no self-harming thoughts Mood: Good Affect: Constricted, mood-congruent SI:denies HI:denies VH/AH:none Delusions: None Insight/judgment: Fair insight and judgment Memory/cog: Alert, oriented x 4. grossly intact to conversational testing Patient Appearance: Appropriate Patient Orientation: Person, Place and Situation Level of Consciousness: Alert Patient Behavior: Talkative, Distractible and Good Eye Contact Mood Description: Constricted Affect Description: Constricted Patient Cognition Impaired: No Ability to Follow Directions: Good Speech Pattern: Impoverished, Spontaneous Speech and Soft-Spoken Memory Description: Episodic Impaired Diagnostics Vital Signs (24Hr): Vital Signs - 24 hr 09/27/24 20:00 09/28/24 08:00 Temperature 98.6 F 97.6 F Pulse Rate 98 85 Respiratory Rate 16 Blood Pressure 131/74 132/76 Pulse Oximetry 96 98 Oxygen Delivery Method Room Air BMI result Body Mass Index 29.1 Labs 08/12/24 10:10 08/13/24 13:34 Imaging Radiology Impressions: ITS Impressions Head CT 08/27/24 13:57 IMPRESSION: No acute brain abnormality by CT. Electronically signed by: Tito Costa MD 08/27/2024 04:05 PM EDT RP Brain MRI 09/24/24 14:00 IMPRESSION: 1. Normal MRI of the brain. 2. Mild paranasal sinus disease. Electronically signed by: Michael Finnegan MD 09/24/2024 02:54 PM EDT RP Medications Medications Current Medications Acetaminophen (Acetaminophen 325 Mg Tablet) 650 mg PO Q6H PRN PRN Reason: Headache/Pain, Scale 1-10 Al Hydroxide/Mg Hydroxide (Magnesium Hydrox/Alum Hydrox 30 Ml Oral.Susp) 30 ml PO Q6H PRN PRN Reason: Heartburn/Nausea Haloperidol (Haloperidol 1 Mg Tablet) 2 mg PO BID [facility] Last Admin: 09/28/24 09:02 Dose: 2 mg Haloperidol Lactate (Haloperidol Lactate 5 Mg/Ml Vial) 2 mg IM BID PRN PRN Reason: if pt refuses PO Haldol, court Hydroxyzine HCl (Hydroxyzine Hcl 25 Mg Tablet) 25 mg PO Q6H PRN PRN Reason: mild anxiety Lorazepam (Lorazepam 1 Mg Tablet) 1 mg PO TID [facility] Last Admin: 09/28/24 09:02 Dose: 1 mg Magnesium Hydroxide (Milk Of Magnesia 30 Ml Oral.Susp) 30 ml PO DAILY PRN PRN Reason: Constipation Nicotine (Nicotine 21 Mg Patch.Td24) 21 mg TRANSDERMA DAILY PRN PRN Reason: smoking cessation Nicotine Polacrilex (Nicotine Polacrilex 2 Mg Gum) 4 mg BUCCAL Q2H PRN PRN Reason: Nicotine Cravings Last Admin: 09/04/24 16:47 Dose: 4 mg Olanzapine (Olanzapine 5 Mg Tablet) 5 mg PO BID PRN PRN Reason: agitation, psychosis Olanzapine (Olanzapine Odt 10 Mg Tab.Rapdis) 15 mg TRANSLINGU BID [facility] Last Admin: 09/28/24 09:03 Dose: 15 mg Olanzapine (Olanzapine 10 Mg Vial) 15 mg IM BID PRN PRN Reason: per court if pt refuses po Trazodone HCl (Trazodone Hcl 50 Mg Tablet) 50 mg PO BEDTIME MRX1 PRN PRN Reason: Insomnia Last Admin: 08/14/24 20:45 Dose: 50 mg Allergies Allergies Allergy/AdvReac Type Severity Reaction Status Date / Time No Known Allergies Allergy Verified 08/12/24 09:40 Assessment & Plan Assessment & Plan (1) Schizoaffective disorder, bipolar type: Status: Acute Code(s): F25.0 - Schizoaffective disorder, bipolar type (2) PTSD (post-traumatic stress disorder): Status: Acute Code(s): F43.10 - Post-traumatic stress disorder, unspecified (3) Cannabis use disorder: Status: Acute Code(s): F12.90 - Cannabis use, unspecified, uncomplicated Plan Plan Admit, CV, 15 minute checks Collateral Contact Diagnostics as needed --B12,Folate,TSH, EKG Encourage milieu participation Olanzapine 10 mg bid Valproate ER 500 mg HS DC/Aftercare planning 08/15-Continue to encourage treatment Section 7 may be needed This was discussed with family by Ian Olivas [facility]. They will participate if this is needed. 08/16- Continue to encourage treatment 08/17 CTP 08/18 CTP 08/19: Will file Section 7 on 08/20. Family is in agreement. 08/20: pacing in front of nurses station. Keeping to self. malodorous and unkempt. declining to shower. guarded. brief during assessment. Patient reports feeling fine ; states he doesn't need anything . encouraged to shower and attend groups. 08/21: Encourage treatment and alliance building. 08/22: Continue to attempt treatment 08/23: Continue to offer and attempt treatment 08/24: Continue current regimen and plans. Encourage food and drink. 08/26 Patient standing alone in [place] most of the day, quiet, just staring off. Patient tells software writer that he is eating and drinking regularly; he says he came to the hospital because he wanted help to quit smoking; says he does not need medications.Nursing staff reports that patient is not eating or drinking much at all (though did eat some yesterday) -court postponed until 09/05/2408/28 Intake and ADL attention with slight improvement Continues to refuse medications CAT negative Father to pursue guardianship 08/30 Continue plan 08/31-09/01 no change in presentation 09/02-continue plan. 09/03- COVID +. Continue to offer treatment 09/05- Continue plan. Asked pt if we could repeat his labs, he declines at this time. 09/06- Court 09/09/24. 09/07/24 - seems to have plan for himself for dc- has apartment, car, and can get a job in [employer] appears to be eating more and drinking more fluids- still flat affect and no interest in medications 09/08 despite repeating this discussion this am, patient went on to not eat, drink all day , and some very disorganized and odd behaviors and emotions which he is unable to explain/express- likely not really ready to go back to so described life and is really only been able to superficially manage lately 09/09 [address] Pt is at this time a 2:1 special due to agitation. Lorazepam 2 mg bid Zyprexa 10 mg bid 09/11: Continue regime and plan 09/13: Decrease lorazepam to 1 mg tid 09/15: Continue plan. Declines EEG/MRI 09/16: Observed pacing unit hallway. guarded. pt brief during assessment, declined to go into unit office with T/W. Responding with one word answers. Pt reports feeling good today; states he is sleeping well. Encouraged to shower. denies SI/HI/VH/AH. Continue current tx plan. 09/18: Continue tx 09/19: Haldol 2 mg bid 09/20: Continue regime. Depakote compliance 09/13-09/19 at 500 mg. Pt will not increase. As he is accepting of Haldol we will taper Depakote. This is a medicine he is not interested in taking. Decrease Depakote to 250 mg HS. 09/21 Patient says that he is okay and enjoyed his visit with his dad yesterday. Patient said he went to some groups but he is not very interested in them. Says he is mostly waiting for discharge and hopes it can be soon. No complaints and no request. Patient in good behavioral and impulse control; keeping to himself. 09/22 Patient reports that he feels good...better... And does have a noticeably brighter affect. Induction Heating Equipment Setter asked how he recognizes this and he said something about being around people. Patient again asked about discharge which he will discuss tomorrow with primary team 09/24-continue tx. MRI completed. Will order EEG, EKG, consult with family, dc planning. 09/25: Continue current treatment. Brain MRI on 09/2024 was benign. Regarding poor hygiene/not showing: Proper shower instructed/encouraged; he notes he will shower this evening. 09/26: Continue to encourage self care 09/27: DC Depakote 09/28: continue current management and treatment plan. Reason for continued inpatient stay Substantial Risk for: inability to function and rapid decompensation Time Spent With Patient Time: Total time managing care of this patient today ____ minutes.
[2024-09-28 20:00] VITALS: BP 139/65; PULSE 92; TEMP -13.1; TEMP 8.5; O2SAT 99
[2024-09-29 08:00] VITALS: BP 125/76; PULSE 85; RESP 16; TEMP 36.4; O2SAT 95
[2024-09-29] MEDS: OLANZapine ODT 10 MG TAB.RAPDIS 15 MG TRANSLINGU ×2 (09:09→20:34)
[2024-09-29] MEDS: HaloperidoL 1 MG TABLET 2 MG PO ×2 (09:09→20:33)
[2024-09-29] MEDS: LORazepam 1 MG TABLET PO ×3 (09:09→20:34)
--- NOTE | 2024-09-29 10:50 | HO.PSYCHPN ---
Subjective Subjective Date of Service: 09/29/24 Reason For Visit: catatonia Interim History: Reports feeling well. Adherent to medications. Reports mood has been stable. Feels improved. Denies SI/HI/AVH. Visible on the unit. Review of Systems Review of Systems denies Yes all other systems are reviewed and are negative and Unobtainable due to mental status Constitutional: Reports no additional constitutional complaints, Denies chills, Denies fever(s) and Denies night sweats Eyes: Reports no additional eye complaints, Denies blurry vision, Denies change in vision, Denies diplopia, Denies eye discharge, Denies loss of vision and Denies eye pain Denies dizziness Cardiovascular: Reports no additional cardiovascular complaints, Denies chest pain, Denies lightheadedness, Denies Loss of Consciousness and Denies dyspnea Respiratory: Reports no additional respiratory complaints and Denies dyspnea Gastrointestinal: Reports no additional gastrointestinal complaints, Denies abdominal pain, Denies melena, Denies hematochezia, Denies change in bowel habits and Denies change in stool character Genitourinary: Reports no additional male genitourinary complaints, Denies hematuria, Denies oliguria, Denies difficulty urinating, Denies dysuria, Denies urinary frequency, Denies urinary hesitancy, Denies urinary incontinence and Denies urinary urgency Musculoskeletal: Reports no additional musculoskeletal complaints, Denies numbness and Denies tingling Reports behavioral changes, Denies dizziness, Denies loss of vision, Denies numbness and Denies tingling Psychiatric: Reports abnormal sleep pattern, Reports behavioral changes, Reports difficulty concentrating, Denies homicidal ideation and Denies suicidal ideation Endocrine: Reports no additional endocrine complaints Hematologic/Lymphatic: Reports no additional hematologic/lymphatic complaints Allergic/Immunologic: Reports no additional allergic/immunologic complaints Mental Status Exam Mental Status Exam Narrative: Mental Status Exam Narrative: Appearance: Disheveled and Unkempt Behavior: Calm and cooperative throughout the interview. Eye contact is appropriate, and there are no signs of psychomotor agitation or retardation Speech: Normal volume and prosody Thought process logical and goal-directed Thought content: Future oriented no self-harming thoughts Mood: Good Affect: Constricted, mood-congruent SI:denies HI:denies VH/AH:none Delusions: None Insight/judgment: Fair insight and judgment Memory/cog: Alert, oriented x 4. grossly intact to conversational testing Patient Appearance: Appropriate Patient Orientation: Person, Place and Situation Level of Consciousness: Alert Patient Behavior: Talkative, Distractible and Good Eye Contact Mood Description: Constricted Affect Description: Constricted Patient Cognition Impaired: No Ability to Follow Directions: Good Speech Pattern: Impoverished, Spontaneous Speech and Soft-Spoken Memory Description: Episodic Impaired Diagnostics Vital Signs (24Hr): Vital Signs - 24 hr 09/28/24 20:00 09/29/24 08:00 Temperature 8.5 F L 97.6 F Pulse Rate 92 85 Respiratory Rate 16 Blood Pressure 139/65 125/76 Pulse Oximetry 99 95 Oxygen Delivery Method Room Air Room Air BMI result Body Mass Index 29.1 Labs 08/12/24 10:10 08/13/24 13:34 Imaging Radiology Impressions: ITS Impressions Head CT 08/27/24 13:57 IMPRESSION: No acute brain abnormality by CT. Electronically signed by: Tito Costa MD 08/27/2024 04:05 PM EDT RP Brain MRI 09/24/24 14:00 IMPRESSION: 1. Normal MRI of the brain. 2. Mild paranasal sinus disease. Electronically signed by: Michael Finnegan MD 09/24/2024 02:54 PM EDT RP Medications Medications Current Medications Acetaminophen (Acetaminophen 325 Mg Tablet) 650 mg PO Q6H PRN PRN Reason: Headache/Pain, Scale 1-10 Al Hydroxide/Mg Hydroxide (Magnesium Hydrox/Alum Hydrox 30 Ml Oral.Susp) 30 ml PO Q6H PRN PRN Reason: Heartburn/Nausea Haloperidol (Haloperidol 1 Mg Tablet) 2 mg PO BID [facility] Last Admin: 09/29/24 09:09 Dose: 2 mg Haloperidol Lactate (Haloperidol Lactate 5 Mg/Ml Vial) 2 mg IM BID PRN PRN Reason: if pt refuses PO Haldol, court Hydroxyzine HCl (Hydroxyzine Hcl 25 Mg Tablet) 25 mg PO Q6H PRN PRN Reason: mild anxiety Lorazepam (Lorazepam 1 Mg Tablet) 1 mg PO TID [facility] Last Admin: 09/29/24 09:09 Dose: 1 mg Magnesium Hydroxide (Milk Of Magnesia 30 Ml Oral.Susp) 30 ml PO DAILY PRN PRN Reason: Constipation Nicotine (Nicotine 21 Mg Patch.Td24) 21 mg TRANSDERMA DAILY PRN PRN Reason: smoking cessation Nicotine Polacrilex (Nicotine Polacrilex 2 Mg Gum) 4 mg BUCCAL Q2H PRN PRN Reason: Nicotine Cravings Last Admin: 09/04/24 16:47 Dose: 4 mg Olanzapine (Olanzapine 5 Mg Tablet) 5 mg PO BID PRN PRN Reason: agitation, psychosis Olanzapine (Olanzapine Odt 10 Mg Tab.Rapdis) 15 mg TRANSLINGU BID [facility] Last Admin: 09/29/24 09:09 Dose: 15 mg Olanzapine (Olanzapine 10 Mg Vial) 15 mg IM BID PRN PRN Reason: per court if pt refuses po Trazodone HCl (Trazodone Hcl 50 Mg Tablet) 50 mg PO BEDTIME MRX1 PRN PRN Reason: Insomnia Last Admin: 08/14/24 20:45 Dose: 50 mg Allergies Allergies Allergy/AdvReac Type Severity Reaction Status Date / Time No Known Allergies Allergy Verified 08/12/24 09:40 Assessment & Plan Assessment & Plan (1) Schizoaffective disorder, bipolar type: Status: Acute Code(s): F25.0 - Schizoaffective disorder, bipolar type (2) PTSD (post-traumatic stress disorder): Status: Acute Code(s): F43.10 - Post-traumatic stress disorder, unspecified (3) Cannabis use disorder: Status: Acute Code(s): F12.90 - Cannabis use, unspecified, uncomplicated Plan Plan Admit, CV, 15 minute checks Collateral Contact Diagnostics as needed --B12,Folate,TSH, EKG Encourage milieu participation Olanzapine 10 mg bid Valproate ER 500 mg HS DC/Aftercare planning 08/15-Continue to encourage treatment Section 7 may be needed This was discussed with family by Ian Olivas [facility]. They will participate if this is needed. 08/16- Continue to encourage treatment 08/17 CTP 08/18 CTP 08/19: Will file Section 7 on 08/20. Family is in agreement. 08/20: pacing in front of nurses station. Keeping to self. malodorous and unkempt. declining to shower. guarded. brief during assessment. Patient reports feeling fine ; states he doesn't need anything . encouraged to shower and attend groups. 08/21: Encourage treatment and alliance building. 08/22: Continue to attempt treatment 08/23: Continue to offer and attempt treatment 08/24: Continue current regimen and plans. Encourage food and drink. 08/26 Patient standing alone in [place] most of the day, quiet, just staring off. Patient tells lyric writer that he is eating and drinking regularly; he says he came to the hospital because he wanted help to quit smoking; says he does not need medications.Nursing staff reports that patient is not eating or drinking much at all (though did eat some yesterday) -court postponed until 09/05/2408/28 Intake and ADL attention with slight improvement Continues to refuse medications CAT negative Father to pursue guardianship 08/30 Continue plan 08/31-09/01 no change in presentation 09/02-continue plan. 09/03- COVID +. Continue to offer treatment 09/05- Continue plan. Asked pt if we could repeat his labs, he declines at this time. 09/06- Court 09/09/24. 09/07/24 - seems to have plan for himself for dc- has apartment, car, and can get a job in [employer] appears to be eating more and drinking more fluids- still flat affect and no interest in medications 09/08 despite repeating this discussion this am, patient went on to not eat, drink all day , and some very disorganized and odd behaviors and emotions which he is unable to explain/express- likely not really ready to go back to so described life and is really only been able to superficially manage lately 09/09 [address] Pt is at this time a 2:1 special due to agitation. Lorazepam 2 mg bid Zyprexa 10 mg bid 09/11: Continue regime and plan 09/13: Decrease lorazepam to 1 mg tid 09/15: Continue plan. Declines EEG/MRI 09/16: Observed pacing unit hallway. guarded. pt brief during assessment, declined to go into unit office with T/W. Responding with one word answers. Pt reports feeling good today; states he is sleeping well. Encouraged to shower. denies SI/HI/VH/AH. Continue current tx plan. 09/18: Continue tx 09/19: Haldol 2 mg bid 09/20: Continue regime. Depakote compliance 09/13-09/19 at 500 mg. Pt will not increase. As he is accepting of Haldol we will taper Depakote. This is a medicine he is not interested in taking. Decrease Depakote to 250 mg HS. 09/21 Patient says that he is okay and enjoyed his visit with his dad yesterday. Patient said he went to some groups but he is not very interested in them. Says he is mostly waiting for discharge and hopes it can be soon. No complaints and no request. Patient in good behavioral and impulse control; keeping to himself. 09/22 Patient reports that he feels good...better... And does have a noticeably brighter affect. [facility] asked how he recognizes this and he said something about being around people. Patient again asked about discharge which he will discuss tomorrow with primary team 09/24-continue tx. MRI completed. Will order EEG, EKG, consult with family, dc planning. 09/25: Continue current treatment. Brain MRI on 09/2024 was benign. Regarding poor hygiene/not showing: Proper shower instructed/encouraged; he notes he will shower this evening. 09/26: Continue to encourage self care 09/27: DC Depakote 09/28: continue current management and treatment plan. 09/29: continue current management and treatment plan. Reason for continued inpatient stay Substantial Risk for: inability to function and rapid decompensation Time Spent With Patient Time: Total time managing care of this patient today ____ minutes.
[2024-09-29 19:48] VITALS: BP 130/75; PULSE 100; TEMP 36.7; O2SAT 99
[2024-09-30 08:00] VITALS: BP 125/70; PULSE 80; RESP 18; TEMP 36.4; O2SAT 96
[2024-09-30] MEDS: HaloperidoL 1 MG TABLET 2 MG PO ×2 (08:41→21:07)
[2024-09-30] MEDS: OLANZapine ODT 10 MG TAB.RAPDIS 15 MG TRANSLINGU ×2 (08:41→21:08)
[2024-09-30] MEDS: LORazepam 1 MG TABLET PO ×3 (08:42→21:07)
--- NOTE | 2024-09-30 09:30 | HO.PSYCHPN ---
Subjective Subjective Date of Service: 09/30/24 Reason For Visit: catatonia Interim History: Reports feeling well. No change from yesterday. Visible on the unit. Reports mood has been stable. Feels improved. Denies SI/HI/AVH. Adherent to medications. Review of Systems Review of Systems denies Yes all other systems are reviewed and are negative and Unobtainable due to mental status Constitutional: Reports no additional constitutional complaints, Denies chills, Denies fever(s) and Denies night sweats Eyes: Reports no additional eye complaints, Denies blurry vision, Denies change in vision, Denies diplopia, Denies eye discharge, Denies loss of vision and Denies eye pain Denies dizziness Cardiovascular: Reports no additional cardiovascular complaints, Denies chest pain, Denies lightheadedness, Denies Loss of Consciousness and Denies dyspnea Respiratory: Reports no additional respiratory complaints and Denies dyspnea Gastrointestinal: Reports no additional gastrointestinal complaints, Denies abdominal pain, Denies melena, Denies hematochezia, Denies change in bowel habits and Denies change in stool character Genitourinary: Reports no additional male genitourinary complaints, Denies hematuria, Denies oliguria, Denies difficulty urinating, Denies dysuria, Denies urinary frequency, Denies urinary hesitancy, Denies urinary incontinence and Denies urinary urgency Musculoskeletal: Reports no additional musculoskeletal complaints, Denies numbness and Denies tingling Reports behavioral changes, Denies dizziness, Denies loss of vision, Denies numbness and Denies tingling Psychiatric: Reports abnormal sleep pattern, Reports behavioral changes, Reports difficulty concentrating, Denies homicidal ideation and Denies suicidal ideation Endocrine: Reports no additional endocrine complaints Hematologic/Lymphatic: Reports no additional hematologic/lymphatic complaints Allergic/Immunologic: Reports no additional allergic/immunologic complaints Mental Status Exam Mental Status Exam Narrative: Mental Status Exam Narrative: Appearance: Disheveled and Unkempt Behavior: Calm and cooperative throughout the interview. Eye contact is appropriate, and there are no signs of psychomotor agitation or retardation Speech: Normal volume and prosody Thought process logical and goal-directed Thought content: Future oriented no self-harming thoughts Mood: Good Affect: Constricted, mood-congruent SI:denies HI:denies VH/AH:none Delusions: None Insight/judgment: Fair insight and judgment Memory/cog: Alert, oriented x 4. grossly intact to conversational testing Patient Appearance: Appropriate Patient Orientation: Person, Place and Situation Level of Consciousness: Alert Patient Behavior: Talkative, Distractible and Good Eye Contact Mood Description: Constricted Affect Description: Constricted Patient Cognition Impaired: No Ability to Follow Directions: Good Speech Pattern: Impoverished, Spontaneous Speech and Soft-Spoken Memory Description: Episodic Impaired Diagnostics Vital Signs (24Hr): Vital Signs - 24 hr 09/29/24 19:48 09/30/24 08:00 Temperature 98.1 F 97.5 F Pulse Rate 100 80 Respiratory Rate 18 Blood Pressure 130/75 125/70 Pulse Oximetry 99 96 Oxygen Delivery Method Room Air Room Air BMI result Body Mass Index 29.1 Labs 08/12/24 10:10 08/13/24 13:34 Imaging Radiology Impressions: ITS Impressions Head CT 08/27/24 13:57 IMPRESSION: No acute brain abnormality by CT. Electronically signed by: Tito Costa MD 08/27/2024 04:05 PM EDT RP Brain MRI 09/24/24 14:00 IMPRESSION: 1. Normal MRI of the brain. 2. Mild paranasal sinus disease. Electronically signed by: Michael Finnegan MD 09/24/2024 02:54 PM EDT RP Medications Medications Current Medications Acetaminophen (Acetaminophen 325 Mg Tablet) 650 mg PO Q6H PRN PRN Reason: Headache/Pain, Scale 1-10 Al Hydroxide/Mg Hydroxide (Magnesium Hydrox/Alum Hydrox 30 Ml Oral.Susp) 30 ml PO Q6H PRN PRN Reason: Heartburn/Nausea Haloperidol (Haloperidol 1 Mg Tablet) 2 mg PO BID [facility] Last Admin: 09/30/24 08:41 Dose: 2 mg Haloperidol Lactate (Haloperidol Lactate 5 Mg/Ml Vial) 2 mg IM BID PRN PRN Reason: if pt refuses PO Haldol, court Hydroxyzine HCl (Hydroxyzine Hcl 25 Mg Tablet) 25 mg PO Q6H PRN PRN Reason: mild anxiety Lorazepam (Lorazepam 1 Mg Tablet) 1 mg PO TID [facility] Last Admin: 09/30/24 08:42 Dose: 1 mg Magnesium Hydroxide (Milk Of Magnesia 30 Ml Oral.Susp) 30 ml PO DAILY PRN PRN Reason: Constipation Nicotine (Nicotine 21 Mg Patch.Td24) 21 mg TRANSDERMA DAILY PRN PRN Reason: smoking cessation Nicotine Polacrilex (Nicotine Polacrilex 2 Mg Gum) 4 mg BUCCAL Q2H PRN PRN Reason: Nicotine Cravings Last Admin: 09/04/24 16:47 Dose: 4 mg Olanzapine (Olanzapine 5 Mg Tablet) 5 mg PO BID PRN PRN Reason: agitation, psychosis Olanzapine (Olanzapine Odt 10 Mg Tab.Rapdis) 15 mg TRANSLINGU BID [facility] Last Admin: 09/30/24 08:41 Dose: 15 mg Olanzapine (Olanzapine 10 Mg Vial) 15 mg IM BID PRN PRN Reason: per court if pt refuses po Trazodone HCl (Trazodone Hcl 50 Mg Tablet) 50 mg PO BEDTIME MRX1 PRN PRN Reason: Insomnia Last Admin: 08/14/24 20:45 Dose: 50 mg Allergies Allergies Allergy/AdvReac Type Severity Reaction Status Date / Time No Known Allergies Allergy Verified 08/12/24 09:40 Assessment & Plan Assessment & Plan (1) Schizoaffective disorder, bipolar type: Status: Acute Code(s): F25.0 - Schizoaffective disorder, bipolar type (2) PTSD (post-traumatic stress disorder): Status: Acute Code(s): F43.10 - Post-traumatic stress disorder, unspecified (3) Cannabis use disorder: Status: Acute Code(s): F12.90 - Cannabis use, unspecified, uncomplicated Plan Plan Admit, CV, 15 minute checks Collateral Contact Diagnostics as needed --B12,Folate,TSH, EKG Encourage milieu participation Olanzapine 10 mg bid Valproate ER 500 mg HS DC/Aftercare planning 08/15-Continue to encourage treatment Section 7 may be needed This was discussed with family by Ian Olivas [facility]. They will participate if this is needed. 08/16- Continue to encourage treatment 08/17 CTP 08/18 CTP 08/19: Will file Section 7 on 08/20. Family is in agreement. 08/20: pacing in front of nurses station. Keeping to self. malodorous and unkempt. declining to shower. guarded. brief during assessment. Patient reports feeling fine ; states he doesn't need anything . encouraged to shower and attend groups. 08/21: Encourage treatment and alliance building. 08/22: Continue to attempt treatment 08/23: Continue to offer and attempt treatment 08/24: Continue current regimen and plans. Encourage food and drink. 08/26 Patient standing alone in [place] most of the day, quiet, just staring off. Patient tells card writer hand that he is eating and drinking regularly; he says he came to the hospital because he wanted help to quit smoking; says he does not need medications.Nursing staff reports that patient is not eating or drinking much at all (though did eat some yesterday) -court postponed until 09/05/2408/28 Intake and ADL attention with slight improvement Continues to refuse medications CAT negative Father to pursue guardianship 08/30 Continue plan 08/31-09/01 no change in presentation 09/02-continue plan. 09/03- COVID +. Continue to offer treatment 09/05- Continue plan. Asked pt if we could repeat his labs, he declines at this time. 09/06- Court 09/09/24. 09/07/24 - seems to have plan for himself for dc- has apartment, car, and can get a job in [employer] appears to be eating more and drinking more fluids- still flat affect and no interest in medications 09/08 despite repeating this discussion this am, patient went on to not eat, drink all day , and some very disorganized and odd behaviors and emotions which he is unable to explain/express- likely not really ready to go back to so described life and is really only been able to superficially manage lately 09/09 [address] Pt is at this time a 2:1 special due to agitation. Lorazepam 2 mg bid Zyprexa 10 mg bid 09/11: Continue regime and plan 09/13: Decrease lorazepam to 1 mg tid 09/15: Continue plan. Declines EEG/MRI 09/16: Observed pacing unit hallway. guarded. pt brief during assessment, declined to go into unit office with T/W. Responding with one word answers. Pt reports feeling good today; states he is sleeping well. Encouraged to shower. denies SI/HI/VH/AH. Continue current tx plan. 09/18: Continue tx 09/19: Haldol 2 mg bid 09/20: Continue regime. Depakote compliance 09/13-09/19 at 500 mg. Pt will not increase. As he is accepting of Haldol we will taper Depakote. This is a medicine he is not interested in taking. Decrease Depakote to 250 mg HS. 09/21 Patient says that he is okay and enjoyed his visit with his dad yesterday. Patient said he went to some groups but he is not very interested in them. Says he is mostly waiting for discharge and hopes it can be soon. No complaints and no request. Patient in good behavioral and impulse control; keeping to himself. 09/22 Patient reports that he feels good...better... And does have a noticeably brighter affect. [employer] asked how he recognizes this and he said something about being around people. Patient again asked about discharge which he will discuss tomorrow with primary team 09/24-continue tx. MRI completed. Will order EEG, EKG, consult with family, dc planning. 09/25: Continue current treatment. Brain MRI on 09/2024 was benign. Regarding poor hygiene/not showing: Proper shower instructed/encouraged; he notes he will shower this evening. 09/26: Continue to encourage self care 09/27: DC Depakote 09/28: continue current management and treatment plan. 09/29: continue current management and treatment plan. 09/30: continue current management and treatment plan. Reason for continued inpatient stay Substantial Risk for: inability to function and rapid decompensation Time Spent With Patient Time: Total time managing care of this patient today ____ minutes.
[2024-09-30 19:51] VITALS: BP 119/74; PULSE 94; RESP 16; TEMP 36.7; O2SAT 98
[2024-10-01] MEDS: HaloperidoL 1 MG TABLET 2 MG PO ×2 (08:38→21:00)
[2024-10-01] MEDS: LORazepam 1 MG TABLET PO ×3 (08:39→21:00)
[2024-10-01] MEDS: OLANZapine ODT 10 MG TAB.RAPDIS 15 MG TRANSLINGU ×2 (08:39→21:00)
[2024-10-01 19:49] VITALS: BP 138/79; PULSE 101; RESP 16; TEMP 37.1; O2SAT 99
--- NOTE | 2024-10-01 23:34 | HO.PSYCHPN ---
Subjective Subjective Date of Service: 10/01/24 Reason For Visit: catatonia Interim History: Met with patient; discussed with team; reviewed chart Patient reports that he is good and acknowledges that he is feeling better; patient even eating with peers in the kitchen which is new and to which patient says he is overall feeling more comfortable around people. Denies any psychiatric symptoms; no complaints and no requests other than hoping for discharge this week which is the plan. Mental Status Exam Mental Status Exam Narrative: Pt is alert and oriented; behavior is cooperative, mostly keeps to himself but friendly on approach, calm and more social with peers, even eating with peers in the dining room; in good behavioral and impulse control patient is not in distress; dressed in casual attire, trimmed facial hair though still unkempt; mood is described as good and affect congruent; eye contact appropriate; Speech is normal rate, volume and prosody and not pressured; no psychomotor agitation/retardation present; thought process is organized and goal directed; Thought content is on discharge; no delusional ideations expressed; denies any SI/HI. Denies AVH and he does not seem internally preoccupied. Patients insight and judgment at baseline, appear intact and are adequate Diagnostics Vital Signs (24Hr): Vital Signs - 24 hr 10/01/24 19:49 Temperature 98.8 F Pulse Rate 101 H Respiratory Rate 16 Blood Pressure 138/79 Pulse Oximetry 99 Oxygen Delivery Method Room Air BMI result Body Mass Index 29.1 Labs 08/12/24 10:10 08/13/24 13:34 Imaging Radiology Impressions: ITS Impressions Head CT 08/27/24 13:57 IMPRESSION: No acute brain abnormality by CT. Electronically signed by: Tito Costa MD 08/27/2024 04:05 PM EDT RP Brain MRI 09/24/24 14:00 IMPRESSION: 1. Normal MRI of the brain. 2. Mild paranasal sinus disease. Electronically signed by: Michael Finnegan MD 09/24/2024 02:54 PM EDT RP Medications Medications Current Medications Acetaminophen (Acetaminophen 325 Mg Tablet) 650 mg PO Q6H PRN PRN Reason: Headache/Pain, Scale 1-10 Al Hydroxide/Mg Hydroxide (Magnesium Hydrox/Alum Hydrox 30 Ml Oral.Susp) 30 ml PO Q6H PRN PRN Reason: Heartburn/Nausea Haloperidol (Haloperidol 1 Mg Tablet) 2 mg PO BID [facility] Last Admin: 10/01/24 21:00 Dose: 2 mg Haloperidol Lactate (Haloperidol Lactate 5 Mg/Ml Vial) 2 mg IM BID PRN PRN Reason: if pt refuses PO Haldol, court Hydroxyzine HCl (Hydroxyzine Hcl 25 Mg Tablet) 25 mg PO Q6H PRN PRN Reason: mild anxiety Lorazepam (Lorazepam 1 Mg Tablet) 1 mg PO TID [facility] Last Admin: 10/01/24 21:00 Dose: 1 mg Magnesium Hydroxide (Milk Of Magnesia 30 Ml Oral.Susp) 30 ml PO DAILY PRN PRN Reason: Constipation Nicotine (Nicotine 21 Mg Patch.Td24) 21 mg TRANSDERMA DAILY PRN PRN Reason: smoking cessation Nicotine Polacrilex (Nicotine Polacrilex 2 Mg Gum) 4 mg BUCCAL Q2H PRN PRN Reason: Nicotine Cravings Last Admin: 09/04/24 16:47 Dose: 4 mg Olanzapine (Olanzapine 5 Mg Tablet) 5 mg PO BID PRN PRN Reason: agitation, psychosis Olanzapine (Olanzapine Odt 10 Mg Tab.Rapdis) 15 mg TRANSLINGU BID [facility] Last Admin: 10/01/24 21:00 Dose: 15 mg Olanzapine (Olanzapine 10 Mg Vial) 15 mg IM BID PRN PRN Reason: per court if pt refuses po Trazodone HCl (Trazodone Hcl 50 Mg Tablet) 50 mg PO BEDTIME MRX1 PRN PRN Reason: Insomnia Last Admin: 08/14/24 20:45 Dose: 50 mg Allergies Allergies Allergy/AdvReac Type Severity Reaction Status Date / Time No Known Allergies Allergy Verified 08/12/24 09:40 Assessment & Plan Assessment & Plan (1) Schizoaffective disorder, bipolar type: Status: Acute Code(s): F25.0 - Schizoaffective disorder, bipolar type (2) PTSD (post-traumatic stress disorder): Status: Acute Code(s): F43.10 - Post-traumatic stress disorder, unspecified (3) Cannabis use disorder: Status: Acute Code(s): F12.90 - Cannabis use, unspecified, uncomplicated Plan Plan Admit, CV, 15 minute checks Collateral Contact Diagnostics as needed --B12,Folate,TSH, EKG Encourage milieu participation Olanzapine 10 mg bid Valproate ER 500 mg HS DC/Aftercare planning 08/15-Continue to encourage treatment Section 7 may be needed This was discussed with family by Ian VILLANUEVA. They will participate if this is needed. 08/16- Continue to encourage treatment 08/17 CTP 08/18 CTP 08/19: Will file Section 7 on 08/20. Family is in agreement. 08/20: pacing in front of nurses station. Keeping to self. malodorous and unkempt. declining to shower. guarded. brief during assessment. Patient reports feeling fine ; states he doesn't need anything . encouraged to shower and attend groups. 08/21: Encourage treatment and alliance building. 08/22: Continue to attempt treatment 08/23: Continue to offer and attempt treatment 08/24: Continue current regimen and plans. Encourage food and drink. 08/26 Patient standing alone in [place] most of the day, quiet, just staring off. Patient tells senior medical writer that he is eating and drinking regularly; he says he came to the hospital because he wanted help to quit smoking; says he does not need medications.Nursing staff reports that patient is not eating or drinking much at all (though did eat some yesterday) -court postponed until 09/05/2408/28 Intake and ADL attention with slight improvement Continues to refuse medications CAT negative Father to pursue guardianship 08/30 Continue plan 08/31-09/01 no change in presentation 09/02-continue plan. 09/03- COVID +. Continue to offer treatment 09/05- Continue plan. Asked pt if we could repeat his labs, he declines at this time. 09/06- Court 09/09/24. 09/07/24 - seems to have plan for himself for dc- has apartment, car, and can get a job in [employer] appears to be eating more and drinking more fluids- still flat affect and no interest in medications 09/08 despite repeating this discussion this am, patient went on to not eat, drink all day , and some very disorganized and odd behaviors and emotions which he is unable to explain/express- likely not really ready to go back to so described life and is really only been able to superficially manage lately 09/09 [address]. Pt is at this time a 2:1 special due to agitation. Lorazepam 2 mg bid Zyprexa 10 mg bid 09/11: Continue regime and plan 09/13: Decrease lorazepam to 1 mg tid 09/15: Continue plan. Declines EEG/MRI 09/16: Observed pacing unit hallway. guarded. pt brief during assessment, declined to go into unit office with T/W. Responding with one word answers. Pt reports feeling good today; states he is sleeping well. Encouraged to shower. denies SI/HI/VH/AH. Continue current tx plan. 09/18: Continue tx 09/19: Haldol 2 mg bid 09/20: Continue regime. Depakote compliance 09/13-09/19 at 500 mg. Pt will not increase. As he is accepting of Haldol we will taper Depakote. This is a medicine he is not interested in taking. Decrease Depakote to 250 mg HS. 09/21 Patient says that he is okay and enjoyed his visit with his dad yesterday. Patient said he went to some groups but he is not very interested in them. Says he is mostly waiting for discharge and hopes it can be soon. No complaints and no request. Patient in good behavioral and impulse control; keeping to himself. 09/22 Patient reports that he feels good...better... And does have a noticeably brighter affect. Medical Care Manager asked how he recognizes this and he said something about being around people. Patient again asked about discharge which he will discuss tomorrow with primary team 09/24-continue tx. MRI completed. Will order EEG, EKG, consult with family, dc planning. 09/25: Continue current treatment. Brain MRI on 09/2024 was benign. Regarding poor hygiene/not showing: Proper shower instructed/encouraged; he notes he will shower this evening. 09/26: Continue to encourage self care 09/27: DC Depakote 09/28: continue current management and treatment plan. 09/29: continue current management and treatment plan. 09/30: continue current management and treatment plan. 10/01 patient is improved with noticeably brighter affect; as patient has stabilized and improved will continue current treatment regimen including Ativan. Patient educated on: diagnosis Informed Consent: understands and further education needed Reason for continued inpatient stay Substantial Risk for: stable for discharge Time Spent With Patient Time: Total time managing care of this patient today ____ minutes.
[2024-10-02 08:00] VITALS: BP 128/81; PULSE 77; TEMP 36.7; O2SAT 96
[2024-10-02] MEDS: LORazepam 1 MG TABLET PO ×3 (08:42→20:32)
[2024-10-02] MEDS: HaloperidoL 1 MG TABLET 2 MG PO ×2 (08:42→20:32)
[2024-10-02] MEDS: OLANZapine ODT 10 MG TAB.RAPDIS 15 MG TRANSLINGU ×2 (08:43→20:31)
[2024-10-02 19:47] VITALS: BP 134/64; PULSE 105; RESP 15; TEMP 36.9; O2SAT 98
[2024-10-03 08:00] VITALS: BP 126/81; PULSE 85; RESP 18; TEMP 36.4; O2SAT 95
[2024-10-03] MEDS: LORazepam 1 MG TABLET PO ×3 (08:59→21:20)
[2024-10-03] MEDS: HaloperidoL 1 MG TABLET 2 MG PO ×2 (09:00→21:20)
[2024-10-03] MEDS: OLANZapine ODT 10 MG TAB.RAPDIS 15 MG TRANSLINGU ×2 (09:00→21:19)
--- NOTE | 2024-10-03 10:00 | HO.PSYCHPN ---
Subjective Subjective Date of Service: 10/02/24 Reason For Visit: catatonia Interim History: late entry note for pt seen on 10/03/24; discussed with team Patient remains in good behavioral and impulse control; good mood, no complaints, denies any psychiatric symptoms including psychotic symptoms. Friendly on approach and asks about discharge and agrees with plan for this Monday. Mental Status Exam Mental Status Exam Narrative: Pt is alert and oriented; behavior is cooperative, mostly keeps to himself but friendly on approach, calm and more social with peers; in good behavioral and impulse control patient is not in distress; dressed in casual attire, trimmed facial hair though still unkempt; mood is described as good and affect congruent; eye contact appropriate; Speech is normal rate, volume and prosody and not pressured; no psychomotor agitation/retardation present; thought process is organized and goal directed; Thought content is on discharge; no delusional ideations expressed; denies any SI/HI. Denies AVH and he does not seem internally preoccupied. Patients insight and judgment at baseline, appear intact and are adequate Diagnostics Vital Signs (24Hr): Vital Signs - 24 hr 10/02/24 19:47 10/03/24 08:00 Temperature 98.4 F 97.5 F Pulse Rate 105 H 85 Respiratory Rate 15 18 Blood Pressure 134/64 126/81 Pulse Oximetry 98 95 Oxygen Delivery Method Room Air BMI result Body Mass Index 29.1 Labs 08/12/24 10:10 08/13/24 13:34 Imaging Radiology Impressions: ITS Impressions Head CT 08/27/24 13:57 IMPRESSION: No acute brain abnormality by CT. Electronically signed by: Tito Costa MD 08/27/2024 04:05 PM EDT RP Brain MRI 09/24/24 14:00 IMPRESSION: 1. Normal MRI of the brain. 2. Mild paranasal sinus disease. Electronically signed by: Michael Finnegan MD 09/24/2024 02:54 PM EDT RP Medications Medications Current Medications Acetaminophen (Acetaminophen 325 Mg Tablet) 650 mg PO Q6H PRN PRN Reason: Headache/Pain, Scale 1-10 Al Hydroxide/Mg Hydroxide (Magnesium Hydrox/Alum Hydrox 30 Ml Oral.Susp) 30 ml PO Q6H PRN PRN Reason: Heartburn/Nausea Haloperidol (Haloperidol 1 Mg Tablet) 2 mg PO BID [facility] Last Admin: 10/03/24 09:00 Dose: 2 mg Haloperidol Lactate (Haloperidol Lactate 5 Mg/Ml Vial) 2 mg IM BID PRN PRN Reason: if pt refuses PO Haldol, court Hydroxyzine HCl (Hydroxyzine Hcl 25 Mg Tablet) 25 mg PO Q6H PRN PRN Reason: mild anxiety Lorazepam (Lorazepam 1 Mg Tablet) 1 mg PO TID [facility] Last Admin: 10/03/24 08:59 Dose: 1 mg Magnesium Hydroxide (Milk Of Magnesia 30 Ml Oral.Susp) 30 ml PO DAILY PRN PRN Reason: Constipation Nicotine (Nicotine 21 Mg Patch.Td24) 21 mg TRANSDERMA DAILY PRN PRN Reason: smoking cessation Nicotine Polacrilex (Nicotine Polacrilex 2 Mg Gum) 4 mg BUCCAL Q2H PRN PRN Reason: Nicotine Cravings Last Admin: 09/04/24 16:47 Dose: 4 mg Olanzapine (Olanzapine 5 Mg Tablet) 5 mg PO BID PRN PRN Reason: agitation, psychosis Olanzapine (Olanzapine Odt 10 Mg Tab.Rapdis) 15 mg TRANSLINGU BID [facility] Last Admin: 10/03/24 09:00 Dose: 15 mg Olanzapine (Olanzapine 10 Mg Vial) 15 mg IM BID PRN PRN Reason: per court if pt refuses po Trazodone HCl (Trazodone Hcl 50 Mg Tablet) 50 mg PO BEDTIME MRX1 PRN PRN Reason: Insomnia Last Admin: 08/14/24 20:45 Dose: 50 mg Allergies Allergies Allergy/AdvReac Type Severity Reaction Status Date / Time No Known Allergies Allergy Verified 08/12/24 09:40 Assessment & Plan Assessment & Plan (1) Schizoaffective disorder, bipolar type: Status: Acute Code(s): F25.0 - Schizoaffective disorder, bipolar type (2) PTSD (post-traumatic stress disorder): Status: Acute Code(s): F43.10 - Post-traumatic stress disorder, unspecified (3) Cannabis use disorder: Status: Acute Code(s): F12.90 - Cannabis use, unspecified, uncomplicated Plan Plan Admit, CV, 15 minute checks Collateral Contact Diagnostics as needed --B12,Folate,TSH, EKG Encourage milieu participation Olanzapine 10 mg bid Valproate ER 500 mg HS DC/Aftercare planning 08/15-Continue to encourage treatment Section 7 may be needed This was discussed with family by Ian Olivas METAL POURER. They will participate if this is needed. 08/16- Continue to encourage treatment 08/17 CTP 08/18 CTP 08/19: Will file Section 7 on 08/20. Family is in agreement. 08/20: pacing in front of nurses station. Keeping to self. malodorous and unkempt. declining to shower. guarded. brief during assessment. Patient reports feeling fine ; states he doesn't need anything . encouraged to shower and attend groups. 08/21: Encourage treatment and alliance building. 08/22: Continue to attempt treatment 08/23: Continue to offer and attempt treatment 08/24: Continue current regimen and plans. Encourage food and drink. 08/26 Patient standing alone in [place] most of the day, quiet, just staring off. Patient tells contract technical writer that he is eating and drinking regularly; he says he came to the hospital because he wanted help to quit smoking; says he does not need medications.Nursing staff reports that patient is not eating or drinking much at all (though did eat some yesterday) -court postponed until 09/05/2408/28 Intake and ADL attention with slight improvement Continues to refuse medications CAT negative Father to pursue guardianship 08/30 Continue plan 08/31-09/01 no change in presentation 09/02-continue plan. 09/03- COVID +. Continue to offer treatment 09/05- Continue plan. Asked pt if we could repeat his labs, he declines at this time. 09/06- Court 09/09/24. 09/07/24 - seems to have plan for himself for dc- has apartment, car, and can get a job in [employer] appears to be eating more and drinking more fluids- still flat affect and no interest in medications 09/08 despite repeating this discussion this am, patient went on to not eat, drink all day , and some very disorganized and odd behaviors and emotions which he is unable to explain/express- likely not really ready to go back to so described life and is really only been able to superficially manage lately 09/[address] Pt is at this time a 2:1 special due to agitation. Lorazepam 2 mg bid Zyprexa 10 mg bid 09/11: Continue regime and plan 09/13: Decrease lorazepam to 1 mg tid 09/15: Continue plan. Declines EEG/MRI 09/16: Observed pacing unit hallway. guarded. pt brief during assessment, declined to go into unit office with T/W. Responding with one word answers. Pt reports feeling good today; states he is sleeping well. Encouraged to shower. denies SI/HI/VH/AH. Continue current tx plan. 09/18: Continue tx 09/19: Haldol 2 mg bid 09/20: Continue regime. Depakote compliance 09/13-09/19 at 500 mg. Pt will not increase. As he is accepting of Haldol we will taper Depakote. This is a medicine he is not interested in taking. Decrease Depakote to 250 mg HS. 09/21 Patient says that he is okay and enjoyed his visit with his dad yesterday. Patient said he went to some groups but he is not very interested in them. Says he is mostly waiting for discharge and hopes it can be soon. No complaints and no request. Patient in good behavioral and impulse control; keeping to himself. 09/22 Patient reports that he feels good...better... And does have a noticeably brighter affect. Overhead Crane Technician asked how he recognizes this and he said something about being around people. Patient again asked about discharge which he will discuss tomorrow with primary team 09/24-continue tx. MRI completed. Will order EEG, EKG, consult with family, dc planning. 09/25: Continue current treatment. Brain MRI on 09/2024 was benign. Regarding poor hygiene/not showing: Proper shower instructed/encouraged; he notes he will shower this evening. 09/26: Continue to encourage self care 09/27: DC Depakote 09/28: continue current management and treatment plan. 09/29: continue current management and treatment plan. 09/30: continue current management and treatment plan. Patient educated on: diagnosis Informed Consent: understands and further education needed Reason for continued inpatient stay Substantial Risk for: stable for discharge Time Spent With Patient Time: Total time managing care of this patient today ____ minutes.
--- NOTE | 2024-10-03 10:01 | HO.PSYCHPN ---
Subjective Subjective Date of Service: 10/03/24 Reason For Visit: catatonia Mental Status Exam Mental Status Exam Narrative: Pt is alert and oriented; behavior is cooperative, mostly keeps to himself but friendly on approach, calm and more social with peers; in good behavioral and impulse control patient is not in distress; dressed in casual attire, trimmed facial hair though still unkempt; mood is described as good and affect congruent; eye contact appropriate; Speech is normal rate, volume and prosody and not pressured; no psychomotor agitation/retardation present; thought process is organized and goal directed; Thought content is on discharge; no delusional ideations expressed; denies any SI/HI. Denies AVH and he does not seem internally preoccupied. Patients insight and judgment at baseline, appear intact and are adequate. Diagnostics Vital Signs (24Hr): Vital Signs - 24 hr 10/02/24 19:47 10/03/24 08:00 Temperature 98.4 F 97.5 F Pulse Rate 105 H 85 Respiratory Rate 15 18 Blood Pressure 134/64 126/81 Pulse Oximetry 98 95 Oxygen Delivery Method Room Air BMI result Body Mass Index 29.1 Labs 08/12/24 10:10 08/13/24 13:34 Imaging Radiology Impressions: ITS Impressions Head CT 08/27/24 13:57 IMPRESSION: No acute brain abnormality by CT. Electronically signed by: Tito Costa MD 08/27/2024 04:05 PM EDT Brain MRI 09/24/24 14:00 IMPRESSION: 1. Normal MRI of the brain. 2. Mild paranasal sinus disease. Electronically signed by: Michael Finnegan MD 09/24/2024 02:54 PM EDT Medications Medications Current Medications Acetaminophen (Acetaminophen 325 Mg Tablet) 650 mg PO Q6H PRN PRN Reason: Headache/Pain, Scale 1-10 Al Hydroxide/Mg Hydroxide (Magnesium Hydrox/Alum Hydrox 30 Ml Oral.Susp) 30 ml PO Q6H PRN PRN Reason: Heartburn/Nausea Haloperidol (Haloperidol 1 Mg Tablet) 2 mg PO BID RIKI Last Admin: 10/03/24 09:00 Dose: 2 mg Haloperidol Lactate (Haloperidol Lactate 5 Mg/Ml Vial) 2 mg IM BID PRN PRN Reason: if pt refuses PO Haldol, court Hydroxyzine HCl (Hydroxyzine Hcl 25 Mg Tablet) 25 mg PO Q6H PRN PRN Reason: mild anxiety Lorazepam (Lorazepam 1 Mg Tablet) 1 mg PO TID [facility] Last Admin: 10/03/24 08:59 Dose: 1 mg Magnesium Hydroxide (Milk Of Magnesia 30 Ml Oral.Susp) 30 ml PO DAILY PRN PRN Reason: Constipation Nicotine (Nicotine 21 Mg Patch.Td24) 21 mg TRANSDERMA DAILY PRN PRN Reason: smoking cessation Nicotine Polacrilex (Nicotine Polacrilex 2 Mg Gum) 4 mg BUCCAL Q2H PRN PRN Reason: Nicotine Cravings Last Admin: 09/04/24 16:47 Dose: 4 mg Olanzapine (Olanzapine 5 Mg Tablet) 5 mg PO BID PRN PRN Reason: agitation, psychosis Olanzapine (Olanzapine Odt 10 Mg Tab.Rapdis) 15 mg TRANSLINGU BID [facility] Last Admin: 10/03/24 09:00 Dose: 15 mg Olanzapine (Olanzapine 10 Mg Vial) 15 mg IM BID PRN PRN Reason: per court if pt refuses po Trazodone HCl (Trazodone Hcl 50 Mg Tablet) 50 mg PO BEDTIME MRX1 PRN PRN Reason: Insomnia Last Admin: 08/14/24 20:45 Dose: 50 mg Allergies Allergies Allergy/AdvReac Type Severity Reaction Status Date / Time No Known Allergies Allergy Verified 08/12/24 09:40 Assessment & Plan Assessment & Plan (1) Schizoaffective disorder, bipolar type: Status: Acute Code(s): F25.0 - Schizoaffective disorder, bipolar type (2) PTSD (post-traumatic stress disorder): Status: Acute Code(s): F43.10 - Post-traumatic stress disorder, unspecified (3) Cannabis use disorder: Status: Acute Code(s): F12.90 - Cannabis use, unspecified, uncomplicated Plan Plan Admit, CV, 15 minute checks Collateral Contact Diagnostics as needed --B12,Folate,TSH, EKG Encourage milieu participation Olanzapine 10 mg bid Valproate ER 500 mg HS DC/Aftercare planning 08/15-Continue to encourage treatment Section 7 may be needed This was discussed with family by Ian VILLANUEVA. They will participate if this is needed. 08/16- Continue to encourage treatment 08/17 CTP 08/18 CTP 08/19: Will file Section 7 on 08/20. Family is in agreement. 08/20: pacing in front of nurses station. Keeping to self. malodorous and unkempt. declining to shower. guarded. brief during assessment. Patient reports feeling fine ; states he doesn't need anything . encouraged to shower and attend groups. 08/21: Encourage treatment and alliance building. 08/22: Continue to attempt treatment 08/23: Continue to offer and attempt treatment 08/24: Continue current regimen and plans. Encourage food and drink. 08/26 Patient standing alone in [place] most of the day, quiet, just staring off. Patient tells adjusto writer operator that he is eating and drinking regularly; he says he came to the hospital because he wanted help to quit smoking; says he does not need medications.Nursing staff reports that patient is not eating or drinking much at all (though did eat some yesterday) -court postponed until 09/05/2408/28 Intake and ADL attention with slight improvement Continues to refuse medications CAT negative Father to pursue guardianship 08/30 Continue plan 08/31-09/01 no change in presentation 09/02-continue plan. 09/03- COVID +. Continue to offer treatment 09/05- Continue plan. Asked pt if we could repeat his labs, he declines at this time. 09/06- Court 09/09/24. 09/07/24 - seems to have plan for himself for dc- has apartment, car, and [place] appears to be eating more and drinking more fluids- still flat affect and no interest in medications 09/08 despite repeating this discussion this am, patient went on to not eat, drink all day , and some very disorganized and odd behaviors and emotions which he is unable to explain/express- likely not really ready to go back to so described life and is really only been able to superficially manage lately 09/[address] Pt is at this time a 2:1 special due to agitation. Lorazepam 2 mg bid Zyprexa 10 mg bid 09/11: Continue regime and plan 09/13: Decrease lorazepam to 1 mg tid 09/15: Continue plan. Declines EEG/MRI 09/16: Observed pacing unit hallway. guarded. pt brief during assessment, declined to go into unit office with T/W. Responding with one word answers. Pt reports feeling good today; states he is sleeping well. Encouraged to shower. denies SI/HI/VH/AH. Continue current tx plan. 09/18: Continue tx 09/19: Haldol 2 mg bid 09/20: Continue regime. Depakote compliance 09/13-09/19 at 500 mg. Pt will not increase. As he is accepting of Haldol we will taper Depakote. This is a medicine he is not interested in taking. Decrease Depakote to 250 mg HS. 09/21 Patient says that he is okay and enjoyed his visit with his dad yesterday. Patient said he went to some groups but he is not very interested in them. Says he is mostly waiting for discharge and hopes it can be soon. No complaints and no request. Patient in good behavioral and impulse control; keeping to himself. 09/22 Patient reports that he feels good...better... And does have a noticeably brighter affect. Slab Tripper asked how he recognizes this and he said something about being around people. Patient again asked about discharge which he will discuss tomorrow with primary team 09/24-continue tx. MRI completed. Will order EEG, EKG, consult with family, dc planning. 09/25: Continue current treatment. Brain MRI on 09/2024 was benign. Regarding poor hygiene/not showing: Proper shower instructed/encouraged; he notes he will shower this evening. 09/26: Continue to encourage self care 09/27: DC Depakote 09/28: continue current management and treatment plan. 09/29: continue current management and treatment plan. 09/30: continue current management and treatment plan. Patient doing better and his affect is noticeably brighter; reports his mood is good patient also more engaging on approach. He reports feeling more comfortable around people and it is notable that patient has been eating in the kitchen with peers, something he has not done at all throughout this admission until this week. Patient continues to report that he is overall feeling better and more relaxed. He feels ready to go home is eager for discharge. Patient denies any psychiatric symptoms including psychotic symptoms. He is eating and sleeping well and remains in good behavioral and impulse control, appropriate with peers and staff. Patient is returning home where he lives with his father who is supportive and agrees patient is ready for discharge. Patient is not in imminent risk for harm to self or others and appropriate to return to the community for treatment. Patient educated on: diagnosis Informed Consent: understands and further education needed Reason for continued inpatient stay Substantial Risk for: stable for discharge Time Spent With Patient Time: Total time managing care of this patient today ____ minutes.
[2024-10-03 20:00] VITALS: BP 148/74; PULSE 99; TEMP 36.9; O2SAT 99
[2024-10-04 08:00] VITALS: BP 127/75; PULSE 81; RESP 16; TEMP 36.6; O2SAT 98
--- NOTE | 2024-10-04 08:50 | PM.PSYDC ---
DS: Providers Provider Date of Service: 10/04/24 Date of admission: 08/13/24 12:54 Date of discharge: 10/04/24 Primary care physician: Isidra Sutton MD Admitting clinician: Karissa Vogel Attending physician on discharge: Braxton Potts DS: Diagnosis Discharge Diagnosis (1) Schizoaffective disorder, bipolar type: Status: Acute (2) PTSD (post-traumatic stress disorder): Status: Acute (3) Cannabis use disorder: Status: Acute DS: Medications Discharge Medications Home Medications: Previous Rx's ?Medication ?Instructions ?Recorded haloperidol 2 mg tablet 2 mg PO BID 30 days #60 tabs 10/04/24 lorazepam 1 mg tablet 1 mg PO TID 30 days #90 tabs 10/04/24 nicotine (polacrilex) 4 mg gum 4 mg buccal Q2H 30 days #100 ea 10/04/24 olanzapine 15 mg tablet 15 mg PO BID 30 days #60 tabs 10/04/24 Mental Status Exam Mental Status Exam Narrative: Pt is alert and oriented; behavior is cooperative, mostly keeps to himself but friendly on approach, calm and more social with peers; in good behavioral and impulse control patient is not in distress; dressed in casual attire, trimmed facial hair though still unkempt; mood is described as good and affect congruent; eye contact appropriate; Speech is normal rate, volume and prosody and not pressured; no psychomotor agitation/retardation present; thought process is organized and goal directed; Thought content is on discharge; no delusional ideations expressed; denies any SI/HI. Denies AVH and he does not seem internally preoccupied. Patients insight and judgment at baseline, appear intact and are adequate. Data Imaging Diagnostic Imaging Impressions Head CT 08/27/24 13:57 IMPRESSION: No acute brain abnormality by CT. Electronically signed by: Tito Costa MD 08/27/2024 04:05 PM EDT RP Brain MRI 09/24/24 14:00 IMPRESSION: 1. Normal MRI of the brain. 2. Mild paranasal sinus disease. Electronically signed by: Michael Finnegan MD 09/24/2024 02:54 PM EDT RP DS: Summary Hospital Course Hospital Course: HPI: 29 yo male, hx of psychosis, cannabis use d/o, to ER with father. Pt had not been caring for himself, had not slept in several days and it was described by father as being in and out of awareness . Father had been checking on pt and found he had not been attending to ADL's, not changing clothing, there was no food in the frig and he was posturing, staring into space and unable to verbalize his thoughts. Presentation when seen 08/13 was that of acute chi with psychosis-rapid speech, talking of aliens, dismembered bodies and relating this to the supernatural. Today, pt is flat, of few words, guarded but attempting to communicate and dysphoric-it appears he is cycling. Past Psychiatric History: hosps: [facility] x1 SA: none SIB: denies HIB: denies outpt: none presently. no h/o psych meds. some therapy through methadone clinic that he was once attending. Hospital course: Patient with catatonic symptoms on admission, pacing in front of nurses station. Keeping to self. malodorous and unkempt. declining to shower. guarded. brief during assessment. Patient reports feeling fine ; states he doesn't need anything. Nursing staff reports that patient is not eating or drinking much at all. Continues to refuse medications Patient briefly with significant manic symptoms. CAT negative; Brain MRI on 09/2024 was benign Filed Section 7 on 08/20 and patient eventually involuntarily committed with substituted judgment; Family is in agreement; Father to pursue guardianship COVID +. -started on Ativan for catatonia which resolved Started on Depakote which was eventually discontinued Also started on Haldol and patient eventually ended up on Haldol 2 mg b.i.d. and Zyprexa 15 mg b.i.d. Patient eventually started feeling better and was with noticeably brighter affect. Compliant with medications; never really gained insight but overall improved and returned to baseline. As discharge approached, Patient remained doing better and his affect is noticeably brighter; reports his mood is good patient also more engaging on approach. He reports feeling more comfortable around people and it is notable that patient has been eating in the kitchen with peers, something he has not done at all throughout this admission until this week. Patient continues to report that he is overall feeling better and more relaxed. He feels ready to go home is eager for discharge. Patient denies any psychiatric symptoms including psychotic symptoms. He is eating and sleeping well and remains in good behavioral and impulse control, appropriate with peers and staff. Patient is returning home where he lives with his father who is supportive and agrees patient is ready for discharge. Patient is not in imminent risk for harm to self or others and appropriate to return to the community for treatment. Time spent discussing smoking cessation with patient: 3 to 10 minutes Status at Discharge Functional status at discharge: independent ambulation Overall status at discharge: patient is back to baseline Time Spent with Patient Time attestation: Total time managing care of this patient today _40___ minutes. Specific discharge activities: Met with patient; discussed with team; charting; prescriptions Discharge Plan Discharge Anticipated Discharge Date/Time: 10/04/24 11:30 Patient Disposition: Home, Self-Care Discharge Diagnosis: Schizoaffective disorder, bipolar type; catatonia (resolved) Referrals: Liz Ayoub: [facility] (therapy) [Other] - 10/07/24 1:00 pm (Hospital Discharge appointment for therapy intake.) Soraya Bahena: [facility] (psychiatry) [Other] - 10/31/24 9:20 am (Hospital discharge appointment Initial psychiatric evaluation for psychiatric medication management. Appointment is by tele-health. The provider will call you at time of scheduled appointment.) Soraya Bahena: [facility] (psychiatry) [Other] - 11/25/24 2:00 pm (Hospital discharge appointment Follow-up appointment for psychiatric medication management Appointment is by tele-health. the provider will call you at time of the scheduled appointment.) Isidra Sutton MD [Primary Care Provider] - 1 Week Discharge Medications: New nicotine (polacrilex) 4 mg gum 4 mg buccal Q2H 30 Days Qty: 100 0RF haloperidol 2 mg tablet 2 mg PO BID 30 Days Qty: 60 1RF lorazepam 1 mg Tablet 1 mg PO TID 30 Days Qty: 90 1RF olanzapine 15 mg tablet 15 mg PO BID 30 Days Qty: 60 1RF Discharge Orders: Discharge Order (Routine); Ordered 10/04/24 Ordered By: Braxton Potts Diet: Regular diet Activity on Discharge: As tolerated Stand Alone Forms: Patient Portal Discharge page Print Language: Ivorian Care Plan Goals: Maintain mood and safe behaviors Take medications as prescribed Practice coping skills Continue with outpatient providers and reach out to them as needed Health Concerns: Mood stability and behaviors Plan of Treatment: Follow up with your PCP, psychiatric provider and other outpatient providers regarding above concerns Take medications as prescribed Assessment: Risk assessment at time of discharge:? Patient was interviewed prior to discharge and found to be fully oriented and without any SI or HI. Patient has improved insight and judgment and wants to continue treatment. Patient is not in imminent risk of harm to self or others and has a safety plan that includes presenting to the closest ER or calling 911 if feeling unsafe.? Patient has been observed closely by nursing and unit staff throughout admission; patient has not engaged in any behaviors that suggest dangerousness to self or others and has demonstrated appropriate behaviors and impulse control
[2024-10-04] MEDS: OLANZapine ODT 10 MG TAB.RAPDIS 15 MG TRANSLINGU (09:19)
[2024-10-04] MEDS: HaloperidoL 1 MG TABLET 2 MG PO (09:20)
[2024-10-04] MEDS: LORazepam 1 MG TABLET PO (09:21)
== END 2024-10-04 11:40 | disposition home or self-care (01) | DRG 750 ==
LOC: HO.ED 17:24 → HO.PM5 08-13 13:10
PROVIDERS: Admitting Provider Psychiatry & Neurology Psychiatry; Emergency Provider Emergency Medicine; PCP Family Medicine; Visit Provider Clinical Nurse Specialist Psychiatric/Mental Health, Adult
DX: F25.0 Schizoaffective disorder, bipolar type (principal); U07.1 COVID-19; F06.1 Catatonic disorder due to known physiological condition; F12.90 Cannabis use, unspecified, uncomplicated; F17.210 Nicotine dependence, cigarettes, uncomplicated; Z71.6 Tobacco abuse counseling; F43.10 Post-traumatic stress disorder, unspecified
CPT/HCPCS: 0241U; 36415; 70450; 70551; 71046; 74018; 80053; 80061; 80143; 80179; 80307; 81003; 82607; 82746; 84443; 85025; 95816; 99285; S9485

== ENCOUNTER 2024-08-13 12:54 | Outpatient (BNV) | payer MEDICAID, SELFPAY | END 2024-09-24 14:00 | PROVIDERS: Admitting Provider Psychiatry & Neurology Psychiatry; Emergency Provider Emergency Medicine; PCP Family Medicine; Visit Provider Radiology Diagnostic Radiology | DX: F29 Unspecified psychosis not due to a substance or known physiological condition (principal) | CPT/HCPCS: 70551 ==

== ENCOUNTER 2024-08-13 12:54 | Outpatient (BNV) | payer MEDICAID, SELFPAY | END 2024-08-27 13:57 | PROVIDERS: Admitting Provider Psychiatry & Neurology Psychiatry; Emergency Provider Emergency Medicine; PCP Family Medicine; Visit Provider Radiology Diagnostic Radiology | DX: F06.1 Catatonic disorder due to known physiological condition (principal) | CPT/HCPCS: 70450 ==

== ENCOUNTER 2024-08-13 12:54 | Outpatient (BNV) | payer MEDICAID, SELFPAY | END 2024-09-23 17:45 | PROVIDERS: Admitting Provider Psychiatry & Neurology Psychiatry; Emergency Provider Emergency Medicine; PCP Family Medicine; Visit Provider Radiology Diagnostic Radiology | DX: Z13.89 Encounter for screening for other disorder (principal); F43.10 Post-traumatic stress disorder, unspecified; F25.0 Schizoaffective disorder, bipolar type | CPT/HCPCS: 71046; 74018 ==

== ENCOUNTER → 2024-08-13 12:54 | Outpatient (BNV) | payer OTHER, SELFPAY | PROVIDERS: Admitting Provider Psychiatry & Neurology Psychiatry; Emergency Provider Emergency Medicine; PCP Family Medicine; Visit Provider Clinical Nurse Specialist Psychiatric/Mental Health, Adult | DX: F25.0 Schizoaffective disorder, bipolar type (principal); F12.90 Cannabis use, unspecified, uncomplicated; F43.11 Post-traumatic stress disorder, acute | CPT/HCPCS: 99232 ==